=== PATIENT | male | born 1950 | race Caucasian/White ===

== ENCOUNTER 2017-04-24 14:22 | Emergency (ER) | payer MEDICARE, MEDICAID ==
--- NOTE | 2017-04-24 15:04 | ED Physician Chart ---
ED Chief Complaint/HPI - Patient Information Date Seen:: 04/24/17 Time Seen:: 15:03 Chief Complaint:: Cough History of Present Illness:: 67yo male had cough productive of clear sputum for a week, with SOB. He had chest pain due to severe cough. Allergies:: Allergies Allergy/AdvReac Type Severity Reaction Status Date / Time No Known Allergies Allergy Verified 04/24/17 14:34 Vitals:: Vital Signs - 8 hr 04/24/17 14:34 Temp 98.1 F HR 75 RR 16 BP 116/72 O2 Sat % 98 ED Review of Systems - Review of Systems General/Constitutional: No fever Skin: No rash Head: No headache Eyes: No pain ENT: No nasal drainage, Other (hearing, impaired) Neck: No neck pain Cardio Vascular: No chest pain Pulmonary: SOB, Cough, Sputum GI: No nausea, No vomiting Musculoskeletal: No bone or joint pain Psychiatric: No prior psych history Neurological: No focal symptoms ED Past Medical History - Past Medical History Past Medical History: HTN, CVA/TIA, Other (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, [place]) Social History: Non Smoker, Alcohol, No Drug Use Surgical History: Appendectomy, Cholecystectomy Family Medical History - Family Member Mother Hx Family Cancer: No Hx Family Hypertension: No Hx Family Stroke: No Hx Family Diabetes: No Hx Family Seizures: No Hx Family AIDS: No Hx Family HIV: No Hx Family Hepatitis: No Hx Family Tuberculosis: No ED Physical Exam - Physical Examination General/Constitutional: Awake Head: Atraumatic Eyes: PERRL Skin: No skin lesions ENMT: Nasal exam nl Neck: No nuchal rigidity Other Respiratory comments:: Port-A-Cath intact, cough, rhonchi Cardio Vascular: RRR, No murmur, gallop, rubs, NL S1 S2 GI: No tenderness/rebounding/guarding Extremities: normal strength in all extremities Neuro/Psych: Normal sensory exam ED Labs/Radiology/EKG Results - Radiology Results Results: CXR: increased lung markings, no focal consolidation, Port-A-cath presented ED Assessment - Assessment General Assessment: Bronchitis Hypoxemia Assessment/Comments:: CBC, CMP ABG Rocephin IV Azithromycin IV DuoNeb Robitussin D/c home Azithromycin 250mg PO x 5 days F/u PCP or return to ER if symptoms worsen ED Septic Shock - . Is Septic Shock (SBP<90, OR Lactate>4 mmol\L) present?: No - <6hrs of presentation: Vital Signs: Vital Signs - 8 hr 04/24/17 14:34 Temp 98.1 F HR 75 RR 16 BP 116/72 O2 Sat % 98 ED Reassessment (Disposition) - Reassessment Reassessment Condition:: Improved - Patient Disposition Discharge/Transfer:: Home ED Discharge Plan - Patient Disposition Admit/Discharge/Transfer: PT DISCHARGED HOME Condition at Disposition: Stable Instructions: Bronchitis, [id number] Additional Instructions: MAKE A FOLLOW UP WITH PRIMARY MEDICAL DOCTOR EMPERATRIZ, COMPLY WITH PRESCRIBED MEDICATION, DRINK PLENTY OF FLUIDS, GO BACK TO EMERGENCY ROOM IF SYMPTOMS WORSEN.
[2017-04-24] MEDS ORDERED: Albuterol/Ipratropium Neb 3 ML AERS HHN ONE ×4 (15:32→20:13)
[2017-04-24 15:44] LABS: pH 7.44 (7.35-7.45)
[2017-04-24 15:47] LABS: % EOSINOPHILS 1.6 % (0.0-5.0); % LYMPHOCYTES 23.8 % (20.0-50.0); % MONOCYTES 8.4 % (2.0-10.0); % NEUTROPHILS 65.2 % (40.0-80.0); EOSINOPHILE ABSOLUTE 0.1 Th/cmm (0.1-0.4); HEMATOCRIT 38.9 % (41.0-60); HEMOGLOBIN 13.1 gm/dL (12-16); LYMPHOCYTE ABSOLUTE 1.1 Th/cmm (1.5-3.0); MEAN CELL VOLUME 92.1 fl (80-99); MEAN CORPUSCULAR HEMOGLOBIN 31.1 pg (27.0-31.0); MEAN CORPUSCULAR HGB CONC 33.7 pg (28.0-36.0); MEAN PLATELET VOLUME 9.4 fl; MONOCYTE ABSOLUTE 0.4 Th/cmm (0.3-1.0); NEUTROPHILE ABSOLUTE 2.9 Th/cmm (1.8-8.0); PLATELET COUNT 75 Th/cmm (150-400); RED BLOOD COUNT 4.23 Mil/cmm (3.80-5.80); RED CELL DISTRIBUTION WIDTH 15.1 % (11.5-20.0); WHITE BLOOD COUNT 4.5 Th/cmm (4.8-10.8)
[2017-04-24] MEDS ORDERED: Guaifenesin DM 10 ML UDC PO ONE (16:52)
[2017-04-24] MEDS ORDERED: Azithromycin 500 MG in Sodium Chloride 0.9% 250 ML IV ONE (16:58)
[2017-04-24] MEDS ORDERED: Guaifenesin DM 10 ML UDC ONE (16:59)
[2017-04-24] MEDS ORDERED: cefTRIAXone 1 GM in Sodium Chloride 0.9% 50 ML IV ONE (16:59)
[2017-04-24 17:33] LABS: ALB/GLOB RATIO 2.2 (1.0-1.8); ALBUMIN 4.2 gm/dL (4.2-5.5); ALKALINE PHOSPHATASE 73 U/L (34-104); ANION GAP 15.4 (7.0-16.0); BILIRUBIN,TOTAL 0.5 mg/dL (0.3-1.0); BUN - UREA NITROGEN 14 mg/dL (7-25); CALCIUM SERUM 9.2 mg/dL (8.6-10.3); CARBON DIOXIDE 22.8 mEq/L (21.0-31.0); CHLORIDE 106 mEq/L (98-107); CHOLESTEROL 111 mg/dL (<200); CREATININE - SERUM 0.8 mg/dL (0.7-1.3); GFR AFRICAN-AMERICAN > 60.0 ml/min (>90); GFR NON AFRICAN-AMERICAN > 60.0 ml/min; GLUCOSE 125 mg/dL (70-105); HDL -HIGH DENSITY LIPOPROTEIN 28 mg/dL (23-92); POTASSIUM SERUM 4.2 mEq/L (3.5-5.1); SGOT 21 U/L (13-39); SGPT/ALT 23 U/L (7-52); SODIUM SERUM 140 mEq/L (136-145); TOTAL PROTEIN,SERUM 6.1 gm/dL (6.0-8.3); TRIGLYCERIDES 92 mg/dL (<150)
--- NOTE | 2017-04-25 08:55 | Diagnostic Imaging Report ---
CHEST X-RAY: AP view INDICATION: Cough COMPARISON: None FINDINGS: Right-sided Port-A-Cath is seen tip in the SVC. There is evidence of prior median sternotomy. Increased interstitial lung markings are noted with no focal consolidation or effusions. Heart size at the upper limits of normal. Tortuous aorta is noted with atherosclerosis. Degenerative changes of the spine are noted. IMPRESSION: Increased interstitial lung markings, nonspecific and may be chronic. No focal consolidation identified. Atherosclerosis with tortuous aorta Postsurgical changes.
== END 2017-04-24 20:30 | disposition home or self-care (01) ==
LOC: ER 14:22
DX: R05 Cough (principal); I10 Essential (primary) hypertension; Z86.73 Personal history of transient ischemic attack (TIA), and cerebral infarction without residual deficits
CPT/HCPCS: 99285; 96365; 96368; 82803; 36600; 94640 ×2; 93005; 71045; 84484; 83880; 36415; 85025; 80053; 80061; J0696; J0456

== ENCOUNTER 2017-04-27 11:31 | Inpatient (IN) | payer MEDICARE, MEDICAID ==
--- NOTE | 2017-04-27 11:41 | ED Physician Chart ---
ED Chief Complaint/HPI - Patient Information Date Seen:: 04/27/17 Time Seen:: 11:30 Chief Complaint:: Fever History of Present Illness:: onset x one week of fever, cough, congestion, and dyspnea; worse today; pt denies H/As, S/T, neck pain, C/P, Abd. Pain, A/N/V/D/C, chills, or urinary s/s Allergies:: Allergies Allergy/AdvReac Type Severity Reaction Status Date / Time No Known Allergies Allergy Verified 04/24/17 14:34 Historian:: Patient Review:: Nurse's Note Reviewed ED Review of Systems - Review of Systems General/Constitutional: Fever, No chills, No weight loss, No weakness, No diaphoresis, No edema, No loss of appetite Skin: No skin lesions, No rash, No bruising Head: No headache, No light-headedness Eyes: No loss of vision, No pain, No diplopia ENT: No earache, No nasal drainage, No sore throat, No tinnitus Neck: No neck pain, No swelling, No thyromegaly, No stiffness, No mass noted Cardio Vascular: No chest pain, No palpitations, No PND, No orthopnea, No edema Pulmonary: No SOB, Cough, No sputum, Wheezing GI: No nausea, No vomiting, No diarrhea, No pain, No melena, No hematochezia, No constipation, No hematemesis G/U: No dysuria, No frequency, No hematuria, No nacturia Musculoskeletal: No bone or joint pain, No back pain, No muscle pain Endocrine: No polyuria, No polydipsia Psychiatric: No prior psych history, No depression, No anxiety, No suicidal ideation, No homicidal ideation, No auditory hallucination, No visual hallucination Hematopoietic: No bruising, No lymphadenopathy Allergic/Immuno: No urticaria, No angioedema Neurological: No syncope, No focal symptoms, No weakness, No paresthesia, No headache, No seizure, No dizziness, No confusion, No vertigo ED Past Medical History - Past Medical History Obtainable: Yes Past Medical History: HTN, CAD, Asthma/COPD, Dyslipidemia, Other (Non-Hogkins Lymphoma) Family History: Diabetes Melitus, HTN Social History: Smoker, No Alcohol, No Drug Use, Single Surgical History: Appendectomy, CABG Psychiatricy History: None Medication: Reviewed Family Medical History - Family Member Mother Hx Family Cancer: No Hx Family Hypertension: No Hx Family Stroke: No Hx Family Diabetes: No Hx Family Seizures: No Hx Family AIDS: No Hx Family HIV: No Hx Family Hepatitis: No Hx Family Tuberculosis: No ED Physical Exam - Physical Examination General/Constitutional: Awake, Well-developed, well-nourished, Alert, No distress, GCS 15, Non-toxic appearing, Ambulatory Head: Atraumatic Eyes: Lids, conjuctiva normal, PERRL, EOMI Skin: Nl inspection, No rash, No skin lesions, No ecchymosis, Well hydrated, No lymphadenopathy ENMT: External ears, nose nl, TM canals nl, Nasal exam nl, Lips, teeth, gums nl , Oropharynx nl, Tonsils nl Neck: Nontender, Full ROM w/o pain, No JVD, No nuchal rigidity, No bruit, No mass, No stridor Respiratory: Nl effort/Exclusion Other Respiratory comments:: Lungs: + Rales, Rhonchi, and Wheezes Cardio Vascular: RRR, No murmur, gallop, rubs, NL S1 S2, Carotid/Femoral/Distal pulses equal bilaterally GI: No tenderness/rebounding/guarding, No organomegaly, No hernia, Normal BS's, Nondistended, No mass/bruits, No McBurney tenderness : No CVA tenderness Extremities: No tenderness or effusion, Full ROM, normal strength in all extremities, No edema, Normal digits & nails Neuro/Psych: Alert/oriented, DTR's symmetric, Normal sensory exam, Normal motor strength, Judgement/insight normal, Mood normal, Normal gait, No focal deficits Misc: Normal back, No paraspinal tenderness ED Labs/Radiology/EKG Results - Lab Results Comments:: unremarkable - Radiology Results Comments:: CXR: + LLL Infiltrate - EKG Interpretations EKG Time:: 12:07 Rate & Rhythm: 62; NSR Comments:: non-specific st-t changes ED Septic Shock - . Is Septic Shock (SBP<90, OR Lactate>4 mmol\L) present?: No ED Reassessment (Disposition) - Reassessment Reassessment Condition:: Improved - Diagnosis Diagnosis:: Dx: Pneumonia; Cough; Fever; Sepsis; Dyspnea; Bronchospasms;
[2017-04-27] MEDS ORDERED: Sodium Chloride 0.9% 1,000 ML IV ONE (11:42)
[2017-04-27] MEDS ORDERED: Albuterol/Ipratropium Neb 3 ML AERS HHN ONE ×2 (11:43→12:01)
[2017-04-27] MEDS ORDERED: Levofloxacin 500mg/100mL 500 MG/100 ML BAG IV ONE ×2 (11:44→12:08)
[2017-04-27 12:03] LABS: % BASOPHILS 0.4 % (0.0-2.0); % EOSINOPHILS 1.9 % (0.0-5.0); % LYMPHOCYTES 20.8 % (20.0-50.0); % MONOCYTES 6.1 % (2.0-10.0); % NEUTROPHILS 70.8 % (40.0-80.0); EOSINOPHILE ABSOLUTE 0.1 Th/cmm (0.1-0.4); HEMATOCRIT 39.2 % (41.0-60); LYMPHOCYTE ABSOLUTE 1.1 Th/cmm (1.5-3.0); MEAN CELL VOLUME 91.7 fl (80-99); MEAN CORPUSCULAR HEMOGLOBIN 30.5 pg (27.0-31.0); MEAN CORPUSCULAR HGB CONC 33.3 pg (28.0-36.0); MEAN PLATELET VOLUME 9.8 fl; MONOCYTE ABSOLUTE 0.3 Th/cmm (0.3-1.0); NEUTROPHILE ABSOLUTE 3.9 Th/cmm (1.8-8.0); PLATELET COUNT 88 Th/cmm (150-400); RED BLOOD COUNT 4.27 Mil/cmm (3.80-5.80); RED CELL DISTRIBUTION WIDTH 14.4 % (11.5-20.0); WHITE BLOOD COUNT 5.4 Th/cmm (4.8-10.8)
[2017-04-27 12:22] LABS: INR 1.06 (0.5-1.4)
[2017-04-27 12:28] LABS: TROP I 0.01 ng/mL (0.01-0.05)
[2017-04-27 12:30] LABS: ALB/GLOB RATIO 2.2 (1.0-1.8); ALBUMIN 4.2 gm/dL (4.2-5.5); ALKALINE PHOSPHATASE 69 U/L (34-104); ANION GAP 9.3 (7.0-16.0); BILIRUBIN,TOTAL 0.7 mg/dL (0.3-1.0); BUN - UREA NITROGEN 15 mg/dL (7-25); CALCIUM SERUM 9.1 mg/dL (8.6-10.3); CARBON DIOXIDE 27.8 mEq/L (21.0-31.0); CHLORIDE 106 mEq/L (98-107); CREATININE - SERUM 0.7 mg/dL (0.7-1.3); CREATININE KINASE 91 U/L (30-223); GFR AFRICAN-AMERICAN > 60.0 ml/min (>90); GFR NON AFRICAN-AMERICAN > 60.0 ml/min; GLUCOSE 144 mg/dL (70-105); POTASSIUM SERUM 4.1 mEq/L (3.5-5.1); SGOT 16 U/L (13-39); SGPT/ALT 20 U/L (7-52); SODIUM SERUM 139 mEq/L (136-145); TOTAL PROTEIN,SERUM 6.1 gm/dL (6.0-8.3)
[2017-04-27 12:44] LABS: AMYLASE SERUM 30 U/L (29-103); LIPASE 15 U/L (11-82)
--- NOTE | 2017-04-27 13:17 | Diagnostic Imaging Report ---
Portable chest x-ray HISTORY: Pain Exam is compared with prior study of April 242017. The heart appears generous in size. Atherosclerotic calcination seen in the tortuous thoracic aorta. There is a somewhat protuberant contour of the mid thoracic aorta. Aneurysm cannot be excluded. If needed, a CT scan would provide additional assessment. No acute focal pulmonary processes. Surgical changes noted. IMPRESSION: 1. No acute pulmonary processes 2. Generous heart size with suggestion of a protuberant contour of the thoracic aorta. This may be related to tortuosity. However, aneurysm formation cannot be excluded. If necessary, a CT scan would provide additional assessment. 3. Surgical changes The emergency department ([facility]) was notified of the abnormal findings April 27, 2017 (1:10 PM).
[2017-04-27 14:02] LABS: URINE MICROSCOPIC INDICATED? YES; URINE SOURCE MIDSTREAM
[2017-04-27 14:06] LABS: URINE BILIRUBIN NEGATIVE (NEGATIVE); URINE BLOOD NEGATIVE (NEGATIVE); URINE GLUCOSE (UA) NEGATIVE (NEGATIVE); URINE KETONE NEGATIVE (NEGATIVE); URINE LEUKOCYTE ESTERASE NEGATIVE (NEGATIVE); URINE NITRATE NEGATIVE (NEGATIVE); URINE PROTEIN NEGATIVE (NEGATIVE); URINE UROBILINOGEN 0.2 E.U./dL (0.2 - 1.0)
[2017-04-27 14:20] LABS: URINE CLARITY CLEAR (CLEAR); URINE COLOR YELLOW
[2017-04-27 14:21] LABS: URINE BACTERIA NONE SEEN /hpf (NONE SEEN); URINE EPITHELIAL CELLS RARE /lpf (FEW); URINE RBC 0-2 /hpf (0-5); URINE WBC NONE SEEN /hpf (0-5)
[2017-04-27] MEDS: Albuterol/Ipratropium Neb 3 ML AERS HHN PRN (23:12)
--- NOTE | 2017-04-28 00:16 | ER Physician Documentation ---
DATE OF SERVICE: A 67-year-old male patient. In ER, the patient is full code. ALLERGIES: No known allergies. "I got all the lab results, let me give it to you, so you can put it in the computer." LABORATORY DATA: WBC is 5.4, platelet count is 88,000. Protime is within normal limits. Electrolytes are within normal limits. Sodium 139, potassium 4.1, chloride 106, BUN 15, creatinine 0.7, glucose 144. Whole-blood lactic acid is 1.72, calcium is 9.1. Alkaline phosphatase is 69. Albumin globulin is within normal limits. Amylase is 30 and urine is essentially within normal limits. The patient's current medications that he is taking, include Plavix 75 mg 1 tablet a day, Coreg 12.5 mg twice a day, Lasix 40 mg once a day, Proscar 5 mg p.o. at bedtime, Isordil 60 mg p.o. once a day, lisinopril 40 mg p.o. twice a day, atorvastatin 40 mg once a day, Flomax 0.4 mg 1 at bedtime and the patient is getting one of the newer kind of beta blockers, I believe, which Carisoprodol 350 mg twice a day whether it is one of the cancer drugs or not, I do not know and the patient is getting a Soma compound, Soma as needed and oxycodone 15 mg 3 tablets or more as needed, vitamin D3 1000 units twice a day, multivitamin 1 a day, aspirin 81 mg a day, glucosamine hydrochloride 1500 mg once a day. List of all the conditions that the patient, this is for the benefit of Dr. Martinez. The patient has congestive heart failure. The patient has hypertension. The patient had a heart attack in the year 1999, stroke in the year 2000, coronary artery bypass graft surgery on 10/26/2001 by ____, must be the primary doctor. . The patient is going to [facility], telephone number [phone] and in emergency call Rafa Ayala, . The patient had acute appendicitis on 07/30/2014. The patient had rectal surgery on 12/11/2014, gallbladder surgery on 06/11/2015. The patient has a coronary artery stent put in on 02/22/2016. Vital signs are essentially, 98.1, 68 pulse, respirations 22, blood [id number], oxygen saturation 96%, height 5 feet 7 inches, weight [address] Martinez was called. He was having dinner. He is going to call me back for probably admission into the hospital with a diagnosis of acute tracheobronchitis. The chest x-ray does not show any definite evidence of pneumonitis. The EKG shows evidence of small inferior wall nondiagnostic Q-waves and poor R-wave progression across the precordium, but there is definitely no anteroseptal wall myocardial infarction seen. If there is one, one cannot be sure by looking at this EKG. A 2D echo would be helpful to define that, but considering his medical condition, it is possible that he may have had a previous old anteroseptal wall myocardial infarction. The platelet count is 98,000. Chest x-ray shows no acute pulmonary process. Generous heart size with suggestion of protuberant contour of the thoracic aorta. This may be related to tortuosity; however aneurysm formation cannot be excluded and if necessary a CT scan would provide additional assessment. Surgical changes of myocardial revascularization surgery are seen, reported by Dr. Brenden Chen. Thank you very much for this privilege and for your kindness in doing all these things. JOB# [id number]
[2017-04-28] MEDS: Azithromycin 500 MG in Sodium Chloride 0.9% 250 ML IV SCH ×2 (00:20→22:14)
[2017-04-28] MEDS: Guaifenesin DM 10 ML UDC PO PRN (01:30)
[2017-04-28] MEDS: Albuterol/Ipratropium Neb 3 ML AERS HHN PRN ×2 (01:34→05:13)
[2017-04-28 05:12] LABS: pH 7.44 (7.35-7.45)
[2017-04-28 05:13] LABS: ALLEN TEST Positive
[2017-04-28 05:26] VITALS: BP 155/60
[2017-04-28 06:02] LABS: % BASOPHILS 0.1 % (0.0-2.0); % EOSINOPHILS 0.1 % (0.0-5.0); MONOCYTE ABSOLUTE 0.2 Th/cmm (0.3-1.0)
[2017-04-28] MEDS: methylPREDNISolone SS 40 mg Vial IV SCH ×3 (06:03→22:12)
[2017-04-28 06:07] LABS: % LYMPHOCYTES 13.4 % (20.0-50.0); % MONOCYTES 3.8 % (2.0-10.0); % NEUTROPHILS 82.6 % (40.0-80.0); HEMATOCRIT 37.9 % (41.0-60); LYMPHOCYTE ABSOLUTE 0.8 Th/cmm (1.5-3.0); MEAN CORPUSCULAR HEMOGLOBIN 30.8 pg (27.0-31.0); MEAN CORPUSCULAR HGB CONC 34.2 pg (28.0-36.0); MEAN PLATELET VOLUME 9.4 fl; NEUTROPHILE ABSOLUTE 4.8 Th/cmm (1.8-8.0); PLATELET COUNT 63 Th/cmm (150-400); RED BLOOD COUNT 4.21 Mil/cmm (3.80-5.80); RED CELL DISTRIBUTION WIDTH 14.4 % (11.5-20.0); WHITE BLOOD COUNT 5.8 Th/cmm (4.8-10.8)
[2017-04-28 06:25] LABS: ALB/GLOB RATIO 2.4 (1.0-1.8); ALBUMIN 4.3 gm/dL (4.2-5.5); ALKALINE PHOSPHATASE 67 U/L (34-104); ANION GAP 11.3 (7.0-16.0); BILIRUBIN,TOTAL 0.5 mg/dL (0.3-1.0); BUN - UREA NITROGEN 13 mg/dL (7-25); CALCIUM SERUM 9.2 mg/dL (8.6-10.3); CARBON DIOXIDE 24.6 mEq/L (21.0-31.0); CHLORIDE 105 mEq/L (98-107); CREATININE - SERUM 0.7 mg/dL (0.7-1.3); GFR AFRICAN-AMERICAN > 60.0 ml/min (>90); GFR NON AFRICAN-AMERICAN > 60.0 ml/min; GLUCOSE 169 mg/dL (70-105); LDH = LACTIC DEHYDROGENASE 157 U/L (140-271); MAGNESIUM 2.6 mg/dL (1.9-2.7); POTASSIUM SERUM 3.9 mEq/L (3.5-5.1); SGOT 14 U/L (13-39); SGPT/ALT 19 U/L (7-52); SODIUM SERUM 137 mEq/L (136-145); TOTAL PROTEIN,SERUM 6.1 gm/dL (6.0-8.3)
[2017-04-28] MEDS ORDERED: Budesonide 0.5 Mg/2 mL Ud HHN SCH (07:00)
[2017-04-28] MEDS: Albuterol/Ipratropium Neb 3 ML AERS HHN SCH ×3 (07:34→18:57)
[2017-04-28] MEDS: Aspirin 81mg Chewable Tab PO SCH (08:30)
--- NOTE | 2017-04-28 09:48 | Diagnostic Imaging Report ---
Exam: CT examination of the chest HISTORY: Shortness of breath. Total DLP equals 371 CTDI equals 9.1 Findings: Multiple contiguous thin section of the chest were obtained from thoracic outlet to the upper abdomen without the administration of contrast material no prior studies available comparison. The study demonstrates normal appearance of great vessels of the neck. Adenopathy is difficult to exclude due to lack of the contrast material Multiple metallic sutures are noted status post transsternal thoracotomy. The aortic arch calcified. The heart is not enlarged. No acute pulmonic infiltrates or effusions are noted. Bony thorax remarkable for degenerative changes of the distal thoracic spine. There is no evidence for lytic or blastic lesions. The visualized the upper abdomen is intact. There is evidence for small lucency in the posterior aspect of right lobe of liver most likely represent small cysts. There is evidence of previous cholecystectomy. The visualized the adrenal glands intact. IMPRESSION: Essentially unremarkable examination of chest. Mild atelectatic change in the right base.
[2017-04-28] MEDS ORDERED: Pneumococcal Vaccine 0.5 mL Vial IM ONE (10:30)
[2017-04-28] MEDS ORDERED: Influenza Vaccine 0.5 mL Syr IM ONE (10:30)
--- NOTE | 2017-04-28 11:35 | History & Physical ---
ADMIT DATE: 04/28/2017 PATIENT'S IDENTIFICATION: A 67-year-old male. CHIEF COMPLAINT: Cough, congestion, and shortness of breath per 1 week, got worse on the day of presentation. HISTORY OF PRESENT ILLNESS: A 67-year-old male with history of coronary artery disease, hypertension, DJD, history of asthma, COPD, history of non-Hodgkin's lymphoma, presented to [facility] Emergency Room for evaluation of his above-mentioned symptoms. The patient was evaluated and subsequently advised to be admitted after the patient was continued to have congestion, shortness of breath associated with extensive wheezing and chest x-ray did reveal questionable infiltrate. PAST MEDICAL HISTORY: Remarkable for: 1. Hypertension. 2. Coronary artery disease. 3. Asthma, COPD. 4. Hyperlipidemia. 5. Non-Hodgkin's lymphoma. 6. DJD. 7. Chronic pain syndrome. 8. History of appendectomy and gallbladder surgery along with coronary artery bypass graft. MEDICATIONS: Medication list has been reviewed and reconciled appropriately. ALLERGIES: The patient is not allergic to medication. SOCIAL HISTORY: The patient lives by himself. The patient is an ex-smoker. No alcohol use or no drug use. The patient currently on prescription medication for his pain. FAMILY MEDICAL HISTORY: Remarkable for diabetes and hypertension. REVIEW OF SYSTEMS: The patient currently denies any fever, chills, abdominal pain, nausea, vomiting, headache, seizure, syncopal episode, no suicidal or homicidal ideation. PHYSICAL EXAMINATION: GENERAL: The patient is alert and awake, lying in the bed without any acute distress. VITAL SIGNS: Temperature 98.8, pulse is 100, respiratory rate is 18, blood pressure 131/51. HEENT: Normocephalic, atraumatic. Extraocular muscles are intact. Tongue more pink and coated. Oropharynx is congested. Nasal mucosa congested. NECK: Supple. No JVD. No hepatojugular reflux. No lymphadenopathy, thyromegaly or carotid bruit. HEART: Both heart sounds are regular. No pericardial bulge. Grade 2/6 systolic murmur noted. CHEST: Lung equal in expansion, expiratory wheezing. ABDOMEN: Soft. No guarding, no rigidity. Liver and spleen are not palpable. No palpable mass. EXTREMITIES: No edema, no cyanosis or clubbing. Peripheral pulses +2. No coughing noted. NEUROLOGIC: Alert, awake, oriented to time, place, and person. 2-12 cranial nerves are intact. Power in upper and lower extremities are 5+. Sensory to touch intact. [place] in both toes are going down. No cerebral sign. AVAILABLE DIAGNOSTIC DATA: White count of 5.4, hemoglobin 13, platelet count of 88. PT and PTTs are normal. Sodium 139, potassium 4.1, chloride 106, CO2 27.8, BUN and creatinine is 15 and 0.7, glucose of 144. Liver functions are normal. Albumin is 4.2. Urinalysis is unremarkable. The patient did have a chest x-ray, which read by radiologist, no acute cardiopulmonary ___, remarkable for cardiomegaly. EKG, no ST-T change representing acute ischemia. CLINICAL IMPRESSION: 1. Acute respiratory failure. 2. Tracheobronchitis with bronchospasm, cannot rule out pneumonitis in the presence of immunocompromised state. 3. Hypertension. 4. Coronary artery disease. 5. Asthma, chronic obstructive pulmonary disease. 6. Degenerative joint disease. 7. History of non-Hodgkin's lymphoma. 8. Chronic pain syndrome. 9. Benign prostatic hypertrophy. PLAN: 1. The patient will be admitted to telemetry unit. 2. Provide oxygen. 3. Nebulizer treatment. 4. IV steroid. 5. IV antibiotic. 6. Pulmonary consult. 7. Pulmonary toilet. 8. ABG. 9. CT chest. 10. Serum LDH for looking at activity of non-Hodgkin's lymphoma. 11. Appropriate home medicine reconciliation. 12. Pain management. 13. Symptoms controlled. 14. Medication management. 15. General nursing care. 16. Cardiac monitoring. 17. Await for further diagnostic studies. 18. Care plan reviewed and discussed with the patient as well as staff. JOB# [id number]
[2017-04-28] MEDS: Multivitamin Tab PO SCH (12:51)
[2017-04-28] MEDS ORDERED: VTE Chemical Prophylaxis Screen/Admission MC PRN (14:15)
[2017-04-28] MEDS: Budesonide 0.5 Mg/2 mL Ud HHN SCH ×2 (18:58→19:15)
--- NOTE | 2017-04-29 03:05 | Progress Notes ---
DATE: 04/28/2017 PULMONARY/CRITICAL CARE CONSULTATION NOTE REASON FOR CONSULTATION: Shortness of breath, suspect sleep apnea syndrome. CONSULT NOTE: This is a 67-year-old gentleman who is a nonsmoker, has recently finished lymphoma non-Hodgkin's type B chemotherapy in [place]. Apparently, the patient is going to and fro from [place] to [place], as he lived in [place] for a long time and now he lives with the family. While visiting, the patient did get the last 2 days, more coughing, more wheezing, questionable fever with generalized chest tightness with lot of runny stuffy nose. Subsequently, as the symptom persisted, the patient came to the hospital for further care and necessary treatment. The patient had a similar episode in the month of January. He took some Z-ROSALVA and was fairly better. The patient has significantly gained weight over the last 2-3 years per chronic edematous changes, cannot lie down flat, has some dyspeptic symptomatology. Currently has significant post sinus dribbling as well. Does not recall of any headache or denies of any other palpitation, any nausea or vomiting. PAST MEDICAL HISTORY: Previous bypass surgery, recent stent placement, history of CVA, history of "congestive heart failure", history of degenerative joint disease, history of hypertension, history of lymphoma type B non-Hodgkin's, finished treatment couple of months ago and history of suspect of severe obstructive sleep apnea syndrome. MEDICATIONS: Multiple, see reconciled list. SMOKING HISTORY: Nil. 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 ALLERGIC HISTORY: Not to any allergens etc. FAMILY HISTORY: Noncontributory. SURGICAL HISTORY: Multiple including history of heart surgery, some rectal surgery, cholecystectomy, appendectomy, etc. PHYSICAL EXAMINATION: GENERAL: This is an heavy set, middle-aged looking gentleman, awake, alert, and oriented. He has quite a bit of coughing at my exam. Not in acute distress. VITAL SIGNS: On exam, temperature is 98.6, heart rate is in 80s, BP is 136/51, respirations 20, saturation is on 90s on 2 liters of nasal cannula. HEENT: Examination of the head is essentially unremarkable. Pupils appear to be equal and reactive to light. Conjunctivae are pink. Oral cavity shows small oropharyngeal opening with slight inflammatory changes. NECK: Short. No palpable nodes in the neck could be palpated. CHEST: Shows scattered wheezing with marked diminished air entry. ABDOMEN: Quite protuberant with multiple surgical scars. EXTREMITIES: Shows a venous bypass surgery in the left side with chronic edematous changes and a chest x-ray is clear. CT of the chest shows some pleural base disorder with some lower lobe minor atelectasis. LABORATORY DATA: The patient's pertinent laboratory studies, platelet is 88,000, white count of 5.4, hemoglobin 13. The patient's ABG done this morning, pO2 is 74 on room air and the patient's sugar is 169 and urine shows 2+ RBC. IMPRESSION: 1. The patient has a severe acute tracheobronchitis, most likely vitals less with change in weather. 2. History very strongly suggestive of chronic bronchial asthma. 3. History also very strongly suggestive of sleep apnea syndrome with right-sided failure, which has been probably ended up having a stroke, CVA, cardiac bypass surgery, stent placement, diabetic and hypertension. PLANS AND SUGGESTIONS: 1. Discussed with the patient at length the pros and cons about using and not using CPAP. He was deferred at this time. 2. Acute asthmatic bronchitis. We will continue steroid, increase inhalation of steroid dose. We will get a proton pump inhibitor medication and also agree with empiric antibiotic and we will see how he does in the next 24-48 hours and go from there. JOB# [id number]
[2017-04-29] MEDS: Albuterol/Ipratropium Neb 3 ML AERS HHN PRN ×2 (04:57→23:31)
[2017-04-29] MEDS: methylPREDNISolone SS 40 mg Vial IV SCH ×3 (05:04→21:11)
[2017-04-29 05:15] LABS: HEMATOCRIT 40.3 % (41.0-60); HEMOGLOBIN 13.4 gm/dL (12-16); MANUAL DIFF REQUIRED? YES; MEAN CORPUSCULAR HEMOGLOBIN 30.9 pg (27.0-31.0); MEAN CORPUSCULAR HGB CONC 33.2 pg (28.0-36.0); MEAN PLATELET VOLUME 9.6 fl; PLATELET COUNT 71 Th/cmm (150-400); RED BLOOD COUNT 4.34 Mil/cmm (3.80-5.80); RED CELL DISTRIBUTION WIDTH 14.6 % (11.5-20.0); WHITE BLOOD COUNT 6.6 Th/cmm (4.8-10.8)
[2017-04-29 05:48] LABS: ALB/GLOB RATIO 2.1 (1.0-1.8); ALBUMIN 4.2 gm/dL (4.2-5.5); ALKALINE PHOSPHATASE 67 U/L (34-104); ANION GAP 12.2 (7.0-16.0); BILIRUBIN,TOTAL 0.5 mg/dL (0.3-1.0); BUN - UREA NITROGEN 16 mg/dL (7-25); CALCIUM SERUM 9.2 mg/dL (8.6-10.3); CARBON DIOXIDE 24.5 mEq/L (21.0-31.0); CHLORIDE 106 mEq/L (98-107); CREATININE - SERUM 0.7 mg/dL (0.7-1.3); GFR AFRICAN-AMERICAN > 60.0 ml/min (>90); GFR NON AFRICAN-AMERICAN > 60.0 ml/min; GLUCOSE 201 mg/dL (70-105); POTASSIUM SERUM 3.7 mEq/L (3.5-5.1); SGOT 13 U/L (13-39); SGPT/ALT 20 U/L (7-52); SODIUM SERUM 139 mEq/L (136-145); TOTAL PROTEIN,SERUM 6.2 gm/dL (6.0-8.3)
[2017-04-29 05:51] LABS: TOTAL CELLS COUNTED 100
[2017-04-29 05:52] LABS: BAND NEUTROPHILE 2 % (0-10); EOSINOPHIL 1 % (0-5); LYMPHOCYTE 12 % (20-50); MONOCYTE 2 % (2-10); NEUTROPHILS 83 % (40-80); PLATELET ESTIMATE SLIGHT DECREASED (NORMAL)
[2017-04-29] MEDS: Budesonide 0.5 Mg/2 mL Ud HHN SCH ×2 (07:26→19:28)
[2017-04-29] MEDS: Albuterol/Ipratropium Neb 3 ML AERS HHN SCH ×3 (07:26→19:03)
[2017-04-29] MEDS: Pantoprazole 40 mg/Packet PO SCH (08:15)
[2017-04-29] MEDS: Aspirin 81mg Chewable Tab PO SCH (08:51)
[2017-04-29] MEDS: Multivitamin Tab PO SCH (08:53)
[2017-04-29 16:37] LABS: A1C % 6.9 % (4.0-6.0)
[2017-04-29] MEDS: INSULIN ASPART SLIDING SCALE 100 UNITS/ML UNIT SUBQ SCH ×2 (17:21→23:26)
[2017-04-29 18:21] LABS: INF A SCREEN NEG FOR INF A; INF B SCREEN NEG FOR INF B
--- NOTE | 2017-04-29 20:54 | Progress Notes ---
DATE: PATIENT'S IDENTIFICATION: This 67-year-old female patient is seen and examined. The patient is lying in the bed. The patient stated that she is feeling better. The patient denies any abdominal pain. Denies any nausea, vomiting. Still has a cough. PHYSICAL EXAMINATION: VITAL SIGNS: Temperature 98, pulse 60, respiratory rate 18, and blood pressure 186/100. HEENT: Normocephalic and atraumatic. Extraocular muscles are intact. Tongue was pink and coated. NECK: Supple. No JVD. HEART: Regular. CHEST: Lungs ____ with mild expiratory wheezing. ABDOMEN: Soft. No guarding, rigidity. Bowel sounds are present. EXTREMITIES: No edema. CLINICAL IMPRESSION: 1. Asthma, chronic obstructive pulmonary disease exacerbation. 2. Acute respiratory failure. 3. Hypertension. 4. Coronary artery disease. 5. Degenerative joint disease. 6. History of known Hodgkin's lymphoma. 7. Chronic pain syndrome. 8. Elevated blood sugars. PLAN: 1. Oxygen. 2. Nebulizer treatment. 3. Decrease IV steroid. 4. Sliding scale insulin. 5. General nursing care. 6. Follow labs. 7. Follow consult recommendations. 8. Physical therapy and occupational therapy. 9. Care plan reviewed and discussed with staff. JOB# [id number]
[2017-04-29] MEDS: Azithromycin 500 MG in Sodium Chloride 0.9% 250 ML IV SCH (22:47)
[2017-04-30] MEDS: Guaifenesin DM 10 ML UDC PO PRN (00:52)
[2017-04-30] MEDS: Codeine /Guaifenesin 200mg-20mg/10 mL UDC PO PRN ×3 (05:04→14:11)
[2017-04-30] MEDS: methylPREDNISolone SS 40 mg Vial IV SCH ×3 (05:04→20:57)
[2017-04-30 05:30] LABS: PLATELET COUNT 73 Th/cmm (150-400); RED CELL DISTRIBUTION WIDTH 14.8 % (11.5-20.0)
[2017-04-30 05:33] LABS: HEMATOCRIT 39.2 % (41.0-60); HEMOGLOBIN 13.3 gm/dL (12-16); MEAN CELL VOLUME 92.1 fl (80-99); MEAN CORPUSCULAR HEMOGLOBIN 31.3 pg (27.0-31.0); MEAN PLATELET VOLUME 9.3 fl; RED BLOOD COUNT 4.26 Mil/cmm (3.80-5.80); WHITE BLOOD COUNT 6.7 Th/cmm (4.8-10.8)
[2017-04-30 05:41] LABS: MANUAL DIFF REQUIRED? YES
[2017-04-30 05:51] LABS: ALB/GLOB RATIO 2.5 (1.0-1.8); ALBUMIN 4.2 gm/dL (4.2-5.5); ALKALINE PHOSPHATASE 70 U/L (34-104); ANION GAP 10.8 (7.0-16.0); BILIRUBIN,TOTAL 0.5 mg/dL (0.3-1.0); BUN - UREA NITROGEN 18 mg/dL (7-25); CALCIUM SERUM 9.2 mg/dL (8.6-10.3); CARBON DIOXIDE 26.9 mEq/L (21.0-31.0); CHLORIDE 103 mEq/L (98-107); CREATININE - SERUM 0.7 mg/dL (0.7-1.3); GFR AFRICAN-AMERICAN > 60.0 ml/min (>90); GFR NON AFRICAN-AMERICAN > 60.0 ml/min; GLUCOSE 164 mg/dL (70-105); POTASSIUM SERUM 3.7 mEq/L (3.5-5.1); SGOT 15 U/L (13-39); SGPT/ALT 22 U/L (7-52); SODIUM SERUM 137 mEq/L (136-145); TOTAL PROTEIN,SERUM 5.9 gm/dL (6.0-8.3)
[2017-04-30 06:17] LABS: LYMPHOCYTE 3 % (20-50); MONOCYTE 6 % (2-10); NEUTROPHILS 91 % (40-80); TOTAL CELLS COUNTED 100
[2017-04-30 06:18] LABS: PLATELET ESTIMATE DECREASED PLATELETS (NORMAL)
[2017-04-30] MEDS: Albuterol/Ipratropium Neb 3 ML AERS HHN SCH ×3 (07:52→20:06)
[2017-04-30] MEDS: Budesonide 0.5 Mg/2 mL Ud HHN SCH ×2 (07:52→20:06)
--- NOTE | 2017-04-30 08:21 | Progress Notes ---
DATE: 04/28/2017 PROBLEM LIST: 1. Acute asthmatic bronchitis. 2. Severe obstructive sleep apnea syndrome. 3. B-cell lymphoma status post. 4. Morbid obesity. SYMPTOMS: Nil. Feeling a little better, still less congested, but still ____ of coughing. No respiratory distress, etc. PHYSICAL EXAMINATION: VITAL SIGNS: T-max 97.4, blood pressure 170/90, respirations 20, saturations is 19 on room air. NECK: Veins not visualized. CHEST: Shows diminished air entry with occasional rhonchi. HEART: Regular. ABDOMEN: Soft, nontender. EXTREMITIES: Shows no peripheral edema. LABORATORY DATA: White count is 6.3, hemoglobin 13.4 lymphocytes is 12. Electrolytes are okay. ASSESSMENT: 1. The patient has acute tracheobronchitis asthmatic. 2. Immunocompromised status. 3. Morbid obesity with obstructive sleep apnea syndrome with allergic rhinitis. PLANS AND SUGGESTIONS: We will continue current treatment and slowly taper steroid. We will go ahead and give symptomatic treatment with Robitussin-AC for a few days and continue rest of the treatment and see how he does and go from there. JOB# [id number]
[2017-04-30] MEDS: INSULIN ASPART SLIDING SCALE 100 UNITS/ML UNIT SUBQ SCH ×4 (08:25→21:08)
[2017-04-30] MEDS: Multivitamin Tab PO SCH (09:09)
[2017-04-30] MEDS: Aspirin 81mg Chewable Tab PO SCH (09:10)
[2017-04-30] MEDS: Pantoprazole 40 mg/Packet PO SCH (14:06)
[2017-04-30] MEDS ORDERED: Probiotic Screen MC PRN (14:15)
--- NOTE | 2017-04-30 17:26 | Cardiology ---
04/30/[address] Abbott. M-MODE ECHOCARDIOGRAM: Mitral valve, anterior leaflet of mitral valve shows normal excursion, EF velocity. Posterior leaflet of the mitral valve shows normal excursion. Left ventricle posterior shows increased thickness, normal excursion. Interventricular septum shows increased thickness, normal excursion, hypertrophy of the left ventricle, ejection fraction 73%. Left atrium enlarged 4.2 cm. Aortic root shows normal dimension, normal excursion of aortic leaflets. CONCLUSION: Hypertrophy of the left ventricle, left atrial enlargement, ejection fraction 73%. 2D ECHO: Long axis view showed normal sized left ventricle with hypertrophy of the left ventricle. Left atrium enlarged. Aortic root shows normal dimension, normal excursion of aortic leaflets. Short axis view of mitral valve normal. Short axis view of aortic valve normal. Apical four chamber view showed normal sized left ventricle with hypertrophy of the left ventricle. Left atrium enlarged. Right ventricular cavity, right atrium normal, no pericardial effusion. Ejection fraction 73%. CONCLUSION: Hypertrophy of the left ventricle. Left atrial enlargement, ejection fraction 73%. Doppler study shows trace mitral regurgitation, trace tricuspid regurgitation, right ventricular systolic pressure 31 mmHg. JOB# [id number]
[2017-04-30] MEDS: Azithromycin 500 MG in Sodium Chloride 0.9% 250 ML IV SCH (21:59)
[2017-05-01] MEDS: Albuterol/Ipratropium Neb 3 ML AERS HHN PRN (00:02)
[2017-05-01] MEDS: Guaifenesin DM 10 ML UDC PO PRN (00:52)
--- NOTE | 2017-05-01 01:36 | Progress Notes ---
DATE: 04/30/2017 SUBJECTIVE: The patient is seen and examined in room #9A. The patient is sitting in the chair. The patient stated that he cannot lie down because every time he lies down, he starts coughing and he felt like he is going to pass out. The patient denies any fever or chills. The patient denies any nausea, vomiting, diarrhea. The patient is status post radiation and chemotherapy for non-Hodgkin's lymphoma. PHYSICAL EXAMINATION: On today's exam, VITAL SIGNS: Temperature 98, pulse is 66, respiratory is 18, blood pressure 165/90. HEENT: Normocephalic, atraumatic. No facial asymmetry. Tongue was pink and coated. NECK: Supple. No JVD, no lymphadenopathy. HEART: Both heart sounds are regular. CHEST: Lung equal in expansion with decreased expiratory wheezing. ABDOMEN: Soft. No guarding, no rigidity. Bowel sounds are present. No palpable mass. EXTREMITIES: No edema. NEUROLOGIC: Nonfocal. AVAILABLE DIAGNOSTIC DATA: White count 6.7, hemoglobin 13.3, platelet count of 73,000, 91% neutrophils with 3% lymphocyte. Electrolytes are within normal limit. Glycohemoglobin A1c is 6.9, albumin globulin ratio is 2.5. CLINICAL IMPRESSION: 1. Persistent cough increases when he lies down. Chest x-ray does have cardiomegaly. The patient did received radiation and chemo in the past for Hodgkin's lymphoma. Needs to get the echocardiogram for further evaluation of his cough. 2. Thrombocytopenia. No baseline lab test, we will have hematology evaluation. 3. Coronary artery disease. 4. Hypertension. 5. Chronic pain syndrome. 6. Diabetes mellitus. PLAN: 1. Hematology/Oncology consultation. 2. 2D echocardiogram. 3. Oxygen. 4. Nebulizer treatment. 5. Sliding scale insulin. 6. General nursing care. 7. Follow lab. 8. Follow aerodynamic consultant recommendations. 9. Care plan reviewed and discussed with staff. JOB# [id number]
--- NOTE | 2017-05-01 04:56 | Progress Notes ---
DATE: 04/30/2017 PROBLEM LIST: 1. Acute asthmatic bronchitis. 2. Severe obstructive sleep apnea syndrome with morbid obesity with possibly gastroesophageal reflux disease. 3. Status post previous lymphoma. SYMPTOMS: The patient still complains of nocturnal coughing, but no specific new symptoms. PHYSICAL EXAMINATION: GENERAL: Not in acute distress, sitting down comfortably. VITAL SIGNS: Temperature is 97.4, blood pressure 140/99, respirations 20, saturations in the 90s on room air. NECK: Veins not visualized. CHEST: Shows occasional wheezing with diminished air entry. HEART: Regular. ABDOMEN: Soft, nontender. EXTREMITIES: Shows no peripheral edema. LABORATORY DATA: The patient's white count is 6.7, hemoglobin 7. ASSESSMENT: The patient is clinically much better, nocturnal orthopneic patient because of gastroesophageal reflux and/or possibly secondary to obstructive sleep apnea syndrome. PLANS AND SUGGESTIONS: We will add Pepcid at night besides Protonix. We will go ahead and add empirically BiPAP. Care and plan discussed with Dr. Abbott earlier. JOB# [id number]
[2017-05-01] MEDS: methylPREDNISolone SS 40 mg Vial IV SCH ×3 (05:28→20:24)
[2017-05-01] MEDS: Pantoprazole 40 mg/Packet PO SCH (06:52)
[2017-05-01] MEDS: Albuterol/Ipratropium Neb 3 ML AERS HHN SCH ×4 (07:21→19:18)
[2017-05-01] MEDS: Budesonide 0.5 Mg/2 mL Ud HHN SCH ×2 (07:41→19:17)
[2017-05-01] MEDS: Lactobacillus Rhamnosus GG 15 Billion CFU CAP.SPRINK PO SCH (09:18)
[2017-05-01] MEDS: Aspirin 81mg Chewable Tab PO SCH (09:18)
[2017-05-01] MEDS: Multivitamin Tab PO SCH (09:20)
[2017-05-01] MEDS: INSULIN ASPART SLIDING SCALE 100 UNITS/ML UNIT SUBQ SCH ×4 (09:23→21:31)
[2017-05-01] MEDS: oxyCODONE 5 mg IR Tab PO PRN (14:33)
--- NOTE | 2017-05-01 14:54 | Progress Notes ---
DATE: 05/01/2017 SUBJECTIVE: The patient seen and examined. The patient is sitting in the chair. The patient denies any chest pain or shortness of breath. Continues to cough when he lies down. Unable to sleep flat. The patient denies any abdominal pain. PHYSICAL EXAMINATION: VITAL SIGNS: Temperature 97, pulse is 66, respiratory 18, and blood pressure 153/90. HEENT: No facial asymmetry. NECK: Supple. No JVD. HEART: Regular. CHEST: Lung equal in expansion with mild expiratory wheezing. ABDOMEN: Soft. No guarding, no rigidity. Liver, spleen palpable. No palpable mass. EXTREMITIES: No edema, no cyanosis. CLINICAL IMPRESSION: 1. Chronic obstructive pulmonary disease exacerbation. 2. Obstructive sleep apnea. 3. Coronary artery disease. 4. Hypertension. 5. Thrombocytopenia. 6. History of non-Hodgkin's lymphoma. 7. Degenerative joint disease. 8. Diabetes mellitus. PLAN: 1. Await Hematology/Oncology followup. 2. 2D echocardiogram report pending. 3. Continue oxygen, nebulizer treatment, pulmonary toilet, IV steroids, IV antibiotic, general nursing care. 4. Chronic disease management system. Symptoms management. 5. Follow up on lab and risk and insurance consultant's recommendations. 6. Care plan reviewed and discussed. JOB# [id number]
--- NOTE | 2017-05-01 16:14 | Consultation ---
DATE OF CONSULTATION: HEMATOLOGY ONCOLOGY CONSULTATION REFERRING PHYSICIAN: Shaan Abbott M.D. REASON FOR CONSULTATION: Lymphoma and thrombocytopenia. 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 He is now getting Rituxan maintenance for a total of 2 years, every 2 months. The patient presented with shortness of breath and pneumonitis. His symptoms improved on antibiotics. He was found to have persistent thrombocytopenia; therefore, I was asked to evaluate. PAST MEDICAL HISTORY: Non-Hodgkin lymphoma April 2015; coronary artery disease, status post CABG; hypertension; COPD; dyslipidemia; obesity; chronic pain. PAST SURGICAL HISTORY: Appendectomy, gallbladder surgery, CABG surgery, and venous stripping from lower extremities. MEDICATIONS: Reviewed. FAMILY HISTORY: No malignancies. PHYSICAL EXAMINATION: GENERAL: The patient is awake, alert, oriented, not in distress. VITAL SIGNS: Afebrile. HEENT: Unremarkable. NECK: Supple. CHEST: Right-sided MediPort. Sternotomy scar well healed. ABDOMEN: Scars of previous surgery. Abdomen is obese. EXTREMITIES: Scars on both lower extremities of venous stripping and 2+ edema in both lower extremities. LABORATORY DATA: Platelets 73. The platelets since admission has been ranging between 70,000 and 80,000, white count and hemoglobin are normal. Coagulation panel normal. Chemistry unremarkable. Liver functions unremarkable. LDH is normal. ASSESSMENT: 1. Mild thrombocytopenia, most likely secondary to bone marrow suppression following the chemotherapy for the lymphoma treatment. There is no evidence of disseminated intravascular coagulation. There could be also an element of bone marrow suppression from the intercurrent pneumonitis and the use of antibiotics. This component showed recover in the next few weeks. 2. 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 Monitor the platelet count with no further intervention and start prophylactic dose of Lovenox. Thank you, Dr. Abbott for the opportunity to participate in the care of this interesting case. JOB# [id number]
[2017-05-01] MEDS: Azithromycin 500 MG in Sodium Chloride 0.9% 250 ML IV SCH (21:33)
[2017-05-02] MEDS: Albuterol/Ipratropium Neb 3 ML AERS HHN PRN ×3 (00:19→23:30)
[2017-05-02] MEDS: Codeine /Guaifenesin 200mg-20mg/10 mL UDC PO PRN ×2 (00:41→23:54)
--- NOTE | 2017-05-02 03:38 | Progress Notes ---
DATE: 05/01/2017 PULMONARY PROGRESS NOTE PROBLEM LIST: 1. Asthmatic bronchitis. 2. Persistent pertussis, coughing and also suspect obstructive sleep apnea syndrome. SYMPTOMS: Nil. Still coughing, feeling a little better. Did not use the BiPAP last night. Otherwise, okay, occasionally getting the sputum, etc. PHYSICAL EXAMINATION: VITAL SIGNS: The patient is afebrile, respirations 20s and also saturation is okay on room air. NECK: Veins not visualized. CHEST: Shows diminished air entry with occasional rhonchi. HEART: Regular. ABDOMEN: Soft, nontender. EXTREMITIES: Shows no peripheral edema. LABORATORY DATA: So far all the culture is nondiagnostic. ASSESSMENT: The patient has a severe obstructive sleep apnea syndrome, suspect gastroesophageal reflux associated with lymphocyte lymphoma type B non-Hodgkin's. PLANS AND SUGGESTIONS: We will continue current treatment. Encouraged to use BiPAP as much as we can and meantime continue rest of the treatment and go from there. JOB# [id number]
[2017-05-02] MEDS: methylPREDNISolone SS 40 mg Vial IV SCH ×3 (05:23→21:08)
[2017-05-02] MEDS: Guaifenesin DM 10 ML UDC PO PRN (05:24)
[2017-05-02] MEDS ORDERED: Pantoprazole 40 mg/Packet PO SCH (06:08)
[2017-05-02] MEDS: oxyCODONE 5 mg IR Tab PO PRN ×3 (06:28→23:53)
[2017-05-02 06:55] LABS: HEMATOCRIT 40.1 % (41.0-60); HEMOGLOBIN 13.5 gm/dL (12-16); MEAN CELL VOLUME 91.6 fl (80-99); MEAN CORPUSCULAR HGB CONC 33.8 pg (28.0-36.0); MEAN PLATELET VOLUME 9.2 fl; PLATELET COUNT 63 Th/cmm (150-400); RED BLOOD COUNT 4.37 Mil/cmm (3.80-5.80); RED CELL DISTRIBUTION WIDTH 14.3 % (11.5-20.0)
[2017-05-02] MEDS: Albuterol/Ipratropium Neb 3 ML AERS HHN SCH ×3 (07:05→19:17)
[2017-05-02] MEDS: Budesonide 0.5 Mg/2 mL Ud HHN SCH ×2 (07:05→19:16)
[2017-05-02 07:13] LABS: MANUAL DIFF REQUIRED? YES; WHITE BLOOD COUNT 4.6 Th/cmm (4.8-10.8)
[2017-05-02 07:36] LABS: ALBUMIN 3.9 gm/dL (4.2-5.5); ALKALINE PHOSPHATASE 60 U/L (34-104); ANION GAP 8.7 (7.0-16.0); BILIRUBIN,TOTAL 0.6 mg/dL (0.3-1.0); BUN - UREA NITROGEN 20 mg/dL (7-25); CALCIUM SERUM 8.8 mg/dL (8.6-10.3); CARBON DIOXIDE 27.7 mEq/L (21.0-31.0); CHLORIDE 103 mEq/L (98-107); CREATININE - SERUM 0.7 mg/dL (0.7-1.3); GFR AFRICAN-AMERICAN > 60.0 ml/min (>90); GFR NON AFRICAN-AMERICAN > 60.0 ml/min; GLUCOSE 173 mg/dL (70-105); MAGNESIUM 2.6 mg/dL (1.9-2.7); POTASSIUM SERUM 3.4 mEq/L (3.5-5.1); SGOT 19 U/L (13-39); SGPT/ALT 41 U/L (7-52); SODIUM SERUM 136 mEq/L (136-145); TOTAL PROTEIN,SERUM 5.9 gm/dL (6.0-8.3)
[2017-05-02] MEDS: INSULIN ASPART SLIDING SCALE 100 UNITS/ML UNIT SUBQ SCH ×4 (08:34→20:49)
[2017-05-02 09:21] LABS: BAND NEUTROPHILE 2 % (0-10); LYMPHOCYTE 12 % (20-50); MONOCYTE 3 % (2-10); NEUTROPHILS 83 % (40-80); PLATELET ESTIMATE DECREASED PLATELETS (NORMAL); TOTAL CELLS COUNTED 100
[2017-05-02] MEDS: Multivitamin Tab PO SCH (09:27)
[2017-05-02] MEDS: Aspirin 81mg Chewable Tab PO SCH (09:27)
[2017-05-02] MEDS: Enoxaparin 40 mg/0.4 mL 0.4mL Syr SUBQ SCH (09:28)
[2017-05-02] MEDS: Lactobacillus Rhamnosus GG 15 Billion CFU CAP.SPRINK PO SCH (09:28)
--- NOTE | 2017-05-02 11:52 | General Progress Note ---
Subjective - Review of Systems Service Date: 05/02/17 Objective - Results Result Diagrams: 05/02/17 05:30 05/02/17 05:30 Recent Labs: Laboratory Last Values WBC 4.6 Th/cmm (4.8-10.8) L D 05/02/17 05:30 RBC 4.37 Mil/cmm (3.80-5.80) 05/02/17 05:30 Hgb 13.5 gm/dL (12-16) 05/02/17 05:30 Hct 40.1 % (41.0-60) L 05/02/17 05:30 MCV 91.6 fl (80-99) 05/02/17 05:30 MCH 31.0 pg (27.0-31.0) 05/02/17 05:30 MCHC Differential 33.8 pg (28.0-36.0) 05/02/17 05:30 RDW 14.3 % (11.5-20.0) 05/02/17 05:30 Plt Count 63 Th/cmm (150-400) L 05/02/17 05:30 MPV 9.2 fl 05/02/17 05:30 Neutrophils % 82.6 % (40.0-80.0) H 04/28/17 05:33 Band Neutrophils % 2 % (0-10) 05/02/17 05:30 Lymphocytes % 13.4 % (20.0-50.0) L 04/28/17 05:33 Monocytes % 3.8 % (2.0-10.0) 04/28/17 05:33 Eosinophils % 0.1 % (0.0-5.0) 04/28/17 05:33 Basophils % 0.1 % (0.0-2.0) 04/28/17 05:33 Neutrophils (Manual) 83 % (40-80) H 05/02/17 05:30 Lymphocytes 12 % (20-50) L 05/02/17 05:30 Monocytes 3 % (2-10) 05/02/17 05:30 Eosinophils 1 % (0-5) 04/29/17 04:55 Platelet Estimate DECREASED PLATELETS (NORMAL) 05/02/17 05:30 PT 11.0 SECONDS (9.5-11.5) 04/27/17 11:40 INR 1.06 (0.5-1.4) 04/27/17 11:40 PTT (Actin FS) 26.3 SECONDS (26.0-38.0) 04/27/17 11:40 Specimen Source ARTERIAL 04/28/17 05:00 Sample Site Right Radial 04/28/17 05:00 pH 7.44 (7.35-7.45) 04/28/17 05:00 pCO2 35.0 mmHg (35.0-45.0) 04/28/17 05:00 pO2 74.0 mmHg (80.0-100.0) L 04/28/17 05:00 HCO3 24.9 mEq/L (20.0-26.0) 04/28/17 05:00 Base Excess 0.0 mEq/L (-3.0-3.0) 04/28/17 05:00 O2 Saturation 95.0 % (92.0-100.0) 04/28/17 05:00 Albin Test Positive 04/28/17 05:00 Vent Rate N/A 04/28/17 05:00 Inspired O2 21 04/28/17 05:00 Tidal Volume N/A 04/28/17 05:00 PEEP N/A 04/28/17 05:00 Pressure (ins/psv/peep) N/A 04/28/17 05:00 Critical Value LAYOUT FORMER 04/28/17 05:00 Sodium 136 mEq/L (136-145) 05/02/17 05:30 Potassium 3.4 mEq/L (3.5-5.1) L 05/02/17 05:30 Chloride 103 mEq/L (98-107) 05/02/17 05:30 Carbon Dioxide 27.7 mEq/L (21.0-31.0) 05/02/17 05:30 Anion Gap 8.7 (7.0-16.0) 05/02/17 05:30 BUN 20 mg/dL (7-25) 05/02/17 05:30 Creatinine 0.7 mg/dL (0.7-1.3) 05/02/17 05:30 Est GFR ( Amer) > 60.0 ml/min (>90) 05/02/17 05:30 Est GFR (Non-Af Amer) > 60.0 ml/min 05/02/17 05:30 BUN/Creatinine Ratio 28.6 05/02/17 05:30 Glucose 173 mg/dL (70-105) H 05/02/17 05:30 POC Glucose 180 MG/DL (70 - 105) H 05/02/17 06:18 Hemoglobin A1c % 6.9 % (4.0-6.0) H 04/29/17 04:55 Whole Bld Lactic Acid 1.72 mmol/L (0.60-1.99) 04/27/17 11:40 Calcium 8.8 mg/dL (8.6-10.3) 05/02/17 05:30 Magnesium 2.6 mg/dL (1.9-2.7) 05/02/17 05:30 Total Bilirubin 0.6 mg/dL (0.3-1.0) 05/02/17 05:30 AST 19 U/L (13-39) 05/02/17 05:30 ALT 41 U/L (7-52) 05/02/17 05:30 Alkaline Phosphatase 60 U/L (34-104) 05/02/17 05:30 Lactate Dehydrogenase 157 U/L (140-271) 04/28/17 05:33 Creatine Kinase 91 U/L (30-223) 04/27/17 11:40 Troponin I 0.01 ng/mL (0.01-0.05) 04/27/17 11:40 Total Protein 5.9 gm/dL (6.0-8.3) L 05/02/17 05:30 Albumin 3.9 gm/dL (4.2-5.5) L 05/02/17 05:30 Globulin 2.0 gm/dL 05/02/17 05:30 Albumin/Globulin Ratio 2.0 (1.0-1.8) H 05/02/17 05:30 Amylase 30 U/L (29-103) 04/27/17 11:40 Lipase 15 U/L (11-82) 04/27/17 11:40 Urine Source MIDSTREAM 04/27/17 13:50 Urine Color YELLOW 04/27/17 13:50 Urine Clarity CLEAR (CLEAR) 04/27/17 13:50 Urine pH 6.0 (4.6 - 8.0) 04/27/17 13:50 Ur Specific Gibson 1.010 (1.005-1.030) 04/27/17 13:50 Urine Protein NEGATIVE mg/dL (NEGATIVE) 04/27/17 13:50 Urine Glucose (UA) NEGATIVE mg/dL (NEGATIVE) 04/27/17 13:50 Urine Ketones NEGATIVE mg/dL (NEGATIVE) 04/27/17 13:50 Urine Blood NEGATIVE (NEGATIVE) 04/27/17 13:50 Urine Nitrate NEGATIVE (NEGATIVE) 04/27/17 13:50 Urine Bilirubin NEGATIVE (NEGATIVE) 04/27/17 13:50 Urine Urobilinogen 0.2 E.U./dL (0.2 - 1.0) 04/27/17 13:50 Ur Leukocyte Esterase NEGATIVE (NEGATIVE) 04/27/17 13:50 Urine RBC 0-2 /hpf (0-5) H 04/27/17 13:50 Urine WBC NONE SEEN /hpf (0-5) 04/27/17 13:50 Ur Epithelial Cells RARE /lpf (FEW) 04/27/17 13:50 Urine Bacteria NONE SEEN /hpf (NONE SEEN) 04/27/17 13:50 Influenza A (Rapid) NEG FOR INF A 04/29/17 06:15 Influenza B (Rapid) NEG FOR INF B 04/29/17 06:15 - Physical Exam Vitals and I&O: Vital Signs Temp 98.6 F 05/02/17 10:58 Pulse 63 05/02/17 10:58 Resp 18 05/02/17 10:58 BP 163/102 05/02/17 10:58 Pulse Ox 98 05/02/17 10:58 Intake & Output 05/01/17 05/02/17 05/02/17 18:59 06:59 18:59 Intake Total 1150 100 Balance 1150 100 Weight (lbs) 113.852 kg 113.852 kg Intake: Intake, IV Amount 250 Azithromycin 500 mg In 250 Sodium Chloride 0.9% 250 ml @ 250 mls/hr IV Q24HR [facility] Rx#:[id number] Oral 900 100 Other: # Voids 4 Active Medications: Current Medications Acetaminophen (Tylenol) 650 mg PO Q6H PRN PRN Reason: Mild Pain/Headache/T above 101 Stop: 06/26/17 21:24 Albuterol/Ipratropium (Duoneb Neb) 3 ml HHN [id number] [facility] Stop: 06/27/17 06:59 Last Admin: 05/02/17 07:05 Dose: 3 ml Albuterol/Ipratropium (Duoneb Neb) 3 ml HHN Q2H PRN PRN Reason: Wheezing Stop: 06/26/17 21:29 Last Admin: 05/02/17 05:36 Dose: 3 ml Albuterol/Ipratropium (Duoneb Neb) 3 ml HHN [id number] CHHAYA Stop: 06/27/17 18:59 Last Admin: 05/01/17 19:18 Dose: 3 ml Aspirin (Aspirin Chewable) 81 mg PO DAILY CHHAYA Stop: 06/27/17 08:59 Last Admin: 05/02/17 09:27 Dose: 81 mg Atorvastatin Calcium (Lipitor) 40 mg PO DAILY CHHAYA Stop: 06/27/17 08:59 Last Admin: 05/02/17 09:26 Dose: 40 mg Budesonide (Pulmicort) 1 mg HHN BIDRT CHHAYA Stop: 06/27/17 16:59 Last Admin: 05/02/17 07:05 Dose: 1 mg Carisoprodol (Soma) 350 mg PO BID PRN PRN Reason: MUSCLE PAIN Stop: 06/26/17 21:32 Carvedilol (Coreg) 12.5 mg PO BID CHHAYA Stop: 06/27/17 08:59 Last Admin: 05/02/17 09:27 Dose: 12.5 mg Cholecalciferol (Vitamin D3) 1,000 iu PO BID CHHAYA Stop: 06/27/17 08:59 Last Admin: 05/02/17 09:27 Dose: 1,000 iu Clopidogrel Bisulfate (Plavix) 75 mg PO DAILY CHHAYA Stop: 06/27/17 08:59 Last Admin: 05/02/17 09:27 Dose: 75 mg Enoxaparin Sodium (Lovenox) 40 mg SUBQ DAILY CHHAYA Stop: 07/01/17 08:59 Last Admin: 05/02/17 09:28 Dose: 40 mg Famotidine (Pepcid) 40 mg PO HS CHHAYA Stop: 06/30/17 20:59 Last Admin: 05/01/17 20:23 Dose: 40 mg Finasteride (Proscar) 5 mg PO HS CHHAYA PRN Reason: Protocol Stop: 06/27/17 01:14 Last Admin: 05/01/17 20:23 Dose: 5 mg Furosemide (Lasix) 40 mg PO DAILY CHHAYA Stop: 06/27/17 08:59 Last Admin: 05/02/17 09:27 Dose: 40 mg Guaifenesin/Codeine Phosphate (Robitussin Ac) 10 ml PO Q4HR PRN PRN Reason: Cough Stop: 05/07/17 22:51 Last Admin: 05/02/17 00:41 Dose: 10 ml Guaifenesin/Dextromethorphan (Robitussin Dm) 5 ml PO Q6HR PRN PRN Reason: Cough Stop: 06/27/17 01:21 Last Admin: 05/02/17 05:24 Dose: 5 ml Azithromycin 500 mg/ Sodium (Chloride) 250 mls @ 250 mls/hr IV Q24HR CHHAYA Stop: 06/26/17 21:59 Last Infusion: 05/01/17 22:35 Dose: Infused Insulin Aspart (Novolog Insulin Sliding Scale) 0 units SUBQ ACHS CHHAYA PRN Reason: Protocol Stop: 06/28/17 16:29 Last Admin: 05/02/17 08:34 Dose: 2 units Isosorbide Mononitrate (Imdur) 60 mg PO DAILY CHHAYA Stop: 06/27/17 08:59 Last Admin: 05/02/17 09:26 Dose: 60 mg Lactobacillus Rhamnosus (Culturelle 15b) 1 each PO DAILY CHHAYA Stop: 06/30/17 08:59 Last Admin: 05/02/17 09:28 Dose: 1 each Lisinopril (Zestril) 40 mg PO BID CHHAYA Stop: 06/27/17 08:59 Last Admin: 05/02/17 09:27 Dose: 40 mg Methylprednisolone Sodium Succinate (Solu-Medrol) 40 mg IV Q8HR CHHAYA Stop: 06/28/17 12:59 Last Admin: 05/02/17 05:23 Dose: 40 mg Miscellaneous (Vte Chemical Prophylaxis Screen/ Admission) 1 ea MC PRN PRN PRN Reason: PROTOCOL Stop: 06/27/17 14:14 Miscellaneous (Probiotic Screen) 1 ea MC PRN PRN PRN Reason: PROTOCOL Stop: 06/29/17 14:14 Montelukast Sodium (Singulair) 10 mg PO HS CHHAYA Stop: 06/27/17 20:59 Last Admin: 05/01/17 20:23 Dose: 10 mg Multivitamins/Vitamin C (Theragran) 1 tab PO DAILY CHHAYA Stop: 06/27/17 08:59 Last Admin: 05/02/17 09:27 Dose: 1 tab Nitroglycerin (Nitrostat) 0.4 mg SL Q5MIN PRN PRN Reason: Chest Pain Stop: 06/29/17 09:44 Last Admin: 04/30/17 10:01 Dose: 0.4 mg Ondansetron HCl (Zofran) 4 mg IVP Q6H PRN PRN Reason: Nausea / Vomiting Stop: 06/26/17 21:24 Oxycodone HCl (Oxycodone Ir) 15 mg PO TID PRN PRN Reason: PAIN Last Admin: 05/02/17 06:28 Dose: 15 mg Pantoprazole Sodium (Protonix) 40 mg PO DAILY CHHAYA Stop: 07/02/17 08:59 Sodium Chloride (Saline Flush) 10 ml IV QSHIFT CHHAYA Stop: 06/27/17 07:59 Last Admin: 05/02/17 09:36 Dose: 10 ml Tamsulosin HCl (Flomax) 0.4 mg PO HS CHHAYA Stop: 06/27/17 01:12 Last Admin: 05/01/17 20:23 Dose: 0.4 mg Zolpidem Tartrate (Ambien) 5 mg PO HS PRN PRN Reason: Insomnia Stop: 06/26/17 21:24 Last Admin: 05/02/17 00:41 Dose: 5 mg - Procedures Procedures: Procedures Procedure Code Date DOPPLER COLOR FLOW ADD-ON 80790 06/21/00 DOPPLER ECHO EXAM HEART 69133 06/21/00 DX ULTRASOUND-HEART 88.72 06/21/00 TTE W/O DOPPLER COMPLETE 90193 06/21/00 Assessment/Plan - Problem List Patient Problems: All Active Problems COUGH AND CONGESTION WITH DYSPNEA (Acute) - Assessment Assessment: * h/o follicular lymphoma * Pneumonitis * Thrombocytopenia most likely following chemotherapy bone marrow suppression follow b12, folate no need to change meds
--- NOTE | 2017-05-02 17:31 | General Progress Note ---
Subjective - Review of Systems Subjective: Patient is seen and examined. No new complaints. Objective - Results Result Diagrams: 05/02/17 05:30 05/02/17 05:30 Recent Labs: Laboratory Last Values WBC 4.6 Th/cmm (4.8-10.8) L D 05/02/17 05:30 RBC 4.37 Mil/cmm (3.80-5.80) 05/02/17 05:30 Hgb 13.5 gm/dL (12-16) 05/02/17 05:30 Hct 40.1 % (41.0-60) L 05/02/17 05:30 MCV 91.6 fl (80-99) 05/02/17 05:30 MCH 31.0 pg (27.0-31.0) 05/02/17 05:30 MCHC Differential 33.8 pg (28.0-36.0) 05/02/17 05:30 RDW 14.3 % (11.5-20.0) 05/02/17 05:30 Plt Count 63 Th/cmm (150-400) L 05/02/17 05:30 MPV 9.2 fl 05/02/17 05:30 Neutrophils % 82.6 % (40.0-80.0) H 04/28/17 05:33 Band Neutrophils % 2 % (0-10) 05/02/17 05:30 Lymphocytes % 13.4 % (20.0-50.0) L 04/28/17 05:33 Monocytes % 3.8 % (2.0-10.0) 04/28/17 05:33 Eosinophils % 0.1 % (0.0-5.0) 04/28/17 05:33 Basophils % 0.1 % (0.0-2.0) 04/28/17 05:33 Neutrophils (Manual) 83 % (40-80) H 05/02/17 05:30 Lymphocytes 12 % (20-50) L 05/02/17 05:30 Monocytes 3 % (2-10) 05/02/17 05:30 Eosinophils 1 % (0-5) 04/29/17 04:55 Platelet Estimate DECREASED PLATELETS (NORMAL) 05/02/17 05:30 PT 11.0 SECONDS (9.5-11.5) 04/27/17 11:40 INR 1.06 (0.5-1.4) 04/27/17 11:40 PTT (Actin FS) 26.3 SECONDS (26.0-38.0) 04/27/17 11:40 Specimen Source ARTERIAL 04/28/17 05:00 Sample Site Right Radial 04/28/17 05:00 pH 7.44 (7.35-7.45) 04/28/17 05:00 pCO2 35.0 mmHg (35.0-45.0) 04/28/17 05:00 pO2 74.0 mmHg (80.0-100.0) L 04/28/17 05:00 HCO3 24.9 mEq/L (20.0-26.0) 04/28/17 05:00 Base Excess 0.0 mEq/L (-3.0-3.0) 04/28/17 05:00 O2 Saturation 95.0 % (92.0-100.0) 04/28/17 05:00 Albin Test Positive 04/28/17 05:00 Vent Rate N/A 04/28/17 05:00 Inspired O2 21 04/28/17 05:00 Tidal Volume N/A 04/28/17 05:00 PEEP N/A 04/28/17 05:00 Pressure (ins/psv/peep) N/A 04/28/17 05:00 Critical Value [employer] MACHINE [employer]PERATOR 04/28/17 05:00 Sodium 136 mEq/L (136-145) 05/02/17 05:30 Potassium 3.4 mEq/L (3.5-5.1) L 05/02/17 05:30 Chloride 103 mEq/L (98-107) 05/02/17 05:30 Carbon Dioxide 27.7 mEq/L (21.0-31.0) 05/02/17 05:30 Anion Gap 8.7 (7.0-16.0) 05/02/17 05:30 BUN 20 mg/dL (7-25) 05/02/17 05:30 Creatinine 0.7 mg/dL (0.7-1.3) 05/02/17 05:30 Est GFR ( Amer) > 60.0 ml/min (>90) 05/02/17 05:30 Est GFR (Non-Af Amer) > 60.0 ml/min 05/02/17 05:30 BUN/Creatinine Ratio 28.6 05/02/17 05:30 Glucose 173 mg/dL (70-105) H 05/02/17 05:30 POC Glucose 225 MG/DL (70 - 105) H 05/02/17 16:29 Hemoglobin A1c % 6.9 % (4.0-6.0) H 04/29/17 04:55 Whole Bld Lactic Acid 1.72 mmol/L (0.60-1.99) 04/27/17 11:40 Calcium 8.8 mg/dL (8.6-10.3) 05/02/17 05:30 Magnesium 2.6 mg/dL (1.9-2.7) 05/02/17 05:30 Total Bilirubin 0.6 mg/dL (0.3-1.0) 05/02/17 05:30 AST 19 U/L (13-39) 05/02/17 05:30 ALT 41 U/L (7-52) 05/02/17 05:30 Alkaline Phosphatase 60 U/L (34-104) 05/02/17 05:30 Lactate Dehydrogenase 157 U/L (140-271) 04/28/17 05:33 Creatine Kinase 91 U/L (30-223) 04/27/17 11:40 Troponin I 0.01 ng/mL (0.01-0.05) 04/27/17 11:40 Total Protein 5.9 gm/dL (6.0-8.3) L 05/02/17 05:30 Albumin 3.9 gm/dL (4.2-5.5) L 05/02/17 05:30 Globulin 2.0 gm/dL 05/02/17 05:30 Albumin/Globulin Ratio 2.0 (1.0-1.8) H 05/02/17 05:30 Amylase 30 U/L (29-103) 04/27/17 11:40 Lipase 15 U/L (11-82) 04/27/17 11:40 Urine Source MIDSTREAM 04/27/17 13:50 Urine Color YELLOW 04/27/17 13:50 Urine Clarity CLEAR (CLEAR) 04/27/17 13:50 Urine pH 6.0 (4.6 - 8.0) 04/27/17 13:50 Ur Specific [place] 1.010 (1.005-1.030) 04/27/17 13:50 Urine Protein NEGATIVE mg/dL (NEGATIVE) 04/27/17 13:50 Urine Glucose (UA) NEGATIVE mg/dL (NEGATIVE) 04/27/17 13:50 Urine Ketones NEGATIVE mg/dL (NEGATIVE) 04/27/17 13:50 Urine Blood NEGATIVE (NEGATIVE) 04/27/17 13:50 Urine Nitrate NEGATIVE (NEGATIVE) 04/27/17 13:50 Urine Bilirubin NEGATIVE (NEGATIVE) 04/27/17 13:50 Urine Urobilinogen 0.2 E.U./dL (0.2 - 1.0) 04/27/17 13:50 Ur Leukocyte Esterase NEGATIVE (NEGATIVE) 04/27/17 13:50 Urine RBC 0-2 /hpf (0-5) H 04/27/17 13:50 Urine WBC NONE SEEN /hpf (0-5) 04/27/17 13:50 Ur Epithelial Cells RARE /lpf (FEW) 04/27/17 13:50 Urine Bacteria NONE SEEN /hpf (NONE SEEN) 04/27/17 13:50 Influenza A (Rapid) NEG FOR INF A 04/29/17 06:15 Influenza B (Rapid) NEG FOR INF B 04/29/17 06:15 - Physical Exam Vitals and I&O: Vital Signs Temp 98.3 F 05/02/17 16:00 Pulse 72 05/02/17 16:26 Resp 18 05/02/17 16:00 BP 151/96 05/02/17 16:26 Pulse Ox 98 05/02/17 16:00 Intake & Output 05/01/17 05/02/17 05/02/17 18:59 06:59 18:59 Intake Total 1150 100 Balance 1150 100 Weight (lbs) 113.852 kg 113.852 kg Intake: Intake, IV Amount 250 Azithromycin 500 mg In 250 Sodium Chloride 0.9% 250 ml @ 250 mls/hr IV Q24HR [facility] Rx#:[id number] Oral 900 100 Other: # Voids 4 Active Medications: Current Medications Acetaminophen (Tylenol) 650 mg PO Q6H PRN PRN Reason: Mild Pain/Headache/T above 101 Stop: 06/26/17 21:24 Albuterol/Ipratropium (Duoneb Neb) 3 ml HHN [id number] [facility] Stop: 06/27/17 06:59 Last Admin: 05/02/17 13:17 Dose: 3 ml Albuterol/Ipratropium (Duoneb Neb) 3 ml HHN Q2H PRN PRN Reason: Wheezing Stop: 06/26/17 21:29 Last Admin: 05/02/17 05:36 Dose: 3 ml Albuterol/Ipratropium (Duoneb Neb) 3 ml HHN [id number] [facility] Stop: 06/27/17 18:59 Last Admin: 05/01/17 19:18 Dose: 3 ml Aspirin (Aspirin Chewable) 81 mg PO DAILY [facility] Stop: 06/27/17 08:59 Last Admin: 05/02/17 09:27 Dose: 81 mg Atorvastatin Calcium (Lipitor) 40 mg PO DAILY [facility] Stop: 06/27/17 08:59 Last Admin: 05/02/17 09:26 Dose: 40 mg Budesonide (Pulmicort) 1 mg HHN BIDRT [facility] Stop: 06/27/17 16:59 Last Admin: 05/02/17 07:05 Dose: 1 mg Carisoprodol (Soma) 350 mg PO BID PRN PRN Reason: MUSCLE PAIN Stop: 06/26/17 21:32 Carvedilol (Coreg) 12.5 mg PO BID [facility] Stop: 06/27/17 08:59 Last Admin: 05/02/17 09:27 Dose: 12.5 mg Cholecalciferol (Vitamin D3) 1,000 iu PO BID [facility] Stop: 06/27/17 08:59 Last Admin: 05/02/17 09:27 Dose: 1,000 iu Clopidogrel Bisulfate (Plavix) 75 mg PO DAILY [facility] Stop: 06/27/17 08:59 Last Admin: 05/02/17 09:27 Dose: 75 mg Enoxaparin Sodium (Lovenox) 40 mg SUBQ DAILY [facility] Stop: 07/01/17 08:59 Last Admin: 05/02/17 09:28 Dose: 40 mg Famotidine (Pepcid) 40 mg PO HS [facility] Stop: 06/30/17 20:59 Last Admin: 05/01/17 20:23 Dose: 40 mg Finasteride (Proscar) 5 mg PO HS [facility] PRN Reason: Protocol Stop: 06/27/17 01:14 Last Admin: 05/01/17 20:23 Dose: 5 mg Furosemide (Lasix) 40 mg PO DAILY [facility] Stop: 06/27/17 08:59 Last Admin: 05/02/17 09:27 Dose: 40 mg Guaifenesin/Codeine Phosphate (Robitussin Ac) 10 ml PO Q4HR PRN PRN Reason: Cough Stop: 05/07/17 22:51 Last Admin: 05/02/17 00:41 Dose: 10 ml Guaifenesin/Dextromethorphan (Robitussin Dm) 5 ml PO Q6HR PRN PRN Reason: Cough Stop: 06/27/17 01:21 Last Admin: 05/02/17 05:24 Dose: 5 ml Azithromycin 500 mg/ Sodium (Chloride) 250 mls @ 250 mls/hr IV Q24HR [facility] Stop: 06/26/17 21:59 Last Infusion: 05/01/17 22:35 Dose: Infused Insulin Aspart (Novolog Insulin Sliding Scale) 0 units SUBQ ACHS [facility] PRN Reason: Protocol Stop: 06/28/17 16:29 Last Admin: 05/02/17 13:07 Dose: 2 units Isosorbide Mononitrate (Imdur) 60 mg PO DAILY [facility] Stop: 06/27/17 08:59 Last Admin: 05/02/17 09:26 Dose: 60 mg Lactobacillus Rhamnosus (Culturelle 15b) 1 each PO DAILY [facility] Stop: 06/30/17 08:59 Last Admin: 05/02/17 09:28 Dose: 1 each Lisinopril (Zestril) 40 mg PO BID [facility] Stop: 06/27/17 08:59 Last Admin: 05/02/17 16:26 Dose: 40 mg Methylprednisolone Sodium Succinate (Solu-Medrol) 40 mg IV Q8HR [facility] Stop: 06/28/17 12:59 Last Admin: 05/02/17 13:14 Dose: 40 mg Miscellaneous (Vte Chemical Prophylaxis Screen/ Admission) 1 ea MC PRN PRN PRN Reason: PROTOCOL Stop: 06/27/17 14:14 Miscellaneous (Probiotic Screen) 1 ea MC PRN PRN PRN Reason: PROTOCOL Stop: 06/29/17 14:14 Montelukast Sodium (Singulair) 10 mg PO HS [facility] Stop: 06/27/17 20:59 Last Admin: 05/01/17 20:23 Dose: 10 mg Multivitamins/Vitamin C (Theragran) 1 tab PO DAILY [facility] Stop: 06/27/17 08:59 Last Admin: 05/02/17 09:27 Dose: 1 tab Nitroglycerin (Nitrostat) 0.4 mg SL Q5MIN PRN PRN Reason: Chest Pain Stop: 06/29/17 09:44 Last Admin: 04/30/17 10:01 Dose: 0.4 mg Ondansetron HCl (Zofran) 4 mg IVP Q6H PRN PRN Reason: Nausea / Vomiting Stop: 06/26/17 21:24 Oxycodone HCl (Oxycodone Ir) 15 mg PO TID PRN PRN Reason: PAIN Last Admin: 05/02/17 14:37 Dose: 15 mg Pantoprazole Sodium (Protonix) 40 mg PO DAILY [facility] Stop: 07/02/17 08:59 Sodium Chloride (Saline Flush) 10 ml IV QSHIFT [facility] Stop: 06/27/17 07:59 Last Admin: 05/02/17 09:36 Dose: 10 ml Tamsulosin HCl (Flomax) 0.4 mg PO HS [facility] Stop: 06/27/17 01:12 Last Admin: 05/01/17 20:23 Dose: 0.4 mg Zolpidem Tartrate (Ambien) 5 mg PO HS PRN PRN Reason: Insomnia Stop: 06/26/17 21:24 Last Admin: 05/02/17 00:41 Dose: 5 mg General: Alert, Oriented x3, Cooperative HEENT: Atraumatic, PERRLA, EOMI Neck: Supple, JVD Cardiovascular: Regular rate, Normal S1, Normal S2 Lungs: Clear to auscultation Abdomen: Bowel sounds, Soft Extremities: Other (no edema.) Neurological: Normal gait, Normal speech, Strength at 5/5 X4 ext, Sensation intact, Cranial nerves 3-12 NL, Reflexes 2+ Psych/Mental Status: Mental status NL - Procedures Procedures: Procedures Procedure Code Date DOPPLER COLOR FLOW ADD-ON 94739 06/21/00 DOPPLER ECHO EXAM HEART 06357 06/21/00 DX ULTRASOUND-HEART 88.72 06/21/00 TTE W/O DOPPLER COMPLETE 44946 06/21/00 Assessment/Plan - Problem List Patient Problems: All Active Problems COUGH AND CONGESTION WITH DYSPNEA (Acute) - Assessment Assessment: COPD exacerbation improving. CAD HTN Chronic pain syndrome. Thrombocytopenia. DJD Hyperlipedemia. BPH. Hx of lymphoma. Debility - Plan Plan: Oxygen. HHN Pulmo toilet Iv antibiotics IV steroid Pain management General nursing care Follow lab Follow consultants recommendations. Continue current care. Discussed with staff. Nutritional Asmnt/Malnutr-PDOC - Dietary Evaluation Malnutrition Findings (Please click <Entered> for more info): Nutritional Asmnt/Malnutrition Start: 05/02/17 15: 16 Text: Status: Active Freq: Document 05/02/17 15:17 [email or web address] (Rec: 05/02/17 15:39 [email or web address] [id number]) Nutritional Asmnt/Malnutrition Patient General Information Nutritional Screening Moderate Risk Diagnosis Respiratory failure, broncospasm Pertinent Medical Hx/Surgical Hx Hypertension, CAD, asthma, COPD, hyperlipidemia, Non- hodgkin's lymphoma, DJD, chronic pain syndrome, hx of appendectomy and gallbladder surgery along with coronary artery bypass graft. Current Diet Order/ Nutrition Support Regular Patient / S.O Not Indicated Pertinent Medications lipitor, abx, vitamin D3, pepcid, lasix, novolog, solu- medrol, Theragran, zofran, protonix Pertinent Labs (05/02) K 3.4, Glucose 144-303, A1C 6.9, albumin 3.9 Nutritional Hx/Data Height 1.7 m Height (Calculated Centimeters) 170.2 Current Weight (lbs) 113.852 kg Weight (Calculated Kilograms) 113.9 Weight (Calculated Grams) 732687.7 [place] Body Weight 148 % [place] Body Weight 169 Body Mass Index (BMI) 39.3 Recent Weight Change No Weight Status Obese GI Symptoms GI Symptoms None Last BM 04/30 x 1 Difficult in: None Food Allergies No Cultural/Ethnic/[employer] Belief None indicated Usual diet at home unknown Skin Integrity/Comment: Eric 18, 1+ edema, skin tear /abrasion on right and left foot Current %PO Good (75-100%) Estimated Nutritional Goals BEE in Kcals: Adj wt of IBW Calories/Kcals/Kg 173lb/79kg Adj wt 25-30 kcal/ kg Kcals Calculated 7416-1885 kcal/day Protein: Adj wt of IBW Protein g/k-1.2 gm/kg Protein Calculated 80-95gm/day Fluid: ml 4148-8110 ml/day (1 ml/kcal) Nutritional Problem 1. Problem Problem Altered nutrition related lab values related to Etiology hyperglycemia, electrolyte imbalance aeb Signs/Symptoms: K 3.4, Glucose 144-303 Intervention/Recommendation Comments 1. Consider modifying diet to 75gm CCHO for better blood glucose control. 2. Liberalize potassium intake , supplementation per MD Expected Outcomes/Goals Expected Outcomes/Goals oral intake to meet >75% of nutrient needs, weight trends toard ideal body weight, nutrition related labs WNL F/U in 3-5 days MR 3/6-8
[2017-05-02] MEDS: Azithromycin 500 MG in Sodium Chloride 0.9% 250 ML IV SCH (21:13)
--- NOTE | 2017-05-03 03:39 | Progress Notes ---
DATE: 05/02/2017 PULMONARY PROGRESS NOTE PROBLEM LIST: 1. Acute exacerbation of chronic bronchial asthma. 2. Suspect obstructive sleep apnea syndrome. 3. Morbid obesity with obesity hypoventilation syndrome. SYMPTOMS: Nil. He is now complaining of pain in the right leg, a kind of "sprain" while he was getting off the bed, still has coughing when he lie down, but otherwise no specific new symptoms. PHYSICAL EXAMINATION: VITAL SIGNS: The patient's recorded vitals: Temperature is 97.5, blood pressure ____ at rest, pulse is 78, respirations 20, and saturation is 92. NECK: Veins not visualized. CHEST: Shows diminished air entry with occasional rhonchi. HEART: Regular. ABDOMEN: Soft, nontender. EXTREMITIES: Shows no peripheral edema. LABORATORY DATA: The patient's lab study, white count of 4.6, platelet is 63. Potassium is 3.4. ASSESSMENT: The patient clinically respiratory jules is stable. On optimal therapy, he has to wait for a couple of days or weeks as an outpatient and can be followed and go from there. JOB# [id number]
[2017-05-03] MEDS: methylPREDNISolone SS 40 mg Vial IV SCH ×3 (05:56→20:49)
[2017-05-03] MEDS: oxyCODONE 5 mg IR Tab PO PRN (06:14)
[2017-05-03 06:34] LABS: HEMOGLOBIN 12.2 gm/dL (12-16); LYMPHOCYTE ABSOLUTE 0.4 Th/cmm (1.5-3.0); MANUAL DIFF REQUIRED? YES; MEAN CELL VOLUME 92.2 fl (80-99); MEAN CORPUSCULAR HEMOGLOBIN 31.5 pg (27.0-31.0); MEAN CORPUSCULAR HGB CONC 34.1 pg (28.0-36.0); MEAN PLATELET VOLUME 10.2 fl; MONOCYTE ABSOLUTE 0.6 Th/cmm (0.3-1.0); NEUTROPHILE ABSOLUTE 9.5 Th/cmm (1.8-8.0); PLATELET COUNT 73 Th/cmm (150-400); RED BLOOD COUNT 3.88 Mil/cmm (3.80-5.80)
[2017-05-03] MEDS: Budesonide 0.5 Mg/2 mL Ud HHN SCH ×2 (06:51→19:11)
[2017-05-03] MEDS: Albuterol/Ipratropium Neb 3 ML AERS HHN SCH ×3 (06:54→19:10)
[2017-05-03 07:03] LABS: HEMATOCRIT 35.8 % (41.0-60); WHITE BLOOD COUNT 10.5 Th/cmm (4.8-10.8)
[2017-05-03] MEDS: INSULIN ASPART SLIDING SCALE 100 UNITS/ML UNIT SUBQ SCH ×4 (08:26→20:52)
[2017-05-03] MEDS: Aspirin 81mg Chewable Tab PO SCH (08:33)
[2017-05-03] MEDS: Multivitamin Tab PO SCH (08:36)
[2017-05-03] MEDS: Pantoprazole 40 mg EC Tab PO SCH (08:37)
[2017-05-03] MEDS: Enoxaparin 40 mg/0.4 mL 0.4mL Syr SUBQ SCH (08:39)
[2017-05-03] MEDS: Lactobacillus Rhamnosus GG 15 Billion CFU CAP.SPRINK PO SCH (08:40)
[2017-05-03 11:40] LABS: LYMPHOCYTE 4 % (20-50); MONOCYTE 5 % (2-10); NEUTROPHILS 91 % (40-80); PLATELET ESTIMATE DECREASED PLATELETS (NORMAL); TOTAL CELLS COUNTED 100
--- NOTE | 2017-05-03 13:58 | General Progress Note ---
Subjective - Review of Systems Subjective: Patient is seen and examined. I have Right hip pain and I can't walk. RN reports walking. pain sacle 10/09. Objective - Results Result Diagrams: 05/03/17 05:30 05/02/17 05:30 Recent Labs: Laboratory Last Values WBC 10.5 Th/cmm (4.8-10.8) D 05/03/17 05:30 RBC 3.88 Mil/cmm (3.80-5.80) 05/03/17 05:30 Hgb 12.2 gm/dL (12-16) 05/03/17 05:30 Hct 35.8 % (41.0-60) L D 05/03/17 05:30 MCV 92.2 fl (80-99) 05/03/17 05:30 MCH 31.5 pg (27.0-31.0) H 05/03/17 05:30 MCHC Differential 34.1 pg (28.0-36.0) 05/03/17 05:30 RDW 15.0 % (11.5-20.0) 05/03/17 05:30 Plt Count 73 Th/cmm (150-400) L 05/03/17 05:30 MPV 10.2 fl 05/03/17 05:30 Neutrophils % 82.6 % (40.0-80.0) H 04/28/17 05:33 Band Neutrophils % 2 % (0-10) 05/02/17 05:30 Lymphocytes % 13.4 % (20.0-50.0) L 04/28/17 05:33 Monocytes % 3.8 % (2.0-10.0) 04/28/17 05:33 Eosinophils % 0.1 % (0.0-5.0) 04/28/17 05:33 Basophils % 0.1 % (0.0-2.0) 04/28/17 05:33 Neutrophils (Manual) 91 % (40-80) H 05/03/17 05:30 Lymphocytes 4 % (20-50) L 05/03/17 05:30 Monocytes 5 % (2-10) 05/03/17 05:30 Eosinophils 1 % (0-5) 04/29/17 04:55 Platelet Estimate DECREASED PLATELETS (NORMAL) 05/03/17 05:30 PT 11.0 SECONDS (9.5-11.5) 04/27/17 11:40 INR 1.06 (0.5-1.4) 04/27/17 11:40 PTT (Actin FS) 26.3 SECONDS (26.0-38.0) 04/27/17 11:40 Specimen Source ARTERIAL 04/28/17 05:00 Sample Site Right Radial 04/28/17 05:00 pH 7.44 (7.35-7.45) 04/28/17 05:00 pCO2 35.0 mmHg (35.0-45.0) 04/28/17 05:00 pO2 74.0 mmHg (80.0-100.0) L 04/28/17 05:00 HCO3 24.9 mEq/L (20.0-26.0) 04/28/17 05:00 Base Excess 0.0 mEq/L (-3.0-3.0) 04/28/17 05:00 O2 Saturation 95.0 % (92.0-100.0) 04/28/17 05:00 Albin Test Positive 04/28/17 05:00 Vent Rate N/A 04/28/17 05:00 Inspired O2 21 04/28/17 05:00 Tidal Volume N/A 04/28/17 05:00 PEEP N/A 04/28/17 05:00 Pressure (ins/psv/peep) N/A 04/28/17 05:00 Critical Value [employer] 04/28/17 05:00 Sodium 136 mEq/L (136-145) 05/02/17 05:30 Potassium 3.4 mEq/L (3.5-5.1) L 05/02/17 05:30 Chloride 103 mEq/L (98-107) 05/02/17 05:30 Carbon Dioxide 27.7 mEq/L (21.0-31.0) 05/02/17 05:30 Anion Gap 8.7 (7.0-16.0) 05/02/17 05:30 BUN 20 mg/dL (7-25) 05/02/17 05:30 Creatinine 0.7 mg/dL (0.7-1.3) 05/02/17 05:30 Est GFR ( Amer) > 60.0 ml/min (>90) 05/02/17 05:30 Est GFR (Non-Af Amer) > 60.0 ml/min 05/02/17 05:30 BUN/Creatinine Ratio 28.6 05/02/17 05:30 Glucose 173 mg/dL (70-105) H 05/02/17 05:30 POC Glucose 268 MG/DL (70 - 105) H 05/03/17 11:35 Hemoglobin A1c % 6.9 % (4.0-6.0) H 04/29/17 04:55 Whole Bld Lactic Acid 1.72 mmol/L (0.60-1.99) 04/27/17 11:40 Calcium 8.8 mg/dL (8.6-10.3) 05/02/17 05:30 Magnesium 2.6 mg/dL (1.9-2.7) 05/02/17 05:30 Total Bilirubin 0.6 mg/dL (0.3-1.0) 05/02/17 05:30 AST 19 U/L (13-39) 05/02/17 05:30 ALT 41 U/L (7-52) 05/02/17 05:30 Alkaline Phosphatase 60 U/L (34-104) 05/02/17 05:30 Lactate Dehydrogenase 157 U/L (140-271) 04/28/17 05:33 Creatine Kinase 91 U/L (30-223) 04/27/17 11:40 Troponin I 0.01 ng/mL (0.01-0.05) 04/27/17 11:40 Total Protein 5.9 gm/dL (6.0-8.3) L 05/02/17 05:30 Albumin 3.9 gm/dL (4.2-5.5) L 05/02/17 05:30 Globulin 2.0 gm/dL 05/02/17 05:30 Albumin/Globulin Ratio 2.0 (1.0-1.8) H 05/02/17 05:30 Amylase 30 U/L (29-103) 04/27/17 11:40 Lipase 15 U/L (11-82) 04/27/17 11:40 Urine Source MIDSTREAM 04/27/17 13:50 Urine Color YELLOW 04/27/17 13:50 Urine Clarity CLEAR (CLEAR) 04/27/17 13:50 Urine pH 6.0 (4.6 - 8.0) 04/27/17 13:50 Ur Specific [place] 1.010 (1.005-1.030) 04/27/17 13:50 Urine Protein NEGATIVE mg/dL (NEGATIVE) 04/27/17 13:50 Urine Glucose (UA) NEGATIVE mg/dL (NEGATIVE) 04/27/17 13:50 Urine Ketones NEGATIVE mg/dL (NEGATIVE) 04/27/17 13:50 Urine Blood NEGATIVE (NEGATIVE) 04/27/17 13:50 Urine Nitrate NEGATIVE (NEGATIVE) 04/27/17 13:50 Urine Bilirubin NEGATIVE (NEGATIVE) 04/27/17 13:50 Urine Urobilinogen 0.2 E.U./dL (0.2 - 1.0) 04/27/17 13:50 Ur Leukocyte Esterase NEGATIVE (NEGATIVE) 04/27/17 13:50 Urine RBC 0-2 /hpf (0-5) H 04/27/17 13:50 Urine WBC NONE SEEN /hpf (0-5) 04/27/17 13:50 Ur Epithelial Cells RARE /lpf (FEW) 04/27/17 13:50 Urine Bacteria NONE SEEN /hpf (NONE SEEN) 04/27/17 13:50 Influenza A (Rapid) NEG FOR INF A 04/29/17 06:15 Influenza B (Rapid) NEG FOR INF B 04/29/17 06:15 - Physical Exam Vitals and I&O: Vital Signs Temp 96.5 F 05/03/17 08:00 Pulse 73 05/03/17 08:40 Resp 18 05/03/17 12:00 BP 113/75 05/03/17 08:40 Pulse Ox 96 05/03/17 08:00 Intake & Output 05/02/17 05/03/17 05/03/17 18:59 06:59 18:59 Intake Total 900 100 Output Total 5 Balance 895 100 Weight (lbs) 113.852 kg 113.852 kg Intake: Oral 900 100 Output: Urine 5 Other: # Voids 2 # Bowel Movements 1 1 Active Medications: Current Medications Acetaminophen (Tylenol) 650 mg PO Q6H PRN PRN Reason: Mild Pain/Headache/T above 101 Stop: 06/26/17 21:24 Last Admin: 05/02/17 19:30 Dose: 650 mg Albuterol/Ipratropium (Duoneb Neb) 3 ml HHN [id number] CHHAYA Stop: 06/27/17 06:59 Last Admin: 05/03/17 06:54 Dose: 3 ml Albuterol/Ipratropium (Duoneb Neb) 3 ml HHN Q2H PRN PRN Reason: Wheezing Stop: 06/26/17 21:29 Last Admin: 05/02/17 23:30 Dose: 3 ml Albuterol/Ipratropium (Duoneb Neb) 3 ml HHN [id number] CHHAYA Stop: 06/27/17 18:59 Last Admin: 05/01/17 19:18 Dose: 3 ml Aspirin (Aspirin Chewable) 81 mg PO DAILY CHHAYA Stop: 06/27/17 08:59 Last Admin: 05/03/17 08:33 Dose: 81 mg Atorvastatin Calcium (Lipitor) 40 mg PO DAILY CHHAYA Stop: 06/27/17 08:59 Last Admin: 05/03/17 08:45 Dose: 40 mg Budesonide (Pulmicort) 1 mg HHN BIDRT CHHAYA Stop: 06/27/17 16:59 Last Admin: 05/03/17 06:51 Dose: 1 mg Carisoprodol (Soma) 350 mg PO BID PRN PRN Reason: MUSCLE PAIN Stop: 06/26/17 21:32 Last Admin: 05/02/17 23:53 Dose: 350 mg Carvedilol (Coreg) 12.5 mg PO BID [facility] Stop: 06/27/17 08:59 Last Admin: 05/03/17 08:38 Dose: Not Given Cholecalciferol (Vitamin D3) 1,000 iu PO BID CHHAYA Stop: 06/27/17 08:59 Last Admin: 05/03/17 08:39 Dose: 1,000 iu Clopidogrel Bisulfate (Plavix) 75 mg PO DAILY [facility] Stop: 06/27/17 08:59 Last Admin: 05/03/17 08:39 Dose: 75 mg Enoxaparin Sodium (Lovenox) 40 mg SUBQ DAILY [facility] Stop: 07/01/17 08:59 Last Admin: 05/03/17 08:39 Dose: 40 mg Famotidine (Pepcid) 40 mg PO HS [facility] Stop: 06/30/17 20:59 Last Admin: 05/02/17 21:02 Dose: 40 mg Finasteride (Proscar) 5 mg PO HS [facility] PRN Reason: Protocol Stop: 06/27/17 01:14 Last Admin: 05/02/17 21:03 Dose: 5 mg Furosemide (Lasix) 40 mg PO DAILY CHHAYA Stop: 06/27/17 08:59 Last Admin: 05/03/17 08:36 Dose: Not Given Guaifenesin/Codeine Phosphate (Robitussin Ac) 10 ml PO Q4HR PRN PRN Reason: Cough Stop: 05/07/17 22:51 Last Admin: 05/02/17 23:54 Dose: 10 ml Guaifenesin/Dextromethorphan (Robitussin Dm) 5 ml PO Q6HR PRN PRN Reason: Cough Stop: 06/27/17 01:21 Last Admin: 05/02/17 05:24 Dose: 5 ml Insulin Aspart (Novolog Insulin Sliding Scale) 0 units SUBQ ACHS CHHAYA PRN Reason: Protocol Stop: 06/28/17 16:29 Last Admin: 05/03/17 12:21 Dose: 6 units Isosorbide Mononitrate (Imdur) 60 mg PO DAILY CHHAYA Stop: 06/27/17 08:59 Last Admin: 05/03/17 08:40 Dose: Not Given Lactobacillus Rhamnosus (Culturelle 15b) 1 each PO DAILY CHHAYA Stop: 06/30/17 08:59 Last Admin: 05/03/17 08:40 Dose: 1 each Lisinopril (Zestril) 40 mg PO BID CHHAYA Stop: 06/27/17 08:59 Last Admin: 05/03/17 08:40 Dose: Not Given Miscellaneous (Vte Chemical Prophylaxis Screen/ Admission) 1 ea MC PRN PRN PRN Reason: PROTOCOL Stop: 06/27/17 14:14 Miscellaneous (Probiotic Screen) 1 ea MC PRN PRN PRN Reason: PROTOCOL Stop: 06/29/17 14:14 Montelukast Sodium (Singulair) 10 mg PO HS CHHAYA Stop: 06/27/17 20:59 Last Admin: 05/02/17 21:03 Dose: 10 mg Multivitamins/Vitamin C (Theragran) 1 tab PO DAILY CHHAYA Stop: 06/27/17 08:59 Last Admin: 05/03/17 08:36 Dose: 1 tab Nitroglycerin (Nitrostat) 0.4 mg SL Q5MIN PRN PRN Reason: Chest Pain Stop: 06/29/17 09:44 Last Admin: 04/30/17 10:01 Dose: 0.4 mg Ondansetron HCl (Zofran) 4 mg IVP Q6H PRN PRN Reason: Nausea / Vomiting Stop: 06/26/17 21:24 Last Admin: 05/03/17 00:32 Dose: 4 mg Pantoprazole Sodium (Protonix) 40 mg PO DAILY [facility] Stop: 07/02/17 08:59 Last Admin: 05/03/17 08:37 Dose: 40 mg Sodium Chloride (Saline Flush) 10 ml IV QSHIFT CHHAYA Stop: 06/27/17 07:59 Last Admin: 05/03/17 08:32 Dose: 10 ml Tamsulosin HCl (Flomax) 0.4 mg PO HS CHHAYA Stop: 06/27/17 01:12 Last Admin: 05/02/17 21:03 Dose: 0.4 mg Zolpidem Tartrate (Ambien) 5 mg PO HS PRN PRN Reason: Insomnia Stop: 06/26/17 21:24 Last Admin: 05/02/17 00:41 Dose: 5 mg General: Alert, Oriented x3, Cooperative HEENT: Atraumatic, PERRLA, EOMI Neck: Supple, JVD Cardiovascular: Regular rate, Normal S1, Normal S2 Lungs: Clear to auscultation Abdomen: Bowel sounds, Soft Extremities: Other (no edema. R hip ROM painful.) Neurological: Normal gait, Normal speech, Strength at 5/5 X4 ext, Sensation intact, Cranial nerves 3-12 NL, Reflexes 2+ Psych/Mental Status: Mental status NL - Procedures Procedures: Procedures Procedure Code Date DOPPLER COLOR FLOW ADD-ON 38996 06/21/00 DOPPLER ECHO EXAM HEART 92308 06/21/00 DX ULTRASOUND-HEART 88.72 06/21/00 TTE W/O DOPPLER COMPLETE 66384 06/21/00 Assessment/Plan - Problem List Patient Problems: All Active Problems COUGH AND CONGESTION WITH DYSPNEA (Acute) - Assessment Assessment: COPD exacerbation improving. CAD HTN Chronic pain syndrome. Thrombocytopenia. DJD R hip pain etio?? Hyperlipedemia. BPH. Hx of lymphoma. Debility - Plan Plan: Oxygen. HHN. Med surg status. Pulmo toilet Iv antibiotics Decrease IV steroid Pain management with morphine. CT hip for pain evaluation. General nursing care Follow lab Follow consultants recommendations. Continue current care. Discussed with staff. Nutritional Asmnt/Malnutr-PDOC - Dietary Evaluation Malnutrition Findings (Please click <Entered> for more info): Nutritional Asmnt/Malnutrition Start: 05/02/17 15: 16 Text: Status: Complete Freq: Document 05/02/17 15:17 [email or web address] (Rec: 05/02/17 15:39 [email or web address] ANGELO- [id number]) Nutritional Asmnt/Malnutrition Patient General Information Nutritional Screening Moderate Risk Diagnosis Respiratory failure, broncospasm Pertinent Medical Hx/Surgical Hx Hypertension, CAD, asthma, COPD, hyperlipidemia, Non- hodgkin's lymphoma, DJD, chronic pain syndrome, hx of appendectomy and gallbladder surgery along with coronary artery bypass graft. Subjective Information Patient tolerating current diet order. Current Diet Order/ Nutrition Support Regular Patient / S.O Not Indicated Pertinent Medications lipitor, abx, vitamin D3, pepcid, lasix, novolog, solu- medrol, Theragran, zofran, protonix Pertinent Labs (05/02) K 3.4, Glucose 144-303, A1C 6.9, albumin 3.9 Nutritional Hx/Data Height 1.7 m Height (Calculated Centimeters) 170.2 Current Weight (lbs) 113.852 kg Weight (Calculated Kilograms) 113.9 Weight (Calculated Grams) 638229.7 [place] Body Weight 148 % [place] Body Weight 169 Body Mass Index (BMI) 39.3 Recent Weight Change No Weight Status Obese GI Symptoms GI Symptoms None Last BM 3 x 1 Difficult in: None Food Allergies No Cultural/Ethnic/Buddhist Belief None indicated Usual diet at home unknown Skin Integrity/Comment: Eric 18, 1+ edema, skin tear /abrasion on right and left foot Current %PO Good (75-100%) Estimated Nutritional Goals BEE in Kcals: Adj wt of IBW Calories/Kcals/Kg 173lb/79kg Adj wt 25-30 kcal/ kg Kcals Calculated 7437-8781 kcal/day Protein: Adj wt of IBW Protein g/k-1.2 gm/kg Protein Calculated 80-95gm/day Fluid: ml 3336-4312 ml/day (1 ml/kcal) Nutritional Problem 1. Problem Problem Altered nutrition related lab values related to Etiology hyperglycemia, electrolyte imbalance aeb Signs/Symptoms: K 3.4, Glucose 144-303 Intervention/Recommendation Comments 1. Consider modifying diet to 75gm CCHO for better blood glucose control. 2. Liberalize potassium intake , supplementation per MD Expected Outcomes/Goals Expected Outcomes/Goals oral intake to meet >75% of nutrient needs, weight trends toard ideal body weight, nutrition related labs WNL F/U in 3-5 days MR 3-8
[2017-05-03] MEDS: Codeine /Guaifenesin 200mg-20mg/10 mL UDC PO PRN (23:47)
--- NOTE | 2017-05-04 00:11 | Progress Notes ---
DATE: 05/03/2017 PROBLEM LIST: 1. Acute asthmatic bronchitis, improved. 2. Complaint of pain in right leg, exact etiology not clear. SYMPTOMS: Nil, feeling okay, offers no specific symptoms respiratory jules except for pain in the right leg. PHYSICAL EXAMINATION: VITAL SIGNS: Temperature is 96.8, blood pressure 127/78, respirations 18, saturation 98% on room air. NECK: Veins not visualized. CHEST: Shows occasional wheezing with diminished air entry. HEART: Regular. ABDOMEN: Soft, nontender. LABORATORY STUDIES: White count is 10.5, hemoglobin 12.8, platelet is low. ASSESSMENT: The patient is clinically stable, improving. PLANS AND SUGGESTIONS: We will discuss with Dr. Abbott. Pulmonary jules okay with tapering dose of steroid with bronchodilator including inhaled steroid and will go from there. JOB# [id number]
[2017-05-04] MEDS: Albuterol/Ipratropium Neb 3 ML AERS HHN SCH ×3 (07:19→19:14)
[2017-05-04] MEDS: Budesonide 0.5 Mg/2 mL Ud HHN SCH ×2 (07:20→19:13)
[2017-05-04] MEDS: INSULIN ASPART SLIDING SCALE 100 UNITS/ML UNIT SUBQ SCH ×3 (08:00→18:13)
[2017-05-04] MEDS: Aspirin 81mg Chewable Tab PO SCH (08:36)
[2017-05-04] MEDS: Multivitamin Tab PO SCH (08:37)
[2017-05-04] MEDS: Pantoprazole 40 mg EC Tab PO SCH (08:37)
[2017-05-04] MEDS: Lactobacillus Rhamnosus GG 15 Billion CFU CAP.SPRINK PO SCH (08:37)
[2017-05-04] MEDS: methylPREDNISolone SS 40 mg Vial IV SCH ×4 (08:41→22:02)
[2017-05-04] MEDS: Enoxaparin 40 mg/0.4 mL 0.4mL Syr SUBQ SCH (08:46)
--- NOTE | 2017-05-04 09:48 | General Progress Note ---
Subjective - Review of Systems Service Date: 05/04/17 Objective - Results Result Diagrams: 05/03/17 05:30 05/02/17 05:30 Recent Labs: Laboratory Last Values WBC 10.5 Th/cmm (4.8-10.8) D 05/03/17 05:30 RBC 3.88 Mil/cmm (3.80-5.80) 05/03/17 05:30 Hgb 12.2 gm/dL (12-16) 05/03/17 05:30 Hct 35.8 % (41.0-60) L D 05/03/17 05:30 MCV 92.2 fl (80-99) 05/03/17 05:30 MCH 31.5 pg (27.0-31.0) H 05/03/17 05:30 MCHC Differential 34.1 pg (28.0-36.0) 05/03/17 05:30 RDW 15.0 % (11.5-20.0) 05/03/17 05:30 Plt Count 73 Th/cmm (150-400) L 05/03/17 05:30 MPV 10.2 fl 05/03/17 05:30 Neutrophils % 82.6 % (40.0-80.0) H 04/28/17 05:33 Band Neutrophils % 2 % (0-10) 05/02/17 05:30 Lymphocytes % 13.4 % (20.0-50.0) L 04/28/17 05:33 Monocytes % 3.8 % (2.0-10.0) 04/28/17 05:33 Eosinophils % 0.1 % (0.0-5.0) 04/28/17 05:33 Basophils % 0.1 % (0.0-2.0) 04/28/17 05:33 Neutrophils (Manual) 91 % (40-80) H 05/03/17 05:30 Lymphocytes 4 % (20-50) L 05/03/17 05:30 Monocytes 5 % (2-10) 05/03/17 05:30 Eosinophils 1 % (0-5) 04/29/17 04:55 Platelet Estimate DECREASED PLATELETS (NORMAL) 05/03/17 05:30 PT 11.0 SECONDS (9.5-11.5) 04/27/17 11:40 INR 1.06 (0.5-1.4) 04/27/17 11:40 PTT (Actin FS) 26.3 SECONDS (26.0-38.0) 04/27/17 11:40 Specimen Source ARTERIAL 04/28/17 05:00 Sample Site Right Radial 04/28/17 05:00 pH 7.44 (7.35-7.45) 04/28/17 05:00 pCO2 35.0 mmHg (35.0-45.0) 04/28/17 05:00 pO2 74.0 mmHg (80.0-100.0) L 04/28/17 05:00 HCO3 24.9 mEq/L (20.0-26.0) 04/28/17 05:00 Base Excess 0.0 mEq/L (-3.0-3.0) 04/28/17 05:00 O2 Saturation 95.0 % (92.0-100.0) 04/28/17 05:00 Albin Test Positive 04/28/17 05:00 Vent Rate N/A 04/28/17 05:00 Inspired O2 21 04/28/17 05:00 Tidal Volume N/A 04/28/17 05:00 PEEP N/A 04/28/17 05:00 Pressure (ins/psv/peep) N/A 04/28/17 05:00 Critical Value [employer] 04/28/17 05:00 Sodium 136 mEq/L (136-145) 05/02/17 05:30 Potassium 3.4 mEq/L (3.5-5.1) L 05/02/17 05:30 Chloride 103 mEq/L (98-107) 05/02/17 05:30 Carbon Dioxide 27.7 mEq/L (21.0-31.0) 05/02/17 05:30 Anion Gap 8.7 (7.0-16.0) 05/02/17 05:30 BUN 20 mg/dL (7-25) 05/02/17 05:30 Creatinine 0.7 mg/dL (0.7-1.3) 05/02/17 05:30 Est GFR ( Amer) > 60.0 ml/min (>90) 05/02/17 05:30 Est GFR (Non-Af Amer) > 60.0 ml/min 05/02/17 05:30 BUN/Creatinine Ratio 28.6 05/02/17 05:30 Glucose 173 mg/dL (70-105) H 05/02/17 05:30 POC Glucose 146 MG/DL (70 - 105) H 05/04/17 06:41 Hemoglobin A1c % 6.9 % (4.0-6.0) H 04/29/17 04:55 Whole Bld Lactic Acid 1.72 mmol/L (0.60-1.99) 04/27/17 11:40 Calcium 8.8 mg/dL (8.6-10.3) 05/02/17 05:30 Magnesium 2.6 mg/dL (1.9-2.7) 05/02/17 05:30 Total Bilirubin 0.6 mg/dL (0.3-1.0) 05/02/17 05:30 AST 19 U/L (13-39) 05/02/17 05:30 ALT 41 U/L (7-52) 05/02/17 05:30 Alkaline Phosphatase 60 U/L (34-104) 05/02/17 05:30 Lactate Dehydrogenase 157 U/L (140-271) 04/28/17 05:33 Creatine Kinase 91 U/L (30-223) 04/27/17 11:40 Troponin I 0.01 ng/mL (0.01-0.05) 04/27/17 11:40 Total Protein 5.9 gm/dL (6.0-8.3) L 05/02/17 05:30 Albumin 3.9 gm/dL (4.2-5.5) L 05/02/17 05:30 Globulin 2.0 gm/dL 05/02/17 05:30 Albumin/Globulin Ratio 2.0 (1.0-1.8) H 05/02/17 05:30 Amylase 30 U/L (29-103) 04/27/17 11:40 Lipase 15 U/L (11-82) 04/27/17 11:40 Urine Source MIDSTREAM 04/27/17 13:50 Urine Color YELLOW 04/27/17 13:50 Urine Clarity CLEAR (CLEAR) 04/27/17 13:50 Urine pH 6.0 (4.6 - 8.0) 04/27/17 13:50 Ur Specific [place] 1.010 (1.005-1.030) 04/27/17 13:50 Urine Protein NEGATIVE mg/dL (NEGATIVE) 04/27/17 13:50 Urine Glucose (UA) NEGATIVE mg/dL (NEGATIVE) 04/27/17 13:50 Urine Ketones NEGATIVE mg/dL (NEGATIVE) 04/27/17 13:50 Urine Blood NEGATIVE (NEGATIVE) 04/27/17 13:50 Urine Nitrate NEGATIVE (NEGATIVE) 04/27/17 13:50 Urine Bilirubin NEGATIVE (NEGATIVE) 04/27/17 13:50 Urine Urobilinogen 0.2 E.U./dL (0.2 - 1.0) 04/27/17 13:50 Ur Leukocyte Esterase NEGATIVE (NEGATIVE) 04/27/17 13:50 Urine RBC 0-2 /hpf (0-5) H 04/27/17 13:50 Urine WBC NONE SEEN /hpf (0-5) 04/27/17 13:50 Ur Epithelial Cells RARE /lpf (FEW) 04/27/17 13:50 Urine Bacteria NONE SEEN /hpf (NONE SEEN) 04/27/17 13:50 Influenza A (Rapid) NEG FOR INF A 04/29/17 06:15 Influenza B (Rapid) NEG FOR INF B 04/29/17 06:15 - Physical Exam Vitals and I&O: Vital Signs Temp 97.2 F 05/04/17 07:40 Pulse 75 05/04/17 08:47 Resp 17 05/04/17 08:00 BP 112/87 05/04/17 08:47 Pulse Ox 96 05/04/17 07:40 Intake & Output 05/03/17 05/04/17 05/04/17 18:59 06:59 18:59 Intake Total 1000 100 Balance 1000 100 Weight (lbs) 113.852 kg 113.852 kg 113.852 kg Intake: Oral 1000 100 Other: # Voids 3 2 Active Medications: Current Medications Acetaminophen (Tylenol) 650 mg PO Q6H PRN PRN Reason: Mild Pain/Headache/T above 101 Stop: 06/26/17 21:24 Last Admin: 05/04/17 06:44 Dose: 650 mg Albuterol/Ipratropium (Duoneb Neb) 3 ml HHN [id number] [facility] Stop: 06/27/17 06:59 Last Admin: 05/04/17 07:19 Dose: 3 ml Albuterol/Ipratropium (Duoneb Neb) 3 ml HHN Q2H PRN PRN Reason: Wheezing Stop: 06/26/17 21:29 Last Admin: 05/02/17 23:30 Dose: 3 ml Albuterol/Ipratropium (Duoneb Neb) 3 ml HHN [id number] [facility] Stop: 06/27/17 18:59 Last Admin: 05/01/17 19:18 Dose: 3 ml Aspirin (Aspirin Chewable) 81 mg PO DAILY [facility]A Stop: 06/27/17 08:59 Last Admin: 05/04/17 08:36 Dose: 81 mg Atorvastatin Calcium (Lipitor) 40 mg PO DAILY [facility] Stop: 06/27/17 08:59 Last Admin: 05/04/17 08:34 Dose: 40 mg Budesonide (Pulmicort) 1 mg HHN BIDRT [facility] Stop: 06/27/17 16:59 Last Admin: 05/04/17 07:20 Dose: 0.5 mg Carisoprodol (Soma) 350 mg PO BID PRN PRN Reason: MUSCLE PAIN Stop: 06/26/17 21:32 Last Admin: 05/04/17 09:03 Dose: 350 mg Carvedilol (Coreg) 12.5 mg PO BID [facility]A Stop: 06/27/17 08:59 Last Admin: 05/03/17 16:47 Dose: 12.5 mg Cholecalciferol (Vitamin D3) 1,000 iu PO BID [facility] Stop: 06/27/17 08:59 Last Admin: 05/04/17 08:35 Dose: 1,000 iu Clopidogrel Bisulfate (Plavix) 75 mg PO DAILY [facility]AYA Stop: 06/27/17 08:59 Last Admin: 05/04/17 08:35 Dose: 75 mg Enoxaparin Sodium (Lovenox) 40 mg SUBQ DAILY [facility] Stop: 07/01/17 08:59 Last Admin: 05/04/17 08:46 Dose: 40 mg Famotidine (Pepcid) 40 mg PO HS [facility] Stop: 06/30/17 20:59 Last Admin: 05/03/17 20:45 Dose: 40 mg Finasteride (Proscar) 5 mg PO HS [facility] PRN Reason: Protocol Stop: 06/27/17 01:14 Last Admin: 05/03/17 20:48 Dose: 5 mg Furosemide (Lasix) 40 mg PO DAILY [facility] Stop: 06/27/17 08:59 Last Admin: 05/04/17 08:38 Dose: 40 mg Guaifenesin/Codeine Phosphate (Robitussin Ac) 10 ml PO Q4HR PRN PRN Reason: Cough Stop: 05/07/17 22:51 Last Admin: 05/03/17 23:47 Dose: 10 ml Guaifenesin/Dextromethorphan (Robitussin Dm) 5 ml PO Q6HR PRN PRN Reason: Cough Stop: 06/27/17 01:21 Last Admin: 05/02/17 05:24 Dose: 5 ml Insulin Aspart (Novolog Insulin Sliding Scale) 0 units SUBQ ACHS [facility]AYA PRN Reason: Protocol Stop: 06/28/17 16:29 Last Admin: 05/04/17 08:00 Dose: Not Given Isosorbide Mononitrate (Imdur) 60 mg PO DAILY [facility] Stop: 06/27/17 08:59 Last Admin: 05/03/17 08:40 Dose: Not Given Lactobacillus Rhamnosus (Culturelle 15b) 1 each PO DAILY [facility] Stop: 06/30/17 08:59 Last Admin: 05/04/17 08:37 Dose: 1 each Lisinopril (Zestril) 40 mg PO BID [facility] Stop: 06/27/17 08:59 Last Admin: 05/04/17 08:47 Dose: 40 mg Methylprednisolone Sodium Succinate (Solu-Medrol) 40 mg IV Q12HR [facility] Stop: 07/02/17 20:59 Last Admin: 05/04/17 09:06 Dose: Not Given Miscellaneous (Vte Chemical Prophylaxis Screen/ Admission) 1 ea [facility] PRN PRN PRN Reason: PROTOCOL Stop: 06/27/17 14:14 Miscellaneous (Probiotic Screen) 1 ea [facility] PRN PRN PRN Reason: PROTOCOL Stop: 06/29/17 14:14 Montelukast Sodium (Singulair) 10 mg PO HS [facility]A Stop: 06/27/17 20:59 Last Admin: 05/03/17 20:48 Dose: 10 mg Morphine Sulfate (Morphine) 2 mg IVP Q4HR PRN PRN Reason: right hip pain Stop: 07/02/17 13:52 Multivitamins/Vitamin C (Theragran) 1 tab PO DAILY [facility]AYA Stop: 06/27/17 08:59 Last Admin: 05/04/17 08:37 Dose: 1 tab Nitroglycerin (Nitrostat) 0.4 mg SL Q5MIN PRN PRN Reason: Chest Pain Stop: 06/29/17 09:44 Last Admin: 04/30/17 10:01 Dose: 0.4 mg Ondansetron HCl (Zofran) 4 mg IVP Q6H PRN PRN Reason: Nausea / Vomiting Stop: 06/26/17 21:24 Last Admin: 05/03/17 00:32 Dose: 4 mg Pantoprazole Sodium (Protonix) 40 mg PO DAILY [facility]A Stop: 07/02/17 08:59 Last Admin: 05/04/17 08:37 Dose: 40 mg Sodium Chloride (Saline Flush) 10 ml IV QSHIFT [facility]A Stop: 06/27/17 07:59 Last Admin: 05/04/17 09:05 Dose: Not Given Tamsulosin HCl (Flomax) 0.4 mg PO HS [facility]A Stop: 06/27/17 01:12 Last Admin: 05/03/17 20:46 Dose: 0.4 mg Zolpidem Tartrate (Ambien) 5 mg PO HS PRN PRN Reason: Insomnia Stop: 06/26/17 21:24 Last Admin: 05/03/17 23:47 Dose: 5 mg General: Alert, Oriented x3, Cooperative HEENT: Atraumatic, PERRLA, EOMI Neck: Supple, JVD Cardiovascular: Regular rate, Normal S1, Normal S2 Lungs: Clear to auscultation Abdomen: Bowel sounds, Soft Extremities: Other (no edema. R hip ROM painful.) Neurological: Normal gait, Normal speech, Strength at 5/5 X4 ext, Sensation intact, Cranial nerves 3-12 NL, Reflexes 2+ Psych/Mental Status: Mental status NL - Procedures Procedures: Procedures Procedure Code Date DOPPLER COLOR FLOW ADD-ON 22166 06/21/00 DOPPLER ECHO EXAM HEART 56075 06/21/00 DX ULTRASOUND-HEART 88.72 06/21/00 TTE W/O DOPPLER COMPLETE 60838 06/21/00 Assessment/Plan - Problem List Patient Problems: All Active Problems COUGH AND CONGESTION WITH DYSPNEA (Acute) - Assessment Assessment: * h/o follicular lymphoma * Pneumonitis * Thrombocytopenia most likely following chemotherapy bone marrow suppression follow b12, folate levels Monitor plt for now Nutritional Asmnt/Malnutr-PDOC - Dietary Evaluation Malnutrition Findings (Please click <Entered> for more info): Nutritional Asmnt/Malnutrition Start: 05/02/17 15: 16 Text: Status: Complete Freq: Document 05/02/17 15:17 MMULCORA (Rec: 05/02/17 15:39 MMULCORA ANGELO- [email or web address]) Nutritional Asmnt/Malnutrition Patient General Information Nutritional Screening Moderate Risk Diagnosis Respiratory failure, broncospasm Pertinent Medical Hx/Surgical Hx Hypertension, CAD, asthma, COPD, hyperlipidemia, Non- hodgkin's lymphoma, DJD, chronic pain syndrome, hx of appendectomy and gallbladder surgery along with coronary artery bypass graft. Subjective Information Patient tolerating current diet order. Current Diet Order/ Nutrition Support Regular Patient / S.O Not Indicated Pertinent Medications lipitor, abx, vitamin D3, pepcid, lasix, novolog, solu- medrol, Theragran, zofran, protonix Pertinent Labs (05/02) K 3.4, Glucose 144-303, A1C 6.9, albumin 3.9 Nutritional Hx/Data Height 1.7 m Height (Calculated Centimeters) 170.2 Current Weight (lbs) 113.852 kg Weight (Calculated Kilograms) 113.9 Weight (Calculated Grams) 928250.7 [place] Body Weight 148 % [place] Body Weight 169 Body Mass Index (BMI) 39.3 Recent Weight Change No Weight Status Obese GI Symptoms GI Symptoms None Last BM 04/30 x 1 Difficult in: None Food Allergies No Cultural/Ethnic/Christian Belief None indicated Usual diet at home unknown Skin Integrity/Comment: Eric 18, 1+ edema, skin tear /abrasion on right and left foot Current %PO Good (75-100%) Estimated Nutritional Goals BEE in Kcals: Adj wt of IBW Calories/Kcals/Kg 173lb/79kg Adj wt 25-30 kcal/ kg Kcals Calculated 1923-8472 kcal/day Protein: Adj wt of IBW Protein g/k-1.2 gm/kg Protein Calculated 80-95gm/day Fluid: ml 0134-1444 ml/day (1 ml/kcal) Nutritional Problem 1. Problem Problem Altered nutrition related lab values related to Etiology hyperglycemia, electrolyte imbalance aeb Signs/Symptoms: K 3.4, Glucose 144-303 Intervention/Recommendation Comments 1. Consider modifying diet to 75gm CCHO for better blood glucose control. 2. Liberalize potassium intake , supplementation per MD Expected Outcomes/Goals Expected Outcomes/Goals oral intake to meet >75% of nutrient needs, weight trends toard ideal body weight, nutrition related labs WNL F/U in 3-5 days MR 05/05-8
[2017-05-04] MEDS: Morphine Sulfate 2 mg/mL 1mL Syr IVP PRN ×2 (10:26→15:22)
--- NOTE | 2017-05-04 12:10 | General Progress Note ---
Subjective - Review of Systems Subjective: Patient is seen and examined. I have Right hip pain and I can't walk. CT is not done yet. pain sacle 10/09. Objective - Results Result Diagrams: 05/03/17 05:30 05/02/17 05:30 Recent Labs: Laboratory Last Values WBC 10.5 Th/cmm (4.8-10.8) D 05/03/17 05:30 RBC 3.88 Mil/cmm (3.80-5.80) 05/03/17 05:30 Hgb 12.2 gm/dL (12-16) 05/03/17 05:30 Hct 35.8 % (41.0-60) L D 05/03/17 05:30 MCV 92.2 fl (80-99) 05/03/17 05:30 MCH 31.5 pg (27.0-31.0) H 05/03/17 05:30 MCHC Differential 34.1 pg (28.0-36.0) 05/03/17 05:30 RDW 15.0 % (11.5-20.0) 05/03/17 05:30 Plt Count 73 Th/cmm (150-400) L 05/03/17 05:30 MPV 10.2 fl 05/03/17 05:30 Neutrophils % 82.6 % (40.0-80.0) H 04/28/17 05:33 Band Neutrophils % 2 % (0-10) 05/02/17 05:30 Lymphocytes % 13.4 % (20.0-50.0) L 04/28/17 05:33 Monocytes % 3.8 % (2.0-10.0) 04/28/17 05:33 Eosinophils % 0.1 % (0.0-5.0) 04/28/17 05:33 Basophils % 0.1 % (0.0-2.0) 04/28/17 05:33 Neutrophils (Manual) 91 % (40-80) H 05/03/17 05:30 Lymphocytes 4 % (20-50) L 05/03/17 05:30 Monocytes 5 % (2-10) 05/03/17 05:30 Eosinophils 1 % (0-5) 04/29/17 04:55 Platelet Estimate DECREASED PLATELETS (NORMAL) 05/03/17 05:30 PT 11.0 SECONDS (9.5-11.5) 04/27/17 11:40 INR 1.06 (0.5-1.4) 04/27/17 11:40 PTT (Actin FS) 26.3 SECONDS (26.0-38.0) 04/27/17 11:40 Specimen Source ARTERIAL 04/28/17 05:00 Sample Site Right Radial 04/28/17 05:00 pH 7.44 (7.35-7.45) 04/28/17 05:00 pCO2 35.0 mmHg (35.0-45.0) 04/28/17 05:00 pO2 74.0 mmHg (80.0-100.0) L 04/28/17 05:00 HCO3 24.9 mEq/L (20.0-26.0) 04/28/17 05:00 Base Excess 0.0 mEq/L (-3.0-3.0) 04/28/17 05:00 O2 Saturation 95.0 % (92.0-100.0) 04/28/17 05:00 Albin Test Positive 04/28/17 05:00 Vent Rate N/A 04/28/17 05:00 Inspired O2 21 04/28/17 05:00 Tidal Volume N/A 04/28/17 05:00 PEEP N/A 04/28/17 05:00 Pressure (ins/psv/peep) N/A 04/28/17 05:00 Critical Value [employer]OP[employer] 04/28/17 05:00 Sodium 136 mEq/L (136-145) 05/02/17 05:30 Potassium 3.4 mEq/L (3.5-5.1) L 05/02/17 05:30 Chloride 103 mEq/L (98-107) 05/02/17 05:30 Carbon Dioxide 27.7 mEq/L (21.0-31.0) 05/02/17 05:30 Anion Gap 8.7 (7.0-16.0) 05/02/17 05:30 BUN 20 mg/dL (7-25) 05/02/17 05:30 Creatinine 0.7 mg/dL (0.7-1.3) 05/02/17 05:30 Est GFR ( Amer) > 60.0 ml/min (>90) 05/02/17 05:30 Est GFR (Non-Af Amer) > 60.0 ml/min 05/02/17 05:30 BUN/Creatinine Ratio 28.6 05/02/17 05:30 Glucose 173 mg/dL (70-105) H 05/02/17 05:30 POC Glucose 146 MG/DL (70 - 105) H 05/04/17 06:41 Hemoglobin A1c % 6.9 % (4.0-6.0) H 04/29/17 04:55 Whole Bld Lactic Acid 1.72 mmol/L (0.60-1.99) 04/27/17 11:40 Calcium 8.8 mg/dL (8.6-10.3) 05/02/17 05:30 Magnesium 2.6 mg/dL (1.9-2.7) 05/02/17 05:30 Total Bilirubin 0.6 mg/dL (0.3-1.0) 05/02/17 05:30 AST 19 U/L (13-39) 05/02/17 05:30 ALT 41 U/L (7-52) 05/02/17 05:30 Alkaline Phosphatase 60 U/L (34-104) 05/02/17 05:30 Ammonia 30 umol/L (16-53) 05/04/17 11:40 Lactate Dehydrogenase 157 U/L (140-271) 04/28/17 05:33 Creatine Kinase 91 U/L (30-223) 04/27/17 11:40 Troponin I 0.01 ng/mL (0.01-0.05) 04/27/17 11:40 Total Protein 5.9 gm/dL (6.0-8.3) L 05/02/17 05:30 Albumin 3.9 gm/dL (4.2-5.5) L 05/02/17 05:30 Globulin 2.0 gm/dL 05/02/17 05:30 Albumin/Globulin Ratio 2.0 (1.0-1.8) H 05/02/17 05:30 Amylase 30 U/L (29-103) 04/27/17 11:40 Lipase 15 U/L (11-82) 04/27/17 11:40 Urine Source MIDSTREAM 04/27/17 13:50 Urine Color YELLOW 04/27/17 13:50 Urine Clarity CLEAR (CLEAR) 04/27/17 13:50 Urine pH 6.0 (4.6 - 8.0) 04/27/17 13:50 Ur Specific [place] 1.010 (1.005-1.030) 04/27/17 13:50 Urine Protein NEGATIVE mg/dL (NEGATIVE) 04/27/17 13:50 Urine Glucose (UA) NEGATIVE mg/dL (NEGATIVE) 04/27/17 13:50 Urine Ketones NEGATIVE mg/dL (NEGATIVE) 04/27/17 13:50 Urine Blood NEGATIVE (NEGATIVE) 04/27/17 13:50 Urine Nitrate NEGATIVE (NEGATIVE) 04/27/17 13:50 Urine Bilirubin NEGATIVE (NEGATIVE) 04/27/17 13:50 Urine Urobilinogen 0.2 E.U./dL (0.2 - 1.0) 04/27/17 13:50 Ur Leukocyte Esterase NEGATIVE (NEGATIVE) 04/27/17 13:50 Urine RBC 0-2 /hpf (0-5) H 04/27/17 13:50 Urine WBC NONE SEEN /hpf (0-5) 04/27/17 13:50 Ur Epithelial Cells RARE /lpf (FEW) 04/27/17 13:50 Urine Bacteria NONE SEEN /hpf (NONE SEEN) 04/27/17 13:50 Influenza A (Rapid) NEG FOR INF A 04/29/17 06:15 Influenza B (Rapid) NEG FOR INF B 04/29/17 06:15 - Physical Exam Vitals and I&O: Vital Signs Temp 97.2 F 05/04/17 11:53 Pulse 75 05/04/17 11:53 Resp 18 05/04/17 11:53 BP 112/87 05/04/17 08:47 Pulse Ox 96 05/04/17 11:53 Intake & Output 05/03/17 05/04/17 05/04/17 18:59 06:59 18:59 Intake Total 1000 100 Balance 1000 100 Weight (lbs) 113.852 kg 113.852 kg 113.852 kg Intake: Oral 1000 100 Other: # Voids 3 2 Active Medications: Current Medications Acetaminophen (Tylenol) 650 mg PO Q6H PRN PRN Reason: Mild Pain/Headache/T above 101 Stop: 06/26/17 21:24 Last Admin: 05/04/17 06:44 Dose: 650 mg Albuterol/Ipratropium (Duoneb Neb) 3 ml HHN [id number] [facility] Stop: 06/27/17 06:59 Last Admin: 05/04/17 07:19 Dose: 3 ml Albuterol/Ipratropium (Duoneb Neb) 3 ml HHN Q2H PRN PRN Reason: Wheezing Stop: 06/26/17 21:29 Last Admin: 05/02/17 23:30 Dose: 3 ml Albuterol/Ipratropium (Duoneb Neb) 3 ml HHN [id number] [facility] Stop: 06/27/17 18:59 Last Admin: 05/01/17 19:18 Dose: 3 ml Aspirin (Aspirin Chewable) 81 mg PO DAILY [facility]AYA Stop: 06/27/17 08:59 Last Admin: 05/04/17 08:36 Dose: 81 mg Atorvastatin Calcium (Lipitor) 40 mg PO DAILY [facility]A Stop: 06/27/17 08:59 Last Admin: 05/04/17 08:34 Dose: 40 mg Budesonide (Pulmicort) 1 mg HHN BIDRT [facility] Stop: 06/27/17 16:59 Last Admin: 05/04/17 07:20 Dose: 0.5 mg Carisoprodol (Soma) 350 mg PO BID PRN PRN Reason: MUSCLE PAIN Stop: 06/26/17 21:32 Last Admin: 05/04/17 09:03 Dose: 350 mg Carvedilol (Coreg) 12.5 mg PO BID [facility] Stop: 06/27/17 08:59 Last Admin: 05/03/17 16:47 Dose: 12.5 mg Cholecalciferol (Vitamin D3) 1,000 iu PO BID [facility] Stop: 06/27/17 08:59 Last Admin: 05/04/17 08:35 Dose: 1,000 iu Clopidogrel Bisulfate (Plavix) 75 mg PO DAILY [facility] Stop: 06/27/17 08:59 Last Admin: 05/04/17 08:35 Dose: 75 mg Enoxaparin Sodium (Lovenox) 40 mg SUBQ DAILY [facility] Stop: 07/01/17 08:59 Last Admin: 05/04/17 08:46 Dose: 40 mg Famotidine (Pepcid) 40 mg PO HS [facility] Stop: 06/30/17 20:59 Last Admin: 05/03/17 20:45 Dose: 40 mg Finasteride (Proscar) 5 mg PO HS [facility]A PRN Reason: Protocol Stop: 06/27/17 01:14 Last Admin: 05/03/17 20:48 Dose: 5 mg Furosemide (Lasix) 40 mg PO DAILY [facility] Stop: 06/27/17 08:59 Last Admin: 05/04/17 08:38 Dose: 40 mg Guaifenesin/Codeine Phosphate (Robitussin Ac) 10 ml PO Q4HR PRN PRN Reason: Cough Stop: 05/07/17 22:51 Last Admin: 05/03/17 23:47 Dose: 10 ml Guaifenesin/Dextromethorphan (Robitussin Dm) 5 ml PO Q6HR PRN PRN Reason: Cough Stop: 06/27/17 01:21 Last Admin: 05/02/17 05:24 Dose: 5 ml Insulin Aspart (Novolog Insulin Sliding Scale) 0 units SUBQ ACHS CHHAYA PRN Reason: Protocol Stop: 06/28/17 16:29 Last Admin: 05/04/17 08:00 Dose: Not Given Isosorbide Mononitrate (Imdur) 60 mg PO DAILY [facility] Stop: 06/27/17 08:59 Last Admin: 05/03/17 08:40 Dose: Not Given Lactobacillus Rhamnosus (Culturelle 15b) 1 each PO DAILY [facility]AYA Stop: 06/30/17 08:59 Last Admin: 05/04/17 08:37 Dose: 1 each Lisinopril (Zestril) 40 mg PO BID [facility]HYAA Stop: 06/27/17 08:59 Last Admin: 05/04/17 08:47 Dose: 40 mg Methylprednisolone Sodium Succinate (Solu-Medrol) 40 mg IV Q12HR [facility]AYA Stop: 07/02/17 20:59 Last Admin: 05/04/17 10:21 Dose: 40 mg Miscellaneous (Vte Chemical Prophylaxis Screen/ Admission) 1 ea MC PRN PRN PRN Reason: PROTOCOL Stop: 06/27/17 14:14 Miscellaneous (Probiotic Screen) 1 ea MC PRN PRN PRN Reason: PROTOCOL Stop: 06/29/17 14:14 Montelukast Sodium (Singulair) 10 mg PO HS CHHAYA Stop: 06/27/17 20:59 Last Admin: 05/03/17 20:48 Dose: 10 mg Morphine Sulfate (Morphine) 2 mg IVP Q4HR PRN PRN Reason: right hip pain Stop: 07/02/17 13:52 Last Admin: 05/04/17 10:26 Dose: 2 mg Multivitamins/Vitamin C (Theragran) 1 tab PO DAILY CHHAYA Stop: 06/27/17 08:59 Last Admin: 05/04/17 08:37 Dose: 1 tab Nitroglycerin (Nitrostat) 0.4 mg SL Q5MIN PRN PRN Reason: Chest Pain Stop: 06/29/17 09:44 Last Admin: 04/30/17 10:01 Dose: 0.4 mg Ondansetron HCl (Zofran) 4 mg IVP Q6H PRN PRN Reason: Nausea / Vomiting Stop: 06/26/17 21:24 Last Admin: 05/03/17 00:32 Dose: 4 mg Pantoprazole Sodium (Protonix) 40 mg PO DAILY CHHAYA Stop: 07/02/17 08:59 Last Admin: 05/04/17 08:37 Dose: 40 mg Sodium Chloride (Saline Flush) 10 ml IV QSHIFT CHHAYA Stop: 06/27/17 07:59 Last Admin: 05/04/17 09:05 Dose: Not Given Tamsulosin HCl (Flomax) 0.4 mg PO HS CHHAYA Stop: 06/27/17 01:12 Last Admin: 05/03/17 20:46 Dose: 0.4 mg Zolpidem Tartrate (Ambien) 5 mg PO HS PRN PRN Reason: Insomnia Stop: 06/26/17 21:24 Last Admin: 05/03/17 23:47 Dose: 5 mg General: Alert, Oriented x3, Cooperative HEENT: Atraumatic, PERRLA, EOMI Neck: Supple, JVD Cardiovascular: Regular rate, Normal S1, Normal S2 Lungs: Clear to auscultation Abdomen: Bowel sounds, Soft Extremities: Other (hip pain limits evaluation.) Neurological: Normal gait, Normal speech, Strength at 5/5 X4 ext, Sensation intact, Cranial nerves 3-12 NL, Reflexes 2+ Psych/Mental Status: Mental status NL - Procedures Procedures: Procedures Procedure Code Date DOPPLER COLOR FLOW ADD-ON 68525 06/21/00 DOPPLER ECHO EXAM HEART 81413 06/21/00 DX ULTRASOUND-HEART 88.72 06/21/00 TTE W/O DOPPLER COMPLETE 35748 06/21/00 Assessment/Plan - Problem List Patient Problems: All Active Problems COUGH AND CONGESTION WITH DYSPNEA (Acute) - Assessment Assessment: COPD exacerbation improving. CAD HTN Chronic pain syndrome. Thrombocytopenia. DJD R hip pain etio?? Hyperlipedemia. BPH. Hx of lymphoma. Debility - Plan Plan: Oxygen. HHN. Med surg status. Pulmo toilet Iv antibiotics Decrease IV steroid Pain management with morphine. CT hip for pain evaluation pending. General nursing care Follow lab Follow consultants recommendations. Continue current care. Discussed with staff. Nutritional Asmnt/Malnutr-PDOC - Dietary Evaluation Malnutrition Findings (Please click <Entered> for more info): Nutritional Asmnt/Malnutrition Start: 05/02/17 15: 16 Text: Status: Complete Freq: Document 05/02/17 15:17 MMULHERN (Rec: 05/02/17 15:39 [email or web address] [id number]) Nutritional Asmnt/Malnutrition Patient General Information Nutritional Screening Moderate Risk Diagnosis Respiratory failure, broncospasm Pertinent Medical Hx/Surgical Hx Hypertension, CAD, asthma, COPD, hyperlipidemia, Non- hodgkin's lymphoma, DJD, chronic pain syndrome, hx of appendectomy and gallbladder surgery along with coronary artery bypass graft. Subjective Information Patient tolerating current diet order. Current Diet Order/ Nutrition Support Regular Patient / S.O Not Indicated Pertinent Medications lipitor, abx, vitamin D3, pepcid, lasix, novolog, solu- medrol, Theragran, zofran, protonix Pertinent Labs (05/02) K 3.4, Glucose 144-303, A1C 6.9, albumin 3.9 Nutritional Hx/Data Height 1.7 m Height (Calculated Centimeters) 170.2 Current Weight (lbs) 113.852 kg Weight (Calculated Kilograms) 113.9 Weight (Calculated Grams) 758061.7 Connelly Body Weight 148 % Connelly Body Weight 169 Body Mass Index (BMI) 39.3 Recent Weight Change No Weight Status Obese GI Symptoms GI Symptoms None Last BM 3 x 1 Difficult in: None Food Allergies No Cultural/Ethnic/Advent Belief None indicated Usual diet at home unknown Skin Integrity/Comment: Eric 18, 1+ edema, skin tear /abrasion on right and left foot Current %PO Good (75-100%) Estimated Nutritional Goals BEE in Kcals: Adj wt of IBW Calories/Kcals/Kg 173lb/79kg Adj wt 25-30 kcal/ kg Kcals Calculated 4612-4295 kcal/day Protein: Adj wt of IBW Protein g/k-1.2 gm/kg Protein Calculated 80-95gm/day Fluid: ml 9076-6646 ml/day (1 ml/kcal) Nutritional Problem 1. Problem Problem Altered nutrition related lab values related to Etiology hyperglycemia, electrolyte imbalance aeb Signs/Symptoms: K 3.4, Glucose 144-303 Intervention/Recommendation Comments 1. Consider modifying diet to 75gm CCHO for better blood glucose control. 2. Liberalize potassium intake , supplementation per MD Expected Outcomes/Goals Expected Outcomes/Goals oral intake to meet >75% of nutrient needs, weight trends toard ideal body weight, nutrition related labs WNL F/U in 3-5 days MR 3-8
--- NOTE | 2017-05-04 13:08 | Diagnostic Imaging Report ---
CT pelvis without IV contrast HISTORY: Right hip pain COMPARISON: None. Technique: Axial images were obtained from the iliac crest to the bilateral proximal femurs without IV contrast. Reconstructions were made. Total DLP 640, CTD I 18 Findings: There is enlargement of the right psoas muscle with increased density likely the source of hemorrhage. Free fluid and inflammatory change are seen along the abdomen and pelvis tracking inferiorly. The right psoas muscle measures up to 6.8 cm AP x 7 cm transverse. Diverticulosis is noted. The urinary bladder is underdistended, limiting its evaluation. Atherosclerosis is noted. Inflammatory changes extend to the right lower extremity along the right thigh including surrounding the right common femoral and superficial femoral vein regions. Small fat-containing ventral hernia to the right of the umbilicus are noted is noted. Small pockets of gas are also seen along the subcutaneous tissues of the right lower abdominal wall which may be due to recent medication injection. Degenerative changes of lower lumbar spine are noted. Mild degenerative changes of the bilateral hip joints are noted. No evidence of acute fracture or dislocation. IMPRESSION: No evidence of acute fracture. Enlarged right psoas muscle with inflammatory changes and high density and fluid extending from this region inferiorly most consistent with a psoas muscle hemorrhage. (IS the patient on anticoagulants?) Inflammatory changes and free fluid appearing hemorrhagic component are seen tracking down of the pelvis and along the right thigh including along the right common femoral vein and superficial femoral vein regions. Follow-up DVT study may also be of value if indicated for further assessment for the less likely right lower extremity DVT. Diverticulosis. Atherosclerosis. Small fat-containing ventral hernia to the right of the umbilicus.
[2017-05-04] MEDS: Lactulose 10 Gm/15 mL 30mL UDC PO SCH (15:18)
--- NOTE | 2017-05-04 18:11 | General Progress Note ---
Subjective - Review of Systems Service Date: 05/04/17 Events since last encounter: consult dictated plavix discontinued ultrasound of abdomen and pelvis to rule out aortic aneursym might need CTA Objective - Results Result Diagrams: 05/03/17 05:30 05/02/17 05:30 Recent Labs: Laboratory Last Values WBC 10.5 Th/cmm (4.8-10.8) D 05/03/17 05:30 RBC 3.88 Mil/cmm (3.80-5.80) 05/03/17 05:30 Hgb 12.2 gm/dL (12-16) 05/03/17 05:30 Hct 35.8 % (41.0-60) L D 05/03/17 05:30 MCV 92.2 fl (80-99) 05/03/17 05:30 MCH 31.5 pg (27.0-31.0) H 05/03/17 05:30 MCHC Differential 34.1 pg (28.0-36.0) 05/03/17 05:30 RDW 15.0 % (11.5-20.0) 05/03/17 05:30 Plt Count 73 Th/cmm (150-400) L 05/03/17 05:30 MPV 10.2 fl 05/03/17 05:30 Neutrophils % 82.6 % (40.0-80.0) H 04/28/17 05:33 Band Neutrophils % 2 % (0-10) 05/02/17 05:30 Lymphocytes % 13.4 % (20.0-50.0) L 04/28/17 05:33 Monocytes % 3.8 % (2.0-10.0) 04/28/17 05:33 Eosinophils % 0.1 % (0.0-5.0) 04/28/17 05:33 Basophils % 0.1 % (0.0-2.0) 04/28/17 05:33 Neutrophils (Manual) 91 % (40-80) H 05/03/17 05:30 Lymphocytes 4 % (20-50) L 05/03/17 05:30 Monocytes 5 % (2-10) 05/03/17 05:30 Eosinophils 1 % (0-5) 04/29/17 04:55 Platelet Estimate DECREASED PLATELETS (NORMAL) 05/03/17 05:30 PT 11.0 SECONDS (9.5-11.5) 04/27/17 11:40 INR 1.06 (0.5-1.4) 04/27/17 11:40 PTT (Actin FS) 26.3 SECONDS (26.0-38.0) 04/27/17 11:40 Specimen Source ARTERIAL 04/28/17 05:00 Sample Site Right Radial 04/28/17 05:00 pH 7.44 (7.35-7.45) 04/28/17 05:00 pCO2 35.0 mmHg (35.0-45.0) 04/28/17 05:00 pO2 74.0 mmHg (80.0-100.0) L 04/28/17 05:00 HCO3 24.9 mEq/L (20.0-26.0) 04/28/17 05:00 Base Excess 0.0 mEq/L (-3.0-3.0) 04/28/17 05:00 O2 Saturation 95.0 % (92.0-100.0) 04/28/17 05:00 Albin Test Positive 04/28/17 05:00 Vent Rate N/A 04/28/17 05:00 Inspired O2 21 04/28/17 05:00 Tidal Volume N/A 04/28/17 05:00 PEEP N/A 04/28/17 05:00 Pressure (ins/psv/peep) N/A 04/28/17 05:00 Critical Value CREDIT SUPPORT SPECIALIST 04/28/17 05:00 Sodium 136 mEq/L (136-145) 05/02/17 05:30 Potassium 3.4 mEq/L (3.5-5.1) L 05/02/17 05:30 Chloride 103 mEq/L (98-107) 05/02/17 05:30 Carbon Dioxide 27.7 mEq/L (21.0-31.0) 05/02/17 05:30 Anion Gap 8.7 (7.0-16.0) 05/02/17 05:30 BUN 20 mg/dL (7-25) 05/02/17 05:30 Creatinine 0.7 mg/dL (0.7-1.3) 05/02/17 05:30 Est GFR ( Amer) > 60.0 ml/min (>90) 05/02/17 05:30 Est GFR (Non-Af Amer) > 60.0 ml/min 05/02/17 05:30 BUN/Creatinine Ratio 28.6 05/02/17 05:30 Glucose 173 mg/dL (70-105) H 05/02/17 05:30 POC Glucose 145 MG/DL (70 - 105) H 05/04/17 12:29 Hemoglobin A1c % 6.9 % (4.0-6.0) H 04/29/17 04:55 Whole Bld Lactic Acid 1.72 mmol/L (0.60-1.99) 04/27/17 11:40 Calcium 8.8 mg/dL (8.6-10.3) 05/02/17 05:30 Magnesium 2.6 mg/dL (1.9-2.7) 05/02/17 05:30 Total Bilirubin 0.6 mg/dL (0.3-1.0) 05/02/17 05:30 AST 19 U/L (13-39) 05/02/17 05:30 ALT 41 U/L (7-52) 05/02/17 05:30 Alkaline Phosphatase 60 U/L (34-104) 05/02/17 05:30 Ammonia 30 umol/L (16-53) 05/04/17 11:40 Lactate Dehydrogenase 157 U/L (140-271) 04/28/17 05:33 Creatine Kinase 91 U/L (30-223) 04/27/17 11:40 Troponin I 0.01 ng/mL (0.01-0.05) 04/27/17 11:40 Total Protein 5.9 gm/dL (6.0-8.3) L 05/02/17 05:30 Albumin 3.9 gm/dL (4.2-5.5) L 05/02/17 05:30 Globulin 2.0 gm/dL 05/02/17 05:30 Albumin/Globulin Ratio 2.0 (1.0-1.8) H 05/02/17 05:30 Amylase 30 U/L (29-103) 04/27/17 11:40 Lipase 15 U/L (11-82) 04/27/17 11:40 Urine Source MIDSTREAM 04/27/17 13:50 Urine Color YELLOW 04/27/17 13:50 Urine Clarity CLEAR (CLEAR) 04/27/17 13:50 Urine pH 6.0 (4.6 - 8.0) 04/27/17 13:50 Ur Specific [place] 1.010 (1.005-1.030) 04/27/17 13:50 Urine Protein NEGATIVE mg/dL (NEGATIVE) 04/27/17 13:50 Urine Glucose (UA) NEGATIVE mg/dL (NEGATIVE) 04/27/17 13:50 Urine Ketones NEGATIVE mg/dL (NEGATIVE) 04/27/17 13:50 Urine Blood NEGATIVE (NEGATIVE) 04/27/17 13:50 Urine Nitrate NEGATIVE (NEGATIVE) 04/27/17 13:50 Urine Bilirubin NEGATIVE (NEGATIVE) 04/27/17 13:50 Urine Urobilinogen 0.2 E.U./dL (0.2 - 1.0) 04/27/17 13:50 Ur Leukocyte Esterase NEGATIVE (NEGATIVE) 04/27/17 13:50 Urine RBC 0-2 /hpf (0-5) H 04/27/17 13:50 Urine WBC NONE SEEN /hpf (0-5) 04/27/17 13:50 Ur Epithelial Cells RARE /lpf (FEW) 04/27/17 13:50 Urine Bacteria NONE SEEN /hpf (NONE SEEN) 04/27/17 13:50 Influenza A (Rapid) NEG FOR INF A 04/29/17 06:15 Influenza B (Rapid) NEG FOR INF B 04/29/17 06:15 - Physical Exam Vitals and I&O: Vital Signs Temp 97.2 F 05/04/17 11:53 Pulse 69 05/04/17 17:50 Resp 14 05/04/17 13:33 BP 111/76 05/04/17 17:50 Pulse Ox 96 05/04/17 13:33 Intake & Output 05/03/17 05/04/17 05/04/17 18:59 06:59 18:59 Intake Total 1000 100 Balance 1000 100 Weight (lbs) 113.852 kg 113.852 kg 113.852 kg Intake: Oral 1000 100 Other: # Voids 3 2 Active Medications: Current Medications Acetaminophen (Tylenol) 650 mg PO Q6H PRN PRN Reason: Mild Pain/Headache/T above 101 Stop: 06/26/17 21:24 Last Admin: 05/04/17 06:44 Dose: 650 mg Albuterol/Ipratropium (Duoneb Neb) 3 ml HHN Q2H PRN PRN Reason: Wheezing Stop: 06/26/17 21:29 Last Admin: 05/02/17 23:30 Dose: 3 ml Albuterol/Ipratropium (Duoneb Neb) 3 ml HHN [id number] [facility] Stop: 06/27/17 18:59 Last Admin: 05/01/17 19:18 Dose: 3 ml Atorvastatin Calcium (Lipitor) 40 mg PO DAILY [facility] Stop: 06/27/17 08:59 Last Admin: 05/04/17 08:34 Dose: 40 mg Budesonide (Pulmicort) 1 mg HHN BIDRT [facility] Stop: 06/27/17 16:59 Last Admin: 05/04/17 07:20 Dose: 0.5 mg Carisoprodol (Soma) 350 mg PO BID PRN PRN Reason: MUSCLE PAIN Stop: 06/26/17 21:32 Last Admin: 05/04/17 09:03 Dose: 350 mg Carvedilol (Coreg) 12.5 mg PO BID [facility] Stop: 06/27/17 08:59 Last Admin: 05/04/17 17:50 Dose: 12.5 mg Cholecalciferol (Vitamin D3) 1,000 iu PO BID [facility] Stop: 06/27/17 08:59 Last Admin: 05/04/17 17:50 Dose: 1,000 iu Famotidine (Pepcid) 40 mg PO HS [facility] Stop: 06/30/17 20:59 Last Admin: 05/03/17 20:45 Dose: 40 mg Finasteride (Proscar) 5 mg PO HS [facility] PRN Reason: Protocol Stop: 06/27/17 01:14 Last Admin: 05/03/17 20:48 Dose: 5 mg Furosemide (Lasix) 40 mg PO DAILY [facility] Stop: 06/27/17 08:59 Last Admin: 05/04/17 08:38 Dose: 40 mg Guaifenesin/Codeine Phosphate (Robitussin Ac) 10 ml PO Q4HR PRN PRN Reason: Cough Stop: 05/07/17 22:51 Last Admin: 05/03/17 23:47 Dose: 10 ml Guaifenesin/Dextromethorphan (Robitussin Dm) 5 ml PO Q6HR PRN PRN Reason: Cough Stop: 06/27/17 01:21 Last Admin: 05/02/17 05:24 Dose: 5 ml Insulin Aspart (Novolog Insulin Sliding Scale) 0 units SUBQ ACHS [facility] PRN Reason: Protocol Stop: 06/28/17 16:29 Last Admin: 05/04/17 12:30 Dose: Not Given Isosorbide Mononitrate (Imdur) 60 mg PO DAILY [facility] Stop: 06/27/17 08:59 Last Admin: 05/04/17 12:34 Dose: 60 mg Lactobacillus Rhamnosus (Culturelle 15b) 1 each PO DAILY [facility] Stop: 06/30/17 08:59 Last Admin: 05/04/17 08:37 Dose: 1 each Lactulose (Cephulac) 30 gm PO DAILY [facility] Stop: 07/03/17 14:44 Last Admin: 05/04/17 15:18 Dose: 30 gm Lisinopril (Zestril) 40 mg PO BID [facility] Stop: 06/27/17 08:59 Last Admin: 05/04/17 17:50 Dose: 40 mg Methylprednisolone Sodium Succinate (Solu-Medrol) 40 mg IV Q12HR [facility] Stop: 07/02/17 20:59 Last Admin: 05/04/17 10:21 Dose: 40 mg Miscellaneous (Vte Chemical Prophylaxis Screen/ Admission) 1 ea PRN PRN PRN Reason: PROTOCOL Stop: 06/27/17 14:14 Miscellaneous (Probiotic Screen) 1 ea PRN PRN PRN Reason: PROTOCOL Stop: 06/29/17 14:14 Montelukast Sodium (Singulair) 10 mg PO HS [facility] Stop: 06/27/17 20:59 Last Admin: 05/03/17 20:48 Dose: 10 mg Morphine Sulfate (Morphine) 2 mg IVP Q4H PRN PRN Reason: RIGHT HIP PAIN Stop: 07/03/17 16:37 Multivitamins/Vitamin C (Theragran) 1 tab PO DAILY [facility] Stop: 06/27/17 08:59 Last Admin: 05/04/17 08:37 Dose: 1 tab Nitroglycerin (Nitrostat) 0.4 mg SL Q5MIN PRN PRN Reason: Chest Pain Stop: 06/29/17 09:44 Last Admin: 04/30/17 10:01 Dose: 0.4 mg Ondansetron HCl (Zofran) 4 mg IVP Q6H PRN PRN Reason: Nausea / Vomiting Stop: 06/26/17 21:24 Last Admin: 05/03/17 00:32 Dose: 4 mg Pantoprazole Sodium (Protonix) 40 mg PO DAILY [facility] Stop: 07/02/17 08:59 Last Admin: 05/04/17 08:37 Dose: 40 mg Sodium Chloride (Saline Flush) 10 ml IV QSHIFT [facility] Stop: 06/27/17 07:59 Last Admin: 05/04/17 09:05 Dose: Not Given Tamsulosin HCl (Flomax) 0.4 mg PO HS [facility] Stop: 06/27/17 01:12 Last Admin: 05/03/17 20:46 Dose: 0.4 mg Zolpidem Tartrate (Ambien) 5 mg PO HS PRN PRN Reason: Insomnia Stop: 06/26/17 21:24 Last Admin: 05/03/17 23:47 Dose: 5 mg General: Alert, Oriented x3, Cooperative HEENT: Atraumatic, PERRLA, EOMI Neck: Supple, JVD Cardiovascular: Regular rate, Normal S1, Normal S2 Lungs: Clear to auscultation Abdomen: Bowel sounds, Soft Extremities: Other (hip pain limits evaluation.) Neurological: Normal gait, Normal speech, Strength at 5/5 X4 ext, Sensation intact, Cranial nerves 3-12 NL, Reflexes 2+ Psych/Mental Status: Mental status NL - Procedures Procedures: Procedures Procedure Code Date DOPPLER COLOR FLOW ADD-ON 18146 06/21/00 DOPPLER ECHO EXAM HEART 01434 06/21/00 DX ULTRASOUND-HEART 88.72 06/21/00 TTE W/O DOPPLER COMPLETE 54365 06/21/00 Assessment/Plan - Problem List Patient Problems: All Active Problems COUGH AND CONGESTION WITH DYSPNEA (Acute) Nutritional Asmnt/Malnutr-PDOC - Dietary Evaluation Malnutrition Findings (Please click <Entered> for more info): Nutritional Asmnt/Malnutrition Start: 05/02/17 15: 16 Text: Status: Complete Freq: Document 05/02/17 15:17 MMULHERN (Rec: 05/02/17 15:39 [email or web address] [id number]) Nutritional Asmnt/Malnutrition Patient General Information Nutritional Screening Moderate Risk Diagnosis Respiratory failure, broncospasm Pertinent Medical Hx/Surgical Hx Hypertension, CAD, asthma, COPD, hyperlipidemia, Non- hodgkin's lymphoma, DJD, chronic pain syndrome, hx of appendectomy and gallbladder surgery along with coronary artery bypass graft. Subjective Information Patient tolerating current diet order. Current Diet Order/ Nutrition Support Regular Patient / S.O Not Indicated Pertinent Medications lipitor, abx, vitamin D3, pepcid, lasix, novolog, solu- medrol, Theragran, zofran, protonix Pertinent Labs (05/02) K 3.4, Glucose 144-303, A1C 6.9, albumin 3.9 Nutritional Hx/Data Height 1.7 m Height (Calculated Centimeters) 170.2 Current Weight (lbs) 113.852 kg Weight (Calculated Kilograms) 113.9 Weight (Calculated Grams) 379851.7 Sadler Body Weight 148 % Sadler Body Weight 169 Body Mass Index (BMI) 39.3 Recent Weight Change No Weight Status Obese GI Symptoms GI Symptoms None Last BM 04/30 x 1 Difficult in: None Food Allergies No Cultural/Ethnic/Sikh Belief None indicated Usual diet at home unknown Skin Integrity/Comment: Eric 18, 1+ edema, skin tear /abrasion on right and left foot Current %PO Good (75-100%) Estimated Nutritional Goals BEE in Kcals: Adj wt of IBW Calories/Kcals/Kg 173lb/79kg Adj wt 25-30 kcal/ kg Kcals Calculated 4963-2438 kcal/day Protein: Adj wt of IBW Protein g/k-1.2 gm/kg Protein Calculated 80-95gm/day Fluid: ml 5023-1831 ml/day (1 ml/kcal) Nutritional Problem 1. Problem Problem Altered nutrition related lab values related to Etiology hyperglycemia, electrolyte imbalance aeb Signs/Symptoms: K 3.4, Glucose 144-303 Intervention/Recommendation Comments 1. Consider modifying diet to 75gm CCHO for better blood glucose control. 2. Liberalize potassium intake , supplementation per MD Expected Outcomes/Goals Expected Outcomes/Goals oral intake to meet >75% of nutrient needs, weight trends toard ideal body weight, nutrition related labs WNL F/U in 3-5 days MR 05/05-8
--- NOTE | 2017-05-04 20:56 | Consultation ---
DATE OF CONSULTATION: 05/04/2017 VASCULAR CONSULT REFERRING PHYSICIAN: Dr. Abbott. REASON FOR CONSULTATION: Back pain. Thank you for referring this patient to me. HISTORY OF PRESENT ILLNESS: This is a 67-year-old male, obese, who started complaining of back pain on the right side, aggravated by motion of the right lower extremity for the last 3 days. He has history of bypass in 2000 with 3 vessels and last January stent placement. Consequently, he is on Plavix. Other comorbidities include hypertension, COPD, hyperlipidemia, non-Hodgkin lymphoma, degenerative joint disease. Surgery in the past in addition to the bypass graft includes gallbladder surgery and appendectomy. LABORATORY STUDIES: CBC yesterday, WBC is normal, the platelet count is 73,000. At one time, this was 63,000. The patient underwent CT scan of the chest which was unremarkable. The CT scan of the abdomen today shows findings consistent with possible hemorrhage along the right psoas. There is also a small fat containing hernia, right side of the umbilicus. There is no mention on the CT scan of any calcification that may involve the aorta, might result in a ruptured aneurysm. This may be a spontaneous bleed secondary to the anticoagulation. PHYSICAL EXAMINATION: Now, the patient is morbidly obese. He is tender in the back and unable to move the right leg as it exacerbates his pain. ASSESSMENT AND PLAN: The patient has been seen by a painter railroad car and blood thinners had been stopped. At this time, we will observe the patient and recheck labs and might repeat a CT scan with IV contrast to further delineate any pathology that might involve the aorta and unlikely the inferior vena cava. JOB# [id number]
--- NOTE | 2017-05-04 23:27 | Progress Notes ---
DATE: 05/04/2017 PULMONARY PROGRESS NOTE PROBLEM LIST: 1. Acute on chronic bronchial asthma, improving. 2. Suspect obstructive sleep apnea syndrome. SYMPTOMS: The patient still complains of pain on the right leg, but otherwise unremarkable. PHYSICAL EXAMINATION: VITAL SIGNS: T-max 97.2, blood pressure 111/72, saturation 96. NECK: Veins not visualized. CHEST: Shows occasional rhonchi with diminished air entry. HEART: Regular. ABDOMEN: Soft, nontender. ASSESSMENT: The patient is clinically stable respiratory jules. PLANS AND SUGGESTIONS: Okay pulmonary jules to discharge and tapering dose of steroid including Symbicort or Breo, etc. and go from there. JOB# [id number]
[2017-05-04] MEDS: Morphine Sulfate 4 mg/mL 1mL Syr IVP PRN (23:52)
[2017-05-05] MEDS: INSULIN ASPART SLIDING SCALE 100 UNITS/ML UNIT SUBQ SCH ×5 (00:12→21:57)
[2017-05-05] MEDS: Morphine Sulfate 4 mg/mL 1mL Syr IVP PRN ×3 (04:49→15:03)
[2017-05-05 05:12] LABS: FOLIC ACID >20.0 ng/mL (>3.0)
[2017-05-05 06:22] LABS: HEMATOCRIT 27.4 % (41.0-60); HEMOGLOBIN 9.4 gm/dL (12-16); LYMPHOCYTE ABSOLUTE 0.5 Th/cmm (1.5-3.0); MANUAL DIFF REQUIRED? YES; MEAN CORPUSCULAR HEMOGLOBIN 31.4 pg (27.0-31.0); MEAN CORPUSCULAR HGB CONC 34.1 pg (28.0-36.0); MEAN PLATELET VOLUME 9.6 fl; MONOCYTE ABSOLUTE 0.7 Th/cmm (0.3-1.0); NEUTROPHILE ABSOLUTE 12.1 Th/cmm (1.8-8.0); PLATELET COUNT 76 Th/cmm (150-400); RED BLOOD COUNT 2.98 Mil/cmm (3.80-5.80); RED CELL DISTRIBUTION WIDTH 15.6 % (11.5-20.0)
[2017-05-05 06:32] LABS: ALB/GLOB RATIO 1.9 (1.0-1.8); ALBUMIN 3.3 gm/dL (4.2-5.5); ALKALINE PHOSPHATASE 50 U/L (34-104); BILIRUBIN,TOTAL 0.5 mg/dL (0.3-1.0); BUN - UREA NITROGEN 26 mg/dL (7-25); CALCIUM SERUM 8.2 mg/dL (8.6-10.3); CARBON DIOXIDE 27.8 mEq/L (21.0-31.0); CHLORIDE 98 mEq/L (98-107); CREATININE - SERUM 0.7 mg/dL (0.7-1.3); GFR AFRICAN-AMERICAN > 60.0 ml/min (>90); GFR NON AFRICAN-AMERICAN > 60.0 ml/min; GLUCOSE 182 mg/dL (70-105); POTASSIUM SERUM 3.8 mEq/L (3.5-5.1); SGOT 16 U/L (13-39); SGPT/ALT 44 U/L (7-52); SODIUM SERUM 131 mEq/L (136-145)
[2017-05-05 06:46] LABS: WHITE BLOOD COUNT 13.3 Th/cmm (4.8-10.8)
[2017-05-05 07:13] LABS: BAND NEUTROPHILE 3 % (0-10); LYMPHOCYTE 7 % (20-50); MONOCYTE 2 % (2-10); NEUTROPHILS 88 % (40-80); TOTAL CELLS COUNTED 100
[2017-05-05 07:14] LABS: PLATELET ESTIMATE DECREASED PLATELETS (NORMAL)
[2017-05-05] MEDS: Albuterol/Ipratropium Neb 3 ML AERS HHN SCH ×4 (07:30→20:40)
[2017-05-05] MEDS: Budesonide 0.5 Mg/2 mL Ud HHN SCH ×2 (07:50→20:39)
[2017-05-05] MEDS: Lactulose 10 Gm/15 mL 30mL UDC PO SCH (08:24)
[2017-05-05] MEDS: Multivitamin Tab PO SCH (09:51)
[2017-05-05] MEDS: Lactobacillus Rhamnosus GG 15 Billion CFU CAP.SPRINK PO SCH (09:51)
[2017-05-05] MEDS: Pantoprazole 40 mg EC Tab PO SCH (09:51)
[2017-05-05] MEDS: methylPREDNISolone SS 40 mg Vial IV SCH ×2 (09:52→21:43)
--- NOTE | 2017-05-05 12:49 | Progress Notes ---
DATE: 05/05/2017 SUBJECTIVE: Patient seen and examined. The patient continues to complain about the pain on his right lower extremity. CT scan of the head, which did reveal the patient had significant amount of psoas muscle hemorrhage. The patient was advised to be seen by neurosurgeon as well as Hematology/Oncology. Antiplatelet therapy has been discontinued at this time. The patient currently has difficulty in walking. The patient's pulmonary status is significantly better. The patient currently denies any chest pain, increasing shortness of breath, palpitation or dizziness. OBJECTIVE: VITAL SIGNS: Temperature 98, pulse is 74, respiratory is 18, blood pressure 110/70. HEENT: Normocephalic, atraumatic. Extraocular muscles are intact. Tongue was pink and coated. NECK: Supple, no JVD, no hepatojugular reflex. No lymphadenopathy, thyromegaly, or carotid bruit. HEART: Both heart sounds are regular. No S3, no S4. CHEST: Lung equal in expansion with no expiratory wheezing. ABDOMEN: Soft. No guarding or rigidity. EXTREMITIES: No edema. Significant amount of pain elicited with movement of his right lower extremity. Hemoglobin 9.4, platelet count of 76, white count 13.3. BUN and creatinine is 26 and 0.7. Glucoscan is reviewed. CLINICAL IMPRESSION: 1. Psoas muscle hemorrhage secondary to patient being on anticoagulant and thrombocytopenia. 2. Diabetes mellitus. 3. Chronic obstructive pulmonary disease exacerbation, resolving. 4. Hypertension. 5. Coronary artery disease. 6. Significant pain at the right hip. 7. Degenerative joint disease. 8. History of lymphoma. 9. Chronic pain syndrome. PLAN: 1. Pain management. 2. Surgery and Hematology/Oncology followup. 3. Continue to provide oxygen. 4. Steroids. 5. Pain management. 6. General nursing care. 7. PT/OT. 8. Follow lab. 9. Follow consult recommendation. 10. Care plan reviewed and discussed with staff. JOB# [id number]
[2017-05-05] MEDS: Codeine /Guaifenesin 200mg-20mg/10 mL UDC PO PRN (15:03)
--- NOTE | 2017-05-05 16:47 | General Progress Note ---
Subjective - Review of Systems Service Date: 05/05/17 Objective - Results Result Diagrams: 05/05/17 05:45 05/05/17 05:45 Recent Labs: Laboratory Last Values WBC 13.3 Th/cmm (4.8-10.8) H 05/05/17 05:45 RBC 2.98 Mil/cmm (3.80-5.80) L 05/05/17 05:45 Hgb 9.4 gm/dL (12-16) L 05/05/17 05:45 Hct 27.4 % (41.0-60) L 05/05/17 05:45 MCV 92.0 fl (80-99) 05/05/17 05:45 MCH 31.4 pg (27.0-31.0) H 05/05/17 05:45 MCHC Differential 34.1 pg (28.0-36.0) 05/05/17 05:45 RDW 15.6 % (11.5-20.0) 05/05/17 05:45 Plt Count 76 Th/cmm (150-400) L 05/05/17 05:45 MPV 9.6 fl 05/05/17 05:45 Neutrophils % [employer] 05/05/17 05:45 Band Neutrophils % 3 % (0-10) 05/05/17 05:45 Lymphocytes % [employer] 05/05/17 05:45 Monocytes % [employer] IN[employer] 05/05/17 05:45 Eosinophils % [employer]IV[employer] IN[employer] 05/05/17 05:45 Basophils % [employer] IN[employer] 05/05/17 05:45 Neutrophils (Manual) 88 % (40-80) H 05/05/17 05:45 Lymphocytes 7 % (20-50) L 05/05/17 05:45 Monocytes 2 % (2-10) 05/05/17 05:45 Eosinophils 1 % (0-5) 04/29/17 04:55 Platelet Estimate DECREASED PLATELETS (NORMAL) 05/05/17 05:45 PT 11.0 SECONDS (9.5-11.5) 04/27/17 11:40 INR 1.06 (0.5-1.4) 04/27/17 11:40 PTT (Actin FS) 26.3 SECONDS (26.0-38.0) 04/27/17 11:40 Specimen Source ARTERIAL 04/28/17 05:00 Sample Site Right Radial 04/28/17 05:00 pH 7.44 (7.35-7.45) 04/28/17 05:00 pCO2 35.0 mmHg (35.0-45.0) 04/28/17 05:00 pO2 74.0 mmHg (80.0-100.0) L 04/28/17 05:00 HCO3 24.9 mEq/L (20.0-26.0) 04/28/17 05:00 Base Excess 0.0 mEq/L (-3.0-3.0) 04/28/17 05:00 O2 Saturation 95.0 % (92.0-100.0) 04/28/17 05:00 Albin Test Positive 04/28/17 05:00 Vent Rate N/A 04/28/17 05:00 Inspired O2 21 04/28/17 05:00 Tidal Volume N/A 04/28/17 05:00 PEEP N/A 04/28/17 05:00 Pressure (ins/psv/peep) N/A 04/28/17 05:00 Critical Value [employer]ER 04/28/17 05:00 Sodium 131 mEq/L (136-145) L 05/05/17 05:45 Potassium 3.8 mEq/L (3.5-5.1) 05/05/17 05:45 Chloride 98 mEq/L (98-107) 05/05/17 05:45 Carbon Dioxide 27.8 mEq/L (21.0-31.0) 05/05/17 05:45 Anion Gap 9.0 (7.0-16.0) 05/05/17 05:45 BUN 26 mg/dL (7-25) H 05/05/17 05:45 Creatinine 0.7 mg/dL (0.7-1.3) 05/05/17 05:45 Est GFR ( Amer) > 60.0 ml/min (>90) 05/05/17 05:45 Est GFR (Non-Af Amer) > 60.0 ml/min 05/05/17 05:45 BUN/Creatinine Ratio 37.1 05/05/17 05:45 Glucose 182 mg/dL (70-105) H 05/05/17 05:45 POC Glucose 225 MG/DL (70 - 105) H 05/05/17 12:36 Hemoglobin A1c % 6.9 % (4.0-6.0) H 04/29/17 04:55 Whole Bld Lactic Acid 1.72 mmol/L (0.60-1.99) 04/27/17 11:40 Calcium 8.2 mg/dL (8.6-10.3) L 05/05/17 05:45 Magnesium 2.6 mg/dL (1.9-2.7) 05/02/17 05:30 Total Bilirubin 0.5 mg/dL (0.3-1.0) 05/05/17 05:45 AST 16 U/L (13-39) 05/05/17 05:45 ALT 44 U/L (7-52) 05/05/17 05:45 Alkaline Phosphatase 50 U/L (34-104) 05/05/17 05:45 Ammonia 30 umol/L (16-53) 05/04/17 11:40 Lactate Dehydrogenase 157 U/L (140-271) 04/28/17 05:33 Creatine Kinase 91 U/L (30-223) 04/27/17 11:40 Troponin I 0.01 ng/mL (0.01-0.05) 04/27/17 11:40 Total Protein 5.0 gm/dL (6.0-8.3) L 05/05/17 05:45 Albumin 3.3 gm/dL (4.2-5.5) L 05/05/17 05:45 Globulin 1.7 gm/dL 05/05/17 05:45 Albumin/Globulin Ratio 1.9 (1.0-1.8) H 05/05/17 05:45 Amylase 30 U/L (29-103) 04/27/17 11:40 Lipase 15 U/L (11-82) 04/27/17 11:40 Vitamin B12 876 pg/mL (232-1245) 05/03/17 05:30 Folic Acid >20.0 ng/mL (>3.0) 05/03/17 05:30 Urine Source MIDSTREAM 04/27/17 13:50 Urine Color YELLOW 04/27/17 13:50 Urine Clarity CLEAR (CLEAR) 04/27/17 13:50 Urine pH 6.0 (4.6 - 8.0) 04/27/17 13:50 Ur Specific [place] 1.010 (1.005-1.030) 04/27/17 13:50 Urine Protein NEGATIVE mg/dL (NEGATIVE) 04/27/17 13:50 Urine Glucose (UA) NEGATIVE mg/dL (NEGATIVE) 04/27/17 13:50 Urine Ketones NEGATIVE mg/dL (NEGATIVE) 04/27/17 13:50 Urine Blood NEGATIVE (NEGATIVE) 04/27/17 13:50 Urine Nitrate NEGATIVE (NEGATIVE) 04/27/17 13:50 Urine Bilirubin NEGATIVE (NEGATIVE) 04/27/17 13:50 Urine Urobilinogen 0.2 E.U./dL (0.2 - 1.0) 04/27/17 13:50 Ur Leukocyte Esterase NEGATIVE (NEGATIVE) 04/27/17 13:50 Urine RBC 0-2 /hpf (0-5) H 04/27/17 13:50 Urine WBC NONE SEEN /hpf (0-5) 04/27/17 13:50 Ur Epithelial Cells RARE /lpf (FEW) 04/27/17 13:50 Urine Bacteria NONE SEEN /hpf (NONE SEEN) 04/27/17 13:50 Influenza A (Rapid) NEG FOR INF A 04/29/17 06:15 Influenza B (Rapid) NEG FOR INF B 04/29/17 06:15 - Physical Exam Vitals and I&O: Vital Signs Temp 97.2 F 05/05/17 12:20 Pulse 84 05/05/17 15:27 Resp 20 05/05/17 15:27 BP 126/71 05/05/17 12:38 Pulse Ox 94 05/05/17 15:27 Intake & Output 05/04/17 05/05/17 05/05/17 18:59 06:59 18:59 Intake Total 700 800 Balance 700 800 Weight (lbs) 113.852 kg 113.852 kg 113.852 kg Intake: Oral 700 800 Other: # Voids 3 2 # Bowel Movements 2 0 Active Medications: Current Medications Acetaminophen (Tylenol) 650 mg PO Q6H PRN PRN Reason: Mild Pain/Headache/T above 101 Stop: 06/26/17 21:24 Last Admin: 05/04/17 06:44 Dose: 650 mg Albuterol/Ipratropium (Duoneb Neb) 3 ml HHN Q2H PRN PRN Reason: Wheezing Stop: 06/26/17 21:29 Last Admin: 05/02/17 23:30 Dose: 3 ml Albuterol/Ipratropium (Duoneb Neb) 3 ml HHN [id number] [facility] Stop: 06/27/17 18:59 Last Admin: 05/05/17 15:27 Dose: 3 ml Atorvastatin Calcium (Lipitor) 40 mg PO DAILY [facility] Stop: 06/27/17 08:59 Last Admin: 05/05/17 09:51 Dose: 40 mg Budesonide (Pulmicort) 1 mg HHN BIDRT [facility] Stop: 06/27/17 16:59 Last Admin: 05/05/17 07:50 Dose: 1 mg Carvedilol (Coreg) 12.5 mg PO BID [facility] Stop: 06/27/17 08:59 Last Admin: 05/05/17 12:37 Dose: 12.5 mg Cholecalciferol (Vitamin D3) 1,000 iu PO BID [facility] Stop: 06/27/17 08:59 Last Admin: 05/05/17 09:50 Dose: 1,000 iu Famotidine (Pepcid) 40 mg PO HS [facility] Stop: 06/30/17 20:59 Last Admin: 05/04/17 22:01 Dose: 40 mg Finasteride (Proscar) 5 mg PO HS [facility] PRN Reason: Protocol Stop: 06/27/17 01:14 Last Admin: 05/04/17 22:02 Dose: 5 mg Furosemide (Lasix) 40 mg PO DAILY [facility] Stop: 06/27/17 08:59 Last Admin: 05/05/17 09:50 Dose: 40 mg Guaifenesin/Codeine Phosphate (Robitussin Ac) 10 ml PO Q4HR PRN PRN Reason: Cough Stop: 05/07/17 22:51 Last Admin: 05/05/17 15:03 Dose: 10 ml Guaifenesin/Dextromethorphan (Robitussin Dm) 5 ml PO Q6HR PRN PRN Reason: Cough Stop: 06/27/17 01:21 Last Admin: 05/02/17 05:24 Dose: 5 ml Insulin Aspart (Novolog Insulin Sliding Scale) 0 units SUBQ ACHS [facility] PRN Reason: Protocol Stop: 06/28/17 16:29 Last Admin: 05/05/17 12:43 Dose: 4 units Isosorbide Mononitrate (Imdur) 60 mg PO DAILY [facility] Stop: 06/27/17 08:59 Last Admin: 05/05/17 09:51 Dose: 60 mg Lactobacillus Rhamnosus (Culturelle 15b) 1 each PO DAILY [facility] Stop: 06/30/17 08:59 Last Admin: 05/05/17 09:51 Dose: 1 each Lactulose (Cephulac) 30 gm PO DAILY [facility] Stop: 07/03/17 14:44 Last Admin: 05/05/17 08:24 Dose: Not Given Lisinopril (Zestril) 40 mg PO BID [facility] Stop: 06/27/17 08:59 Last Admin: 05/05/17 12:38 Dose: Not Given Methylprednisolone Sodium Succinate (Solu-Medrol) 40 mg IV Q12HR [facility] Stop: 07/02/17 20:59 Last Admin: 05/05/17 09:52 Dose: 40 mg Miscellaneous (Vte Chemical Prophylaxis Screen/ Admission) 1 [facility] PRN PRN PRN Reason: PROTOCOL Stop: 06/27/17 14:14 Miscellaneous (Probiotic Screen) 1 [facility] PRN PRN PRN Reason: PROTOCOL Stop: 06/29/17 14:14 Montelukast Sodium (Singulair) 10 mg PO HS [facility] Stop: 06/27/17 20:59 Last Admin: 05/04/17 22:01 Dose: 10 mg Morphine Sulfate (Morphine) 2 mg IVP Q4H PRN PRN Reason: RIGHT HIP PAIN Stop: 07/03/17 16:37 Last Admin: 05/05/17 15:03 Dose: 2 mg Multivitamins/Vitamin C (Theragran) 1 tab PO DAILY [facility] Stop: 06/27/17 08:59 Last Admin: 05/05/17 09:51 Dose: 1 tab Nitroglycerin (Nitrostat) 0.4 mg SL Q5MIN PRN PRN Reason: Chest Pain Stop: 06/29/17 09:44 Last Admin: 04/30/17 10:01 Dose: 0.4 mg Ondansetron HCl (Zofran) 4 mg IVP Q6H PRN PRN Reason: Nausea / Vomiting Stop: 06/26/17 21:24 Last Admin: 05/03/17 00:32 Dose: 4 mg Pantoprazole Sodium (Protonix) 40 mg PO DAILY [facility] Stop: 07/02/17 08:59 Last Admin: 05/05/17 09:51 Dose: 40 mg Sodium Chloride (Saline Flush) 10 ml IV QSHIFT [facility] Stop: 06/27/17 07:59 Last Admin: 05/05/17 09:51 Dose: 10 ml Tamsulosin HCl (Flomax) 0.4 mg PO HS [facility] Stop: 06/27/17 01:12 Last Admin: 05/04/17 22:01 Dose: 0.4 mg General: Alert, Oriented x3, Cooperative HEENT: Atraumatic, PERRLA, EOMI Neck: Supple, JVD Cardiovascular: Regular rate, Normal S1, Normal S2 Lungs: Clear to auscultation Abdomen: Bowel sounds, Soft Extremities: Other (hip pain limits evaluation.) Neurological: Normal gait, Normal speech, Strength at 5/5 X4 ext, Sensation intact, Cranial nerves 3-12 NL, Reflexes 2+ Psych/Mental Status: Mental status NL - Procedures Procedures: Procedures Procedure Code Date DOPPLER COLOR FLOW ADD-ON 82318 06/21/00 DOPPLER ECHO EXAM HEART 07659 06/21/00 DX ULTRASOUND-HEART 88.72 06/21/00 TTE W/O DOPPLER COMPLETE 20854 06/21/00 Assessment/Plan - Problem List Patient Problems: All Active Problems COUGH AND CONGESTION WITH DYSPNEA (Acute) - Assessment Assessment: * h/o follicular lymphoma * Pneumonitis * Thrombocytopenia most likely following chemotherapy bone marrow suppression * psoas muscle bleeding * Likely platelet dysfunction sec to asa and plavix; now off asa and plavix Transfuse platelets for platelet dysfunction and bleeding Monitor plt for now Nutritional Asmnt/Malnutr-PDOC - Dietary Evaluation Malnutrition Findings (Please click <Entered> for more info): Nutritional Asmnt/Malnutrition Start: 05/02/17 15: 16 Text: Status: Complete Freq: Document 05/02/17 15:17 [facility] (Rec: 05/02/17 15:39 [facility]) Nutritional Asmnt/Malnutrition Patient General Information Nutritional Screening Moderate Risk Diagnosis Respiratory failure, broncospasm Pertinent Medical Hx/Surgical Hx Hypertension, CAD, asthma, COPD, hyperlipidemia, Non- hodgkin's lymphoma, DJD, chronic pain syndrome, hx of appendectomy and gallbladder surgery along with coronary artery bypass graft. Subjective Information Patient tolerating current diet order. Current Diet Order/ Nutrition Support Regular Patient / S.O Not Indicated Pertinent Medications lipitor, abx, vitamin D3, pepcid, lasix, novolog, solu- medrol, Theragran, zofran, protonix Pertinent Labs (05/02) K 3.4, Glucose 144-303, A1C 6.9, albumin 3.9 Nutritional Hx/Data Height 1.7 m Height (Calculated Centimeters) 170.2 Current Weight (lbs) 113.852 kg Weight (Calculated Kilograms) 113.9 Weight (Calculated Grams) 539859.7 [place] Body Weight 148 % [place] Body Weight 169 Body Mass Index (BMI) 39.3 Recent Weight Change No Weight Status Obese GI Symptoms GI Symptoms None Last BM 04/30 x 1 Difficult in: None Food Allergies No Cultural/Ethnic/Evangelical Belief None indicated Usual diet at home unknown Skin Integrity/Comment: Eric 18, 1+ edema, skin tear /abrasion on right and left foot Current %PO Good (75-100%) Estimated Nutritional Goals BEE in Kcals: Adj wt of IBW Calories/Kcals/Kg 173lb/79kg Adj wt 25-30 kcal/ kg Kcals Calculated 6659-2984 kcal/day Protein: Adj wt of IBW Protein g/k-1.2 gm/kg Protein Calculated 80-95gm/day Fluid: ml 4619-2401 ml/day (1 ml/kcal) Nutritional Problem 1. Problem Problem Altered nutrition related lab values related to Etiology hyperglycemia, electrolyte imbalance aeb Signs/Symptoms: K 3.4, Glucose 144-303 Intervention/Recommendation Comments 1. Consider modifying diet to 75gm CCHO for better blood glucose control. 2. Liberalize potassium intake , supplementation per MD Expected Outcomes/Goals Expected Outcomes/Goals oral intake to meet >75% of nutrient needs, weight trends toard ideal body weight, nutrition related labs WNL F/U in 3-5 days MR 05/05-8
[2017-05-06] MEDS: Codeine /Guaifenesin 200mg-20mg/10 mL UDC PO PRN ×4 (00:08→22:04)
--- NOTE | 2017-05-06 00:08 | Progress Notes ---
DATE: 05/05/2017 PROBLEM LIST: 1. Recurrent asthmatic bronchitis. 2. GE reflux. 3. Obstructive sleep apnea syndrome. SYMPTOMS: Nil. SUBJECTIVE: The patient claims that his pneumonia has come back. No specific new other symptoms of diffuse chest tightness, etc. No fever, no chest pain. Still complains of pain in the right leg. PHYSICAL EXAMINATION: VITAL SIGNS: The patient's recorded vitals: Temperature is 97.2, pulse in the 60s, blood pressure is normal, saturation is in 90s mostly without oxygen and blood pressure is in normotensive range. NECK: Veins not visualized. CHEST: Shows diminished air entry. No other adventitious breath sounds. HEART: Regular. ABDOMEN: Soft, nontender. LABORATORY DATA: The patient's white count is 13.3, hemoglobin 9.4. IMAGING STUDIES: The patient's CT with possibly some bleeding around psoas muscles, but otherwise no other acute conditions could be found. ASSESSMENT: The patient with recurrent respiratory symptoms, exact etiology and reason is not clearcut, possibly psychological issue is a consideration as well. PLANS AND SUGGESTIONS: We will go ahead and continue breathing treatment with ipratropium and albuterol. We will go ahead and continue budesonide treatment as well and also we will go ahead and give some higher dose of steroid and see how he does and go from there. JOB# [id number]
[2017-05-06] MEDS: Morphine Sulfate 4 mg/mL 1mL Syr IVP PRN ×5 (01:55→21:54)
[2017-05-06] MEDS: Budesonide 0.5 Mg/2 mL Ud HHN SCH ×2 (06:00→18:42)
[2017-05-06] MEDS: Albuterol/Ipratropium Neb 3 ML AERS HHN SCH ×4 (06:00→18:35)
[2017-05-06 07:32] LABS: % BASOPHILS 0.1 % (0.0-2.0); % EOSINOPHILS 0.2 % (0.0-5.0); HEMATOCRIT 24.7 % (41.0-60)
[2017-05-06 07:38] LABS: % LYMPHOCYTES 5.6 % (20.0-50.0); % NEUTROPHILS 88.1 % (40.0-80.0); HEMOGLOBIN 8.5 gm/dL (12-16); LYMPHOCYTE ABSOLUTE 0.9 Th/cmm (1.5-3.0); MEAN CELL VOLUME 93.2 fl (80-99); MEAN CORPUSCULAR HEMOGLOBIN 32.1 pg (27.0-31.0); MEAN CORPUSCULAR HGB CONC 34.4 pg (28.0-36.0); MEAN PLATELET VOLUME 9.2 fl; MONOCYTE ABSOLUTE 0.9 Th/cmm (0.3-1.0); NEUTROPHILE ABSOLUTE 13.6 Th/cmm (1.8-8.0); PLATELET COUNT 114 Th/cmm (150-400); RED BLOOD COUNT 2.65 Mil/cmm (3.80-5.80); RED CELL DISTRIBUTION WIDTH 15.5 % (11.5-20.0)
[2017-05-06 07:48] LABS: WHITE BLOOD COUNT 15.4 Th/cmm (4.8-10.8)
[2017-05-06] MEDS: methylPREDNISolone SS 40 mg Vial IV SCH ×2 (08:11→21:53)
[2017-05-06] MEDS: Lactobacillus Rhamnosus GG 15 Billion CFU CAP.SPRINK PO SCH (08:12)
[2017-05-06] MEDS: Pantoprazole 40 mg EC Tab PO SCH (08:15)
[2017-05-06] MEDS: Multivitamin Tab PO SCH (08:15)
[2017-05-06] MEDS: Lactulose 10 Gm/15 mL 30mL UDC PO SCH (08:17)
[2017-05-06] MEDS: INSULIN ASPART SLIDING SCALE 100 UNITS/ML UNIT SUBQ SCH ×4 (09:29→21:55)
--- NOTE | 2017-05-06 12:36 | General Progress Note ---
Subjective - Review of Systems Service Date: 05/06/17 Objective - Results Result Diagrams: 05/06/17 06:15 05/05/17 05:45 Recent Labs: Laboratory Last Values WBC 15.4 Th/cmm (4.8-10.8) H 05/06/17 06:15 RBC 2.65 Mil/cmm (3.80-5.80) L 05/06/17 06:15 Hgb 8.5 gm/dL (12-16) L 05/06/17 06:15 Hct 24.7 % (41.0-60) L 05/06/17 06:15 MCV 93.2 fl (80-99) 05/06/17 06:15 MCH 32.1 pg (27.0-31.0) H 05/06/17 06:15 MCHC Differential 34.4 pg (28.0-36.0) 05/06/17 06:15 RDW 15.5 % (11.5-20.0) 05/06/17 06:15 Plt Count 114 Th/cmm (150-400) L 05/06/17 06:15 MPV 9.2 fl 05/06/17 06:15 Neutrophils % 88.1 % (40.0-80.0) H 05/06/17 06:15 Band Neutrophils % 3 % (0-10) 05/05/17 05:45 Lymphocytes % 5.6 % (20.0-50.0) L 05/06/17 06:15 Monocytes % 6.0 % (2.0-10.0) 05/06/17 06:15 Eosinophils % 0.2 % (0.0-5.0) 05/06/17 06:15 Basophils % 0.1 % (0.0-2.0) 05/06/17 06:15 Neutrophils (Manual) 88 % (40-80) H 05/05/17 05:45 Lymphocytes 7 % (20-50) L 05/05/17 05:45 Monocytes 2 % (2-10) 05/05/17 05:45 Eosinophils 1 % (0-5) 04/29/17 04:55 Platelet Estimate DECREASED PLATELETS (NORMAL) 05/05/17 05:45 PT 11.0 SECONDS (9.5-11.5) 04/27/17 11:40 INR 1.06 (0.5-1.4) 04/27/17 11:40 PTT (Actin FS) 26.3 SECONDS (26.0-38.0) 04/27/17 11:40 Specimen Source ARTERIAL 04/28/17 05:00 Sample Site Right Radial 04/28/17 05:00 pH 7.44 (7.35-7.45) 04/28/17 05:00 pCO2 35.0 mmHg (35.0-45.0) 04/28/17 05:00 pO2 74.0 mmHg (80.0-100.0) L 04/28/17 05:00 HCO3 24.9 mEq/L (20.0-26.0) 04/28/17 05:00 Base Excess 0.0 mEq/L (-3.0-3.0) 04/28/17 05:00 O2 Saturation 95.0 % (92.0-100.0) 04/28/17 05:00 Albin Test Positive 04/28/17 05:00 Vent Rate N/A 04/28/17 05:00 Inspired O2 21 04/28/17 05:00 Tidal Volume N/A 04/28/17 05:00 PEEP N/A 04/28/17 05:00 Pressure (ins/psv/peep) N/A 04/28/17 05:00 Critical Value [employer] 04/28/17 05:00 Sodium 131 mEq/L (136-145) L 05/05/17 05:45 Potassium 3.8 mEq/L (3.5-5.1) 05/05/17 05:45 Chloride 98 mEq/L (98-107) 05/05/17 05:45 Carbon Dioxide 27.8 mEq/L (21.0-31.0) 05/05/17 05:45 Anion Gap 9.0 (7.0-16.0) 05/05/17 05:45 BUN 26 mg/dL (7-25) H 05/05/17 05:45 Creatinine 0.7 mg/dL (0.7-1.3) 05/05/17 05:45 Est GFR ( Amer) > 60.0 ml/min (>90) 05/05/17 05:45 Est GFR (Non-Af Amer) > 60.0 ml/min 05/05/17 05:45 BUN/Creatinine Ratio 37.1 05/05/17 05:45 Glucose 182 mg/dL (70-105) H 05/05/17 05:45 POC Glucose 262 MG/DL (70 - 105) H 05/06/17 11:57 Hemoglobin A1c % 6.9 % (4.0-6.0) H 04/29/17 04:55 Whole Bld Lactic Acid 1.72 mmol/L (0.60-1.99) 04/27/17 11:40 Calcium 8.2 mg/dL (8.6-10.3) L 05/05/17 05:45 Magnesium 2.6 mg/dL (1.9-2.7) 05/02/17 05:30 Total Bilirubin 0.5 mg/dL (0.3-1.0) 05/05/17 05:45 AST 16 U/L (13-39) 05/05/17 05:45 ALT 44 U/L (7-52) 05/05/17 05:45 Alkaline Phosphatase 50 U/L (34-104) 05/05/17 05:45 Ammonia 30 umol/L (16-53) 05/04/17 11:40 Lactate Dehydrogenase 157 U/L (140-271) 04/28/17 05:33 Creatine Kinase 91 U/L (30-223) 04/27/17 11:40 Troponin I 0.01 ng/mL (0.01-0.05) 04/27/17 11:40 Total Protein 5.0 gm/dL (6.0-8.3) L 05/05/17 05:45 Albumin 3.3 gm/dL (4.2-5.5) L 05/05/17 05:45 Globulin 1.7 gm/dL 05/05/17 05:45 Albumin/Globulin Ratio 1.9 (1.0-1.8) H 05/05/17 05:45 Amylase 30 U/L (29-103) 04/27/17 11:40 Lipase 15 U/L (11-82) 04/27/17 11:40 Vitamin B12 876 pg/mL (232-1245) 05/03/17 05:30 Folic Acid >20.0 ng/mL (>3.0) 05/03/17 05:30 Urine Source MIDSTREAM 04/27/17 13:50 Urine Color YELLOW 04/27/17 13:50 Urine Clarity CLEAR (CLEAR) 04/27/17 13:50 Urine pH 6.0 (4.6 - 8.0) 04/27/17 13:50 Ur Specific [place] 1.010 (1.005-1.030) 04/27/17 13:50 Urine Protein NEGATIVE mg/dL (NEGATIVE) 04/27/17 13:50 Urine Glucose (UA) NEGATIVE mg/dL (NEGATIVE) 04/27/17 13:50 Urine Ketones NEGATIVE mg/dL (NEGATIVE) 04/27/17 13:50 Urine Blood NEGATIVE (NEGATIVE) 04/27/17 13:50 Urine Nitrate NEGATIVE (NEGATIVE) 04/27/17 13:50 Urine Bilirubin NEGATIVE (NEGATIVE) 04/27/17 13:50 Urine Urobilinogen 0.2 E.U./dL (0.2 - 1.0) 04/27/17 13:50 Ur Leukocyte Esterase NEGATIVE (NEGATIVE) 04/27/17 13:50 Urine RBC 0-2 /hpf (0-5) H 04/27/17 13:50 Urine WBC NONE SEEN /hpf (0-5) 04/27/17 13:50 Ur Epithelial Cells RARE /lpf (FEW) 04/27/17 13:50 Urine Bacteria NONE SEEN /hpf (NONE SEEN) 04/27/17 13:50 Influenza A (Rapid) NEG FOR INF A 04/29/17 06:15 Influenza B (Rapid) NEG FOR INF B 04/29/17 06:15 Blood Type O POSITIVE 05/05/17 16:55 Antibody Screen NEGATIVE 05/05/17 16:55 - Physical Exam Vitals and I&O: Vital Signs Temp 97.5 F 05/06/17 11:50 Pulse 80 05/06/17 12:10 Resp 18 05/06/17 12:10 BP 102/61 05/06/17 11:50 Pulse Ox 99 05/06/17 12:10 Intake & Output 05/05/17 05/06/17 05/06/17 18:59 06:59 18:59 Intake Total 800 550 Balance 800 550 Weight (lbs) 113.852 kg 113.852 kg Intake: Oral 800 250 Blood Product 300 Other: # Voids 4 1 # Bowel Movements 1 0 Active Medications: Current Medications Acetaminophen (Tylenol) 650 mg PO Q6H PRN PRN Reason: Mild Pain/Headache/T above 101 Stop: 06/26/17 21:24 Last Admin: 05/04/17 06:44 Dose: 650 mg Albuterol/Ipratropium (Duoneb Neb) 3 ml HHN Q2H PRN PRN Reason: Wheezing Stop: 06/26/17 21:29 Last Admin: 05/02/17 23:30 Dose: 3 ml Albuterol/Ipratropium (Duoneb Neb) 3 ml HHN [id number] [facility] Stop: 06/27/17 18:59 Last Admin: 05/06/17 12:10 Dose: 3 ml Atorvastatin Calcium (Lipitor) 40 mg PO DAILY [facility] Stop: 06/27/17 08:59 Last Admin: 05/06/17 08:15 Dose: 40 mg Budesonide (Pulmicort) 1 mg HHN BIDRT [facility] Stop: 06/27/17 16:59 Last Admin: 05/06/17 06:00 Dose: 1 mg Carvedilol (Coreg) 12.5 mg PO BID [facility] Stop: 06/27/17 08:59 Last Admin: 05/06/17 08:13 Dose: 12.5 mg Cholecalciferol (Vitamin D3) 1,000 iu PO BID [facility] Stop: 06/27/17 08:59 Last Admin: 05/06/17 08:14 Dose: 1,000 iu Famotidine (Pepcid) 40 mg PO HS [facility] Stop: 06/30/17 20:59 Last Admin: 05/05/17 21:42 Dose: 40 mg Finasteride (Proscar) 5 mg PO HS [facility] PRN Reason: Protocol Stop: 06/27/17 01:14 Last Admin: 05/05/17 21:43 Dose: 5 mg Furosemide (Lasix) 40 mg PO DAILY [facility] Stop: 06/27/17 08:59 Last Admin: 05/06/17 08:15 Dose: 40 mg Guaifenesin/Codeine Phosphate (Robitussin Ac) 10 ml PO Q4HR PRN PRN Reason: Cough Stop: 05/07/17 22:51 Last Admin: 05/06/17 00:08 Dose: 10 ml Guaifenesin/Dextromethorphan (Robitussin Dm) 5 ml PO Q6HR PRN PRN Reason: Cough Stop: 06/27/17 01:21 Last Admin: 05/02/17 05:24 Dose: 5 ml Insulin Aspart (Novolog Insulin Sliding Scale) 0 units SUBQ ACHS [facility] PRN Reason: Protocol Stop: 06/28/17 16:29 Last Admin: 05/06/17 09:29 Dose: 180 units Isosorbide Mononitrate (Imdur) 60 mg PO DAILY [facility] Stop: 06/27/17 08:59 Last Admin: 05/06/17 08:12 Dose: 60 mg Lactobacillus Rhamnosus (Culturelle 15b) 1 each PO DAILY [facility] Stop: 06/30/17 08:59 Last Admin: 05/06/17 08:12 Dose: 1 each Lactulose (Cephulac) 30 gm PO DAILY [facility] Stop: 07/03/17 14:44 Last Admin: 05/06/17 08:17 Dose: Not Given Lisinopril (Zestril) 40 mg PO BID [facility] Stop: 06/27/17 08:59 Last Admin: 05/06/17 08:13 Dose: 40 mg Methylprednisolone Sodium Succinate (Solu-Medrol) 40 mg IV Q12HR [facility] Stop: 07/02/17 20:59 Last Admin: 05/06/17 08:11 Dose: 40 mg Miscellaneous (Vte Chemical Prophylaxis Screen/ Admission) 1 ea [facility] PRN PRN PRN Reason: PROTOCOL Stop: 06/27/17 14:14 Miscellaneous (Probiotic Screen) 1 ea [facility] PRN PRN PRN Reason: PROTOCOL Stop: 06/29/17 14:14 Montelukast Sodium (Singulair) 10 mg PO HS [facility] Stop: 06/27/17 20:59 Last Admin: 05/05/17 21:57 Dose: 10 mg Morphine Sulfate (Morphine) 2 mg IVP Q4H PRN PRN Reason: RIGHT HIP PAIN Stop: 07/03/17 16:37 Last Admin: 05/06/17 11:52 Dose: 2 mg Multivitamins/Vitamin C (Theragran) 1 tab PO DAILY [facility] Stop: 06/27/17 08:59 Last Admin: 05/06/17 08:15 Dose: 1 tab Nitroglycerin (Nitrostat) 0.4 mg SL Q5MIN PRN PRN Reason: Chest Pain Stop: 06/29/17 09:44 Last Admin: 05/06/17 07:46 Dose: 0.4 mg Ondansetron HCl (Zofran) 4 mg IVP Q6H PRN PRN Reason: Nausea / Vomiting Stop: 06/26/17 21:24 Last Admin: 05/03/17 00:32 Dose: 4 mg Pantoprazole Sodium (Protonix) 40 mg PO DAILY [facility] Stop: 07/02/17 08:59 Last Admin: 05/06/17 08:15 Dose: 40 mg Sodium Chloride (Saline Flush) 10 ml IV QSHIFT [facility] Stop: 06/27/17 07:59 Last Admin: 05/06/17 08:16 Dose: 10 ml Tamsulosin HCl (Flomax) 0.4 mg PO HS [facility] Stop: 06/27/17 01:12 Last Admin: 05/05/17 21:57 Dose: 0.4 mg General: Alert, Oriented x3, Cooperative HEENT: Atraumatic, PERRLA, EOMI Neck: Supple, JVD Cardiovascular: Regular rate, Normal S1, Normal S2 Lungs: Clear to auscultation Abdomen: Bowel sounds, Soft Extremities: Other (hip pain limits evaluation.) Neurological: Normal gait, Normal speech, Strength at 5/5 X4 ext, Sensation intact, Cranial nerves 3-12 NL, Reflexes 2+ Psych/Mental Status: Mental status NL - Procedures Procedures: Procedures Procedure Code Date DOPPLER COLOR FLOW ADD-ON 85192 06/21/00 DOPPLER ECHO EXAM HEART 02078 06/21/00 DX ULTRASOUND-HEART 88.72 06/21/00 TTE W/O DOPPLER COMPLETE 86994 06/21/00 Assessment/Plan - Problem List Patient Problems: All Active Problems COUGH AND CONGESTION WITH DYSPNEA (Acute) - Assessment Assessment: * h/o follicular lymphoma * Pneumonitis * Thrombocytopenia most likely following chemotherapy bone marrow suppression * psoas muscle bleeding * Likely platelet dysfunction sec to asa and plavix; now off asa and plavix Transfuse platelets for platelet dysfunction and bleeding 05/06: S/P plt transfusion for plt dysfunction; hgb continues to fall; Monitor plt for now Nutritional Asmnt/Malnutr-PDOC - Dietary Evaluation Malnutrition Findings (Please click <Entered> for more info): Nutritional Asmnt/Malnutrition Start: 05/02/17 15: 16 Text: Status: Complete Freq: Document 05/02/17 15:17 MMULHERN (Rec: 05/02/17 15:39 MMRIMMA ANGELO- [email or web address]) Nutritional Asmnt/Malnutrition Patient General Information Nutritional Screening Moderate Risk Diagnosis Respiratory failure, broncospasm Pertinent Medical Hx/Surgical Hx Hypertension, CAD, asthma, COPD, hyperlipidemia, Non- hodgkin's lymphoma, DJD, chronic pain syndrome, hx of appendectomy and gallbladder surgery along with coronary artery bypass graft. Subjective Information Patient tolerating current diet order. Current Diet Order/ Nutrition Support Regular Patient / S.O Not Indicated Pertinent Medications lipitor, abx, vitamin D3, pepcid, lasix, novolog, solu- medrol, Theragran, zofran, protonix Pertinent Labs (05/02) K 3.4, Glucose 144-303, A1C 6.9, albumin 3.9 Nutritional Hx/Data Height 1.7 m Height (Calculated Centimeters) 170.2 Current Weight (lbs) 113.852 kg Weight (Calculated Kilograms) 113.9 Weight (Calculated Grams) 589012.7 Amelia Body Weight 148 % Amelia Body Weight 169 Body Mass Index (BMI) 39.3 Recent Weight Change No Weight Status Obese GI Symptoms GI Symptoms None Last BM 04/30 x 1 Difficult in: None Food Allergies No Cultural/Ethnic/Quaker Belief None indicated Usual diet at home unknown Skin Integrity/Comment: Eric 18, 1+ edema, skin tear /abrasion on right and left foot Current %PO Good (75-100%) Estimated Nutritional Goals BEE in Kcals: Adj wt of IBW Calories/Kcals/Kg 173lb/79kg Adj wt 25-30 kcal/ kg Kcals Calculated 7850-0860 kcal/day Protein: Adj wt of IBW Protein g/k-1.2 gm/kg Protein Calculated 80-95gm/day Fluid: ml 0252-1266 ml/day (1 ml/kcal) Nutritional Problem 1. Problem Problem Altered nutrition related lab values related to Etiology hyperglycemia, electrolyte imbalance aeb Signs/Symptoms: K 3.4, Glucose 144-303 Intervention/Recommendation Comments 1. Consider modifying diet to 75gm CCHO for better blood glucose control. 2. Liberalize potassium intake , supplementation per MD Expected Outcomes/Goals Expected Outcomes/Goals oral intake to meet >75% of nutrient needs, weight trends toard ideal body weight, nutrition related labs WNL F/U in 3-5 days MR 05/05-8
--- NOTE | 2017-05-06 18:17 | General Progress Note ---
Subjective - Review of Systems Service Date: 05/06/17 Events since last encounter: Hb dropping peristent right flank pain raising the possible of bleeding Plan: CTA aortofemoral tomorrow Objective - Results Result Diagrams: 05/06/17 06:15 05/05/17 05:45 Recent Labs: Laboratory Last Values WBC 15.4 Th/cmm (4.8-10.8) H 05/06/17 06:15 RBC 2.65 Mil/cmm (3.80-5.80) L 05/06/17 06:15 Hgb 8.5 gm/dL (12-16) L 05/06/17 06:15 Hct 24.7 % (41.0-60) L 05/06/17 06:15 MCV 93.2 fl (80-99) 05/06/17 06:15 MCH 32.1 pg (27.0-31.0) H 05/06/17 06:15 MCHC Differential 34.4 pg (28.0-36.0) 05/06/17 06:15 RDW 15.5 % (11.5-20.0) 05/06/17 06:15 Plt Count 114 Th/cmm (150-400) L 05/06/17 06:15 MPV 9.2 fl 05/06/17 06:15 Neutrophils % 88.1 % (40.0-80.0) H 05/06/17 06:15 Band Neutrophils % 3 % (0-10) 05/05/17 05:45 Lymphocytes % 5.6 % (20.0-50.0) L 05/06/17 06:15 Monocytes % 6.0 % (2.0-10.0) 05/06/17 06:15 Eosinophils % 0.2 % (0.0-5.0) 05/06/17 06:15 Basophils % 0.1 % (0.0-2.0) 05/06/17 06:15 Neutrophils (Manual) 88 % (40-80) H 05/05/17 05:45 Lymphocytes 7 % (20-50) L 05/05/17 05:45 Monocytes 2 % (2-10) 05/05/17 05:45 Eosinophils 1 % (0-5) 04/29/17 04:55 Platelet Estimate DECREASED PLATELETS (NORMAL) 05/05/17 05:45 PT 11.0 SECONDS (9.5-11.5) 04/27/17 11:40 INR 1.06 (0.5-1.4) 04/27/17 11:40 PTT (Actin FS) 26.3 SECONDS (26.0-38.0) 04/27/17 11:40 Specimen Source ARTERIAL 04/28/17 05:00 Sample Site Right Radial 04/28/17 05:00 pH 7.44 (7.35-7.45) 04/28/17 05:00 pCO2 35.0 mmHg (35.0-45.0) 04/28/17 05:00 pO2 74.0 mmHg (80.0-100.0) L 04/28/17 05:00 HCO3 24.9 mEq/L (20.0-26.0) 04/28/17 05:00 Base Excess 0.0 mEq/L (-3.0-3.0) 04/28/17 05:00 O2 Saturation 95.0 % (92.0-100.0) 04/28/17 05:00 Albin Test Positive 04/28/17 05:00 Vent Rate N/A 04/28/17 05:00 Inspired O2 21 04/28/17 05:00 Tidal Volume N/A 04/28/17 05:00 PEEP N/A 04/28/17 05:00 Pressure (ins/psv/peep) N/A 04/28/17 05:00 Critical Value [employer] 04/28/17 05:00 Sodium 131 mEq/L (136-145) L 05/05/17 05:45 Potassium 3.8 mEq/L (3.5-5.1) 05/05/17 05:45 Chloride 98 mEq/L (98-107) 05/05/17 05:45 Carbon Dioxide 27.8 mEq/L (21.0-31.0) 05/05/17 05:45 Anion Gap 9.0 (7.0-16.0) 05/05/17 05:45 BUN 26 mg/dL (7-25) H 05/05/17 05:45 Creatinine 0.7 mg/dL (0.7-1.3) 05/05/17 05:45 Est GFR ( Amer) > 60.0 ml/min (>90) 05/05/17 05:45 Est GFR (Non-Af Amer) > 60.0 ml/min 05/05/17 05:45 BUN/Creatinine Ratio 37.1 05/05/17 05:45 Glucose 182 mg/dL (70-105) H 05/05/17 05:45 POC Glucose 154 MG/DL (70 - 105) H 05/06/17 17:26 Hemoglobin A1c % 6.9 % (4.0-6.0) H 04/29/17 04:55 Whole Bld Lactic Acid 1.72 mmol/L (0.60-1.99) 04/27/17 11:40 Calcium 8.2 mg/dL (8.6-10.3) L 05/05/17 05:45 Magnesium 2.6 mg/dL (1.9-2.7) 05/02/17 05:30 Total Bilirubin 0.5 mg/dL (0.3-1.0) 05/05/17 05:45 AST 16 U/L (13-39) 05/05/17 05:45 ALT 44 U/L (7-52) 05/05/17 05:45 Alkaline Phosphatase 50 U/L (34-104) 05/05/17 05:45 Ammonia 30 umol/L (16-53) 05/04/17 11:40 Lactate Dehydrogenase 157 U/L (140-271) 04/28/17 05:33 Creatine Kinase 91 U/L (30-223) 04/27/17 11:40 Troponin I 0.01 ng/mL (0.01-0.05) 04/27/17 11:40 Total Protein 5.0 gm/dL (6.0-8.3) L 05/05/17 05:45 Albumin 3.3 gm/dL (4.2-5.5) L 05/05/17 05:45 Globulin 1.7 gm/dL 05/05/17 05:45 Albumin/Globulin Ratio 1.9 (1.0-1.8) H 05/05/17 05:45 Amylase 30 U/L (29-103) 04/27/17 11:40 Lipase 15 U/L (11-82) 04/27/17 11:40 Vitamin B12 876 pg/mL (232-1245) 05/03/17 05:30 Folic Acid >20.0 ng/mL (>3.0) 05/03/17 05:30 Urine Source MIDSTREAM 04/27/17 13:50 Urine Color YELLOW 04/27/17 13:50 Urine Clarity CLEAR (CLEAR) 04/27/17 13:50 Urine pH 6.0 (4.6 - 8.0) 04/27/17 13:50 Ur Specific [place] 1.010 (1.005-1.030) 04/27/17 13:50 Urine Protein NEGATIVE mg/dL (NEGATIVE) 04/27/17 13:50 Urine Glucose (UA) NEGATIVE mg/dL (NEGATIVE) 04/27/17 13:50 Urine Ketones NEGATIVE mg/dL (NEGATIVE) 04/27/17 13:50 Urine Blood NEGATIVE (NEGATIVE) 04/27/17 13:50 Urine Nitrate NEGATIVE (NEGATIVE) 04/27/17 13:50 Urine Bilirubin NEGATIVE (NEGATIVE) 04/27/17 13:50 Urine Urobilinogen 0.2 E.U./dL (0.2 - 1.0) 04/27/17 13:50 Ur Leukocyte Esterase NEGATIVE (NEGATIVE) 04/27/17 13:50 Urine RBC 0-2 /hpf (0-5) H 04/27/17 13:50 Urine WBC NONE SEEN /hpf (0-5) 04/27/17 13:50 Ur Epithelial Cells RARE /lpf (FEW) 04/27/17 13:50 Urine Bacteria NONE SEEN /hpf (NONE SEEN) 04/27/17 13:50 Influenza A (Rapid) NEG FOR INF A 04/29/17 06:15 Influenza B (Rapid) NEG FOR INF B 04/29/17 06:15 Blood Type O POSITIVE 05/05/17 16:55 Antibody Screen NEGATIVE 05/05/17 16:55 - Physical Exam Vitals and I&O: Vital Signs Temp 97.9 F 05/06/17 16:00 Pulse 61 05/06/17 16:18 Resp 18 05/06/17 16:00 BP 106/61 05/06/17 16:18 Pulse Ox 100 05/06/17 16:00 Intake & Output 05/05/17 05/06/17 05/06/17 18:59 06:59 18:59 Intake Total 800 550 Balance 800 550 Weight (lbs) 113.852 kg 113.852 kg Intake: Oral 800 250 Blood Product 300 Other: # Voids 4 1 # Bowel Movements 1 0 Stool Characteristics Formed Active Medications: Current Medications Acetaminophen (Tylenol) 650 mg PO Q6H PRN PRN Reason: Mild Pain/Headache/T above 101 Stop: 06/26/17 21:24 Last Admin: 05/04/17 06:44 Dose: 650 mg Albuterol/Ipratropium (Duoneb Neb) 3 ml HHN Q2H PRN PRN Reason: Wheezing Stop: 06/26/17 21:29 Last Admin: 05/02/17 23:30 Dose: 3 ml Albuterol/Ipratropium (Duoneb Neb) 3 ml HHN [id number] [facility] Stop: 06/27/17 18:59 Last Admin: 05/06/17 15:00 Dose: 3 ml Atorvastatin Calcium (Lipitor) 40 mg PO DAILY [facility] Stop: 06/27/17 08:59 Last Admin: 05/06/17 08:15 Dose: 40 mg Budesonide (Pulmicort) 1 mg HHN BIDRT [facility] Stop: 06/27/17 16:59 Last Admin: 05/06/17 06:00 Dose: 1 mg Carvedilol (Coreg) 12.5 mg PO BID [facility] Stop: 06/27/17 08:59 Last Admin: 05/06/17 16:18 Dose: 12.5 mg Cholecalciferol (Vitamin D3) 1,000 iu PO BID [facility] Stop: 06/27/17 08:59 Last Admin: 05/06/17 16:14 Dose: 1,000 iu Famotidine (Pepcid) 40 mg PO HS [facility] Stop: 06/30/17 20:59 Last Admin: 05/05/17 21:42 Dose: 40 mg Finasteride (Proscar) 5 mg PO HS [facility] PRN Reason: Protocol Stop: 06/27/17 01:14 Last Admin: 05/05/17 21:43 Dose: 5 mg Furosemide (Lasix) 40 mg PO DAILY [facility] Stop: 06/27/17 08:59 Last Admin: 05/06/17 08:15 Dose: 40 mg Guaifenesin/Codeine Phosphate (Robitussin Ac) 10 ml PO Q4HR PRN PRN Reason: Cough Stop: 05/07/17 22:51 Last Admin: 05/06/17 16:15 Dose: 10 ml Guaifenesin/Dextromethorphan (Robitussin Dm) 5 ml PO Q6HR PRN PRN Reason: Cough Stop: 06/27/17 01:21 Last Admin: 05/02/17 05:24 Dose: 5 ml Insulin Aspart (Novolog Insulin Sliding Scale) 0 units SUBQ ACHS [facility] PRN Reason: Protocol Stop: 06/28/17 16:29 Last Admin: 05/06/17 12:51 Dose: 6 units Isosorbide Mononitrate (Imdur) 60 mg PO DAILY [facility] Stop: 06/27/17 08:59 Last Admin: 05/06/17 08:12 Dose: 60 mg Lactobacillus Rhamnosus (Culturelle 15b) 1 each PO DAILY [facility] Stop: 06/30/17 08:59 Last Admin: 05/06/17 08:12 Dose: 1 each Lactulose (Cephulac) 30 gm PO DAILY [facility] Stop: 07/03/17 14:44 Last Admin: 05/06/17 08:17 Dose: Not Given Lisinopril (Zestril) 40 mg PO BID [facility] Stop: 06/27/17 08:59 Last Admin: 05/06/17 16:14 Dose: 40 mg Methylprednisolone Sodium Succinate (Solu-Medrol) 40 mg IV Q12HR [facility] Stop: 07/02/17 20:59 Last Admin: 05/06/17 08:11 Dose: 40 mg Miscellaneous (Vte Chemical Prophylaxis Screen/ Admission) 1 ea [facility] PRN PRN PRN Reason: PROTOCOL Stop: 06/27/17 14:14 Miscellaneous (Probiotic Screen) 1 ea PRN PRN PRN Reason: PROTOCOL Stop: 06/29/17 14:14 Montelukast Sodium (Singulair) 10 mg PO HS [facility] Stop: 06/27/17 20:59 Last Admin: 05/05/17 21:57 Dose: 10 mg Morphine Sulfate (Morphine) 2 mg IVP Q4H PRN PRN Reason: RIGHT HIP PAIN Stop: 07/03/17 16:37 Last Admin: 05/06/17 16:15 Dose: 2 mg Multivitamins/Vitamin C (Theragran) 1 tab PO DAILY [facility] Stop: 06/27/17 08:59 Last Admin: 05/06/17 08:15 Dose: 1 tab Nitroglycerin (Nitrostat) 0.4 mg SL Q5MIN PRN PRN Reason: Chest Pain Stop: 06/29/17 09:44 Last Admin: 05/06/17 07:46 Dose: 0.4 mg Ondansetron HCl (Zofran) 4 mg IVP Q6H PRN PRN Reason: Nausea / Vomiting Stop: 06/26/17 21:24 Last Admin: 05/03/17 00:32 Dose: 4 mg Pantoprazole Sodium (Protonix) 40 mg PO DAILY CHHAYA Stop: 07/02/17 08:59 Last Admin: 05/06/17 08:15 Dose: 40 mg Sodium Chloride (Saline Flush) 10 ml IV QSHIFT CHHAYA Stop: 06/27/17 07:59 Last Admin: 05/06/17 08:16 Dose: 10 ml Tamsulosin HCl (Flomax) 0.4 mg PO HS [facility] Stop: 06/27/17 01:12 Last Admin: 05/05/17 21:57 Dose: 0.4 mg General: Alert, Oriented x3, Cooperative HEENT: Atraumatic, PERRLA, EOMI Neck: Supple, JVD Cardiovascular: Regular rate, Normal S1, Normal S2 Lungs: Clear to auscultation Abdomen: Bowel sounds, Soft Extremities: Other (hip pain limits evaluation.) Neurological: Normal gait, Normal speech, Strength at 5/5 X4 ext, Sensation intact, Cranial nerves 3-12 NL, Reflexes 2+ Psych/Mental Status: Mental status NL - Procedures Procedures: Procedures Procedure Code Date DOPPLER COLOR FLOW ADD-ON 06245 06/21/00 DOPPLER ECHO EXAM HEART 10801 06/21/00 DX ULTRASOUND-HEART 88.72 06/21/00 TTE W/O DOPPLER COMPLETE 18763 06/21/00 Assessment/Plan - Problem List Patient Problems: All Active Problems COUGH AND CONGESTION WITH DYSPNEA (Acute) Nutritional Asmnt/Malnutr-PDOC - Dietary Evaluation Malnutrition Findings (Please click <Entered> for more info): Nutritional Asmnt/Malnutrition Start: 05/02/17 15: 16 Text: Status: Complete Freq: Document 05/02/17 15:17 MMULHERN (Rec: 05/02/17 15:39 [email or web address] [id number]) Nutritional Asmnt/Malnutrition Patient General Information Nutritional Screening Moderate Risk Diagnosis Respiratory failure, broncospasm Pertinent Medical Hx/Surgical Hx Hypertension, CAD, asthma, COPD, hyperlipidemia, Non- hodgkin's lymphoma, DJD, chronic pain syndrome, hx of appendectomy and gallbladder surgery along with coronary artery bypass graft. Subjective Information Patient tolerating current diet order. Current Diet Order/ Nutrition Support Regular Patient / S.O Not Indicated Pertinent Medications lipitor, abx, vitamin D3, pepcid, lasix, novolog, solu- medrol, Theragran, zofran, protonix Pertinent Labs (05/02) K 3.4, Glucose 144-303, A1C 6.9, albumin 3.9 Nutritional Hx/Data Height 1.7 m Height (Calculated Centimeters) 170.2 Current Weight (lbs) 113.852 kg Weight (Calculated Kilograms) 113.9 Weight (Calculated Grams) 363421.7 [place] Body Weight 148 % [place] Body Weight 169 Body Mass Index (BMI) 39.3 Recent Weight Change No Weight Status Obese GI Symptoms GI Symptoms None Last BM 04/30 x 1 Difficult in: None Food Allergies No Cultural/Ethnic/Judaism Belief None indicated Usual diet at home unknown Skin Integrity/Comment: Eric 18, 1+ edema, skin tear /abrasion on right and left foot Current %PO Good (75-100%) Estimated Nutritional Goals BEE in Kcals: Adj wt of IBW Calories/Kcals/Kg 173lb/79kg Adj wt 25-30 kcal/ kg Kcals Calculated 5755-5232 kcal/day Protein: Adj wt of IBW Protein g/k-1.2 gm/kg Protein Calculated 80-95gm/day Fluid: ml 3069-8692 ml/day (1 ml/kcal) Nutritional Problem 1. Problem Problem Altered nutrition related lab values related to Etiology hyperglycemia, electrolyte imbalance aeb Signs/Symptoms: K 3.4, Glucose 144-303 Intervention/Recommendation Comments 1. Consider modifying diet to 75gm CCHO for better blood glucose control. 2. Liberalize potassium intake , supplementation per MD Expected Outcomes/Goals Expected Outcomes/Goals oral intake to meet >75% of nutrient needs, weight trends toard ideal body weight, nutrition related labs WNL F/U in 3-5 days MR 05/05-8
[2017-05-06] MEDS: Albuterol/Ipratropium Neb 3 ML AERS HHN PRN (22:13)
--- NOTE | 2017-05-07 00:05 | Progress Notes ---
DATE: 05/06/2017 PROBLEM LIST: 1. Recurrent exacerbation of bronchial asthma. 2. Sleep apnea syndrome. 3. Right hip pain. SYMPTOMS: Nil. SUBJECTIVE: The patient is still complaining of shortness of breath, etc. OBJECTIVE: GENERAL: Not in acute distress. VITAL SIGNS: Respiration rate is about 18, saturation 96%, heart rate is in 60s. NECK: Veins not visualized. CHEST: Shows occasional rhonchi with diminished air entry. HEART: Regular. ABDOMEN: Soft, nontender. EXTREMITIES: Shows no peripheral edema. ASSESSMENT: The patient clinically appears to be stable, not much changed. PLAN: We will continue current treatment. We will follow through other studies, etc. and go from there. JOB# [id number]
--- NOTE | 2017-05-07 00:41 | History & Physical ---
ADMIT DATE: 05/06/2017 PATIENT'S ID: A 67-year-old male. SUBJECTIVE: The patient is seen and examined. The patient stated that he cannot lie down on his bed because of pain on his right leg as well the patient is diagnosed to have psoas muscle hemorrhage. The patient is under care of Hematology oncologist as well. According to Hematology Oncology's notes, thrombocytopenia secondary to chemotherapy and bone marrow suppression and psoas muscle bleeding is likely secondary to platelet dysfunction secondary to aspirin and Plavix. Now, the patient is off his aspirin and Plavix for now. Recommended that the patient should transfuse the platelets at this time. The patient currently denies any chest pain or increasing short of breath or palpitation. PHYSICAL EXAMINATION: On today's exam, VITAL SIGNS: Temperature 98, pulse 84, respiratory 18, blood pressure 139/79. HEENT: No facial asymmetry. NECK: Supple, no JVD. HEART: Regular. CHEST: Lung equal in expansion, mild expiratory wheezing. ABDOMEN: Soft, no guarding, no rigidity. Bowel sounds are present. EXTREMITIES: No edema. AVAILABLE DIAGNOSTIC DATA: White count of 15.4, hemoglobin of 8.5, platelet count of 114, blood sugar is 180. CLINICAL IMPRESSION: 1. Thrombocytopenia, status post platelet transfusion. Current platelet count is 114. The patient is off aspirin and Plavix. 2. Psoas muscle bleeding secondary to platelet dysfunction. 3. Diabetes mellitus. 4. Obstructive sleep apnea. 5. Coronary artery disease. 6. Chronic pain syndrome. 7. Degenerative joint disease. 8. History of follicular lymphoma. 9. Chronic obstructive pulmonary disease exacerbation. PLAN: Since platelet count has significantly improved and new platelet has been infused. Hopefully, the patient should improve. At this time, we will continue the pain management along with the oxygen, nebulizer treatment, steroid, along with PT, OT, general nursing care, following up on lab and aws consultant recommendation. I do believe the patient may get benefit with short-term rehab, which has been requested by case finishing machine adjuster to his insurance company. JOB# [id number]
[2017-05-07] MEDS: Morphine Sulfate 4 mg/mL 1mL Syr IVP PRN (05:16)
[2017-05-07] MEDS: Albuterol/Ipratropium Neb 3 ML AERS HHN PRN (05:25)
[2017-05-07 05:45] LABS: HEMATOCRIT 24.6 % (41.0-60); HEMOGLOBIN 8.7 gm/dL (12-16); MANUAL DIFF REQUIRED? YES; MEAN CELL VOLUME 92.4 fl (80-99); MEAN CORPUSCULAR HEMOGLOBIN 32.5 pg (27.0-31.0); MEAN CORPUSCULAR HGB CONC 35.2 pg (28.0-36.0); PLATELET COUNT 127 Th/cmm (150-400); RED BLOOD COUNT 2.66 Mil/cmm (3.80-5.80); RED CELL DISTRIBUTION WIDTH 16.1 % (11.5-20.0)
[2017-05-07] MEDS: Albuterol/Ipratropium Neb 3 ML AERS HHN SCH ×4 (06:35→18:39)
[2017-05-07] MEDS: Budesonide 0.5 Mg/2 mL Ud HHN SCH ×2 (06:44→18:49)
[2017-05-07 06:53] LABS: BAND NEUTROPHILE 4 % (0-10); NEUTROPHILS 89 % (40-80); TOTAL CELLS COUNTED 100
[2017-05-07 06:54] LABS: HYPOCHROMIA 1+; LYMPHOCYTE 4 % (20-50); MONOCYTE 3 % (2-10); PLATELET ESTIMATE SLIGHT DECREASED (NORMAL)
[2017-05-07] MEDS: INSULIN ASPART SLIDING SCALE 100 UNITS/ML UNIT SUBQ SCH ×4 (08:06→20:53)
[2017-05-07] MEDS ORDERED: methylPREDNISolone SS 40 mg Vial IV SCH (10:15)
[2017-05-07] MEDS: Lactobacillus Rhamnosus GG 15 Billion CFU CAP.SPRINK PO SCH (10:17)
[2017-05-07] MEDS: Multivitamin Tab PO SCH (10:18)
[2017-05-07] MEDS: methylPREDNISolone SS 40 mg Vial IV SCH (10:20)
[2017-05-07] MEDS: Pantoprazole 40 mg EC Tab PO SCH (10:20)
[2017-05-07] MEDS: Lactulose 10 Gm/15 mL 30mL UDC PO SCH (10:27)
--- NOTE | 2017-05-07 12:51 | General Progress Note ---
Subjective - Review of Systems Service Date: 05/07/17 Objective - Results Result Diagrams: 05/07/17 05:10 05/05/17 05:45 Recent Labs: Laboratory Last Values WBC 22.0 Th/cmm (4.8-10.8) H* 05/07/17 05:10 RBC 2.66 Mil/cmm (3.80-5.80) L 05/07/17 05:10 Hgb 8.7 gm/dL (12-16) L 05/07/17 05:10 Hct 24.6 % (41.0-60) L 05/07/17 05:10 MCV 92.4 fl (80-99) 05/07/17 05:10 MCH 32.5 pg (27.0-31.0) H 05/07/17 05:10 MCHC Differential 35.2 pg (28.0-36.0) 05/07/17 05:10 RDW 16.1 % (11.5-20.0) 05/07/17 05:10 Plt Count 127 Th/cmm (150-400) L 05/07/17 05:10 MPV 9.0 fl 05/07/17 05:10 Neutrophils % 88.1 % (40.0-80.0) H 05/06/17 06:15 Band Neutrophils % 4 % (0-10) 05/07/17 05:10 Lymphocytes % 5.6 % (20.0-50.0) L 05/06/17 06:15 Monocytes % 6.0 % (2.0-10.0) 05/06/17 06:15 Eosinophils % 0.2 % (0.0-5.0) 05/06/17 06:15 Basophils % 0.1 % (0.0-2.0) 05/06/17 06:15 Neutrophils (Manual) 89 % (40-80) H 05/07/17 05:10 Lymphocytes 4 % (20-50) L 05/07/17 05:10 Monocytes 3 % (2-10) 05/07/17 05:10 Eosinophils 1 % (0-5) 04/29/17 04:55 Hypochromia 1+ 05/07/17 05:10 Platelet Estimate SLIGHT DECREASED (NORMAL) 05/07/17 05:10 PT 11.0 SECONDS (9.5-11.5) 04/27/17 11:40 INR 1.06 (0.5-1.4) 04/27/17 11:40 PTT (Actin FS) 26.3 SECONDS (26.0-38.0) 04/27/17 11:40 Specimen Source ARTERIAL 04/28/17 05:00 Sample Site Right Radial 04/28/17 05:00 pH 7.44 (7.35-7.45) 04/28/17 05:00 pCO2 35.0 mmHg (35.0-45.0) 04/28/17 05:00 pO2 74.0 mmHg (80.0-100.0) L 04/28/17 05:00 HCO3 24.9 mEq/L (20.0-26.0) 04/28/17 05:00 Base Excess 0.0 mEq/L (-3.0-3.0) 04/28/17 05:00 O2 Saturation 95.0 % (92.0-100.0) 04/28/17 05:00 Albin Test Positive 04/28/17 05:00 Vent Rate N/A 04/28/17 05:00 Inspired O2 21 04/28/17 05:00 Tidal Volume N/A 04/28/17 05:00 PEEP N/A 04/28/17 05:00 Pressure (ins/psv/peep) N/A 04/28/17 05:00 Critical Value [employer] 04/28/17 05:00 Sodium 131 mEq/L (136-145) L 05/05/17 05:45 Potassium 3.8 mEq/L (3.5-5.1) 05/05/17 05:45 Chloride 98 mEq/L (98-107) 05/05/17 05:45 Carbon Dioxide 27.8 mEq/L (21.0-31.0) 05/05/17 05:45 Anion Gap 9.0 (7.0-16.0) 05/05/17 05:45 BUN 26 mg/dL (7-25) H 05/05/17 05:45 Creatinine 0.7 mg/dL (0.7-1.3) 05/05/17 05:45 Est GFR ( Amer) > 60.0 ml/min (>90) 05/05/17 05:45 Est GFR (Non-Af Amer) > 60.0 ml/min 05/05/17 05:45 BUN/Creatinine Ratio 37.1 05/05/17 05:45 Glucose 182 mg/dL (70-105) H 05/05/17 05:45 POC Glucose 153 MG/DL (70 - 105) H 05/07/17 12:36 Hemoglobin A1c % 6.9 % (4.0-6.0) H 04/29/17 04:55 Whole Bld Lactic Acid 1.72 mmol/L (0.60-1.99) 04/27/17 11:40 Calcium 8.2 mg/dL (8.6-10.3) L 05/05/17 05:45 Magnesium 2.6 mg/dL (1.9-2.7) 05/02/17 05:30 Total Bilirubin 0.5 mg/dL (0.3-1.0) 05/05/17 05:45 AST 16 U/L (13-39) 05/05/17 05:45 ALT 44 U/L (7-52) 05/05/17 05:45 Alkaline Phosphatase 50 U/L (34-104) 05/05/17 05:45 Ammonia 30 umol/L (16-53) 05/04/17 11:40 Lactate Dehydrogenase 157 U/L (140-271) 04/28/17 05:33 Creatine Kinase 91 U/L (30-223) 04/27/17 11:40 Troponin I 0.01 ng/mL (0.01-0.05) 04/27/17 11:40 Total Protein 5.0 gm/dL (6.0-8.3) L 05/05/17 05:45 Albumin 3.3 gm/dL (4.2-5.5) L 05/05/17 05:45 Globulin 1.7 gm/dL 05/05/17 05:45 Albumin/Globulin Ratio 1.9 (1.0-1.8) H 05/05/17 05:45 Amylase 30 U/L (29-103) 04/27/17 11:40 Lipase 15 U/L (11-82) 04/27/17 11:40 Vitamin B12 876 pg/mL (232-1245) 05/03/17 05:30 Folic Acid >20.0 ng/mL (>3.0) 05/03/17 05:30 Urine Source MIDSTREAM 04/27/17 13:50 Urine Color YELLOW 04/27/17 13:50 Urine Clarity CLEAR (CLEAR) 04/27/17 13:50 Urine pH 6.0 (4.6 - 8.0) 04/27/17 13:50 Ur Specific [place] 1.010 (1.005-1.030) 04/27/17 13:50 Urine Protein NEGATIVE mg/dL (NEGATIVE) 04/27/17 13:50 Urine Glucose (UA) NEGATIVE mg/dL (NEGATIVE) 04/27/17 13:50 Urine Ketones NEGATIVE mg/dL (NEGATIVE) 04/27/17 13:50 Urine Blood NEGATIVE (NEGATIVE) 04/27/17 13:50 Urine Nitrate NEGATIVE (NEGATIVE) 04/27/17 13:50 Urine Bilirubin NEGATIVE (NEGATIVE) 04/27/17 13:50 Urine Urobilinogen 0.2 E.U./dL (0.2 - 1.0) 04/27/17 13:50 Ur Leukocyte Esterase NEGATIVE (NEGATIVE) 04/27/17 13:50 Urine RBC 0-2 /hpf (0-5) H 04/27/17 13:50 Urine WBC NONE SEEN /hpf (0-5) 04/27/17 13:50 Ur Epithelial Cells RARE /lpf (FEW) 04/27/17 13:50 Urine Bacteria NONE SEEN /hpf (NONE SEEN) 04/27/17 13:50 Influenza A (Rapid) NEG FOR INF A 04/29/17 06:15 Influenza B (Rapid) NEG FOR INF B 04/29/17 06:15 Blood Type O POSITIVE 05/05/17 16:55 Antibody Screen NEGATIVE 05/05/17 16:55 - Physical Exam Vitals and I&O: Vital Signs Temp 96.7 F 05/07/17 08:00 Pulse 80 05/07/17 12:06 Resp 20 05/07/17 10:37 BP 157/85 05/07/17 12:06 Pulse Ox 96 05/07/17 10:37 Intake & Output 05/06/17 05/07/17 05/07/17 18:59 06:59 18:59 Intake Total 1600 100 Balance 1600 100 Weight (lbs) 113.852 kg 119.295 kg Intake: Oral 1600 100 Other: # Voids 4 2 # Bowel Movements 1 0 Stool Characteristics Formed Formed Active Medications: Current Medications Acetaminophen (Tylenol) 650 mg PO Q6H PRN PRN Reason: Mild Pain/Headache/T above 101 Stop: 06/26/17 21:24 Last Admin: 05/04/17 06:44 Dose: 650 mg Albuterol/Ipratropium (Duoneb Neb) 3 ml HHN Q2H PRN PRN Reason: Wheezing Stop: 06/26/17 21:29 Last Admin: 05/07/17 05:25 Dose: 3 ml Albuterol/Ipratropium (Duoneb Neb) 3 ml HHN [id number] [facility] Stop: 06/27/17 18:59 Last Admin: 05/07/17 10:37 Dose: 3 ml Atorvastatin Calcium (Lipitor) 40 mg PO DAILY [facility] Stop: 06/27/17 08:59 Last Admin: 05/07/17 10:17 Dose: 40 mg Budesonide (Pulmicort) 1 mg HHN BIDRT [facility] Stop: 06/27/17 16:59 Last Admin: 05/07/17 06:44 Dose: 1 mg Carvedilol (Coreg) 12.5 mg PO BID [facility] Stop: 06/27/17 08:59 Last Admin: 05/07/17 10:18 Dose: 12.5 mg Cholecalciferol (Vitamin D3) 1,000 iu PO BID [facility] Stop: 06/27/17 08:59 Last Admin: 05/07/17 10:17 Dose: 1,000 iu Famotidine (Pepcid) 40 mg PO HS [facility] Stop: 06/30/17 20:59 Last Admin: 05/06/17 21:53 Dose: 40 mg Finasteride (Proscar) 5 mg PO HS [facility] PRN Reason: Protocol Stop: 06/27/17 01:14 Last Admin: 05/06/17 21:54 Dose: 5 mg Furosemide (Lasix) 40 mg PO DAILY [facility] Stop: 06/27/17 08:59 Last Admin: 05/07/17 10:19 Dose: 40 mg Guaifenesin/Codeine Phosphate (Robitussin Ac) 10 ml PO Q4HR PRN PRN Reason: Cough Stop: 05/07/17 22:51 Last Admin: 05/06/17 22:04 Dose: 10 ml Guaifenesin/Dextromethorphan (Robitussin Dm) 5 ml PO Q6HR PRN PRN Reason: Cough Stop: 06/27/17 01:21 Last Admin: 05/02/17 05:24 Dose: 5 ml Insulin Aspart (Novolog Insulin Sliding Scale) 0 units SUBQ ACHS [facility]HAYA PRN Reason: Protocol Stop: 06/28/17 16:29 Last Admin: 05/07/17 12:44 Dose: 2 units Isosorbide Mononitrate (Imdur) 60 mg PO DAILY [facility] Stop: 06/27/17 08:59 Last Admin: 05/07/17 10:18 Dose: 60 mg Lactobacillus Rhamnosus (Culturelle 15b) 1 each PO DAILY [facility]AYA Stop: 06/30/17 08:59 Last Admin: 05/07/17 10:17 Dose: 1 each Lactulose (Cephulac) 30 gm PO DAILY [facility]AYA Stop: 07/03/17 14:44 Last Admin: 05/07/17 10:27 Dose: Not Given Lisinopril (Zestril) 40 mg PO BID [facility]AYA Stop: 06/27/17 08:59 Last Admin: 05/07/17 10:17 Dose: 40 mg Miscellaneous (Vte Chemical Prophylaxis Screen/ Admission) 1 ea PRN PRN PRN Reason: PROTOCOL Stop: 06/27/17 14:14 Miscellaneous (Probiotic Screen) 1 ea PRN PRN PRN Reason: PROTOCOL Stop: 06/29/17 14:14 Montelukast Sodium (Singulair) 10 mg PO HS CHHAYA Stop: 06/27/17 20:59 Last Admin: 05/06/17 21:53 Dose: 10 mg Morphine Sulfate (Morphine) 2 mg IVP Q4H PRN PRN Reason: RIGHT HIP PAIN Stop: 07/03/17 16:37 Last Admin: 05/07/17 05:16 Dose: 2 mg Multivitamins/Vitamin C (Theragran) 1 tab PO DAILY CH[facility]AYA Stop: 06/27/17 08:59 Last Admin: 05/07/17 10:18 Dose: 1 tab Nitroglycerin (Nitrostat) 0.4 mg SL Q5MIN PRN PRN Reason: Chest Pain Stop: 06/29/17 09:44 Last Admin: 05/07/17 12:06 Dose: 0.4 mg Ondansetron HCl (Zofran) 4 mg IVP Q6H PRN PRN Reason: Nausea / Vomiting Stop: 06/26/17 21:24 Last Admin: 05/03/17 00:32 Dose: 4 mg Pantoprazole Sodium (Protonix) 40 mg PO DAILY [facility] Stop: 07/02/17 08:59 Last Admin: 05/07/17 10:20 Dose: 40 mg Prednisone (Deltasone) 20 mg PO BID [facility] Stop: 07/06/17 16:59 Sodium Chloride (Saline Flush) 10 ml IV QSHIFT [facility] Stop: 06/27/17 07:59 Last Admin: 05/07/17 10:28 Dose: 10 ml Tamsulosin HCl (Flomax) 0.4 mg PO HS [facility] Stop: 06/27/17 01:12 Last Admin: 05/06/17 21:53 Dose: 0.4 mg General: Alert, Oriented x3, Cooperative HEENT: Atraumatic, PERRLA, EOMI Neck: Supple, JVD Cardiovascular: Regular rate, Normal S1, Normal S2 Lungs: Clear to auscultation Abdomen: Bowel sounds, Soft Extremities: Other (hip pain limits evaluation.) Neurological: Normal gait, Normal speech, Strength at 5/5 X4 ext, Sensation intact, Cranial nerves 3-12 NL, Reflexes 2+ Psych/Mental Status: Mental status NL - Procedures Procedures: Procedures Procedure Code Date DOPPLER COLOR FLOW ADD-ON 82180 06/21/00 DOPPLER ECHO EXAM HEART 44582 06/21/00 DX ULTRASOUND-HEART 88.72 06/21/00 TTE W/O DOPPLER COMPLETE 00480 06/21/00 Assessment/Plan - Problem List Patient Problems: All Active Problems COUGH AND CONGESTION WITH DYSPNEA (Acute) - Assessment Assessment: * h/o follicular lymphoma * Pneumonitis * Thrombocytopenia most likely following chemotherapy bone marrow suppression * psoas muscle bleeding * Likely platelet dysfunction sec to asa and plavix; now off asa and plavix Transfuse platelets for platelet dysfunction and bleeding 05/06: S/P plt transfusion for plt dysfunction; hgb continues to fall; Monitor plt for now 05/07: hgb stable today. plt are stable. No clinical bleeding; monitor cbc Nutritional Asmnt/Malnutr-PDOC - Dietary Evaluation Malnutrition Findings (Please click <Entered> for more info): Nutritional Asmnt/Malnutrition Start: 05/02/17 15: 16 Text: Status: Complete Freq: Document 05/02/17 15:17 MMULHERN (Rec: 05/02/17 15:39 [email or web address] [id number]) Nutritional Asmnt/Malnutrition Patient General Information Nutritional Screening Moderate Risk Diagnosis Respiratory failure, broncospasm Pertinent Medical Hx/Surgical Hx Hypertension, CAD, asthma, COPD, hyperlipidemia, Non- hodgkin's lymphoma, DJD, chronic pain syndrome, hx of appendectomy and gallbladder surgery along with coronary artery bypass graft. Subjective Information Patient tolerating current diet order. Current Diet Order/ Nutrition Support Regular Patient / S.O Not Indicated Pertinent Medications lipitor, abx, vitamin D3, pepcid, lasix, novolog, solu- medrol, Theragran, zofran, protonix Pertinent Labs (05/02) K 3.4, Glucose 144-303, A1C 6.9, albumin 3.9 Nutritional Hx/Data Height 1.7 m Height (Calculated Centimeters) 170.2 Current Weight (lbs) 113.852 kg Weight (Calculated Kilograms) 113.9 Weight (Calculated Grams) 953163.7 [place] Body Weight 148 % [place] Body Weight 169 Body Mass Index (BMI) 39.3 Recent Weight Change No Weight Status Obese GI Symptoms GI Symptoms None Last BM 04/30 x 1 Difficult in: None Food Allergies No Cultural/Ethnic/Sabianism Belief None indicated Usual diet at home unknown Skin Integrity/Comment: Eric 18, 1+ edema, skin tear /abrasion on right and left foot Current %PO Good (75-100%) Estimated Nutritional Goals BEE in Kcals: Adj wt of IBW Calories/Kcals/Kg 173lb/79kg Adj wt 25-30 kcal/ kg Kcals Calculated 9268-4844 kcal/day Protein: Adj wt of IBW Protein g/k-1.2 gm/kg Protein Calculated 80-95gm/day Fluid: ml 0176-0672 ml/day (1 ml/kcal) Nutritional Problem 1. Problem Problem Altered nutrition related lab values related to Etiology hyperglycemia, electrolyte imbalance aeb Signs/Symptoms: K 3.4, Glucose 144-303 Intervention/Recommendation Comments 1. Consider modifying diet to 75gm CCHO for better blood glucose control. 2. Liberalize potassium intake , supplementation per MD Expected Outcomes/Goals Expected Outcomes/Goals oral intake to meet >75% of nutrient needs, weight trends toard ideal body weight, nutrition related labs WNL F/U in 3-5 days 3-8
--- NOTE | 2017-05-07 13:55 | Diagnostic Imaging Report ---
CT angiogram of the abdomen, pelvis and bilateral lower extremities History: Bypass procedure, right psoas enlargement, pain Comparison: CT pelvis on 05/04/2017 Technique/procedure: Axial images were obtained from the lung bases to the bilateral distal lower extremities with IV contrast, angiogram protocol, multiplanar reconstructions were made. Total DLP 1304, CTD I 38 Findings: Atelectatic changes of the lung bases are seen with multifocal left basal infiltrates. There is a small hiatal hernia. There is a 1.2 cm low-density hepatic lesions most suggestive of a cyst. Mildly prominent spleen is noted. Small amount of fluid in trace inflammatory changes are seen surrounding the spleen. Limited assessment of pancreas demonstrates no focal lesions. No focal adrenal lesions. Patient is status post cholecystectomy. No evidence of hydronephrosis. Bilateral nonspecific perinephric inflammatory changes are noted. A small amount of free fluid is noted within the abdomen and pelvis. Diverticulosis is noted. There is a small narrow based ventral hernia just located to the right and above the umbilicus.There may also be an additional small bowel containing hernia within the umbilicus. There is enlargement of right/psoas with increased density and mild inflammatory changes seen in this region throughout the abdomen and pelvis tracking inferiorly. Small fat-containing left inguinal hernia is noted. Diffuse anasarca is noted. There is diffuse subcutaneous edema throughout the bilateral lower extremities. Vasculature: Moderate atherosclerotic vascular disease is noted. The origin of the celiac is patent artery is patent. There is minimal atherosclerosis of the origin of the superior mesenteric artery. There is mild to moderate atherosclerosis of the origin of the right renal artery and moderate atherosclerosis of the origin left renal artery. The origin of the inferior mesenteric artery is patent. There is moderate atherosclerotic vascular disease of the bilateral common femoral, and internal and external iliac arterial vasculature. Minimal atherosclerosis of bilateral femoral arteries is noted. Mild atherosclerosis of bilateral popliteal arteries are noted. Three-vessel runoff is seen bilaterally to the lower extremities with dominant left-sided peroneal artery and decreased size of the left anterior tibial artery. IMPRESSION: Moderate generalized atherosclerotic vascular disease. There appears to be a diminutive left anterior tibial artery with dominant left peroneal artery terminating into the the left dorsalis pedis artery. Enlarged right psoas muscle with increased density probably related to psoas hemorrhage. Additional mild free fluid and inflammatory changes are seen in the abdomen and pelvis. Small narrow based ventral hernia located above and to the right of the umbilicus containing a bowel loop. There may be an additional small bowel containing umbilical hernia. No evidence of bowel obstruction this time, however, follow-up is recommended for further assessment. Surgical consultation may be obtained. Diffuse bilateral lower extremity edema probably due to cellulitis. Evidence of prior cholecystectomy. Mild splenomegaly. Small hiatal hernia Left basal infiltrate/pneumonia.
--- NOTE | 2017-05-07 18:10 | Progress Notes ---
DATE: PATIENT'S IDENTIFICATION: A 67-year-old male. SUBJECTIVE: The patient seen and examined. The patient is sitting in the chair. According to the patient, he feels better. He does not want to go anywhere. He wants to go home. The patient currently denies any chest pain, shortness of breath, palpitation, or dizziness. PHYSICAL EXAMINATION: VITAL SIGNS: Temperature 98, pulse is 84, respiratory rate is 18, and blood pressure 126/71. HEENT: No facial asymmetry. NECK: Supple. No JVD. HEART: Regular. CHEST: Lungs equal in expansion. No wheezing, no crackles. ABDOMEN: Soft. No guarding, no rigidity. Bowel sounds are present. No palpable mass. EXTREMITIES: No edema. Right lower extremity has a range of motion, has significantly improved. AVAILABLE DIAGNOSTIC DATA: White count of 22,000, hemoglobin 8.7, platelet count of 127, 89% lymphocytes noted. Glucoscan is reviewed. CLINICAL IMPRESSION: 1. Normocytic normochromic anemia. Comparing hemoglobin of 05/06/2017 and 05/07/2017, there is no difference. Platelet count has improved from 114 to 127. 2. Psoas hemorrhage. Clinically, does not seem the patient is bleeding considering hemoglobin remained stable. 3. Thrombocytopenia, status post transfusion. 4. Diabetes. 5. Chronic obstructive pulmonary disease exacerbation. 6. Degenerative joint disease. 7. History of follicular lymphoma. 8. Obstructive sleep apnea. PLAN: Leukocytosis, seems reactive. Switch Solu-Medrol to p.o. prednisone. Monitor the lab for now. Symptoms management along with general nursing care. Continue to follow this patient as well. If the patient remained hemodynamically stable with stable hemoglobin, the patient will be discharged home. JOB# [id number]
[2017-05-08] MEDS: Guaifenesin DM 10 ML UDC PO PRN (00:13)
[2017-05-08] MEDS: Morphine Sulfate 4 mg/mL 1mL Syr IVP PRN (02:07)
--- NOTE | 2017-05-08 04:19 | Progress Notes ---
DATE: 05/07/2017 PULMONARY PROGRESS NOTE PROBLEM LIST: 1. Chronic recurrent bronchial asthma. 2. Gastroesophageal reflux. 3. Persistent pain of lower extremity. SYMPTOMS: New. When asked, he makes coughing noise etc. Denies of any other related symptomatology. PHYSICAL EXAMINATION: VITAL SIGNS: Temperature 96.7, blood pressure 157/85, saturation is 96. NECK: Neck veins not visualized. CHEST: Shows clear with diminished air entry. HEART: Regular. ABDOMEN: Soft. Nontender. LABORATORY DATA: White count is 32,000 and decreased platelet count. His CT angiogram of the lower extremity has moderate atherosclerotic vascular disease and diminutive left anterior tibial artery with dominant left peroneal artery, a small diffuse bilateral lower extremity edema, but otherwise unremarkable, and left basal possible infiltrate, based on some of the cuts down. ASSESSMENT: The patient clinically is stable, not much change. PLAN AND SUGGESTIONS: Continue current treatment, we will follow through other studies as needed. I do not think anything different could be or should be done at this time for his respiratory complaints etc. JOB# [id number]
[2017-05-08 06:01] LABS: % BASOPHILS 0.1 % (0.0-2.0); LYMPHOCYTE ABSOLUTE 0.7 Th/cmm (1.5-3.0)
[2017-05-08 06:06] LABS: % EOSINOPHILS 0.2 % (0.0-5.0); % MONOCYTES 5.9 % (2.0-10.0); % NEUTROPHILS 87.8 % (40.0-80.0); MEAN CELL VOLUME 92.8 fl (80-99); MEAN CORPUSCULAR HEMOGLOBIN 32.1 pg (27.0-31.0); MEAN CORPUSCULAR HGB CONC 34.6 pg (28.0-36.0); MONOCYTE ABSOLUTE 0.6 Th/cmm (0.3-1.0); NEUTROPHILE ABSOLUTE 9.7 Th/cmm (1.8-8.0); PLATELET COUNT 95 Th/cmm (150-400); RED BLOOD COUNT 2.33 Mil/cmm (3.80-5.80); RED CELL DISTRIBUTION WIDTH 16.7 % (11.5-20.0)
[2017-05-08 06:14] LABS: HEMATOCRIT 21.6 % (41.0-60); HEMOGLOBIN 7.5 gm/dL (12-16)
[2017-05-08] MEDS: Budesonide 0.5 Mg/2 mL Ud HHN SCH ×2 (06:56→19:20)
[2017-05-08] MEDS: Albuterol/Ipratropium Neb 3 ML AERS HHN SCH ×4 (06:56→19:07)
[2017-05-08] MEDS: Multivitamin Tab PO SCH (08:19)
[2017-05-08] MEDS: Lactulose 10 Gm/15 mL 30mL UDC PO SCH ×2 (08:20→08:39)
[2017-05-08] MEDS: Lactobacillus Rhamnosus GG 15 Billion CFU CAP.SPRINK PO SCH (08:20)
[2017-05-08] MEDS: INSULIN ASPART SLIDING SCALE 100 UNITS/ML UNIT SUBQ SCH ×4 (08:21→21:48)
[2017-05-08] MEDS: Pantoprazole 40 mg EC Tab PO SCH (08:38)
--- NOTE | 2017-05-08 09:28 | General Progress Note ---
Subjective - Review of Systems Service Date: 05/08/17 Events since last encounter: CTA discussed with Drs. Carrero and Scar, no active bleed, psoas same Plavix has been stopped, platelets low Hb 7.5, to have PRBC recommend ASA only Objective - Results Result Diagrams: 05/08/17 05:30 05/05/17 05:45 Recent Labs: Laboratory Last Values WBC 11.0 Th/cmm (4.8-10.8) H 05/08/17 05:30 RBC 2.33 Mil/cmm (3.80-5.80) L 05/08/17 05:30 Hgb 7.5 gm/dL (12-16) L* 05/08/17 05:30 Hct 21.6 % (41.0-60) L 05/08/17 05:30 MCV 92.8 fl (80-99) 05/08/17 05:30 MCH 32.1 pg (27.0-31.0) H 05/08/17 05:30 MCHC Differential 34.6 pg (28.0-36.0) 05/08/17 05:30 RDW 16.7 % (11.5-20.0) 05/08/17 05:30 Plt Count 95 Th/cmm (150-400) L 05/08/17 05:30 MPV 9.0 fl 05/08/17 05:30 Neutrophils % 87.8 % (40.0-80.0) H 05/08/17 05:30 Band Neutrophils % 4 % (0-10) 05/07/17 05:10 Lymphocytes % 6.0 % (20.0-50.0) L 05/08/17 05:30 Monocytes % 5.9 % (2.0-10.0) 05/08/17 05:30 Eosinophils % 0.2 % (0.0-5.0) 05/08/17 05:30 Basophils % 0.1 % (0.0-2.0) 05/08/17 05:30 Neutrophils (Manual) 89 % (40-80) H 05/07/17 05:10 Lymphocytes 4 % (20-50) L 05/07/17 05:10 Monocytes 3 % (2-10) 05/07/17 05:10 Eosinophils 1 % (0-5) 04/29/17 04:55 Hypochromia 1+ 05/07/17 05:10 Platelet Estimate SLIGHT DECREASED (NORMAL) 05/07/17 05:10 PT 11.0 SECONDS (9.5-11.5) 04/27/17 11:40 INR 1.06 (0.5-1.4) 04/27/17 11:40 PTT (Actin FS) 26.3 SECONDS (26.0-38.0) 04/27/17 11:40 Specimen Source ARTERIAL 04/28/17 05:00 Sample Site Right Radial 04/28/17 05:00 pH 7.44 (7.35-7.45) 04/28/17 05:00 pCO2 35.0 mmHg (35.0-45.0) 04/28/17 05:00 pO2 74.0 mmHg (80.0-100.0) L 04/28/17 05:00 HCO3 24.9 mEq/L (20.0-26.0) 04/28/17 05:00 Base Excess 0.0 mEq/L (-3.0-3.0) 04/28/17 05:00 O2 Saturation 95.0 % (92.0-100.0) 04/28/17 05:00 Albin Test Positive 04/28/17 05:00 Vent Rate N/A 04/28/17 05:00 Inspired O2 21 04/28/17 05:00 Tidal Volume N/A 04/28/17 05:00 PEEP N/A 04/28/17 05:00 Pressure (ins/psv/peep) N/A 04/28/17 05:00 Critical Value [employer] INSPECTOR 04/28/17 05:00 Sodium 131 mEq/L (136-145) L 05/05/17 05:45 Potassium 3.8 mEq/L (3.5-5.1) 05/05/17 05:45 Chloride 98 mEq/L (98-107) 05/05/17 05:45 Carbon Dioxide 27.8 mEq/L (21.0-31.0) 05/05/17 05:45 Anion Gap 9.0 (7.0-16.0) 05/05/17 05:45 BUN 26 mg/dL (7-25) H 05/05/17 05:45 Creatinine 0.7 mg/dL (0.7-1.3) 05/05/17 05:45 Est GFR ( Amer) > 60.0 ml/min (>90) 05/05/17 05:45 Est GFR (Non-Af Amer) > 60.0 ml/min 05/05/17 05:45 BUN/Creatinine Ratio 37.1 05/05/17 05:45 Glucose 182 mg/dL (70-105) H 05/05/17 05:45 POC Glucose 184 MG/DL (70 - 105) H 05/08/17 06:27 Hemoglobin A1c % 6.9 % (4.0-6.0) H 04/29/17 04:55 Whole Bld Lactic Acid 1.72 mmol/L (0.60-1.99) 04/27/17 11:40 Calcium 8.2 mg/dL (8.6-10.3) L 05/05/17 05:45 Magnesium 2.6 mg/dL (1.9-2.7) 05/02/17 05:30 Total Bilirubin 0.5 mg/dL (0.3-1.0) 05/05/17 05:45 AST 16 U/L (13-39) 05/05/17 05:45 ALT 44 U/L (7-52) 05/05/17 05:45 Alkaline Phosphatase 50 U/L (34-104) 05/05/17 05:45 Ammonia 30 umol/L (16-53) 05/04/17 11:40 Lactate Dehydrogenase 157 U/L (140-271) 04/28/17 05:33 Creatine Kinase 91 U/L (30-223) 04/27/17 11:40 Troponin I 0.01 ng/mL (0.01-0.05) 04/27/17 11:40 Total Protein 5.0 gm/dL (6.0-8.3) L 05/05/17 05:45 Albumin 3.3 gm/dL (4.2-5.5) L 05/05/17 05:45 Globulin 1.7 gm/dL 05/05/17 05:45 Albumin/Globulin Ratio 1.9 (1.0-1.8) H 05/05/17 05:45 Amylase 30 U/L (29-103) 04/27/17 11:40 Lipase 15 U/L (11-82) 04/27/17 11:40 Vitamin B12 876 pg/mL (232-1245) 05/03/17 05:30 Folic Acid >20.0 ng/mL (>3.0) 05/03/17 05:30 Urine Source MIDSTREAM 04/27/17 13:50 Urine Color YELLOW 04/27/17 13:50 Urine Clarity CLEAR (CLEAR) 04/27/17 13:50 Urine pH 6.0 (4.6 - 8.0) 04/27/17 13:50 Ur Specific [place] 1.010 (1.005-1.030) 04/27/17 13:50 Urine Protein NEGATIVE mg/dL (NEGATIVE) 04/27/17 13:50 Urine Glucose (UA) NEGATIVE mg/dL (NEGATIVE) 04/27/17 13:50 Urine Ketones NEGATIVE mg/dL (NEGATIVE) 04/27/17 13:50 Urine Blood NEGATIVE (NEGATIVE) 04/27/17 13:50 Urine Nitrate NEGATIVE (NEGATIVE) 04/27/17 13:50 Urine Bilirubin NEGATIVE (NEGATIVE) 04/27/17 13:50 Urine Urobilinogen 0.2 E.U./dL (0.2 - 1.0) 04/27/17 13:50 Ur Leukocyte Esterase NEGATIVE (NEGATIVE) 04/27/17 13:50 Urine RBC 0-2 /hpf (0-5) H 04/27/17 13:50 Urine WBC NONE SEEN /hpf (0-5) 04/27/17 13:50 Ur Epithelial Cells RARE /lpf (FEW) 04/27/17 13:50 Urine Bacteria NONE SEEN /hpf (NONE SEEN) 04/27/17 13:50 Influenza A (Rapid) NEG FOR INF A 04/29/17 06:15 Influenza B (Rapid) NEG FOR INF B 04/29/17 06:15 Blood Type O POSITIVE 05/05/17 16:55 Antibody Screen NEGATIVE 05/05/17 16:55 - Physical Exam Vitals and I&O: Vital Signs Temp 97.3 F 05/08/17 05:00 Pulse 70 05/08/17 08:20 Resp 18 05/08/17 07:08 BP 137/80 05/08/17 08:20 Pulse Ox 97 05/08/17 07:08 Intake & Output 05/07/17 05/08/17 05/08/17 18:59 06:59 18:59 Intake Total 1200 100 Balance 1200 100 Weight (lbs) 119.295 kg 119.295 kg Intake: Oral 1200 100 Other: # Voids 3 2 Stool Characteristics Formed Formed Active Medications: Current Medications Acetaminophen (Tylenol) 650 mg PO Q6H PRN PRN Reason: Mild Pain/Headache/T above 101 Stop: 06/26/17 21:24 Last Admin: 05/04/17 06:44 Dose: 650 mg Albuterol/Ipratropium (Duoneb Neb) 3 ml HHN Q2H PRN PRN Reason: Wheezing Stop: 06/26/17 21:29 Last Admin: 05/07/17 05:25 Dose: 3 ml Albuterol/Ipratropium (Duoneb Neb) 3 ml HHN [id number] [facility] Stop: 06/27/17 18:59 Last Admin: 05/08/17 06:56 Dose: 3 ml Atorvastatin Calcium (Lipitor) 40 mg PO DAILY [facility] Stop: 06/27/17 08:59 Last Admin: 05/08/17 08:19 Dose: 40 mg Budesonide (Pulmicort) 1 mg HHN BIDRT [facility] Stop: 06/27/17 16:59 Last Admin: 05/08/17 06:56 Dose: 1 mg Carvedilol (Coreg) 12.5 mg PO BID [facility] Stop: 06/27/17 08:59 Last Admin: 05/08/17 08:19 Dose: 12.5 mg Cholecalciferol (Vitamin D3) 1,000 iu PO BID [facility] Stop: 06/27/17 08:59 Last Admin: 05/08/17 08:20 Dose: 1,000 iu Famotidine (Pepcid) 40 mg PO HS [facility] Stop: 06/30/17 20:59 Last Admin: 05/07/17 20:52 Dose: 40 mg Finasteride (Proscar) 5 mg PO HS [facility] PRN Reason: Protocol Stop: 06/27/17 01:14 Last Admin: 05/07/17 20:51 Dose: 5 mg Furosemide (Lasix) 40 mg PO DAILY [facility] Stop: 06/27/17 08:59 Last Admin: 05/08/17 08:19 Dose: 40 mg Guaifenesin/Dextromethorphan (Robitussin Dm) 5 ml PO Q6HR PRN PRN Reason: Cough Stop: 06/27/17 01:21 Last Admin: 05/08/17 00:13 Dose: 5 ml Insulin Aspart (Novolog Insulin Sliding Scale) 0 units SUBQ ACHS [facility] PRN Reason: Protocol Stop: 06/28/17 16:29 Last Admin: 05/08/17 08:21 Dose: 2 units Isosorbide Mononitrate (Imdur) 60 mg PO DAILY [facility] Stop: 06/27/17 08:59 Last Admin: 05/08/17 08:18 Dose: 60 mg Lactobacillus Rhamnosus (Culturelle 15b) 1 each PO DAILY [facility] Stop: 06/30/17 08:59 Last Admin: 05/08/17 08:20 Dose: 1 each Lactulose (Cephulac) 30 gm PO DAILY [facility] Stop: 07/03/17 14:44 Last Admin: 05/08/17 08:39 Dose: Not Given Lisinopril (Zestril) 40 mg PO BID [facility] Stop: 06/27/17 08:59 Last Admin: 05/08/17 08:20 Dose: 40 mg Miscellaneous (Vte Chemical Prophylaxis Screen/ Admission) 1 ea PRN PRN PRN Reason: PROTOCOL Stop: 06/27/17 14:14 Miscellaneous (Probiotic Screen) 1 ea PRN PRN PRN Reason: PROTOCOL Stop: 06/29/17 14:14 Montelukast Sodium (Singulair) 10 mg PO HS [facility] Stop: 06/27/17 20:59 Last Admin: 05/07/17 20:51 Dose: 10 mg Morphine Sulfate (Morphine) 2 mg IVP Q4H PRN PRN Reason: RIGHT HIP PAIN Stop: 07/03/17 16:37 Last Admin: 05/08/17 02:07 Dose: 2 mg Multivitamins/Vitamin C (Theragran) 1 tab PO DAILY [facility] Stop: 06/27/17 08:59 Last Admin: 05/08/17 08:19 Dose: 1 tab Nitroglycerin (Nitrostat) 0.4 mg SL Q5MIN PRN PRN Reason: Chest Pain Stop: 06/29/17 09:44 Last Admin: 05/07/17 12:06 Dose: 0.4 mg Ondansetron HCl (Zofran) 4 mg IVP Q6H PRN PRN Reason: Nausea / Vomiting Stop: 06/26/17 21:24 Last Admin: 05/03/17 00:32 Dose: 4 mg Pantoprazole Sodium (Protonix) 40 mg PO DAILY [facility] Stop: 07/02/17 08:59 Last Admin: 05/08/17 08:38 Dose: 40 mg Prednisone (Deltasone) 20 mg PO BID [facility] Stop: 07/06/17 16:59 Last Admin: 05/08/17 08:20 Dose: 20 mg Sodium Chloride (Saline Flush) 10 ml IV QSHIFT [facility] Stop: 06/27/17 07:59 Last Admin: 05/08/17 08:39 Dose: Not Given Tamsulosin HCl (Flomax) 0.4 mg PO HS [facility] Stop: 06/27/17 01:12 Last Admin: 05/07/17 20:52 Dose: 0.4 mg Zolpidem Tartrate (Ambien) 5 mg PO HS PRN PRN Reason: Insomnia Stop: 07/07/17 09:06 General: Alert, Oriented x3, Cooperative HEENT: Atraumatic, PERRLA, EOMI Neck: Supple, JVD Cardiovascular: Regular rate, Normal S1, Normal S2 Lungs: Clear to auscultation Abdomen: Bowel sounds, Soft Extremities: Other (hip pain limits evaluation.) Neurological: Normal gait, Normal speech, Strength at 5/5 X4 ext, Sensation intact, Cranial nerves 3-12 NL, Reflexes 2+ Psych/Mental Status: Mental status NL - Procedures Procedures: Procedures Procedure Code Date DOPPLER COLOR FLOW ADD-ON 26082 06/21/00 DOPPLER ECHO EXAM HEART 71765 06/21/00 DX ULTRASOUND-HEART 88.72 06/21/00 TTE W/O DOPPLER COMPLETE 97211 06/21/00 Assessment/Plan - Problem List Patient Problems: All Active Problems COUGH AND CONGESTION WITH DYSPNEA (Acute) Nutritional Asmnt/Malnutr-PDOC - Dietary Evaluation Malnutrition Findings (Please click <Entered> for more info): Nutritional Asmnt/Malnutrition Start: 05/02/17 15: 16 Text: Status: Complete Freq: Document 05/02/17 15:17 MMULHERN (Rec: 05/02/17 15:39 [email or web address] GI- FN) Nutritional Asmnt/Malnutrition Patient General Information Nutritional Screening Moderate Risk Diagnosis Respiratory failure, broncospasm Pertinent Medical Hx/Surgical Hx Hypertension, CAD, asthma, COPD, hyperlipidemia, Non- hodgkin's lymphoma, DJD, chronic pain syndrome, hx of appendectomy and gallbladder surgery along with coronary artery bypass graft. Subjective Information Patient tolerating current diet order. Current Diet Order/ Nutrition Support Regular Patient / S.O Not Indicated Pertinent Medications lipitor, abx, vitamin D3, pepcid, lasix, novolog, solu- medrol, Theragran, zofran, protonix Pertinent Labs (05/02) K 3.4, Glucose 144-303, A1C 6.9, albumin 3.9 Nutritional Hx/Data Height 1.7 m Height (Calculated Centimeters) 170.2 Current Weight (lbs) 113.852 kg Weight (Calculated Kilograms) 113.9 Weight (Calculated Grams) 820235.7 [place] Body Weight 148 % [place] Body Weight 169 Body Mass Index (BMI) 39.3 Recent Weight Change No Weight Status Obese GI Symptoms GI Symptoms None Last BM 04/30 x 1 Difficult in: None Food Allergies No Cultural/Ethnic/Jewish Belief None indicated Usual diet at home unknown Skin Integrity/Comment: Eric 18, 1+ edema, skin tear /abrasion on right and left foot Current %PO Good (75-100%) Estimated Nutritional Goals BEE in Kcals: Adj wt of IBW Calories/Kcals/Kg 173lb/79kg Adj wt 25-30 kcal/ kg Kcals Calculated 9448-3535 kcal/day Protein: Adj wt of IBW Protein g/k-1.2 gm/kg Protein Calculated 80-95gm/day Fluid: ml 0903-2499 ml/day (1 ml/kcal) Nutritional Problem 1. Problem Problem Altered nutrition related lab values related to Etiology hyperglycemia, electrolyte imbalance aeb Signs/Symptoms: K 3.4, Glucose 144-303 Intervention/Recommendation Comments 1. Consider modifying diet to 75gm CCHO for better blood glucose control. 2. Liberalize potassium intake , supplementation per MD Expected Outcomes/Goals Expected Outcomes/Goals oral intake to meet >75% of nutrient needs, weight trends toard ideal body weight, nutrition related labs WNL F/U in 3-5 days MR 05/05-
--- NOTE | 2017-05-08 15:56 | General Progress Note ---
Subjective - Review of Systems Service Date: 05/08/17 Objective - Results Result Diagrams: 05/08/17 05:30 05/05/17 05:45 Recent Labs: Laboratory Last Values WBC 11.0 Th/cmm (4.8-10.8) H 05/08/17 05:30 RBC 2.33 Mil/cmm (3.80-5.80) L 05/08/17 05:30 Hgb 7.5 gm/dL (12-16) L* 05/08/17 05:30 Hct 21.6 % (41.0-60) L 05/08/17 05:30 MCV 92.8 fl (80-99) 05/08/17 05:30 MCH 32.1 pg (27.0-31.0) H 05/08/17 05:30 MCHC Differential 34.6 pg (28.0-36.0) 05/08/17 05:30 RDW 16.7 % (11.5-20.0) 05/08/17 05:30 Plt Count 95 Th/cmm (150-400) L 05/08/17 05:30 MPV 9.0 fl 05/08/17 05:30 Neutrophils % 87.8 % (40.0-80.0) H 05/08/17 05:30 Band Neutrophils % 4 % (0-10) 05/07/17 05:10 Lymphocytes % 6.0 % (20.0-50.0) L 05/08/17 05:30 Monocytes % 5.9 % (2.0-10.0) 05/08/17 05:30 Eosinophils % 0.2 % (0.0-5.0) 05/08/17 05:30 Basophils % 0.1 % (0.0-2.0) 05/08/17 05:30 Neutrophils (Manual) 89 % (40-80) H 05/07/17 05:10 Lymphocytes 4 % (20-50) L 05/07/17 05:10 Monocytes 3 % (2-10) 05/07/17 05:10 Eosinophils 1 % (0-5) 04/29/17 04:55 Hypochromia 1+ 05/07/17 05:10 Platelet Estimate SLIGHT DECREASED (NORMAL) 05/07/17 05:10 PT 11.0 SECONDS (9.5-11.5) 04/27/17 11:40 INR 1.06 (0.5-1.4) 04/27/17 11:40 PTT (Actin FS) 26.3 SECONDS (26.0-38.0) 04/27/17 11:40 Specimen Source ARTERIAL 04/28/17 05:00 Sample Site Right Radial 04/28/17 05:00 pH 7.44 (7.35-7.45) 04/28/17 05:00 pCO2 35.0 mmHg (35.0-45.0) 04/28/17 05:00 pO2 74.0 mmHg (80.0-100.0) L 04/28/17 05:00 HCO3 24.9 mEq/L (20.0-26.0) 04/28/17 05:00 Base Excess 0.0 mEq/L (-3.0-3.0) 04/28/17 05:00 O2 Saturation 95.0 % (92.0-100.0) 04/28/17 05:00 Albin Test Positive 04/28/17 05:00 Vent Rate N/A 04/28/17 05:00 Inspired O2 21 04/28/17 05:00 Tidal Volume N/A 04/28/17 05:00 PEEP N/A 04/28/17 05:00 Pressure (ins/psv/peep) N/A 04/28/17 05:00 Critical Value [employer] 04/28/17 05:00 Sodium 131 mEq/L (136-145) L 05/05/17 05:45 Potassium 3.8 mEq/L (3.5-5.1) 05/05/17 05:45 Chloride 98 mEq/L (98-107) 05/05/17 05:45 Carbon Dioxide 27.8 mEq/L (21.0-31.0) 05/05/17 05:45 Anion Gap 9.0 (7.0-16.0) 05/05/17 05:45 BUN 26 mg/dL (7-25) H 05/05/17 05:45 Creatinine 0.7 mg/dL (0.7-1.3) 05/05/17 05:45 Est GFR ( Amer) > 60.0 ml/min (>90) 05/05/17 05:45 Est GFR (Non-Af Amer) > 60.0 ml/min 05/05/17 05:45 BUN/Creatinine Ratio 37.1 05/05/17 05:45 Glucose 182 mg/dL (70-105) H 05/05/17 05:45 POC Glucose 240 MG/DL (70 - 105) H 05/08/17 11:58 Hemoglobin A1c % 6.9 % (4.0-6.0) H 04/29/17 04:55 Whole Bld Lactic Acid 1.72 mmol/L (0.60-1.99) 04/27/17 11:40 Calcium 8.2 mg/dL (8.6-10.3) L 05/05/17 05:45 Magnesium 2.6 mg/dL (1.9-2.7) 05/02/17 05:30 Total Bilirubin 0.5 mg/dL (0.3-1.0) 05/05/17 05:45 AST 16 U/L (13-39) 05/05/17 05:45 ALT 44 U/L (7-52) 05/05/17 05:45 Alkaline Phosphatase 50 U/L (34-104) 05/05/17 05:45 Ammonia 30 umol/L (16-53) 05/04/17 11:40 Lactate Dehydrogenase 157 U/L (140-271) 04/28/17 05:33 Creatine Kinase 91 U/L (30-223) 04/27/17 11:40 Troponin I 0.01 ng/mL (0.01-0.05) 04/27/17 11:40 Total Protein 5.0 gm/dL (6.0-8.3) L 05/05/17 05:45 Albumin 3.3 gm/dL (4.2-5.5) L 05/05/17 05:45 Globulin 1.7 gm/dL 05/05/17 05:45 Albumin/Globulin Ratio 1.9 (1.0-1.8) H 05/05/17 05:45 Amylase 30 U/L (29-103) 04/27/17 11:40 Lipase 15 U/L (11-82) 04/27/17 11:40 Vitamin B12 876 pg/mL (232-1245) 05/03/17 05:30 Folic Acid >20.0 ng/mL (>3.0) 05/03/17 05:30 Urine Source MIDSTREAM 04/27/17 13:50 Urine Color YELLOW 04/27/17 13:50 Urine Clarity CLEAR (CLEAR) 04/27/17 13:50 Urine pH 6.0 (4.6 - 8.0) 04/27/17 13:50 Ur Specific [place] 1.010 (1.005-1.030) 04/27/17 13:50 Urine Protein NEGATIVE mg/dL (NEGATIVE) 04/27/17 13:50 Urine Glucose (UA) NEGATIVE mg/dL (NEGATIVE) 04/27/17 13:50 Urine Ketones NEGATIVE mg/dL (NEGATIVE) 04/27/17 13:50 Urine Blood NEGATIVE (NEGATIVE) 04/27/17 13:50 Urine Nitrate NEGATIVE (NEGATIVE) 04/27/17 13:50 Urine Bilirubin NEGATIVE (NEGATIVE) 04/27/17 13:50 Urine Urobilinogen 0.2 E.U./dL (0.2 - 1.0) 04/27/17 13:50 Ur Leukocyte Esterase NEGATIVE (NEGATIVE) 04/27/17 13:50 Urine RBC 0-2 /hpf (0-5) H 04/27/17 13:50 Urine WBC NONE SEEN /hpf (0-5) 04/27/17 13:50 Ur Epithelial Cells RARE /lpf (FEW) 04/27/17 13:50 Urine Bacteria NONE SEEN /hpf (NONE SEEN) 04/27/17 13:50 Influenza A (Rapid) NEG FOR INF A 04/29/17 06:15 Influenza B (Rapid) NEG FOR INF B 04/29/17 06:15 Blood Type O POSITIVE 05/08/17 05:50 Antibody Screen NEGATIVE 05/08/17 05:50 Crossmatch See Detail 05/08/17 05:50 - Physical Exam Vitals and I&O: Vital Signs Temp 97.8 F 05/08/17 12:31 Pulse 87 05/08/17 12:31 Resp 19 05/08/17 12:31 BP 120/87 05/08/17 12:31 Pulse Ox 98 05/08/17 12:31 Intake & Output 05/07/17 05/08/17 05/08/17 18:59 06:59 18:59 Intake Total 1200 100 Balance 1200 100 Weight (lbs) 119.295 kg 119.295 kg Intake: Oral 1200 100 Other: # Voids 3 2 Stool Characteristics Formed Formed Formed Active Medications: Current Medications Acetaminophen (Tylenol) 650 mg PO Q6H PRN PRN Reason: Mild Pain/Headache/T above 101 Stop: 06/26/17 21:24 Last Admin: 05/04/17 06:44 Dose: 650 mg Albuterol/Ipratropium (Duoneb Neb) 3 ml HHN Q2H PRN PRN Reason: Wheezing Stop: 06/26/17 21:29 Last Admin: 05/07/17 05:25 Dose: 3 ml Albuterol/Ipratropium (Duoneb Neb) 3 ml HHN [id number] [facility] Stop: 06/27/17 18:59 Last Admin: 05/08/17 14:55 Dose: Not Given Atorvastatin Calcium (Lipitor) 40 mg PO DAILY [facility] Stop: 06/27/17 08:59 Last Admin: 05/08/17 08:19 Dose: 40 mg Budesonide (Pulmicort) 1 mg HHN BIDRT [facility] Stop: 06/27/17 16:59 Last Admin: 05/08/17 06:56 Dose: 1 mg Carvedilol (Coreg) 12.5 mg PO BID [facility] Stop: 06/27/17 08:59 Last Admin: 05/08/17 08:19 Dose: 12.5 mg Cholecalciferol (Vitamin D3) 1,000 iu PO BID [facility] Stop: 06/27/17 08:59 Last Admin: 05/08/17 08:20 Dose: 1,000 iu Famotidine (Pepcid) 40 mg PO HS [facility] Stop: 06/30/17 20:59 Last Admin: 05/07/17 20:52 Dose: 40 mg Finasteride (Proscar) 5 mg PO HS [facility] PRN Reason: Protocol Stop: 06/27/17 01:14 Last Admin: 05/07/17 20:51 Dose: 5 mg Furosemide (Lasix) 40 mg PO DAILY [facility] Stop: 06/27/17 08:59 Last Admin: 05/08/17 08:19 Dose: 40 mg Guaifenesin/Dextromethorphan (Robitussin Dm) 5 ml PO Q6HR PRN PRN Reason: Cough Stop: 06/27/17 01:21 Last Admin: 05/08/17 00:13 Dose: 5 ml Insulin Aspart (Novolog Insulin Sliding Scale) 0 units SUBQ ACHS [facility] PRN Reason: Protocol Stop: 06/28/17 16:29 Last Admin: 05/08/17 12:59 Dose: 4 units Isosorbide Mononitrate (Imdur) 60 mg PO DAILY [facility] Stop: 06/27/17 08:59 Last Admin: 05/08/17 08:18 Dose: 60 mg Lactobacillus Rhamnosus (Culturelle 15b) 1 each PO DAILY [facility] Stop: 06/30/17 08:59 Last Admin: 05/08/17 08:20 Dose: 1 each Lactulose (Cephulac) 30 gm PO DAILY [facility] Stop: 07/03/17 14:44 Last Admin: 05/08/17 08:39 Dose: Not Given Lisinopril (Zestril) 40 mg PO BID [facility] Stop: 06/27/17 08:59 Last Admin: 05/08/17 08:20 Dose: 40 mg Miscellaneous (Vte Chemical Prophylaxis Screen/ Admission) 1 ea PRN PRN PRN Reason: PROTOCOL Stop: 06/27/17 14:14 Miscellaneous (Probiotic Screen) 1 ea PRN PRN PRN Reason: PROTOCOL Stop: 06/29/17 14:14 Montelukast Sodium (Singulair) 10 mg PO HS [facility] Stop: 06/27/17 20:59 Last Admin: 05/07/17 20:51 Dose: 10 mg Morphine Sulfate (Morphine) 2 mg IVP Q4H PRN PRN Reason: RIGHT HIP PAIN Stop: 07/03/17 16:37 Last Admin: 05/08/17 02:07 Dose: 2 mg Multivitamins/Vitamin C (Theragran) 1 tab PO DAILY [facility] Stop: 06/27/17 08:59 Last Admin: 05/08/17 08:19 Dose: 1 tab Nitroglycerin (Nitrostat) 0.4 mg SL Q5MIN PRN PRN Reason: Chest Pain Stop: 06/29/17 09:44 Last Admin: 05/07/17 12:06 Dose: 0.4 mg Ondansetron HCl (Zofran) 4 mg IVP Q6H PRN PRN Reason: Nausea / Vomiting Stop: 06/26/17 21:24 Last Admin: 05/03/17 00:32 Dose: 4 mg Pantoprazole Sodium (Protonix) 40 mg PO DAILY [facility] Stop: 07/02/17 08:59 Last Admin: 05/08/17 08:38 Dose: 40 mg Prednisone (Deltasone) 20 mg PO BID [facility] Stop: 07/06/17 16:59 Last Admin: 05/08/17 08:20 Dose: 20 mg Sodium Chloride (Saline Flush) 10 ml IV QSHIFT CHHAYA Stop: 06/27/17 07:59 Last Admin: 05/08/17 08:39 Dose: Not Given Tamsulosin HCl (Flomax) 0.4 mg PO HS CHHAYA Stop: 06/27/17 01:12 Last Admin: 05/07/17 20:52 Dose: 0.4 mg Zolpidem Tartrate (Ambien) 5 mg PO HS PRN PRN Reason: Insomnia Stop: 07/07/17 09:06 General: Alert, Oriented x3, Cooperative HEENT: Atraumatic, PERRLA, EOMI Neck: Supple, JVD Cardiovascular: Regular rate, Normal S1, Normal S2 Lungs: Clear to auscultation Abdomen: Bowel sounds, Soft Extremities: Other (hip pain limits evaluation.) Neurological: Normal gait, Normal speech, Strength at 5/5 X4 ext, Sensation intact, Cranial nerves 3-12 NL, Reflexes 2+ Psych/Mental Status: Mental status NL - Procedures Procedures: Procedures Procedure Code Date BLOOD TRANSFUSION SERVICE 66443 04/27/17 DOPPLER COLOR FLOW ADD-ON 49752 06/21/00 DOPPLER ECHO EXAM HEART 98507 06/21/00 DX ULTRASOUND-HEART 88.72 06/21/00 TRANSFUSE NONAUT PLATELETS IN PERIPH VEIN, PERC 32204B4 04/27/17 TTE W/O DOPPLER COMPLETE 00577 06/21/00 Assessment/Plan - Problem List Patient Problems: All Active Problems COUGH AND CONGESTION WITH DYSPNEA (Acute) - Assessment Assessment: * h/o follicular lymphoma * Pneumonitis * Thrombocytopenia most likely following chemotherapy bone marrow suppression * psoas muscle bleeding * Likely platelet dysfunction sec to asa and plavix; now off asa and plavix Transfuse platelets for platelet dysfunction and bleeding 05/06: S/P plt transfusion for plt dysfunction; hgb continues to fall; Monitor plt for now 05/07: hgb stable today. plt are stable. No clinical bleeding; monitor cbc 05/08: hgb lower; transfuse; plt falling , transfuse for platelet dysfunction and continued bleeding based on CT 05/07 Nutritional Asmnt/Malnutr-PDOC - Dietary Evaluation Malnutrition Findings (Please click <Entered> for more info): Nutritional Asmnt/Malnutrition Start: 05/02/17 15: 16 Text: Status: Complete Freq: Document 05/02/17 15:17 [email or web address] (Rec: 05/02/17 15:39 [email or web address] ANGELO- [email or web address]) Nutritional Asmnt/Malnutrition Patient General Information Nutritional Screening Moderate Risk Diagnosis Respiratory failure, broncospasm Pertinent Medical Hx/Surgical Hx Hypertension, CAD, asthma, COPD, hyperlipidemia, Non- hodgkin's lymphoma, DJD, chronic pain syndrome, hx of appendectomy and gallbladder surgery along with coronary artery bypass graft. Subjective Information Patient tolerating current diet order. Current Diet Order/ Nutrition Support Regular Patient / S.O Not Indicated Pertinent Medications lipitor, abx, vitamin D3, pepcid, lasix, novolog, solu- medrol, Theragran, zofran, protonix Pertinent Labs (05/02) K 3.4, Glucose 144-303, A1C 6.9, albumin 3.9 Nutritional Hx/Data Height 1.7 m Height (Calculated Centimeters) 170.2 Current Weight (lbs) 113.852 kg Weight (Calculated Kilograms) 113.9 Weight (Calculated Grams) 057849.7 [place] Body Weight 148 % [place] Body Weight 169 Body Mass Index (BMI) 39.3 Recent Weight Change No Weight Status Obese GI Symptoms GI Symptoms None Last BM 04/30 x 1 Difficult in: None Food Allergies No Cultural/Ethnic/Restorationist Belief None indicated Usual diet at home unknown Skin Integrity/Comment: Eric 18, 1+ edema, skin tear /abrasion on right and left foot Current %PO Good (75-100%) Estimated Nutritional Goals BEE in Kcals: Adj wt of IBW Calories/Kcals/Kg 173lb/79kg Adj wt 25-30 kcal/ kg Kcals Calculated 3644-1163 kcal/day Protein: Adj wt of IBW Protein g/k-1.2 gm/kg Protein Calculated 80-95gm/day Fluid: ml 5521-1388 ml/day (1 ml/kcal) Nutritional Problem 1. Problem Problem Altered nutrition related lab values related to Etiology hyperglycemia, electrolyte imbalance aeb Signs/Symptoms: K 3.4, Glucose 144-303 Intervention/Recommendation Comments 1. Consider modifying diet to 75gm CCHO for better blood glucose control. 2. Liberalize potassium intake , supplementation per MD Expected Outcomes/Goals Expected Outcomes/Goals oral intake to meet >75% of nutrient needs, weight trends toard ideal body weight, nutrition related labs WNL F/U in 3-5 days MR 3-8
--- NOTE | 2017-05-09 00:21 | Progress Notes ---
DATE: 05/08/2017 PATIENT'S IDENTIFICATION: A 67-year-old male. SUBJECTIVE: The patient seen and examined. The patient is extremely upset because room is cold and he cannot sleep. The patient remained hemodynamically stable. The patient to remain Afebrile. OBJECTIVE: VITAL SIGNS: Temperature 98, pulse is 70, respiratory rate 18, blood pressure 137/80. HEENT: No facial asymmetry. NECK: Supple, no JVD. HEART: Regular. CHEST: Lung equal in expansion, no expiratory wheezing. ABDOMEN: Soft. No guarding, rigidity. Bowel sounds are present. EXTREMITIES: No edema. There is a hematoma involving the medial aspect of the right thigh noted. AVAILABLE LABORATORY DATA: Hemoglobin of 7.5, platelet count of 95,000. Wwhite count of 11, glucose 184. CLINICAL IMPRESSION: Psoas hemorrhage. PLAN: 1. Blood transfusion. 2. Symptoms management. 3. Medication management. 4. Diabetes management. 5. General nursing care. 6. Follow lab. 7. Follow consult recommendation. 8. Care plan reviewed and discussed with the patient in extreme length. The patient is fully aware about his underlying diagnosis and treatment plan including the risk and benefit as well. The patient is able to make his own decision. He is agreeable with the currently prescribed treatment. JOB# [id number]
[2017-05-09] MEDS: Guaifenesin DM 10 ML UDC PO PRN (00:22)
--- NOTE | 2017-05-09 01:55 | Progress Notes ---
DATE: 05/08/2017 PROBLEM LIST: 1. Persistent recurrent coughing. 2. Obstructive sleep apnea syndrome. 3. GE reflux. SYMPTOMS: Nil. SUBJECTIVE: The patient has still periodic coughing. No respiratory distress, etc. PHYSICAL EXAMINATION: VITAL SIGNS: T-max 97.8, blood pressure 120/87, saturation 90. NECK: Veins not visualized. CHEST: Shows diminished air entry, otherwise unremarkable. HEART: Regular, no gallop or murmur. ASSESSMENT: The patient clinically appears to be stable. PLANS AND SUGGESTIONS: Continue current respiratory care, etc. Continue current treatment, etc. and go from there. JOB# [id number]
[2017-05-09 06:35] LABS: % BASOPHILS 0.3 % (0.0-2.0); % EOSINOPHILS 0.2 % (0.0-5.0); % LYMPHOCYTES 7.6 % (20.0-50.0); % NEUTROPHILS 84.9 % (40.0-80.0); LYMPHOCYTE ABSOLUTE 0.7 Th/cmm (1.5-3.0); MEAN CELL VOLUME 93.1 fl (80-99); MEAN CORPUSCULAR HEMOGLOBIN 31.7 pg (27.0-31.0); MEAN PLATELET VOLUME 8.6 fl; MONOCYTE ABSOLUTE 0.6 Th/cmm (0.3-1.0); NEUTROPHILE ABSOLUTE 7.3 Th/cmm (1.8-8.0); PLATELET COUNT 74 Th/cmm (150-400); RED CELL DISTRIBUTION WIDTH 17.4 % (11.5-20.0); WHITE BLOOD COUNT 8.6 Th/cmm (4.8-10.8)
[2017-05-09 06:39] LABS: HEMATOCRIT 23.2 % (41.0-60); HEMOGLOBIN 7.9 gm/dL (12-16)
[2017-05-09 06:51] LABS: ALB/GLOB RATIO 1.8 (1.0-1.8); ALBUMIN 3.3 gm/dL (4.2-5.5); ALKALINE PHOSPHATASE 48 U/L (34-104); ANION GAP 6.8 (7.0-16.0); BILIRUBIN,TOTAL 1.2 mg/dL (0.3-1.0); BUN - UREA NITROGEN 17 mg/dL (7-25); CALCIUM SERUM 8.4 mg/dL (8.6-10.3); CARBON DIOXIDE 29.6 mEq/L (21.0-31.0); CHLORIDE 99 mEq/L (98-107); CREATININE - SERUM 0.6 mg/dL (0.7-1.3); GFR AFRICAN-AMERICAN > 60.0 ml/min (>90); GFR NON AFRICAN-AMERICAN > 60.0 ml/min; GLUCOSE 163 mg/dL (70-105); POTASSIUM SERUM 3.4 mEq/L (3.5-5.1); SGOT 14 U/L (13-39); SGPT/ALT 33 U/L (7-52); SODIUM SERUM 132 mEq/L (136-145); TOTAL PROTEIN,SERUM 5.1 gm/dL (6.0-8.3)
[2017-05-09] MEDS: INSULIN ASPART SLIDING SCALE 100 UNITS/ML UNIT SUBQ SCH ×4 (08:02→22:31)
[2017-05-09] MEDS: Budesonide 0.5 Mg/2 mL Ud HHN SCH ×2 (08:07→19:09)
[2017-05-09] MEDS: Albuterol/Ipratropium Neb 3 ML AERS HHN SCH ×4 (08:08→19:10)
[2017-05-09] MEDS: Multivitamin Tab PO SCH (08:47)
[2017-05-09] MEDS: Pantoprazole 40 mg EC Tab PO SCH (08:47)
[2017-05-09] MEDS: Lactobacillus Rhamnosus GG 15 Billion CFU CAP.SPRINK PO SCH (08:48)
[2017-05-09] MEDS: Lactulose 10 Gm/15 mL 30mL UDC PO SCH (08:48)
--- NOTE | 2017-05-09 10:39 | General Progress Note ---
Subjective - Review of Systems Service Date: 05/09/17 Objective - Results Result Diagrams: 05/09/17 05:00 05/09/17 05:00 Recent Labs: Laboratory Last Values WBC 8.6 Th/cmm (4.8-10.8) 05/09/17 05:00 RBC 2.50 Mil/cmm (3.80-5.80) L 05/09/17 05:00 Hgb 7.9 gm/dL (12-16) L* 05/09/17 05:00 Hct 23.2 % (41.0-60) L 05/09/17 05:00 MCV 93.1 fl (80-99) 05/09/17 05:00 MCH 31.7 pg (27.0-31.0) H 05/09/17 05:00 MCHC Differential 34.0 pg (28.0-36.0) 05/09/17 05:00 RDW 17.4 % (11.5-20.0) 05/09/17 05:00 Plt Count 74 Th/cmm (150-400) L 05/09/17 05:00 MPV 8.6 fl 05/09/17 05:00 Neutrophils % 84.9 % (40.0-80.0) H 05/09/17 05:00 Band Neutrophils % 4 % (0-10) 05/07/17 05:10 Lymphocytes % 7.6 % (20.0-50.0) L 05/09/17 05:00 Monocytes % 7.0 % (2.0-10.0) 05/09/17 05:00 Eosinophils % 0.2 % (0.0-5.0) 05/09/17 05:00 Basophils % 0.3 % (0.0-2.0) 05/09/17 05:00 Neutrophils (Manual) 89 % (40-80) H 05/07/17 05:10 Lymphocytes 4 % (20-50) L 05/07/17 05:10 Monocytes 3 % (2-10) 05/07/17 05:10 Eosinophils 1 % (0-5) 04/29/17 04:55 Hypochromia 1+ 05/07/17 05:10 Platelet Estimate SLIGHT DECREASED (NORMAL) 05/07/17 05:10 PT 11.0 SECONDS (9.5-11.5) 04/27/17 11:40 INR 1.06 (0.5-1.4) 04/27/17 11:40 PTT (Actin FS) 26.3 SECONDS (26.0-38.0) 04/27/17 11:40 Specimen Source ARTERIAL 04/28/17 05:00 Sample Site Right Radial 04/28/17 05:00 pH 7.44 (7.35-7.45) 04/28/17 05:00 pCO2 35.0 mmHg (35.0-45.0) 04/28/17 05:00 pO2 74.0 mmHg (80.0-100.0) L 04/28/17 05:00 HCO3 24.9 mEq/L (20.0-26.0) 04/28/17 05:00 Base Excess 0.0 mEq/L (-3.0-3.0) 04/28/17 05:00 O2 Saturation 95.0 % (92.0-100.0) 04/28/17 05:00 Albin Test Positive 04/28/17 05:00 Vent Rate N/A 04/28/17 05:00 Inspired O2 21 04/28/17 05:00 Tidal Volume N/A 04/28/17 05:00 PEEP N/A 04/28/17 05:00 Pressure (ins/psv/peep) N/A 04/28/17 05:00 Critical Value [employer] 04/28/17 05:00 Sodium 132 mEq/L (136-145) L 05/09/17 05:00 Potassium 3.4 mEq/L (3.5-5.1) L 05/09/17 05:00 Chloride 99 mEq/L (98-107) 05/09/17 05:00 Carbon Dioxide 29.6 mEq/L (21.0-31.0) 05/09/17 05:00 Anion Gap 6.8 (7.0-16.0) L 05/09/17 05:00 BUN 17 mg/dL (7-25) 05/09/17 05:00 Creatinine 0.6 mg/dL (0.7-1.3) L 05/09/17 05:00 Est GFR ( Amer) > 60.0 ml/min (>90) 05/09/17 05:00 Est GFR (Non-Af Amer) > 60.0 ml/min 05/09/17 05:00 BUN/Creatinine Ratio 28.3 05/09/17 05:00 Glucose 163 mg/dL (70-105) H 05/09/17 05:00 POC Glucose 151 MG/DL (70 - 105) H 05/09/17 06:13 Hemoglobin A1c % 6.9 % (4.0-6.0) H 04/29/17 04:55 Whole Bld Lactic Acid 1.72 mmol/L (0.60-1.99) 04/27/17 11:40 Calcium 8.4 mg/dL (8.6-10.3) L 05/09/17 05:00 Magnesium 2.6 mg/dL (1.9-2.7) 05/02/17 05:30 Total Bilirubin 1.2 mg/dL (0.3-1.0) H 05/09/17 05:00 AST 14 U/L (13-39) 05/09/17 05:00 ALT 33 U/L (7-52) 05/09/17 05:00 Alkaline Phosphatase 48 U/L (34-104) 05/09/17 05:00 Ammonia 30 umol/L (16-53) 05/04/17 11:40 Lactate Dehydrogenase 157 U/L (140-271) 04/28/17 05:33 Creatine Kinase 91 U/L (30-223) 04/27/17 11:40 Troponin I 0.01 ng/mL (0.01-0.05) 04/27/17 11:40 Total Protein 5.1 gm/dL (6.0-8.3) L 05/09/17 05:00 Albumin 3.3 gm/dL (4.2-5.5) L 05/09/17 05:00 Globulin 1.8 gm/dL 05/09/17 05:00 Albumin/Globulin Ratio 1.8 (1.0-1.8) 05/09/17 05:00 Amylase 30 U/L (29-103) 04/27/17 11:40 Lipase 15 U/L (11-82) 04/27/17 11:40 Vitamin B12 876 pg/mL (232-1245) 05/03/17 05:30 Folic Acid >20.0 ng/mL (>3.0) 05/03/17 05:30 Urine Source MIDSTREAM 04/27/17 13:50 Urine Color YELLOW 04/27/17 13:50 Urine Clarity CLEAR (CLEAR) 04/27/17 13:50 Urine pH 6.0 (4.6 - 8.0) 04/27/17 13:50 Ur Specific [place] 1.010 (1.005-1.030) 04/27/17 13:50 Urine Protein NEGATIVE mg/dL (NEGATIVE) 04/27/17 13:50 Urine Glucose (UA) NEGATIVE mg/dL (NEGATIVE) 04/27/17 13:50 Urine Ketones NEGATIVE mg/dL (NEGATIVE) 04/27/17 13:50 Urine Blood NEGATIVE (NEGATIVE) 04/27/17 13:50 Urine Nitrate NEGATIVE (NEGATIVE) 04/27/17 13:50 Urine Bilirubin NEGATIVE (NEGATIVE) 04/27/17 13:50 Urine Urobilinogen 0.2 E.U./dL (0.2 - 1.0) 04/27/17 13:50 Ur Leukocyte Esterase NEGATIVE (NEGATIVE) 04/27/17 13:50 Urine RBC 0-2 /hpf (0-5) H 04/27/17 13:50 Urine WBC NONE SEEN /hpf (0-5) 04/27/17 13:50 Ur Epithelial Cells RARE /lpf (FEW) 04/27/17 13:50 Urine Bacteria NONE SEEN /hpf (NONE SEEN) 04/27/17 13:50 Influenza A (Rapid) NEG FOR INF A 04/29/17 06:15 Influenza B (Rapid) NEG FOR INF B 04/29/17 06:15 Blood Type O POSITIVE 05/08/17 05:50 Antibody Screen NEGATIVE 05/08/17 05:50 Crossmatch See Detail 05/08/17 05:50 - Physical Exam Vitals and I&O: Vital Signs Temp 97.6 F 05/09/17 04:00 Pulse 78 05/09/17 08:48 Resp 20 05/09/17 05:39 BP 145/69 05/09/17 08:48 Pulse Ox 96 05/09/17 04:00 Intake & Output 05/08/17 05/09/17 05/09/17 18:59 06:59 18:59 Intake Total 650 Balance 650 Weight (lbs) 119.295 kg 119.295 kg Intake: Oral 650 Other: # Voids 4 5 # Bowel Movements 1 0 Stool Characteristics Formed Formed Active Medications: Current Medications Acetaminophen (Tylenol) 650 mg PO Q6H PRN PRN Reason: Mild Pain/Headache/T above 101 Stop: 06/26/17 21:24 Last Admin: 05/04/17 06:44 Dose: 650 mg Albuterol/Ipratropium (Duoneb Neb) 3 ml HHN Q2H PRN PRN Reason: Wheezing Stop: 06/26/17 21:29 Last Admin: 05/07/17 05:25 Dose: 3 ml Albuterol/Ipratropium (Duoneb Neb) 3 ml HHN [id number] CHHAYA Stop: 06/27/17 18:59 Last Admin: 05/09/17 08:08 Dose: 3 ml Atorvastatin Calcium (Lipitor) 40 mg PO DAILY CHHAYA Stop: 06/27/17 08:59 Last Admin: 05/09/17 08:47 Dose: 40 mg Budesonide (Pulmicort) 1 mg HHN BIDRT CHHAYA Stop: 06/27/17 16:59 Last Admin: 05/09/17 08:07 Dose: 1 mg Carvedilol (Coreg) 12.5 mg PO BID CHHAYA Stop: 06/27/17 08:59 Last Admin: 05/09/17 08:47 Dose: 12.5 mg Cholecalciferol (Vitamin D3) 1,000 iu PO BID CHHAYA Stop: 06/27/17 08:59 Last Admin: 05/09/17 08:47 Dose: 1,000 iu Famotidine (Pepcid) 40 mg PO HS [facility] Stop: 06/30/17 20:59 Last Admin: 05/08/17 21:36 Dose: 40 mg Finasteride (Proscar) 5 mg PO HS [facility] PRN Reason: Protocol Stop: 06/27/17 01:14 Last Admin: 05/08/17 21:40 Dose: 5 mg Furosemide (Lasix) 40 mg PO DAILY CHHAYA Stop: 06/27/17 08:59 Last Admin: 05/09/17 08:46 Dose: 40 mg Guaifenesin/Dextromethorphan (Robitussin Dm) 5 ml PO Q6HR PRN PRN Reason: Cough Stop: 06/27/17 01:21 Last Admin: 05/09/17 00:22 Dose: 5 ml Insulin Aspart (Novolog Insulin Sliding Scale) 0 units SUBQ ACHS CHHAYA PRN Reason: Protocol Stop: 06/28/17 16:29 Last Admin: 05/09/17 08:02 Dose: 2 units Isosorbide Mononitrate (Imdur) 60 mg PO DAILY CHHAYA Stop: 06/27/17 08:59 Last Admin: 05/09/17 08:48 Dose: 60 mg Lactobacillus Rhamnosus (Culturelle 15b) 1 each PO DAILY CHHAYA Stop: 06/30/17 08:59 Last Admin: 05/09/17 08:48 Dose: 1 each Lactulose (Cephulac) 30 gm PO DAILY CHHAYA Stop: 07/03/17 14:44 Last Admin: 05/09/17 08:48 Dose: Not Given Lisinopril (Zestril) 40 mg PO BID [facility] Stop: 06/27/17 08:59 Last Admin: 05/09/17 08:45 Dose: 40 mg Miscellaneous (Vte Chemical Prophylaxis Screen/ Admission) 1 ea PRN PRN PRN Reason: PROTOCOL Stop: 06/27/17 14:14 Miscellaneous (Probiotic Screen) 1 ea PRN PRN PRN Reason: PROTOCOL Stop: 06/29/17 14:14 Montelukast Sodium (Singulair) 10 mg PO HS [facility] Stop: 06/27/17 20:59 Last Admin: 05/08/17 21:36 Dose: 10 mg Morphine Sulfate (Morphine) 2 mg IVP Q4H PRN PRN Reason: RIGHT HIP PAIN Stop: 07/03/17 16:37 Last Admin: 05/08/17 02:07 Dose: 2 mg Multivitamins/Vitamin C (Theragran) 1 tab PO DAILY CHHAYA Stop: 06/27/17 08:59 Last Admin: 05/09/17 08:47 Dose: 1 tab Nitroglycerin (Nitrostat) 0.4 mg SL Q5MIN PRN PRN Reason: Chest Pain Stop: 06/29/17 09:44 Last Admin: 05/07/17 12:06 Dose: 0.4 mg Ondansetron HCl (Zofran) 4 mg IVP Q6H PRN PRN Reason: Nausea / Vomiting Stop: 06/26/17 21:24 Last Admin: 05/03/17 00:32 Dose: 4 mg Pantoprazole Sodium (Protonix) 40 mg PO DAILY CHHAYA Stop: 07/02/17 08:59 Last Admin: 05/09/17 08:47 Dose: 40 mg Prednisone (Deltasone) 20 mg PO BID [facility] Stop: 07/06/17 16:59 Last Admin: 05/09/17 08:46 Dose: 20 mg Sodium Chloride (Saline Flush) 10 ml IV QSHIFT CHHAYA Stop: 06/27/17 07:59 Last Admin: 05/08/17 21:35 Dose: 10 ml Tamsulosin HCl (Flomax) 0.4 mg PO HS CHHAYA Stop: 06/27/17 01:12 Last Admin: 05/08/17 21:35 Dose: 0.4 mg Zolpidem Tartrate (Ambien) 5 mg PO HS PRN PRN Reason: Insomnia Stop: 07/07/17 09:06 Last Admin: 05/09/17 00:22 Dose: 5 mg General: Alert, Oriented x3, Cooperative HEENT: Atraumatic, PERRLA, EOMI Neck: Supple, JVD Cardiovascular: Regular rate, Normal S1, Normal S2 Lungs: Clear to auscultation Abdomen: Bowel sounds, Soft, Other (hematoma in left lower quad) Extremities: Other (hip pain limits evaluation.) Neurological: Normal gait, Normal speech, Strength at 5/5 X4 ext, Sensation intact, Cranial nerves 3-12 NL, Reflexes 2+ Psych/Mental Status: Mental status NL - Procedures Procedures: Procedures Procedure Code Date BLOOD TRANSFUSION SERVICE 46601 04/27/17 DOPPLER COLOR FLOW ADD-ON 85432 06/21/00 DOPPLER ECHO EXAM HEART 15134 06/21/00 DX ULTRASOUND-HEART 88.72 06/21/00 TRANSFUSE NONAUT PLATELETS IN PERIPH VEIN, PERC 65401K6 04/27/17 TTE W/O DOPPLER COMPLETE 13689 06/21/00 Assessment/Plan - Problem List Patient Problems: All Active Problems COUGH AND CONGESTION WITH DYSPNEA (Acute) - Assessment Assessment: * h/o follicular lymphoma * Pneumonitis * Thrombocytopenia most likely following chemotherapy bone marrow suppression * psoas muscle bleeding * Likely platelet dysfunction sec to asa and plavix; now off asa and plavix Transfuse platelets for platelet dysfunction and bleeding 05/06: S/P plt transfusion for plt dysfunction; hgb continues to fall; Monitor plt for now 05/07: hgb stable today. plt are stable. No clinical bleeding; monitor cbc 05/08: hgb lower; transfuse; plt falling , transfuse for platelet dysfunction and continued bleeding based on CT 05/07 05/09: hgb stable; awaiting platelet transfusion today for plt dysfunction. Monitor cbc. Overall feels better Nutritional Asmnt/Malnutr-PDOC - Dietary Evaluation Malnutrition Findings (Please click <Entered> for more info): Nutritional Asmnt/Malnutrition Start: 05/02/17 15: 16 Text: Status: Complete Freq: Document 05/02/17 15:17 MMULHERN (Rec: 05/02/17 15:39 [email or web address] GI- FN) Nutritional Asmnt/Malnutrition Patient General Information Nutritional Screening Moderate Risk Diagnosis Respiratory failure, broncospasm Pertinent Medical Hx/Surgical Hx Hypertension, CAD, asthma, COPD, hyperlipidemia, Non- hodgkin's lymphoma, DJD, chronic pain syndrome, hx of appendectomy and gallbladder surgery along with coronary artery bypass graft. Subjective Information Patient tolerating current diet order. Current Diet Order/ Nutrition Support Regular Patient / S.O Not Indicated Pertinent Medications lipitor, abx, vitamin D3, pepcid, lasix, novolog, solu- medrol, Theragran, zofran, protonix Pertinent Labs (05/02) K 3.4, Glucose 144-303, A1C 6.9, albumin 3.9 Nutritional Hx/Data Height 1.7 m Height (Calculated Centimeters) 170.2 Current Weight (lbs) 113.852 kg Weight (Calculated Kilograms) 113.9 Weight (Calculated Grams) 281724.7 Maria Stein Body Weight 148 % Maria Stein Body Weight 169 Body Mass Index (BMI) 39.3 Recent Weight Change No Weight Status Obese GI Symptoms GI Symptoms None Last BM 04/30 x 1 Difficult in: None Food Allergies No Cultural/Ethnic/Mandaeism Belief None indicated Usual diet at home unknown Skin Integrity/Comment: Eric 18, 1+ edema, skin tear /abrasion on right and left foot Current %PO Good (75-100%) Estimated Nutritional Goals BEE in Kcals: Adj wt of IBW Calories/Kcals/Kg 173lb/79kg Adj wt 25-30 kcal/ kg Kcals Calculated 6446-0262 kcal/day Protein: Adj wt of IBW Protein g/k-1.2 gm/kg Protein Calculated 80-95gm/day Fluid: ml 2109-3066 ml/day (1 ml/kcal) Nutritional Problem 1. Problem Problem Altered nutrition related lab values related to Etiology hyperglycemia, electrolyte imbalance aeb Signs/Symptoms: K 3.4, Glucose 144-303 Intervention/Recommendation Comments 1. Consider modifying diet to 75gm CCHO for better blood glucose control. 2. Liberalize potassium intake , supplementation per MD Expected Outcomes/Goals Expected Outcomes/Goals oral intake to meet >75% of nutrient needs, weight trends toard ideal body weight, nutrition related labs WNL F/U in 3-5 days MR 3/-8
[2017-05-09] MEDS: Morphine Sulfate 4 mg/mL 1mL Syr IVP PRN ×2 (15:16→22:45)
[2017-05-09] MEDS: Codeine/Promethazine Susp 5 mL UDC PO PRN (22:44)
[2017-05-09] MEDS: Albuterol/Ipratropium Neb 3 ML AERS HHN PRN (23:03)
--- NOTE | 2017-05-10 00:13 | Progress Notes ---
DATE: 05/09/2017 SUBJECTIVE: The patient seen and examined. The patient is alert, awake, very cooperative today. The patient has minimal pain. The patient's hemoglobin dropped to 7.9 and platelets 274,000. The patient still has a cough. According to the haematologist, the patient needs a fresh platelet in order to stop bleeding as well considering patient did receive blood transfusion. Hemoglobin is still low. The patient currently denies any chest pain or abdominal pain. PHYSICAL EXAMINATION: VITAL SIGNS: See nurse's note. HEENT: Poor dentition. NECK: Supple, no JVD. HEART: Irregular. CHEST: Lung equal in expansion. Mild expiratory wheezing. ABDOMEN: Soft. EXTREMITIES: No edema. Resolving hematoma in the right thigh noted. CLINICAL AVAILABLE DIAGNOSTIC DATA: Has been reviewed. CLINICAL IMPRESSION: 1. Normocytic normochromic anemia secondary to acute hemorrhagic anemia. 2. Psoas bleeding. 3. Dysfunctional platelet 4. Chronic pain syndrome. 5. Asthma, chronic obstructive pulmonary disease exacerbation. 6. Obstructive sleep apnea. 7. Hypertension. 8. Coronary artery disease. 9. History of follicular lymphoma. PLAN: 1. The patient is to have symptom therapy for his symptoms. 2. Platelet transfusion. 3. We will follow up lab. 4. Continue other medicine as prescribed. 5. Follow consult and recommendation. 6. General nursing care. 7. Care plan reviewed and discussed. JOB# [id number]
[2017-05-10 06:14] LABS: LYMPHOCYTE ABSOLUTE 0.5 Th/cmm (1.5-3.0); MEAN CELL VOLUME 93.9 fl (80-99); MEAN CORPUSCULAR HGB CONC 34.1 pg (28.0-36.0); MEAN PLATELET VOLUME 7.9 fl; MONOCYTE ABSOLUTE 0.6 Th/cmm (0.3-1.0); NEUTROPHILE ABSOLUTE 6.3 Th/cmm (1.8-8.0); PLATELET COUNT 88 Th/cmm (150-400); RED BLOOD COUNT 2.38 Mil/cmm (3.80-5.80); RED CELL DISTRIBUTION WIDTH 17.3 % (11.5-20.0); WHITE BLOOD COUNT 7.4 Th/cmm (4.8-10.8)
[2017-05-10 06:29] LABS: ALB/GLOB RATIO 1.7 (1.0-1.8); ALBUMIN 3.2 gm/dL (4.2-5.5); ALKALINE PHOSPHATASE 51 U/L (34-104); ANION GAP 8.8 (7.0-16.0); BILIRUBIN,TOTAL 1.2 mg/dL (0.3-1.0); BUN - UREA NITROGEN 16 mg/dL (7-25); CALCIUM SERUM 8.5 mg/dL (8.6-10.3); CARBON DIOXIDE 27.8 mEq/L (21.0-31.0); CHLORIDE 102 mEq/L (98-107); CREATININE - SERUM 0.7 mg/dL (0.7-1.3); GFR AFRICAN-AMERICAN > 60.0 ml/min (>90); GFR NON AFRICAN-AMERICAN > 60.0 ml/min; GLUCOSE 165 mg/dL (70-105); HEMATOCRIT 22.4 % (41.0-60); HEMOGLOBIN 7.6 gm/dL (12-16); POTASSIUM SERUM 3.6 mEq/L (3.5-5.1); SGOT 12 U/L (13-39); SGPT/ALT 29 U/L (7-52); SODIUM SERUM 135 mEq/L (136-145); TOTAL PROTEIN,SERUM 5.1 gm/dL (6.0-8.3)
[2017-05-10] MEDS: Albuterol/Ipratropium Neb 3 ML AERS HHN SCH ×4 (07:43→19:34)
[2017-05-10] MEDS: Budesonide 0.5 Mg/2 mL Ud HHN SCH ×2 (07:43→19:34)
[2017-05-10 07:59] LABS: TOTAL CELLS COUNTED 100
[2017-05-10 08:00] LABS: LYMPHOCYTE 7 % (20-50); MONOCYTE 6 % (2-10); NEUTROPHILS 87 % (40-80); PLATELET ESTIMATE SLIGHT DECREASED (NORMAL)
[2017-05-10] MEDS: Morphine Sulfate 4 mg/mL 1mL Syr IVP PRN ×3 (08:59→22:54)
[2017-05-10] MEDS: Lactulose 10 Gm/15 mL 30mL UDC PO SCH (08:59)
[2017-05-10] MEDS: Multivitamin Tab PO SCH (09:01)
[2017-05-10] MEDS: Lactobacillus Rhamnosus GG 15 Billion CFU CAP.SPRINK PO SCH (09:01)
[2017-05-10] MEDS: Pantoprazole 40 mg EC Tab PO SCH (09:02)
[2017-05-10] MEDS: INSULIN ASPART SLIDING SCALE 100 UNITS/ML UNIT SUBQ SCH ×4 (09:17→22:44)
--- NOTE | 2017-05-10 14:42 | General Progress Note ---
Subjective - Review of Systems Service Date: 05/10/17 Subjective: No abd pain Objective - Results Result Diagrams: 05/10/17 06:00 05/10/17 06:00 Recent Labs: Laboratory Last Values WBC 7.4 Th/cmm (4.8-10.8) 05/10/17 06:00 RBC 2.38 Mil/cmm (3.80-5.80) L 05/10/17 06:00 Hgb 7.6 gm/dL (12-16) L* 05/10/17 06:00 Hct 22.4 % (41.0-60) L 05/10/17 06:00 MCV 93.9 fl (80-99) 05/10/17 06:00 MCH 32.0 pg (27.0-31.0) H 05/10/17 06:00 MCHC Differential 34.1 pg (28.0-36.0) 05/10/17 06:00 RDW 17.3 % (11.5-20.0) 05/10/17 06:00 Plt Count 88 Th/cmm (150-400) L 05/10/17 06:00 MPV 7.9 fl 05/10/17 06:00 Neutrophils % SLAG WORKER 05/10/17 06:00 Band Neutrophils % 4 % (0-10) 05/07/17 05:10 Lymphocytes % [employer] WORKER 05/10/17 06:00 Monocytes % [employer] WORKER 05/10/17 06:00 Eosinophils % [employer] WORKER 05/10/17 06:00 Basophils % [employer] WORKER 05/10/17 06:00 Neutrophils (Manual) 87 % (40-80) H 05/10/17 06:00 Lymphocytes 7 % (20-50) L 05/10/17 06:00 Monocytes 6 % (2-10) 05/10/17 06:00 Eosinophils 1 % (0-5) 04/29/17 04:55 Hypochromia 1+ 05/07/17 05:10 Platelet Estimate SLIGHT DECREASED (NORMAL) 05/10/17 06:00 PT 11.0 SECONDS (9.5-11.5) 04/27/17 11:40 INR 1.06 (0.5-1.4) 04/27/17 11:40 PTT (Actin FS) 26.3 SECONDS (26.0-38.0) 04/27/17 11:40 Specimen Source ARTERIAL 04/28/17 05:00 Sample Site Right Radial 04/28/17 05:00 pH 7.44 (7.35-7.45) 04/28/17 05:00 pCO2 35.0 mmHg (35.0-45.0) 04/28/17 05:00 pO2 74.0 mmHg (80.0-100.0) L 04/28/17 05:00 HCO3 24.9 mEq/L (20.0-26.0) 04/28/17 05:00 Base Excess 0.0 mEq/L (-3.0-3.0) 04/28/17 05:00 O2 Saturation 95.0 % (92.0-100.0) 04/28/17 05:00 Albin Test Positive 04/28/17 05:00 Vent Rate N/A 04/28/17 05:00 Inspired O2 21 04/28/17 05:00 Tidal Volume N/A 04/28/17 05:00 PEEP N/A 04/28/17 05:00 Pressure (ins/psv/peep) N/A 04/28/17 05:00 Critical Value FINISHED CIGAR MAKER 04/28/17 05:00 Sodium 135 mEq/L (136-145) L 05/10/17 06:00 Potassium 3.6 mEq/L (3.5-5.1) 05/10/17 06:00 Chloride 102 mEq/L (98-107) 05/10/17 06:00 Carbon Dioxide 27.8 mEq/L (21.0-31.0) 05/10/17 06:00 Anion Gap 8.8 (7.0-16.0) 05/10/17 06:00 BUN 16 mg/dL (7-25) 05/10/17 06:00 Creatinine 0.7 mg/dL (0.7-1.3) 05/10/17 06:00 Est GFR ( Amer) > 60.0 ml/min (>90) 05/10/17 06:00 Est GFR (Non-Af Amer) > 60.0 ml/min 05/10/17 06:00 BUN/Creatinine Ratio 22.9 05/10/17 06:00 Glucose 165 mg/dL (70-105) H 05/10/17 06:00 POC Glucose 184 MG/DL (70 - 105) H 05/10/17 11:47 Hemoglobin A1c % 6.9 % (4.0-6.0) H 04/29/17 04:55 Whole Bld Lactic Acid 1.72 mmol/L (0.60-1.99) 04/27/17 11:40 Calcium 8.5 mg/dL (8.6-10.3) L 05/10/17 06:00 Magnesium 2.6 mg/dL (1.9-2.7) 05/02/17 05:30 Total Bilirubin 1.2 mg/dL (0.3-1.0) H 05/10/17 06:00 AST 12 U/L (13-39) L 05/10/17 06:00 ALT 29 U/L (7-52) 05/10/17 06:00 Alkaline Phosphatase 51 U/L (34-104) 05/10/17 06:00 Ammonia 30 umol/L (16-53) 05/04/17 11:40 Lactate Dehydrogenase 157 U/L (140-271) 04/28/17 05:33 Creatine Kinase 91 U/L (30-223) 04/27/17 11:40 Troponin I 0.01 ng/mL (0.01-0.05) 04/27/17 11:40 Total Protein 5.1 gm/dL (6.0-8.3) L 05/10/17 06:00 Albumin 3.2 gm/dL (4.2-5.5) L 05/10/17 06:00 Globulin 1.9 gm/dL 05/10/17 06:00 Albumin/Globulin Ratio 1.7 (1.0-1.8) 05/10/17 06:00 Amylase 30 U/L (29-103) 04/27/17 11:40 Lipase 15 U/L (11-82) 04/27/17 11:40 Vitamin B12 876 pg/mL (232-1245) 05/03/17 05:30 Folic Acid >20.0 ng/mL (>3.0) 05/03/17 05:30 Urine Source MIDSTREAM 04/27/17 13:50 Urine Color YELLOW 04/27/17 13:50 Urine Clarity CLEAR (CLEAR) 04/27/17 13:50 Urine pH 6.0 (4.6 - 8.0) 04/27/17 13:50 Ur Specific [place] 1.010 (1.005-1.030) 04/27/17 13:50 Urine Protein NEGATIVE mg/dL (NEGATIVE) 04/27/17 13:50 Urine Glucose (UA) NEGATIVE mg/dL (NEGATIVE) 04/27/17 13:50 Urine Ketones NEGATIVE mg/dL (NEGATIVE) 04/27/17 13:50 Urine Blood NEGATIVE (NEGATIVE) 04/27/17 13:50 Urine Nitrate NEGATIVE (NEGATIVE) 04/27/17 13:50 Urine Bilirubin NEGATIVE (NEGATIVE) 04/27/17 13:50 Urine Urobilinogen 0.2 E.U./dL (0.2 - 1.0) 04/27/17 13:50 Ur Leukocyte Esterase NEGATIVE (NEGATIVE) 04/27/17 13:50 Urine RBC 0-2 /hpf (0-5) H 04/27/17 13:50 Urine WBC NONE SEEN /hpf (0-5) 04/27/17 13:50 Ur Epithelial Cells RARE /lpf (FEW) 04/27/17 13:50 Urine Bacteria NONE SEEN /hpf (NONE SEEN) 04/27/17 13:50 Influenza A (Rapid) NEG FOR INF A 04/29/17 06:15 Influenza B (Rapid) NEG FOR INF B 04/29/17 06:15 Blood Type O POSITIVE 05/08/17 05:50 Antibody Screen NEGATIVE 05/08/17 05:50 Crossmatch See Detail 05/08/17 05:50 - Physical Exam Vitals and I&O: Vital Signs Temp 97.6 F 05/10/17 05:00 Pulse 77 05/10/17 11:58 Resp 20 05/10/17 11:58 BP 134/68 05/10/17 09:03 Pulse Ox 97 05/10/17 11:58 Intake & Output 05/09/17 05/10/17 05/10/17 17:59 06:59 18:59 Intake Total Balance Weight (lbs) Intake: Oral Blood Product Other: # Voids # Bowel Movements Active Medications: Current Medications Acetaminophen (Tylenol) 650 mg PO Q6H PRN PRN Reason: Mild Pain/Headache/T above 101 Stop: 06/26/17 21:24 Last Admin: 05/10/17 08:58 Dose: 650 mg Albuterol/Ipratropium (Duoneb Neb) 3 ml HHN Q2H PRN PRN Reason: Wheezing Stop: 06/26/17 21:29 Last Admin: 05/09/17 23:03 Dose: 3 ml Albuterol/Ipratropium (Duoneb Neb) 3 ml HHN [id number] CHHAYA Stop: 06/27/17 18:59 Last Admin: 05/10/17 11:56 Dose: 3 ml Atorvastatin Calcium (Lipitor) 40 mg PO DAILY CHHAYA Stop: 06/27/17 08:59 Last Admin: 05/10/17 09:04 Dose: 40 mg Budesonide (Pulmicort) 1 mg HHN BIDRT CHHAYA Stop: 06/27/17 16:59 Last Admin: 05/10/17 07:43 Dose: 1 mg Carvedilol (Coreg) 12.5 mg PO BID CHHAYA Stop: 06/27/17 08:59 Last Admin: 05/10/17 09:02 Dose: 12.5 mg Cholecalciferol (Vitamin D3) 1,000 iu PO BID CHHAYA Stop: 06/27/17 08:59 Last Admin: 05/10/17 09:03 Dose: 1,000 iu Famotidine (Pepcid) 40 mg PO HS CHHAYA Stop: 06/30/17 20:59 Last Admin: 05/09/17 22:44 Dose: 40 mg Finasteride (Proscar) 5 mg PO HS CHHAYA PRN Reason: Protocol Stop: 06/27/17 01:14 Last Admin: 05/09/17 22:45 Dose: 5 mg Furosemide (Lasix) 40 mg PO DAILY CHHAYA Stop: 06/27/17 08:59 Last Admin: 05/10/17 09:00 Dose: 40 mg Guaifenesin/Dextromethorphan (Robitussin Dm) 5 ml PO Q6HR PRN PRN Reason: Cough Stop: 06/27/17 01:21 Last Admin: 05/09/17 00:22 Dose: 5 ml Insulin Aspart (Novolog Insulin Sliding Scale) 0 units SUBQ ACHS CHHAYA PRN Reason: Protocol Stop: 06/28/17 16:29 Last Admin: 05/10/17 11:54 Dose: 2 units Isosorbide Mononitrate (Imdur) 60 mg PO DAILY CHHAYA Stop: 06/27/17 08:59 Last Admin: 05/10/17 09:01 Dose: 60 mg Lactobacillus Rhamnosus (Culturelle 15b) 1 each PO DAILY CHHAYA Stop: 06/30/17 08:59 Last Admin: 05/10/17 09:01 Dose: 1 each Lactulose (Cephulac) 30 gm PO DAILY CHHAYA Stop: 07/03/17 14:44 Last Admin: 05/10/17 08:59 Dose: 30 gm Lisinopril (Zestril) 40 mg PO BID CHHAYA Stop: 06/27/17 08:59 Last Admin: 05/10/17 09:03 Dose: 40 mg Miscellaneous (Vte Chemical Prophylaxis Screen/ Admission) 1 ea PRN PRN PRN Reason: PROTOCOL Stop: 06/27/17 14:14 Miscellaneous (Probiotic Screen) 1 ea PRN PRN PRN Reason: PROTOCOL Stop: 06/29/17 14:14 Montelukast Sodium (Singulair) 10 mg PO HS CHHAYA Stop: 06/27/17 20:59 Last Admin: 05/09/17 22:45 Dose: 10 mg Morphine Sulfate (Morphine) 2 mg IVP Q4H PRN PRN Reason: RIGHT HIP PAIN Stop: 07/03/17 16:37 Last Admin: 05/10/17 08:59 Dose: 2 mg Multivitamins/Vitamin C (Theragran) 1 tab PO DAILY CHHAYA Stop: 06/27/17 08:59 Last Admin: 05/10/17 09:01 Dose: 1 tab Nitroglycerin (Nitrostat) 0.4 mg SL Q5MIN PRN PRN Reason: Chest Pain Stop: 06/29/17 09:44 Last Admin: 05/07/17 12:06 Dose: 0.4 mg Ondansetron HCl (Zofran) 4 mg IVP Q6H PRN PRN Reason: Nausea / Vomiting Stop: 06/26/17 21:24 Last Admin: 05/03/17 00:32 Dose: 4 mg Pantoprazole Sodium (Protonix) 40 mg PO DAILY CHHAYA Stop: 07/02/17 08:59 Last Admin: 05/10/17 09:02 Dose: 40 mg Prednisone (Deltasone) 20 mg PO BID CHHAYA Stop: 07/06/17 16:59 Last Admin: 05/10/17 09:04 Dose: 20 mg Promethazine HCl/Codeine (Phenergan W/Cod Susp) 5 ml PO Q6H PRN PRN Reason: cough Stop: 07/08/17 14:16 Last Admin: 05/09/17 22:44 Dose: 5 ml Sodium Chloride (Saline Flush) 10 ml IV QSHIFT CHHAYA Stop: 06/27/17 07:59 Last Admin: 05/09/17 22:46 Dose: 10 ml Tamsulosin HCl (Flomax) 0.4 mg PO HS CHHAYA Stop: 06/27/17 01:12 Last Admin: 05/09/17 22:46 Dose: 0.4 mg Zolpidem Tartrate (Ambien) 5 mg PO HS PRN PRN Reason: Insomnia Stop: 07/07/17 09:06 Last Admin: 05/09/17 22:46 Dose: 5 mg General: Alert, Oriented x3, Cooperative HEENT: Atraumatic, PERRLA, EOMI Neck: Supple, JVD Cardiovascular: Regular rate, Normal S1, Normal S2 Lungs: Clear to auscultation Abdomen: Bowel sounds, Soft, Other (hematoma in right lower quad) Extremities: Other (hip pain limits evaluation.) Neurological: Normal gait, Normal speech, Strength at 5/5 X4 ext, Sensation intact, Cranial nerves 3-12 NL, Reflexes 2+ Psych/Mental Status: Mental status NL - Procedures Procedures: Procedures Procedure Code Date BLOOD TRANSFUSION SERVICE 34029 04/27/17 DOPPLER COLOR FLOW ADD-ON 42781 06/21/00 DOPPLER ECHO EXAM HEART 57308 06/21/00 DX ULTRASOUND-HEART 88.72 06/21/00 TRANSFUSE NONAUT PLATELETS IN PERIPH VEIN, PERC 53424H5 04/27/17 TTE W/O DOPPLER COMPLETE 86788 06/21/00 Assessment/Plan - Problem List Patient Problems: All Active Problems COUGH AND CONGESTION WITH DYSPNEA (Acute) - Assessment Assessment: * h/o follicular lymphoma * Pneumonitis * Thrombocytopenia most likely following chemotherapy bone marrow suppression * psoas muscle bleeding * Likely platelet dysfunction sec to asa and plavix; now off asa and plavix Transfuse platelets for platelet dysfunction and bleeding 05/06: S/P plt transfusion for plt dysfunction; hgb continues to fall; Monitor plt for now 05/07: hgb stable today. plt are stable. No clinical bleeding; monitor cbc 05/08: hgb lower; transfuse; plt falling , transfuse for platelet dysfunction and continued bleeding based on CT 3/8 3/10: hgb stable; awaiting platelet transfusion today for plt dysfunction. Monitor cbc. Overall feels better 05/10: hgb is slightly lower. transfuse one unit. s./p plt tx for plt dysfunction. Monitor cbc Nutritional Asmnt/Malnutr-PDOC - Dietary Evaluation Malnutrition Findings (Please click <Entered> for more info): Nutritional Asmnt/Malnutrition Start: 05/02/17 15: 16 Text: Status: Complete Freq: Document 05/02/17 15:17 MMULHERN (Rec: 05/02/17 15:39 [email or web address] [id number]) Nutritional Asmnt/Malnutrition Patient General Information Nutritional Screening Moderate Risk Diagnosis Respiratory failure, broncospasm Pertinent Medical Hx/Surgical Hx Hypertension, CAD, asthma, COPD, hyperlipidemia, Non- hodgkin's lymphoma, DJD, chronic pain syndrome, hx of appendectomy and gallbladder surgery along with coronary artery bypass graft. Subjective Information Patient tolerating current diet order. Current Diet Order/ Nutrition Support Regular Patient / S.O Not Indicated Pertinent Medications lipitor, abx, vitamin D3, pepcid, lasix, novolog, solu- medrol, Theragran, zofran, protonix Pertinent Labs (05/02) K 3.4, Glucose 144-303, A1C 6.9, albumin 3.9 Nutritional Hx/Data Height 1.7 m Height (Calculated Centimeters) 170.2 Current Weight (lbs) 113.852 kg Weight (Calculated Kilograms) 113.9 Weight (Calculated Grams) 877479.7 [place] Body Weight 148 % [place] Body Weight 169 Body Mass Index (BMI) 39.3 Recent Weight Change No Weight Status Obese GI Symptoms GI Symptoms None Last BM 04/30 x 1 Difficult in: None Food Allergies No Cultural/Ethnic/Moravian Belief None indicated Usual diet at home unknown Skin Integrity/Comment: Eric 18, 1+ edema, skin tear /abrasion on right and left foot Current %PO Good (75-100%) Estimated Nutritional Goals BEE in Kcals: Adj wt of IBW Calories/Kcals/Kg 173lb/79kg Adj wt 25-30 kcal/ kg Kcals Calculated kcal/day Protein: Adj wt of IBW Protein g/k-1.2 gm/kg Protein Calculated 80-95gm/day Fluid: ml 3917-9774 ml/day (1 ml/kcal) Nutritional Problem 1. Problem Problem Altered nutrition related lab values related to Etiology hyperglycemia, electrolyte imbalance aeb Signs/Symptoms: K 3.4, Glucose 144-303 Intervention/Recommendation Comments 1. Consider modifying diet to 75gm CCHO for better blood glucose control. 2. Liberalize potassium intake , supplementation per MD Expected Outcomes/Goals Expected Outcomes/Goals oral intake to meet >75% of nutrient needs, weight trends toard ideal body weight, nutrition related labs WNL F/U in 3-5 days MR 3/-8
--- NOTE | 2017-05-10 18:25 | Progress Notes ---
DATE: SUBJECTIVE: The patient seen and examined. The patient stated he does not feel good. The patient has multiple complaints including leg pain, cough, cannot sleep, and still having difficulty in breathing. The patient looks very comfortable at this time and talking to the patient's family. PHYSICAL EXAMINATION: VITAL SIGNS: Temperature 97.5, pulse is 82, respiratory rate 18, and blood pressure 111/____. HEENT: No facial asymmetry. NECK: Supple, no JVD. HEART: Regular. CHEST: Lung equal in expansion with no expiratory wheezing. ABDOMEN: Soft. No guarding, rigidity. Bowel sounds are present. No palpable mass. EXTREMITIES: Remarkable for hematoma involving the right thigh. AVAILABLE LABORATORY DATA AND DIAGNOSTIC DATA: White count of 7.4, hemoglobin 7.6, and platelet count of 88,000. BUN and creatinine 16 and 0.7. Electrolytes are within normal limit. Blood sugar chart has been reviewed. CLINICAL IMPRESSION: 1. Persistent anemia. 2. Thrombocytopenia with platelet dysfunction. 3. Psoas hemorrhage. 4. Degenerative joint disease. 5. Hypertension. 6. Coronary artery disease. 7. History of follicular lymphoma. PLAN: 1. Blood transfusion and platelet transfusion as per Hematology/Oncology. 2. General nursing care. 3. Symptoms management. 4. Medication management. 5. Follow lab. 6. Follow wellness consultant recommendation. 7. Care plan reviewed and discussed with staff. JOB# [id number]
[2017-05-10] MEDS: Guaifenesin DM 10 ML UDC PO PRN (22:55)
[2017-05-10] MEDS: Albuterol/Ipratropium Neb 3 ML AERS HHN PRN (23:55)
--- NOTE | 2017-05-11 00:32 | Progress Notes ---
DATE: 05/10/2017 PROBLEM LIST: 1. Acute asthmatic bronchitis, improving. 2. Hematochezia, being worked up. 3. GE reflux. 4. Severe obstructive sleep apnea syndrome, does not want to use the BiPAP. SYMPTOMS: Nil. SUBJECTIVE: Coughing is very minimal, normal shortness of breath or wheezing, etc. Periodically coughing when he takes deep breath. Otherwise, unremarkable. PHYSICAL EXAMINATION: VITAL SIGNS: T-max 97.5, blood pressure 111/77, saturation 97-99 on room air. ENT: Shows no new changes. CHEST: Shows diminished air entry. No too much wheezing. HEART: Regular. ABDOMEN: Soft, nontender. LABORATORY DATA: The patient's white count is 7.4, hemoglobin 7.6, platelet is 88,000. Electrolytes are okay. ASSESSMENT: The patient clinically respiratory jules fairly stable. PLANS AND SUGGESTIONS: We will go ahead and continue respiratory care, inhalation treatment, etc. Hematological issues handled by Dr. Abbott and Dr. Samuels. JOB# [id number]
[2017-05-11 00:37] LABS: % BASOPHILS 1.2 % (0.0-2.0); % EOSINOPHILS 0.5 % (0.0-5.0); % LYMPHOCYTES 8.9 % (20.0-50.0); % MONOCYTES 7.8 % (2.0-10.0); % NEUTROPHILS 81.6 % (40.0-80.0); BASOPHILE ABSOLUTE 0.1 Th/cumm (0-0.2); EOSINOPHILE ABSOLUTE 0.1 Th/cmm (0.1-0.4); HEMATOCRIT 28.6 % (41.0-60); HEMOGLOBIN 9.6 gm/dL (12-16); MEAN CELL VOLUME 92.7 fl (80-99); MEAN CORPUSCULAR HEMOGLOBIN 31.2 pg (27.0-31.0); MEAN CORPUSCULAR HGB CONC 33.6 pg (28.0-36.0); MEAN PLATELET VOLUME 8.1 fl; MONOCYTE ABSOLUTE 0.9 Th/cmm (0.3-1.0); NEUTROPHILE ABSOLUTE 9.2 Th/cmm (1.8-8.0); PLATELET COUNT 113 Th/cmm (150-400); RED BLOOD COUNT 3.08 Mil/cmm (3.80-5.80); RED CELL DISTRIBUTION WIDTH 17.7 % (11.5-20.0); WHITE BLOOD COUNT 11.3 Th/cmm (4.8-10.8)
[2017-05-11 01:10] LABS: INR 0.95 (0.5-1.4); PROTHROMBIN TIME (TEST) 9.9 SECONDS (9.5-11.5)
[2017-05-11] MEDS: Codeine/Promethazine Susp 5 mL UDC PO PRN (05:02)
[2017-05-11] MEDS: Albuterol/Ipratropium Neb 3 ML AERS HHN SCH ×4 (06:59→19:01)
[2017-05-11] MEDS: Budesonide 0.5 Mg/2 mL Ud HHN SCH ×2 (06:59→19:01)
[2017-05-11] MEDS: INSULIN ASPART SLIDING SCALE 100 UNITS/ML UNIT SUBQ SCH ×4 (08:14→20:59)
[2017-05-11 09:38] LABS: % BASOPHILS 0.1 % (0.0-2.0); % EOSINOPHILS 0.8 % (0.0-5.0); % LYMPHOCYTES 9.5 % (20.0-50.0); % MONOCYTES 8.7 % (2.0-10.0); % NEUTROPHILS 80.9 % (40.0-80.0); EOSINOPHILE ABSOLUTE 0.1 Th/cmm (0.1-0.4); HEMATOCRIT 28.8 % (41.0-60); HEMOGLOBIN 9.7 gm/dL (12-16); LYMPHOCYTE ABSOLUTE 0.8 Th/cmm (1.5-3.0); MEAN CELL VOLUME 93.8 fl (80-99); MEAN CORPUSCULAR HEMOGLOBIN 31.7 pg (27.0-31.0); MEAN CORPUSCULAR HGB CONC 33.7 pg (28.0-36.0); MONOCYTE ABSOLUTE 0.8 Th/cmm (0.3-1.0); NEUTROPHILE ABSOLUTE 7.1 Th/cmm (1.8-8.0); PLATELET COUNT 102 Th/cmm (150-400); RED BLOOD COUNT 3.07 Mil/cmm (3.80-5.80); RED CELL DISTRIBUTION WIDTH 17.5 % (11.5-20.0); WHITE BLOOD COUNT 8.8 Th/cmm (4.8-10.8)
[2017-05-11 09:48] LABS: ALB/GLOB RATIO 1.6 (1.0-1.8); ALBUMIN 3.5 gm/dL (4.2-5.5); BILIRUBIN,DIRECT 0.3 mg/dL (0.0-0.2); BILIRUBIN,TOTAL 1.5 mg/dL (0.3-1.0); TOTAL PROTEIN,SERUM 5.7 gm/dL (6.0-8.3)
--- NOTE | 2017-05-11 10:04 | General Progress Note ---
Subjective - Review of Systems Service Date: 05/11/17 Subjective: intermittent abd pain less cough more sleepy Objective - Results Result Diagrams: 05/11/17 09:15 05/10/17 06:00 Recent Labs: Laboratory Last Values WBC 8.8 Th/cmm (4.8-10.8) 05/11/17 09:15 RBC 3.07 Mil/cmm (3.80-5.80) L 05/11/17 09:15 Hgb 9.7 gm/dL (12-16) L 05/11/17 09:15 Hct 28.8 % (41.0-60) L 05/11/17 09:15 MCV 93.8 fl (80-99) 05/11/17 09:15 MCH 31.7 pg (27.0-31.0) H 05/11/17 09:15 MCHC Differential 33.7 pg (28.0-36.0) 05/11/17 09:15 RDW 17.5 % (11.5-20.0) 05/11/17 09:15 Plt Count 102 Th/cmm (150-400) L 05/11/17 09:15 MPV 8.0 fl 05/11/17 09:15 Neutrophils % 80.9 % (40.0-80.0) H 05/11/17 09:15 Band Neutrophils % 4 % (0-10) 05/07/17 05:10 Lymphocytes % 9.5 % (20.0-50.0) L 05/11/17 09:15 Monocytes % 8.7 % (2.0-10.0) 05/11/17 09:15 Eosinophils % 0.8 % (0.0-5.0) 05/11/17 09:15 Basophils % 0.1 % (0.0-2.0) 05/11/17 09:15 Neutrophils (Manual) 87 % (40-80) H 05/10/17 06:00 Lymphocytes 7 % (20-50) L 05/10/17 06:00 Monocytes 6 % (2-10) 05/10/17 06:00 Eosinophils 1 % (0-5) 04/29/17 04:55 Hypochromia 1+ 05/07/17 05:10 Platelet Estimate SLIGHT DECREASED (NORMAL) 05/10/17 06:00 PT 9.9 SECONDS (9.5-11.5) 05/11/17 00:20 INR 0.95 (0.5-1.4) 05/11/17 00:20 PTT (Actin FS) 22.5 SECONDS (26.0-38.0) L 05/11/17 00:20 Specimen Source ARTERIAL 04/28/17 05:00 Sample Site Right Radial 04/28/17 05:00 pH 7.44 (7.35-7.45) 04/28/17 05:00 pCO2 35.0 mmHg (35.0-45.0) 04/28/17 05:00 pO2 74.0 mmHg (80.0-100.0) L 04/28/17 05:00 HCO3 24.9 mEq/L (20.0-26.0) 04/28/17 05:00 Base Excess 0.0 mEq/L (-3.0-3.0) 04/28/17 05:00 O2 Saturation 95.0 % (92.0-100.0) 04/28/17 05:00 Albin Test Positive 04/28/17 05:00 Vent Rate N/A 04/28/17 05:00 Inspired O2 21 04/28/17 05:00 Tidal Volume N/A 04/28/17 05:00 PEEP N/A 04/28/17 05:00 Pressure (ins/psv/peep) N/A 04/28/17 05:00 Critical Value QUILLER OPERATOR 04/28/17 05:00 Sodium 135 mEq/L (136-145) L 05/10/17 06:00 Potassium 3.6 mEq/L (3.5-5.1) 05/10/17 06:00 Chloride 102 mEq/L (98-107) 05/10/17 06:00 Carbon Dioxide 27.8 mEq/L (21.0-31.0) 05/10/17 06:00 Anion Gap 8.8 (7.0-16.0) 05/10/17 06:00 BUN 16 mg/dL (7-25) 05/10/17 06:00 Creatinine 0.7 mg/dL (0.7-1.3) 05/10/17 06:00 Est GFR ( Amer) > 60.0 ml/min (>90) 05/10/17 06:00 Est GFR (Non-Af Amer) > 60.0 ml/min 05/10/17 06:00 BUN/Creatinine Ratio 22.9 05/10/17 06:00 Glucose 165 mg/dL (70-105) H 05/10/17 06:00 POC Glucose 125 MG/DL (70 - 105) H 05/11/17 07:15 Hemoglobin A1c % 6.9 % (4.0-6.0) H 04/29/17 04:55 Whole Bld Lactic Acid 1.72 mmol/L (0.60-1.99) 04/27/17 11:40 Calcium 8.5 mg/dL (8.6-10.3) L 05/10/17 06:00 Magnesium 2.6 mg/dL (1.9-2.7) 05/02/17 05:30 Total Bilirubin 1.5 mg/dL (0.3-1.0) H 05/11/17 09:15 Direct Bilirubin 0.30 mg/dL (0.0-0.2) H 05/11/17 09:15 AST 15 U/L (13-39) 05/11/17 09:15 ALT 35 U/L (7-52) 05/11/17 09:15 Alkaline Phosphatase 50 U/L (34-104) 05/11/17 09:15 Ammonia 30 umol/L (16-53) 05/04/17 11:40 Lactate Dehydrogenase 157 U/L (140-271) 04/28/17 05:33 Creatine Kinase 91 U/L (30-223) 04/27/17 11:40 Troponin I 0.01 ng/mL (0.01-0.05) 04/27/17 11:40 Total Protein 5.7 gm/dL (6.0-8.3) L 05/11/17 09:15 Albumin 3.5 gm/dL (4.2-5.5) L 05/11/17 09:15 Globulin 2.2 gm/dL 05/11/17 09:15 Albumin/Globulin Ratio 1.6 (1.0-1.8) 05/11/17 09:15 Amylase 30 U/L (29-103) 04/27/17 11:40 Lipase 15 U/L (11-82) 04/27/17 11:40 Vitamin B12 876 pg/mL (232-1245) 05/03/17 05:30 Folic Acid >20.0 ng/mL (>3.0) 05/03/17 05:30 Urine Source MIDSTREAM 04/27/17 13:50 Urine Color YELLOW 04/27/17 13:50 Urine Clarity CLEAR (CLEAR) 04/27/17 13:50 Urine pH 6.0 (4.6 - 8.0) 04/27/17 13:50 Ur Specific [place] 1.010 (1.005-1.030) 04/27/17 13:50 Urine Protein NEGATIVE mg/dL (NEGATIVE) 04/27/17 13:50 Urine Glucose (UA) NEGATIVE mg/dL (NEGATIVE) 04/27/17 13:50 Urine Ketones NEGATIVE mg/dL (NEGATIVE) 04/27/17 13:50 Urine Blood NEGATIVE (NEGATIVE) 04/27/17 13:50 Urine Nitrate NEGATIVE (NEGATIVE) 04/27/17 13:50 Urine Bilirubin NEGATIVE (NEGATIVE) 04/27/17 13:50 Urine Urobilinogen 0.2 E.U./dL (0.2 - 1.0) 04/27/17 13:50 Ur Leukocyte Esterase NEGATIVE (NEGATIVE) 04/27/17 13:50 Urine RBC 0-2 /hpf (0-5) H 04/27/17 13:50 Urine WBC NONE SEEN /hpf (0-5) 04/27/17 13:50 Ur Epithelial Cells RARE /lpf (FEW) 04/27/17 13:50 Urine Bacteria NONE SEEN /hpf (NONE SEEN) 04/27/17 13:50 Stool Occult Blood NEGATIVE (NEGATIVE) 05/11/17 08:40 Influenza A (Rapid) NEG FOR INF A 04/29/17 06:15 Influenza B (Rapid) NEG FOR INF B 04/29/17 06:15 Blood Type O POSITIVE 05/10/17 15:06 Antibody Screen NEGATIVE 05/10/17 15:06 Crossmatch See Detail 05/10/17 15:06 - Physical Exam Vitals and I&O: Vital Signs Temp 98.8 F 05/11/17 04:00 Pulse 84 05/11/17 07:02 Resp 18 05/11/17 07:02 BP 102/56 05/11/17 04:00 Pulse Ox 99 05/11/17 07:02 Intake & Output 03/01/1705/11/17 05/11/17 18:59 06:59 18:59 Intake Total 700 Balance 700 Weight (lbs) 120.202 kg 120.202 kg Intake: Oral 350 Blood Product 350 Other: Stool Characteristics Soft Brown Active Medications: Current Medications Acetaminophen (Tylenol) 650 mg PO Q6H PRN PRN Reason: Mild Pain/Headache/T above 101 Stop: 06/26/17 21:24 Last Admin: 05/11/17 00:00 Dose: 650 mg Albuterol/Ipratropium (Duoneb Neb) 3 ml HHN Q2H PRN PRN Reason: Wheezing Stop: 06/26/17 21:29 Last Admin: 05/10/17 23:55 Dose: 3 ml Albuterol/Ipratropium (Duoneb Neb) 3 ml HHN [id number] CHHAYA Stop: 06/27/17 18:59 Last Admin: 05/11/17 06:59 Dose: 3 ml Atorvastatin Calcium (Lipitor) 40 mg PO DAILY CHHAYA Stop: 06/27/17 08:59 Last Admin: 05/10/17 09:04 Dose: 40 mg Budesonide (Pulmicort) 1 mg HHN BIDRT CHHAYA Stop: 06/27/17 16:59 Last Admin: 05/11/17 06:59 Dose: 1 mg Carvedilol (Coreg) 12.5 mg PO BID CHHAYA Stop: 06/27/17 08:59 Last Admin: 05/10/17 17:38 Dose: 12.5 mg Cholecalciferol (Vitamin D3) 1,000 iu PO BID CHHAYA Stop: 06/27/17 08:59 Last Admin: 05/10/17 17:37 Dose: 1,000 iu Famotidine (Pepcid) 40 mg PO HS CHHAYA Stop: 06/30/17 20:59 Last Admin: 05/10/17 20:59 Dose: 40 mg Finasteride (Proscar) 5 mg PO HS CHHAYA PRN Reason: Protocol Stop: 06/27/17 01:14 Last Admin: 05/10/17 21:14 Dose: 5 mg Furosemide (Lasix) 40 mg PO DAILY CHHAYA Stop: 06/27/17 08:59 Last Admin: 05/10/17 09:00 Dose: 40 mg Guaifenesin/Dextromethorphan (Robitussin Dm) 5 ml PO Q6HR PRN PRN Reason: Cough Stop: 06/27/17 01:21 Last Admin: 05/10/17 22:55 Dose: 5 ml Insulin Aspart (Novolog Insulin Sliding Scale) 0 units SUBQ ACHS CHHAYA PRN Reason: Protocol Stop: 06/28/17 16:29 Last Admin: 05/11/17 08:14 Dose: Not Given Isosorbide Mononitrate (Imdur) 60 mg PO DAILY CHHYAA Stop: 06/27/17 08:59 Last Admin: 05/10/17 09:01 Dose: 60 mg Lactobacillus Rhamnosus (Culturelle 15b) 1 each PO DAILY CHHAYA Stop: 06/30/17 08:59 Last Admin: 05/10/17 09:01 Dose: 1 each Lactulose (Cephulac) 30 gm PO DAILY CHHAYA Stop: 07/03/17 14:44 Last Admin: 05/10/17 08:59 Dose: 30 gm Lisinopril (Zestril) 40 mg PO BID CHHAYA Stop: 06/27/17 08:59 Last Admin: 05/10/17 17:37 Dose: 40 mg Miscellaneous (Vte Chemical Prophylaxis Screen/ Admission) 1 ea MC PRN PRN PRN Reason: PROTOCOL Stop: 06/27/17 14:14 Miscellaneous (Probiotic Screen) 1 ea MC PRN PRN PRN Reason: PROTOCOL Stop: 06/29/17 14:14 Montelukast Sodium (Singulair) 10 mg PO HS [facility] Stop: 06/27/17 20:59 Last Admin: 05/10/17 20:59 Dose: 10 mg Morphine Sulfate (Morphine) 2 mg IVP Q4H PRN PRN Reason: RIGHT HIP PAIN Stop: 07/03/17 16:37 Last Admin: 05/10/17 22:54 Dose: 2 mg Multivitamins/Vitamin C (Theragran) 1 tab PO DAILY CHHAYA Stop: 06/27/17 08:59 Last Admin: 05/10/17 09:01 Dose: 1 tab Nitroglycerin (Nitrostat) 0.4 mg SL Q5MIN PRN PRN Reason: Chest Pain Stop: 06/29/17 09:44 Last Admin: 05/07/17 12:06 Dose: 0.4 mg Ondansetron HCl (Zofran) 4 mg IVP Q6H PRN PRN Reason: Nausea / Vomiting Stop: 06/26/17 21:24 Last Admin: 05/03/17 00:32 Dose: 4 mg Pantoprazole Sodium (Protonix) 40 mg PO DAILY CHHAYA Stop: 07/02/17 08:59 Last Admin: 05/10/17 09:02 Dose: 40 mg Prednisone (Deltasone) 10 mg PO BID CHHAYA Stop: 07/10/17 09:16 Promethazine HCl/Codeine (Phenergan W/Cod Susp) 5 ml PO Q6H PRN PRN Reason: cough Stop: 07/08/17 14:16 Last Admin: 05/11/17 05:02 Dose: 5 ml Sodium Chloride (Saline Flush) 10 ml IV QSHIFT CHHAYA Stop: 06/27/17 07:59 Last Admin: 05/10/17 21:07 Dose: Not Given Tamsulosin HCl (Flomax) 0.4 mg PO HS CHHAYA Stop: 06/27/17 01:12 Last Admin: 05/10/17 20:59 Dose: 0.4 mg Zolpidem Tartrate (Ambien) 5 mg PO HS PRN PRN Reason: Insomnia Stop: 07/07/17 09:06 Last Admin: 05/10/17 22:55 Dose: 5 mg General: Alert, Oriented x3, Cooperative HEENT: Atraumatic, PERRLA, EOMI Neck: Supple, JVD Cardiovascular: Regular rate, Normal S1, Normal S2 Lungs: Clear to auscultation Abdomen: Bowel sounds, Soft, Other (hematoma in right lower quad) Extremities: Other (hip pain limits evaluation.) Neurological: Normal gait, Normal speech, Strength at 5/5 X4 ext, Sensation intact, Cranial nerves 3-12 NL, Reflexes 2+ Psych/Mental Status: Mental status NL - Procedures Procedures: Procedures Procedure Code Date BLOOD TRANSFUSION SERVICE 26170 04/27/17 DOPPLER COLOR FLOW ADD-ON 28893 06/21/00 DOPPLER ECHO EXAM HEART 96706 06/21/00 DX ULTRASOUND-HEART 88.72 06/21/00 TRANSFUSE NONAUT PLATELETS IN PERIPH VEIN, PERC 12233O7 04/27/17 TTE W/O DOPPLER COMPLETE 00173 06/21/00 Assessment/Plan - Problem List Patient Problems: All Active Problems COUGH AND CONGESTION WITH DYSPNEA (Acute) - Assessment Assessment: * h/o follicular lymphoma * Pneumonitis * Thrombocytopenia most likely following chemotherapy bone marrow suppression * psoas muscle bleeding * Likely platelet dysfunction sec to asa and plavix; now off asa and plavix Transfuse platelets for platelet dysfunction and bleeding 05/06: S/P plt transfusion for plt dysfunction; hgb continues to fall; Monitor plt for now 05/07: hgb stable today. plt are stable. No clinical bleeding; monitor cbc 05/08: hgb lower; transfuse; plt falling , transfuse for platelet dysfunction and continued bleeding based on CT 05/07 05/09: hgb stable; awaiting platelet transfusion today for plt dysfunction. Monitor cbc. Overall feels better 05/10: hgb is slightly lower. transfuse one unit. s./p plt tx for plt dysfunction. Monitor cbc 05/11: s/p transfusion; hgb and plt ok. monitor for now Nutritional Asmnt/Malnutr-PDOC - Dietary Evaluation Malnutrition Findings (Please click <Entered> for more info): Nutritional Asmnt/Malnutrition Start: 05/02/17 15: 16 Text: Status: Complete Freq: Document 05/02/17 15:17 MMULHERN (Rec: 05/02/17 15:39 [email or web address] [id number]) Nutritional Asmnt/Malnutrition Patient General Information Nutritional Screening Moderate Risk Diagnosis Respiratory failure, broncospasm Pertinent Medical Hx/Surgical Hx Hypertension, CAD, asthma, COPD, hyperlipidemia, Non- hodgkin's lymphoma, DJD, chronic pain syndrome, hx of appendectomy and gallbladder surgery along with coronary artery bypass graft. Subjective Information Patient tolerating current diet order. Current Diet Order/ Nutrition Support Regular Patient / S.O Not Indicated Pertinent Medications lipitor, abx, vitamin D3, pepcid, lasix, novolog, solu- medrol, Theragran, zofran, protonix Pertinent Labs (05/02) K 3.4, Glucose 144-303, A1C 6.9, albumin 3.9 Nutritional Hx/Data Height 1.7 m Height (Calculated Centimeters) 170.2 Current Weight (lbs) 113.852 kg Weight (Calculated Kilograms) 113.9 Weight (Calculated Grams) 230689.7 [place] Body Weight 148 % [place] Body Weight 169 Body Mass Index (BMI) 39.3 Recent Weight Change No Weight Status Obese GI Symptoms GI Symptoms None Last BM 04/30 x 1 Difficult in: None Food Allergies No Cultural/Ethnic/Holiness Belief None indicated Usual diet at home unknown Skin Integrity/Comment: Eric 18, 1+ edema, skin tear /abrasion on right and left foot Current %PO Good (75-100%) Estimated Nutritional Goals BEE in Kcals: Adj wt of IBW Calories/Kcals/Kg 173lb/79kg Adj wt 25-30 kcal/ kg Kcals Calculated 9570-1349 kcal/day Protein: Adj wt of IBW Protein g/k-1.2 gm/kg Protein Calculated 80-95gm/day Fluid: ml 0484-7897 ml/day (1 ml/kcal) Nutritional Problem 1. Problem Problem Altered nutrition related lab values related to Etiology hyperglycemia, electrolyte imbalance aeb Signs/Symptoms: K 3.4, Glucose 144-303 Intervention/Recommendation Comments 1. Consider modifying diet to 75gm CCHO for better blood glucose control. 2. Liberalize potassium intake , supplementation per MD Expected Outcomes/Goals Expected Outcomes/Goals oral intake to meet >75% of nutrient needs, weight trends toard ideal body weight, nutrition related labs WNL F/U in 3-5 days MR 3/-8
[2017-05-11] MEDS: Pantoprazole 40 mg EC Tab PO SCH (10:21)
[2017-05-11] MEDS: Lactobacillus Rhamnosus GG 15 Billion CFU CAP.SPRINK PO SCH (10:21)
[2017-05-11] MEDS: Multivitamin Tab PO SCH (10:21)
[2017-05-11] MEDS: Lactulose 10 Gm/15 mL 30mL UDC PO SCH (10:21)
--- NOTE | 2017-05-11 10:41 | Consultation ---
DATE OF CONSULTATION: 05/11/2017 INPATIENT GASTROINTESTINAL CONSULTATION REFERRING PHYSICIAN: Dr. Abbott. REASON FOR CONSULTATION: Anemia. HISTORY OF PRESENT ILLNESS: This is a 67-year-old male who was admitted to the hospital with thrombocytopenia, psoas hemorrhage due to the platelet dysfunction, the patient has anemia. We are asked to see the patient for any possible GI bleeding. According to the patient, he denies having any melena or hematochezia. He denies nausea, vomiting. He denies having any significant abdominal pain. The staff thought that there may have been some blood on his underwear, but nobody has witnessed any rectal bleeding or seen blood in his stool. PAST MEDICAL HISTORY: Diabetes, obstructive sleep apnea, coronary artery disease, chronic pain syndrome, degenerative joint disease, COPD, and follicular lymphoma. PAST SURGICAL HISTORY: Rectal surgery for a nonmalignant mass. FAMILY HISTORY: Noncontributory. SOCIAL HISTORY: He denies tobacco, alcohol, or IV drug usage. ALLERGIES: None. CURRENT MEDICATIONS: Tylenol, Lipitor, Pulmicort, Coreg, vitamin D3, Pepcid, Proscar, Lasix, Robitussin, Imdur, insulin, lactulose, Zestril, Singulair, morphine, Nitrostat, Zofran, Protonix, Deltasone, Phenergan, Flomax, and Ambien. REVIEW OF SYSTEMS: Ten-point review of system was performed and the pertinent positive was the psoas hemorrhage. All other systems were otherwise negative. PHYSICAL EXAMINATION: VITAL SIGNS: Temperature 98.8, breathing 18, pulse 84, blood pressure 102/56, and satting 99%. GENERAL: In no apparent distress. EYES: Anicteric. Normal conjunctivae. HEENT: Normocephalic and atraumatic. Moist mucous membranes. NECK: Soft and supple. CHEST: Clear. No effort. CARDIOVASCULAR: Regular rate and rhythm. ABDOMEN: Soft, nontender, and nondistended. SKIN: Warm, dry. EXTREMITIES: Revealed no cyanosis. PSYCHOLOGIC: Alert and oriented x 3. LABORATORY DATA: Show white count 11.3, hemoglobin 9.6, and platelets of 113. INR 0.95, BUN 16, creatinine 0.7. Total bilirubin 1.2, AST 12, ALT 29, and alk phos 51. IMPRESSION: This is a 67-year-old male with anemia, cause could be due to the psoas hemorrhage. There is no overt GI bleeding at this time. Stool OB can be checked. If it is positive, additional workup can be done. The patient is also requesting to go back to [place] where his doctors are at. PLAN: 1. Follow H and H. Transfuse as needed. 2. Check stool OB. 3. Recheck LFTs. 4. Check abdominal ultrasound. 5. Also check haptoglobin. Thank you for allowing me to participate. Please call me if you have any questions. JOB# [id number]
--- NOTE | 2017-05-11 20:41 | Progress Notes ---
DATE: 05/11/2017 SUBJECTIVE: The patient seen and examined. The patient is lying in the bed. The patient had a blood-tinged underwear and according to him, he thinks he has a rectal bleeding. The patient has multiple complaints as every day before. The patient to remain hemodynamically stable. OBJECTIVE: VITAL SIGNS: Temperature 98, pulse is 84, respiratory 18, blood pressure is 125/80. HEENT: No facial asymmetry. Oropharynx is congested. NECK: Supple, no JVD. HEART: Regular. CHEST: Lung equal in expansion. LUNGS: No wheezing, no crackles. ABDOMEN: Soft. No guarding, rigidity. Bowel sounds are present. EXTREMITIES: No edema. Right thigh hematoma noted. AVAILABLE DIAGNOSTIC DATA: White count of 11.3, hemoglobin 9.6, platelet count 113,000. Glucoscan is reviewed. CLINICAL IMPRESSION: 1. Questionable rectal bleeding. 2. Thrombocytopenia, status post blood transfusion. 3. Acute hemorrhagic anemia, status post blood transfusion. 4. Hypertension. 5. Coronary artery disease. 6. Chronic pain syndrome. PLAN: 1. GI consult was requested. 2. Follow up lab. 3. Symptoms management. 4. General nursing care. 5. Continue other medicine as prescribed. 6. PT, OT. 7. Discharge planning to home. JOB# [id number]
[2017-05-11] MEDS: Morphine Sulfate 4 mg/mL 1mL Syr IVP PRN (20:51)
--- NOTE | 2017-05-12 00:38 | Progress Notes ---
DATE: 05/11/2017 PROBLEM LIST: 1. Bronchial asthma, improving. 2. Hematologic dyscrasia. 3. GE reflux with severe obstructive sleep apnea syndrome. SYMPTOMS: Nil. Less coughing, no shortness of breath, feeling much better after transfusion. PHYSICAL EXAMINATION: VITAL SIGNS: T-max 99, heart rate is 70, blood pressure 122/76, respirations 18, saturation 96% on room air. ENT: Shows no new changes. CHEST: Shows diminished air entry. No other adventitious breath sounds. HEART: Regular. ABDOMEN: Soft, nontender. LABORATORY DATA: The patient's white count is 8.8, hemoglobin 9.7 and platelet is 102. ASSESSMENT: The patient's clinically respiratory is okay. PLANS AND SUGGESTIONS: Okay for discharge with tapering dose of steroid. Continue inhaled steroid as well as a long-acting beta agonist and montelukast and antireflux medicine and go from there. JOB# [id number]
[2017-05-12 06:32] LABS: % BASOPHILS 0.1 % (0.0-2.0); % EOSINOPHILS 0.7 % (0.0-5.0); % LYMPHOCYTES 8.9 % (20.0-50.0); % MONOCYTES 7.2 % (2.0-10.0); % NEUTROPHILS 83.1 % (40.0-80.0); EOSINOPHILE ABSOLUTE 0.1 Th/cmm (0.1-0.4); HEMOGLOBIN 9.8 gm/dL (12-16); LYMPHOCYTE ABSOLUTE 0.7 Th/cmm (1.5-3.0); MEAN CELL VOLUME 93.7 fl (80-99); MEAN CORPUSCULAR HEMOGLOBIN 31.6 pg (27.0-31.0); MEAN CORPUSCULAR HGB CONC 33.8 pg (28.0-36.0); MEAN PLATELET VOLUME 8.2 fl; MONOCYTE ABSOLUTE 0.6 Th/cmm (0.3-1.0); NEUTROPHILE ABSOLUTE 6.9 Th/cmm (1.8-8.0); PLATELET COUNT 88 Th/cmm (150-400); RED BLOOD COUNT 3.09 Mil/cmm (3.80-5.80); RED CELL DISTRIBUTION WIDTH 18.1 % (11.5-20.0); WHITE BLOOD COUNT 8.3 Th/cmm (4.8-10.8)
[2017-05-12] MEDS: Budesonide 0.5 Mg/2 mL Ud HHN SCH (06:40)
[2017-05-12] MEDS: Albuterol/Ipratropium Neb 3 ML AERS HHN SCH ×2 (06:41→10:29)
[2017-05-12 07:05] LABS: ALB/GLOB RATIO 1.5 (1.0-1.8); ALBUMIN 3.2 gm/dL (4.2-5.5); ALKALINE PHOSPHATASE 51 U/L (34-104); ANION GAP 9.2 (7.0-16.0); BILIRUBIN,TOTAL 1.2 mg/dL (0.3-1.0); BUN - UREA NITROGEN 14 mg/dL (7-25); CALCIUM SERUM 8.4 mg/dL (8.6-10.3); CARBON DIOXIDE 25.5 mEq/L (21.0-31.0); CHLORIDE 102 mEq/L (98-107); CREATININE - SERUM 0.6 mg/dL (0.7-1.3); GFR AFRICAN-AMERICAN > 60.0 ml/min (>90); GFR NON AFRICAN-AMERICAN > 60.0 ml/min; GLUCOSE 178 mg/dL (70-105); POTASSIUM SERUM 3.7 mEq/L (3.5-5.1); SGOT 13 U/L (13-39); SGPT/ALT 32 U/L (7-52); SODIUM SERUM 133 mEq/L (136-145); TOTAL PROTEIN,SERUM 5.3 gm/dL (6.0-8.3)
[2017-05-12] MEDS: INSULIN ASPART SLIDING SCALE 100 UNITS/ML UNIT SUBQ SCH (07:55)
--- NOTE | 2017-05-12 08:09 | Diagnostic Imaging Report ---
Ultrasound abdomen HISTORY: Elevated liver function tests, history of psoas hemorrhage, history of cholecystectomy COMPARISON: CT angiogram of the abdomen and lower extremities on 05/07/2017 Technique: Sonography of the abdomen was performed in multiple planes. FINDINGS: Exam is limited due to bowel gas and body habitus. The liver demonstrates mild heterogeneous echogenicity and measures 20 cm. The liver margins are not well-defined, however, no evidence of focal lesions. The patient is status post cholecystectomy. The common bile measures 6 mm. Evaluation of pancreas is limited due to bowel gas. The right kidney measures 10.5 x 4.6 cm. The left kidney measures 12.5 x 5.8 cm. There the renal margins are not well-defined, however, no evidence of focal lesions or hydronephrosis. The spleen measures 15 cm. Evaluation of the abdominal aorta is limited on this exam. IMPRESSION: Limited exam due to body habitus and bowel gas. Hepatomegaly with mild heterogeneous echogenicity which may reflect underlying hepatocellular disease. Please correlate clinically Evidence of prior cholecystectomy Splenomegaly.
--- NOTE | 2017-05-12 09:33 | Discharge Summary ---
General Discharge Summary - Discharge Summary Date of Admission: 04/28/17 Admitting Diagnosis: Cough congestion and shortness of breath. Discharge Date: 05/12/17 Discharge Diagnosis: COPD exacerbation. Acute hemorrhagic anemia status post blood transfusion. Thrombocytopenia secondary to follicular lymphoma and previous chemotherapy. Platelet dysfunction secondary to aspirin Plavix status post reversal by platelet transfusion. Coronary disease. Hypertension. Chronic pain syndrome. Coronary disease. BPH. DJD. History of follicular lymphoma. Debility. Psoas muscle hemorrhage secondary to platelet dysfunction. Laboratory Findings: Laboratory Results - last 24 hr 05/05/17 05/11/17 05/11/17 16:55 09:15 09:15 WBC 8.8 RBC 3.07 L Hgb 9.7 L Hct 28.8 L MCV 93.8 MCH 31.7 H MCHC Differential 33.7 RDW 17.5 Plt Count 102 L MPV 8.0 Neutrophils % 80.9 H Lymphocytes % 9.5 L Monocytes % 8.7 Eosinophils % 0.8 Basophils % 0.1 Sodium Potassium Chloride Carbon Dioxide Anion Gap BUN Creatinine Est GFR ( Amer) Est GFR (Non-Af Amer) BUN/Creatinine Ratio Glucose POC Glucose Calcium Total Bilirubin 1.5 H Direct Bilirubin 0.30 H AST 15 ALT 35 Alkaline Phosphatase 50 Total Protein 5.7 L Albumin 3.5 L Globulin 2.2 Albumin/Globulin Ratio 1.6 Crossmatch See Detail 05/11/17 05/11/17 05/11/17 12:13 17:04 20:53 WBC RBC Hgb Hct MCV MCH MCHC Differential RDW Plt Count MPV Neutrophils % Lymphocytes % Monocytes % Eosinophils % Basophils % Sodium Potassium Chloride Carbon Dioxide Anion Gap BUN Creatinine Est GFR ( Amer) Est GFR (Non-Af Amer) BUN/Creatinine Ratio Glucose POC Glucose 130 H 241 H 232 H Calcium Total Bilirubin Direct Bilirubin AST ALT Alkaline Phosphatase Total Protein Albumin Globulin Albumin/Globulin Ratio Crossmatch 05/12/17 05/12/17 05/12/17 05:35 05:35 06:41 WBC 8.3 RBC 3.09 L Hgb 9.8 L Hct 29.0 L MCV 93.7 MCH 31.6 H MCHC Differential 33.8 RDW 18.1 Plt Count 88 L MPV 8.2 Neutrophils % 83.1 H Lymphocytes % 8.9 L Monocytes % 7.2 Eosinophils % 0.7 Basophils % 0.1 Sodium 133 L Potassium 3.7 Chloride 102 Carbon Dioxide 25.5 Anion Gap 9.2 BUN 14 Creatinine 0.6 L Est GFR ( Amer) > 60.0 Est GFR (Non-Af Amer) > 60.0 BUN/Creatinine Ratio 23.3 Glucose 178 H POC Glucose 144 H Calcium 8.4 L Total Bilirubin 1.2 H Direct Bilirubin AST 13 ALT 32 Alkaline Phosphatase 51 Total Protein 5.3 L Albumin 3.2 L Globulin 2.1 Albumin/Globulin Ratio 1.5 Crossmatch Hospital Course: Vu presented to emergency room for evaluation of cough congestion shortness of breath for last 2 weeks. Patient did take outpatient antibiotic and cough syrup with no improvement. Patient was evaluated and subsequently admitted to the hospital for further treatment. Please refer to my H&P for further information. Patient was admitted to telemetry unit. Patient was given oxygen, nebulizer treatment, IV steroid, IV antibiotic along with pulmonary consultation. All his medication were reconciled . Patient was given general nursing care along with symptoms management and medication management. Patient was slowly improving with the treatment plan provided by myself and manager assisted living. Patient was noted to have a thrombocytopenia with history of follicular lymphoma patient was seen by nylon machine operator as well. During the stay in the hospital patient was complaining of her right hip pain and unable to walk which was sudden in onset. According to patient he twisted his right hip. Due to that patient did go for CT scan of hips. Which did reveal patient had a Psoas muscle hemorrhage. Patient did drop his hemoglobin and required blood transfusion. Patient's platelets was also dropping which required platelet transfusion as well. Patient's hospital course was lengthened due to persistent dropping off his hemoglobin along with persistent platelet dysfunction. Once patient is stabilized and his hemoglobin remained stable decision was made that patient can be discharged home. I did discuss with patient in length about his underlying diagnosis and treatment plan. His all chronic disease were managed while he was in the hospital. His steroid doses were decreased and subsequently switched to p.o. prednisone. Upon discharge patient was given prescription of prednisone 10 mg twice daily for 5 days along with Ceftin 500 mg twice daily for 7 days patient should take Phenargan-DM 5 cc p.o. every 6 hours as needed for cough congestion and Ventolin inhaler 2 puffs 4 times a day as needed. Patient is advised to see his primary care physician in 1 week. If his symptoms gets worse patient should go to emergency room or call 911. At the time of discharge all of his medications are reconciled. Condition at Discharge: Stable Disposition: PT DISCHARGED HOME Home Medications: Home Medication Medication Instructions Recorded Type Atorvastatin Calcium [Lipitor] 40 mg PO DAILY 04/27/17 History Carisoprodol [Soma] 350 mg PO BID PRN 04/27/17 History Carvedilol [Coreg] 12.5 mg PO BID 04/27/17 History Cholecalciferol (Vit D3) [Vitamin 1,000 unit PO BID 04/27/17 History D3] Finasteride [Proscar*] 5 mg PO HS 04/27/17 History Furosemide 40 mg PO DAILY 04/27/17 History Glucosamine Sulfate Dipot Chlr 1,500 mg PO BID 04/27/17 History [Glucosamine] Isosorbide Mononitrate [Isosorbide 60 mg PO DAILY 04/27/17 History Mononitrate ER] Lisinopril 40 mg PO BID 04/27/17 History Multivitamin [Multivitamins] 1 sgl PO DAILY 04/27/17 History Oxycodone HCl 15 mg PO TID PRN 04/27/17 History Tamsulosin [Flomax] 0.4 mg PO HS 04/27/17 History Acetaminophen [Tylenol] 650 mg PO Q6H PRN tab 05/12/17 Rx Albuterol [Ventolin*] 2 mg PO QID tab 05/12/17 Rx Albuterol/Ipratropium Neb [Duoneb 3 ml HHN [id number] #0 aers 05/12/17 Rx Neb] Azithromycin [Zithromax] 250 mg PO DAILY tab 05/12/17 Rx Budesonide [Pulmicort] 1 mg HHN BIDRT ud 05/12/17 Rx Codeine/Promethazine Susp 5 ml PO Q6H PRN udc 05/12/17 Rx [Phenergan W/Cod*] Codeine/Promethazine Susp 5 ml PO Q6H PRN udc 05/12/17 Rx [Phenergan W/Cod*] Famotidine [Pepcid] 40 mg PO HS tab 05/12/17 Rx Guaifenesin DM [Robitussin DM] 5 ml PO Q6HR PRN udc 05/12/17 Rx Insulin Aspart Sliding Scale See Protocol SUBQ ACHS unit 05/12/17 Rx [NovoLOG INSULIN SLIDING SCALE] Nitroglycerin [Nitrostat*] 0.4 mg SL Q5MIN PRN tab 05/12/17 Rx Ondansetron HCl [Zofran*] 4 mg IVP Q6H PRN vial 05/12/17 Rx Pantoprazole [Protonix] 40 mg PO DAILY ect 05/12/17 Rx Zolpidem Tartrate [Ambien] 5 mg PO HS PRN tab 05/12/17 Rx predniSONE [Deltasone] 10 mg PO BID tab 05/12/17 Rx predniSONE [Deltasone] 10 mg PO BID tab 05/12/17 Rx Inpatient Medications: Current Medications Acetaminophen (Tylenol) 650 mg PO Q6H PRN PRN Reason: Mild Pain/Headache/T above 101 Stop: 06/26/17 21:24 Last Admin: 05/11/17 20:51 Dose: 650 mg Albuterol/Ipratropium (Duoneb Neb) 3 ml HHN Q2H PRN PRN Reason: Wheezing Stop: 06/26/17 21:29 Last Admin: 05/10/17 23:55 Dose: 3 ml Albuterol/Ipratropium (Duoneb Neb) 3 ml HHN [id number] CHHAYA Stop: 06/27/17 18:59 Last Admin: 05/12/17 06:41 Dose: 3 ml Atorvastatin Calcium (Lipitor) 40 mg PO DAILY CHHAYA Stop: 06/27/17 08:59 Last Admin: 05/11/17 10:19 Dose: Not Given Budesonide (Pulmicort) 1 mg HHN BIDRT [facility]AYA Stop: 06/27/17 16:59 Last Admin: 05/12/17 06:40 Dose: 1 mg Carvedilol (Coreg) 12.5 mg PO BID CHHAYA Stop: 06/27/17 08:59 Last Admin: 05/11/17 17:10 Dose: 12.5 mg Cholecalciferol (Vitamin D3) 1,000 iu PO BID CHHAYA Stop: 06/27/17 08:59 Last Admin: 05/11/17 17:09 Dose: 1,000 iu Famotidine (Pepcid) 40 mg PO HS [facility]AYA Stop: 06/30/17 20:59 Last Admin: 05/11/17 20:49 Dose: 40 mg Finasteride (Proscar) 5 mg PO HS CHHAYA PRN Reason: Protocol Stop: 06/27/17 01:14 Last Admin: 05/11/17 20:51 Dose: 5 mg Furosemide (Lasix) 40 mg PO DAILY CH[facility]AYA Stop: 06/27/17 08:59 Last Admin: 05/11/17 10:20 Dose: Not Given Guaifenesin/Dextromethorphan (Robitussin Dm) 5 ml PO Q6HR PRN PRN Reason: Cough Stop: 06/27/17 01:21 Last Admin: 05/10/17 22:55 Dose: 5 ml Insulin Aspart (Novolog Insulin Sliding Scale) 0 units SUBQ ACHS CHHAYA PRN Reason: Protocol Stop: 06/28/17 16:29 Last Admin: 05/12/17 07:55 Dose: Not Given Isosorbide Mononitrate (Imdur) 60 mg PO DAILY [facility]AYA Stop: 06/27/17 08:59 Last Admin: 05/11/17 10:20 Dose: Not Given Lactobacillus Rhamnosus (Culturelle 15b) 1 each PO DAILY CH[facility]AYA Stop: 06/30/17 08:59 Last Admin: 05/11/17 10:21 Dose: Not Given Lactulose (Cephulac) 30 gm PO DAILY [facility]AYA Stop: 07/03/17 14:44 Last Admin: 05/11/17 10:21 Dose: Not Given Lisinopril (Zestril) 40 mg PO BID CH[facility]AYA Stop: 06/27/17 08:59 Last Admin: 05/11/17 17:09 Dose: 40 mg Miscellaneous (Vte Chemical Prophylaxis Screen/ Admission) 1 ea MC PRN PRN PRN Reason: PROTOCOL Stop: 06/27/17 14:14 Miscellaneous (Probiotic Screen) 1 ea MC PRN PRN PRN Reason: PROTOCOL Stop: 06/29/17 14:14 Montelukast Sodium (Singulair) 10 mg PO HS [facility]AYA Stop: 06/27/17 20:59 Last Admin: 05/11/17 20:51 Dose: 10 mg Multivitamins/Vitamin C (Theragran) 1 tab PO DAILY [facility]AYA Stop: 06/27/17 08:59 Last Admin: 05/11/17 10:21 Dose: Not Given Nitroglycerin (Nitrostat) 0.4 mg SL Q5MIN PRN PRN Reason: Chest Pain Stop: 06/29/17 09:44 Last Admin: 05/07/17 12:06 Dose: 0.4 mg Ondansetron HCl (Zofran) 4 mg IVP Q6H PRN PRN Reason: Nausea / Vomiting Stop: 06/26/17 21:24 Last Admin: 05/03/17 00:32 Dose: 4 mg Pantoprazole Sodium (Protonix) 40 mg PO DAILY [facility]AYA Stop: 07/02/17 08:59 Last Admin: 05/11/17 10:21 Dose: Not Given Prednisone (Deltasone) 10 mg PO BID [facility]AYA Stop: 07/10/17 10:59 Last Admin: 05/11/17 17:09 Dose: 10 mg Promethazine HCl/Codeine (Phenergan W/Cod Susp) 5 ml PO Q6H PRN PRN Reason: cough Stop: 07/08/17 14:16 Last Admin: 05/11/17 05:02 Dose: 5 ml Sodium Chloride (Saline Flush) 10 ml IV QSHIFT CHHAYA Stop: 06/27/17 07:59 Last Admin: 05/11/17 20:52 Dose: 10 ml Tamsulosin HCl (Flomax) 0.4 mg PO HS [facility]AYA Stop: 06/27/17 01:12 Last Admin: 05/11/17 20:49 Dose: 0.4 mg Zolpidem Tartrate (Ambien) 5 mg PO HS PRN PRN Reason: Insomnia Stop: 07/07/17 09:06 Last Admin: 05/11/17 20:50 Dose: 5 mg Consults and Follow-Up: CARLOS COREAS [Other] not on staff,PCP is [Primary Care Provider] - Instructions: Respiratory Failure, Bronchospasm, [id number]
--- NOTE | 2017-05-12 09:33 | General Progress Note ---
Subjective - Review of Systems Service Date: 05/12/17 Subjective: Patient is seen and examined. I am feeling better. I want to go home. Patient denies any chest pain, shortness of, palpitation, dizziness, nausea, vomiting, headache. Objective - Results Result Diagrams: 05/12/17 05:35 05/12/17 05:35 Recent Labs: Laboratory Last Values WBC 8.3 Th/cmm (4.8-10.8) 05/12/17 05:35 RBC 3.09 Mil/cmm (3.80-5.80) L 05/12/17 05:35 Hgb 9.8 gm/dL (12-16) L 05/12/17 05:35 Hct 29.0 % (41.0-60) L 05/12/17 05:35 MCV 93.7 fl (80-99) 05/12/17 05:35 MCH 31.6 pg (27.0-31.0) H 05/12/17 05:35 MCHC Differential 33.8 pg (28.0-36.0) 05/12/17 05:35 RDW 18.1 % (11.5-20.0) 05/12/17 05:35 Plt Count 88 Th/cmm (150-400) L 05/12/17 05:35 MPV 8.2 fl 05/12/17 05:35 Neutrophils % 83.1 % (40.0-80.0) H 05/12/17 05:35 Band Neutrophils % 4 % (0-10) 05/07/17 05:10 Lymphocytes % 8.9 % (20.0-50.0) L 05/12/17 05:35 Monocytes % 7.2 % (2.0-10.0) 05/12/17 05:35 Eosinophils % 0.7 % (0.0-5.0) 05/12/17 05:35 Basophils % 0.1 % (0.0-2.0) 05/12/17 05:35 Neutrophils (Manual) 87 % (40-80) H 05/10/17 06:00 Lymphocytes 7 % (20-50) L 05/10/17 06:00 Monocytes 6 % (2-10) 05/10/17 06:00 Eosinophils 1 % (0-5) 04/29/17 04:55 Hypochromia 1+ 03/08/18 05:10 Platelet Estimate SLIGHT DECREASED (NORMAL) 05/10/17 06:00 PT 9.9 SECONDS (9.5-11.5) 05/11/17 00:20 INR 0.95 (0.5-1.4) 05/11/17 00:20 PTT (Actin FS) 22.5 SECONDS (26.0-38.0) L 05/11/17 00:20 Specimen Source ARTERIAL 04/28/17 05:00 Sample Site Right Radial 04/28/17 05:00 pH 7.44 (7.35-7.45) 04/28/17 05:00 pCO2 35.0 mmHg (35.0-45.0) 04/28/17 05:00 pO2 74.0 mmHg (80.0-100.0) L 04/28/17 05:00 HCO3 24.9 mEq/L (20.0-26.0) 04/28/17 05:00 Base Excess 0.0 mEq/L (-3.0-3.0) 04/28/17 05:00 O2 Saturation 95.0 % (92.0-100.0) 04/28/17 05:00 Albin Test Positive 04/28/17 05:00 Vent Rate N/A 04/28/17 05:00 Inspired O2 21 04/28/17 05:00 Tidal Volume N/A 04/28/17 05:00 PEEP N/A 04/28/17 05:00 Pressure (ins/psv/peep) N/A 04/28/17 05:00 Critical Value [employer] COORDINATOR 04/28/17 05:00 Sodium 133 mEq/L (136-145) L 05/12/17 05:35 Potassium 3.7 mEq/L (3.5-5.1) 05/12/17 05:35 Chloride 102 mEq/L (98-107) 05/12/17 05:35 Carbon Dioxide 25.5 mEq/L (21.0-31.0) 05/12/17 05:35 Anion Gap 9.2 (7.0-16.0) 05/12/17 05:35 BUN 14 mg/dL (7-25) 05/12/17 05:35 Creatinine 0.6 mg/dL (0.7-1.3) L 05/12/17 05:35 Est GFR ( Amer) > 60.0 ml/min (>90) 05/12/17 05:35 Est GFR (Non-Af Amer) > 60.0 ml/min 05/12/17 05:35 BUN/Creatinine Ratio 23.3 05/12/17 05:35 Glucose 178 mg/dL (70-105) H 05/12/17 05:35 POC Glucose 144 MG/DL (70 - 105) H 05/12/17 06:41 Hemoglobin A1c % 6.9 % (4.0-6.0) H 04/29/17 04:55 Whole Bld Lactic Acid 1.72 mmol/L (0.60-1.99) 04/27/17 11:40 Calcium 8.4 mg/dL (8.6-10.3) L 05/12/17 05:35 Magnesium 2.6 mg/dL (1.9-2.7) 05/02/17 05:30 Total Bilirubin 1.2 mg/dL (0.3-1.0) H 05/12/17 05:35 Direct Bilirubin 0.30 mg/dL (0.0-0.2) H 05/11/17 09:15 AST 13 U/L (13-39) 05/12/17 05:35 ALT 32 U/L (7-52) 05/12/17 05:35 Alkaline Phosphatase 51 U/L (34-104) 05/12/17 05:35 Ammonia 30 umol/L (16-53) 05/04/17 11:40 Lactate Dehydrogenase 157 U/L (140-271) 04/28/17 05:33 Creatine Kinase 91 U/L (30-223) 04/27/17 11:40 Troponin I 0.01 ng/mL (0.01-0.05) 04/27/17 11:40 Total Protein 5.3 gm/dL (6.0-8.3) L 05/12/17 05:35 Albumin 3.2 gm/dL (4.2-5.5) L 05/12/17 05:35 Globulin 2.1 gm/dL 05/12/17 05:35 Albumin/Globulin Ratio 1.5 (1.0-1.8) 05/12/17 05:35 Amylase 30 U/L (29-103) 04/27/17 11:40 Lipase 15 U/L (11-82) 04/27/17 11:40 Vitamin B12 876 pg/mL (232-1245) 05/03/17 05:30 Folic Acid >20.0 ng/mL (>3.0) 05/03/17 05:30 Urine Source MIDSTREAM 04/27/17 13:50 Urine Color YELLOW 04/27/17 13:50 Urine Clarity CLEAR (CLEAR) 04/27/17 13:50 Urine pH 6.0 (4.6 - 8.0) 04/27/17 13:50 Ur Specific [place] 1.010 (1.005-1.030) 04/27/17 13:50 Urine Protein NEGATIVE mg/dL (NEGATIVE) 04/27/17 13:50 Urine Glucose (UA) NEGATIVE mg/dL (NEGATIVE) 04/27/17 13:50 Urine Ketones NEGATIVE mg/dL (NEGATIVE) 04/27/17 13:50 Urine Blood NEGATIVE (NEGATIVE) 04/27/17 13:50 Urine Nitrate NEGATIVE (NEGATIVE) 04/27/17 13:50 Urine Bilirubin NEGATIVE (NEGATIVE) 04/27/17 13:50 Urine Urobilinogen 0.2 E.U./dL (0.2 - 1.0) 04/27/17 13:50 Ur Leukocyte Esterase NEGATIVE (NEGATIVE) 04/27/17 13:50 Urine RBC 0-2 /hpf (0-5) H 04/27/17 13:50 Urine WBC NONE SEEN /hpf (0-5) 04/27/17 13:50 Ur Epithelial Cells RARE /lpf (FEW) 04/27/17 13:50 Urine Bacteria NONE SEEN /hpf (NONE SEEN) 04/27/17 13:50 Stool Occult Blood NEGATIVE (NEGATIVE) 05/11/17 08:40 Influenza A (Rapid) NEG FOR INF A 04/29/17 06:15 Influenza B (Rapid) NEG FOR INF B 04/29/17 06:15 Blood Type O POSITIVE 05/10/17 15:06 Antibody Screen NEGATIVE 05/10/17 15:06 Crossmatch See Detail 05/10/17 15:06 - Physical Exam Vitals and I&O: Vital Signs Temp 98.5 F 05/12/17 08:00 Pulse 70 05/12/17 08:00 Resp 18 03/13/18 08:00 BP 117/76 05/12/17 08:00 Pulse Ox 99 05/12/17 08:00 Intake & Output 05/11/17 05/12/17 05/12/17 18:59 06:59 18:59 Intake Total 760 400 Balance 760 400 Weight (lbs) 120.202 kg 120.202 kg Intake: Oral 760 400 Other: # Voids 4 1 # Bowel Movements 1 0 Stool Characteristics Formed Formed Active Medications: Current Medications Acetaminophen (Tylenol) 650 mg PO Q6H PRN PRN Reason: Mild Pain/Headache/T above 101 Stop: 06/26/17 21:24 Last Admin: 05/11/17 20:51 Dose: 650 mg Albuterol/Ipratropium (Duoneb Neb) 3 ml HHN Q2H PRN PRN Reason: Wheezing Stop: 06/26/17 21:29 Last Admin: 05/10/17 23:55 Dose: 3 ml Albuterol/Ipratropium (Duoneb Neb) 3 ml HHN [id number] [facility] Stop: 06/27/17 18:59 Last Admin: 05/12/17 06:41 Dose: 3 ml Atorvastatin Calcium (Lipitor) 40 mg PO DAILY CHHAYA Stop: 06/27/17 08:59 Last Admin: 05/11/17 10:19 Dose: Not Given Budesonide (Pulmicort) 1 mg HHN BIDRT [facility] Stop: 06/27/17 16:59 Last Admin: 05/12/17 06:40 Dose: 1 mg Carvedilol (Coreg) 12.5 mg PO BID CHHAYA Stop: 06/27/17 08:59 Last Admin: 05/11/17 17:10 Dose: 12.5 mg Cholecalciferol (Vitamin D3) 1,000 iu PO BID CHHYAA Stop: 06/27/17 08:59 Last Admin: 05/11/17 17:09 Dose: 1,000 iu Famotidine (Pepcid) 40 mg PO HS [facility] Stop: 06/30/17 20:59 Last Admin: 05/11/17 20:49 Dose: 40 mg Finasteride (Proscar) 5 mg PO HS CHHAYA PRN Reason: Protocol Stop: 06/27/17 01:14 Last Admin: 05/11/17 20:51 Dose: 5 mg Furosemide (Lasix) 40 mg PO DAILY CH[facility]AYA Stop: 06/27/17 08:59 Last Admin: 05/11/17 10:20 Dose: Not Given Guaifenesin/Dextromethorphan (Robitussin Dm) 5 ml PO Q6HR PRN PRN Reason: Cough Stop: 06/27/17 01:21 Last Admin: 05/10/17 22:55 Dose: 5 ml Insulin Aspart (Novolog Insulin Sliding Scale) 0 units SUBQ ACHS CHHAYA PRN Reason: Protocol Stop: 06/28/17 16:29 Last Admin: 05/12/17 07:55 Dose: Not Given Isosorbide Mononitrate (Imdur) 60 mg PO DAILY [facility]A Stop: 06/27/17 08:59 Last Admin: 05/11/17 10:20 Dose: Not Given Lactobacillus Rhamnosus (Culturelle 15b) 1 each PO DAILY [facility]AYA Stop: 06/30/17 08:59 Last Admin: 05/11/17 10:21 Dose: Not Given Lactulose (Cephulac) 30 gm PO DAILY [facility] Stop: 07/03/17 14:44 Last Admin: 05/11/17 10:21 Dose: Not Given Lisinopril (Zestril) 40 mg PO BID [facility]AYA Stop: 06/27/17 08:59 Last Admin: 05/11/17 17:09 Dose: 40 mg Miscellaneous (Vte Chemical Prophylaxis Screen/ Admission) 1 ea MC PRN PRN PRN Reason: PROTOCOL Stop: 06/27/17 14:14 Miscellaneous (Probiotic Screen) 1 ea PRN PRN PRN Reason: PROTOCOL Stop: 06/29/17 14:14 Montelukast Sodium (Singulair) 10 mg PO HS CH[facility]AYA Stop: 06/27/17 20:59 Last Admin: 05/11/17 20:51 Dose: 10 mg Multivitamins/Vitamin C (Theragran) 1 tab PO DAILY [facility]AYA Stop: 06/27/17 08:59 Last Admin: 05/11/17 10:21 Dose: Not Given Nitroglycerin (Nitrostat) 0.4 mg SL Q5MIN PRN PRN Reason: Chest Pain Stop: 06/29/17 09:44 Last Admin: 05/07/17 12:06 Dose: 0.4 mg Ondansetron HCl (Zofran) 4 mg IVP Q6H PRN PRN Reason: Nausea / Vomiting Stop: 06/26/17 21:24 Last Admin: 05/03/17 00:32 Dose: 4 mg Pantoprazole Sodium (Protonix) 40 mg PO DAILY CH[facility]AYA Stop: 07/02/17 08:59 Last Admin: 05/11/17 10:21 Dose: Not Given Prednisone (Deltasone) 10 mg PO BID CHHAYA Stop: 07/10/17 10:59 Last Admin: 05/11/17 17:09 Dose: 10 mg Promethazine HCl/Codeine (Phenergan W/Cod Susp) 5 ml PO Q6H PRN PRN Reason: cough Stop: 07/08/17 14:16 Last Admin: 05/11/17 05:02 Dose: 5 ml Sodium Chloride (Saline Flush) 10 ml IV QSHIFT CHHAYA Stop: 06/27/17 07:59 Last Admin: 05/11/17 20:52 Dose: 10 ml Tamsulosin HCl (Flomax) 0.4 mg PO HS [facility]AYA Stop: 06/27/17 01:12 Last Admin: 05/11/17 20:49 Dose: 0.4 mg Zolpidem Tartrate (Ambien) 5 mg PO HS PRN PRN Reason: Insomnia Stop: 07/07/17 09:06 Last Admin: 05/11/17 20:50 Dose: 5 mg General: Alert, Oriented x3, Cooperative HEENT: Atraumatic, PERRLA, EOMI Neck: Supple, JVD Cardiovascular: Regular rate, Normal S1, Normal S2 Lungs: Clear to auscultation Abdomen: Bowel sounds, Soft, Other (hematoma in right lower quad) Extremities: Other (hip pain limits evaluation.) Neurological: Normal gait, Normal speech, Strength at 5/5 X4 ext, Sensation intact, Cranial nerves 3-12 NL, Reflexes 2+ Psych/Mental Status: Mental status NL - Procedures Procedures: Procedures Procedure Code Date BLOOD TRANSFUSION SERVICE 02096 04/27/17 DOPPLER COLOR FLOW ADD-ON 57696 06/21/00 DOPPLER ECHO EXAM HEART 18632 06/21/00 DX ULTRASOUND-HEART 88.72 06/21/00 TRANSFUSE NONAUT PLATELETS IN PERIPH VEIN, PERC 98978H9 04/27/17 TTE W/O DOPPLER COMPLETE 20703 06/21/00 Assessment/Plan - Assessment Assessment: COPD exacerbation better. CAD HTN Chronic pain syndrome Thrombocytopenia. DJD Acute hemorrhagic anemia status post blood transfusion. R hip pain Secondary Psoas muscle hemorrhage. Hyperlipedemia. BPH. Hx of lymphoma. Debility - Plan Plan: Discharge patient to home. C TASHA done. MAR reconsult. Discharge summary dictated. Nutritional Asmnt/Malnutr-PDOC - Dietary Evaluation Malnutrition Findings (Please click <Entered> for more info): Nutritional Asmnt/Malnutrition Start: 05/02/17 15: 16 Text: Status: Complete Freq: Document 05/02/17 15:17 MMULHERN (Rec: 05/02/17 15:39 [email or web address] GI- FN) Nutritional Asmnt/Malnutrition Patient General Information Nutritional Screening Moderate Risk Diagnosis Respiratory failure, broncospasm Pertinent Medical Hx/Surgical Hx Hypertension, CAD, asthma, COPD, hyperlipidemia, Non- hodgkin's lymphoma, DJD, chronic pain syndrome, hx of appendectomy and gallbladder surgery along with coronary artery bypass graft. Subjective Information Patient tolerating current diet order. Current Diet Order/ Nutrition Support Regular Patient / S.O Not Indicated Pertinent Medications lipitor, abx, vitamin D3, pepcid, lasix, novolog, solu- medrol, Theragran, zofran, protonix Pertinent Labs (05/02) K 3.4, Glucose 144-303, A1C 6.9, albumin 3.9 Nutritional Hx/Data Height 1.7 m Height (Calculated Centimeters) 170.2 Current Weight (lbs) 113.852 kg Weight (Calculated Kilograms) 113.9 Weight (Calculated Grams) 683768.7 Atlas Body Weight 148 % Atlas Body Weight 169 Body Mass Index (BMI) 39.3 Recent Weight Change No Weight Status Obese GI Symptoms GI Symptoms None Last BM 04/30 x 1 Difficult in: None Food Allergies No Cultural/Ethnic/Jewish Belief None indicated Usual diet at home unknown Skin Integrity/Comment: Eric 18, 1+ edema, skin tear /abrasion on right and left foot Current %PO Good (75-100%) Estimated Nutritional Goals BEE in Kcals: Adj wt of IBW Calories/Kcals/Kg 173lb/79kg Adj wt 25-30 kcal/ kg Kcals Calculated 2727-7904 kcal/day Protein: Adj wt of IBW Protein g/k-1.2 gm/kg Protein Calculated 80-95gm/day Fluid: ml 4095-0781 ml/day (1 ml/kcal) Nutritional Problem 1. Problem Problem Altered nutrition related lab values related to Etiology hyperglycemia, electrolyte imbalance aeb Signs/Symptoms: K 3.4, Glucose 144-303 Intervention/Recommendation Comments 1. Consider modifying diet to 75gm CCHO for better blood glucose control. 2. Liberalize potassium intake , supplementation per MD Expected Outcomes/Goals Expected Outcomes/Goals oral intake to meet >75% of nutrient needs, weight trends toard ideal body weight, nutrition related labs WNL F/U in 3-5 days MR 3/-8
[2017-05-12] MEDS: Lactulose 10 Gm/15 mL 30mL UDC PO SCH (10:24)
[2017-05-12] MEDS: Lactobacillus Rhamnosus GG 15 Billion CFU CAP.SPRINK PO SCH (10:26)
[2017-05-12] MEDS: Pantoprazole 40 mg EC Tab PO SCH (10:26)
[2017-05-12] MEDS: Multivitamin Tab PO SCH (10:28)
[2017-05-12] MEDS ORDERED: Codeine/Promethazine Susp 5 mL UDC PO PRN (11:14)
--- NOTE | 2017-05-12 16:01 | General Progress Note ---
Subjective - Review of Systems Service Date: 05/12/17 Subjective: intermittent abd pain less cough overall better Objective - Results Result Diagrams: 05/12/17 05:35 05/12/17 05:35 Recent Labs: Laboratory Last Values WBC 8.3 Th/cmm (4.8-10.8) 05/12/17 05:35 RBC 3.09 Mil/cmm (3.80-5.80) L 05/12/17 05:35 Hgb 9.8 gm/dL (12-16) L 05/12/17 05:35 Hct 29.0 % (41.0-60) L 05/12/17 05:35 MCV 93.7 fl (80-99) 05/12/17 05:35 MCH 31.6 pg (27.0-31.0) H 05/12/17 05:35 MCHC Differential 33.8 pg (28.0-36.0) 05/12/17 05:35 RDW 18.1 % (11.5-20.0) 05/12/17 05:35 Plt Count 88 Th/cmm (150-400) L 05/12/17 05:35 MPV 8.2 fl 05/12/17 05:35 Neutrophils % 83.1 % (40.0-80.0) H 05/12/17 05:35 Band Neutrophils % 4 % (0-10) 05/07/17 05:10 Lymphocytes % 8.9 % (20.0-50.0) L 05/12/17 05:35 Monocytes % 7.2 % (2.0-10.0) 05/12/17 05:35 Eosinophils % 0.7 % (0.0-5.0) 05/12/17 05:35 Basophils % 0.1 % (0.0-2.0) 05/12/17 05:35 Neutrophils (Manual) 87 % (40-80) H 05/10/17 06:00 Lymphocytes 7 % (20-50) L 05/10/17 06:00 Monocytes 6 % (2-10) 05/10/17 06:00 Eosinophils 1 % (0-5) 04/29/17 04:55 Hypochromia 1+ 05/07/17 05:10 Platelet Estimate SLIGHT DECREASED (NORMAL) 05/10/17 06:00 PT 9.9 SECONDS (9.5-11.5) 05/11/17 00:20 INR 0.95 (0.5-1.4) 05/11/17 00:20 PTT (Actin FS) 22.5 SECONDS (26.0-38.0) L 05/11/17 00:20 Specimen Source ARTERIAL 04/28/17 05:00 Sample Site Right Radial 04/28/17 05:00 pH 7.44 (7.35-7.45) 04/28/17 05:00 pCO2 35.0 mmHg (35.0-45.0) 04/28/17 05:00 pO2 74.0 mmHg (80.0-100.0) L 04/28/17 05:00 HCO3 24.9 mEq/L (20.0-26.0) 04/28/17 05:00 Base Excess 0.0 mEq/L (-3.0-3.0) 04/28/17 05:00 O2 Saturation 95.0 % (92.0-100.0) 04/28/17 05:00 Albin Test Positive 04/28/17 05:00 Vent Rate N/A 04/28/17 05:00 Inspired O2 21 04/28/17 05:00 Tidal Volume N/A 04/28/17 05:00 PEEP N/A 04/28/17 05:00 Pressure (ins/psv/peep) N/A 04/28/17 05:00 Critical Value CARD WRITER HAND 04/28/17 05:00 Sodium 133 mEq/L (136-145) L 05/12/17 05:35 Potassium 3.7 mEq/L (3.5-5.1) 05/12/17 05:35 Chloride 102 mEq/L (98-107) 05/12/17 05:35 Carbon Dioxide 25.5 mEq/L (21.0-31.0) 05/12/17 05:35 Anion Gap 9.2 (7.0-16.0) 05/12/17 05:35 BUN 14 mg/dL (7-25) 05/12/17 05:35 Creatinine 0.6 mg/dL (0.7-1.3) L 05/12/17 05:35 Est GFR ( Amer) > 60.0 ml/min (>90) 05/12/17 05:35 Est GFR (Non-Af Amer) > 60.0 ml/min 05/12/17 05:35 BUN/Creatinine Ratio 23.3 05/12/17 05:35 Glucose 178 mg/dL (70-105) H 05/12/17 05:35 POC Glucose 144 MG/DL (70 - 105) H 05/12/17 06:41 Hemoglobin A1c % 6.9 % (4.0-6.0) H 04/29/17 04:55 Whole Bld Lactic Acid 1.72 mmol/L (0.60-1.99) 04/27/17 11:40 Calcium 8.4 mg/dL (8.6-10.3) L 05/12/17 05:35 Magnesium 2.6 mg/dL (1.9-2.7) 05/02/17 05:30 Total Bilirubin 1.2 mg/dL (0.3-1.0) H 05/12/17 05:35 Direct Bilirubin 0.30 mg/dL (0.0-0.2) H 05/11/17 09:15 AST 13 U/L (13-39) 05/12/17 05:35 ALT 32 U/L (7-52) 05/12/17 05:35 Alkaline Phosphatase 51 U/L (34-104) 05/12/17 05:35 Ammonia 30 umol/L (16-53) 05/04/17 11:40 Lactate Dehydrogenase 157 U/L (140-271) 04/28/17 05:33 Creatine Kinase 91 U/L (30-223) 04/27/17 11:40 Troponin I 0.01 ng/mL (0.01-0.05) 04/27/17 11:40 Total Protein 5.3 gm/dL (6.0-8.3) L 05/12/17 05:35 Albumin 3.2 gm/dL (4.2-5.5) L 05/12/17 05:35 Globulin 2.1 gm/dL 05/12/17 05:35 Albumin/Globulin Ratio 1.5 (1.0-1.8) 05/12/17 05:35 Amylase 30 U/L (29-103) 04/27/17 11:40 Lipase 15 U/L (11-82) 04/27/17 11:40 Vitamin B12 876 pg/mL (232-1245) 05/03/17 05:30 Folic Acid >20.0 ng/mL (>3.0) 05/03/17 05:30 Urine Source MIDSTREAM 04/27/17 13:50 Urine Color YELLOW 04/27/17 13:50 Urine Clarity CLEAR (CLEAR) 04/27/17 13:50 Urine pH 6.0 (4.6 - 8.0) 04/27/17 13:50 Ur Specific Hasty 1.010 (1.005-1.030) 04/27/17 13:50 Urine Protein NEGATIVE mg/dL (NEGATIVE) 04/27/17 13:50 Urine Glucose (UA) NEGATIVE mg/dL (NEGATIVE) 04/27/17 13:50 Urine Ketones NEGATIVE mg/dL (NEGATIVE) 04/27/17 13:50 Urine Blood NEGATIVE (NEGATIVE) 04/27/17 13:50 Urine Nitrate NEGATIVE (NEGATIVE) 04/27/17 13:50 Urine Bilirubin NEGATIVE (NEGATIVE) 04/27/17 13:50 Urine Urobilinogen 0.2 E.U./dL (0.2 - 1.0) 04/27/17 13:50 Ur Leukocyte Esterase NEGATIVE (NEGATIVE) 04/27/17 13:50 Urine RBC 0-2 /hpf (0-5) H 04/27/17 13:50 Urine WBC NONE SEEN /hpf (0-5) 04/27/17 13:50 Ur Epithelial Cells RARE /lpf (FEW) 04/27/17 13:50 Urine Bacteria NONE SEEN /hpf (NONE SEEN) 04/27/17 13:50 Stool Occult Blood NEGATIVE (NEGATIVE) 05/11/17 08:40 Influenza A (Rapid) NEG FOR INF A 04/29/17 06:15 Influenza B (Rapid) NEG FOR INF B 04/29/17 06:15 Blood Type O POSITIVE 05/10/17 15:06 Antibody Screen NEGATIVE 05/10/17 15:06 Crossmatch See Detail 05/10/17 15:06 - Physical Exam Vitals and I&O: Vital Signs Temp 98.4 F 05/12/17 11:51 Pulse 96 05/12/17 11:51 Resp 18 05/12/17 11:51 BP 129/69 05/12/17 11:51 Pulse Ox 98 05/12/17 11:51 Intake & Output 03/02/1605/12/17 05/12/17 18:59 06:59 18:59 Intake Total 760 400 400 Balance 760 400 400 Weight (lbs) 120.202 kg 120.202 kg 120.202 kg Intake: Oral 760 400 400 Other: # Voids 4 1 1 # Bowel Movements 1 0 0 Stool Characteristics Formed Formed Formed General: Alert, Oriented x3, Cooperative HEENT: Atraumatic, PERRLA, EOMI Neck: Supple, JVD Cardiovascular: Regular rate, Normal S1, Normal S2 Lungs: Clear to auscultation Abdomen: Bowel sounds, Soft, Other (hematoma in right lower quad) Extremities: Other (hip pain limits evaluation.) Neurological: Normal gait, Normal speech, Strength at 5/5 X4 ext, Sensation intact, Cranial nerves 3-12 NL, Reflexes 2+ Psych/Mental Status: Mental status NL - Procedures Procedures: Procedures Procedure Code Date BLOOD TRANSFUSION SERVICE 73494 04/27/17 DOPPLER COLOR FLOW ADD-ON 72836 06/21/00 DOPPLER ECHO EXAM HEART 68228 06/21/00 DX ULTRASOUND-HEART 88.72 06/21/00 TRANSFUSE NONAUT PLATELETS IN PERIPH VEIN, PERC 47325X0 04/27/17 TTE W/O DOPPLER COMPLETE 43829 06/21/00 Assessment/Plan - Assessment Assessment: * h/o follicular lymphoma * Pneumonitis * Thrombocytopenia most likely following chemotherapy bone marrow suppression * psoas muscle bleeding * Likely platelet dysfunction sec to asa and plavix; now off asa and plavix Transfuse platelets for platelet dysfunction and bleeding 05/06: S/P plt transfusion for plt dysfunction; hgb continues to fall; Monitor plt for now 05/07: hgb stable today. plt are stable. No clinical bleeding; monitor cbc 05/08: hgb lower; transfuse; plt falling , transfuse for platelet dysfunction and continued bleeding based on CT 05/07 05/09: hgb stable; awaiting platelet transfusion today for plt dysfunction. Monitor cbc. Overall feels better 05/10: hgb is slightly lower. transfuse one unit. s./p plt tx for plt dysfunction. Monitor cbc 05/11: s/p transfusion; hgb and plt ok. monitor for now 05/12: stable from on[facility] stand point. chanelle Abbott. ok for outpt follow up Nutritional Asmnt/Malnutr-PDOC - Dietary Evaluation Malnutrition Findings (Please click <Entered> for more info): Nutritional Asmnt/Malnutrition Start: 05/02/17 15: 16 Text: Status: Complete Freq: Document 05/02/17 15:17 [email or web address] (Rec: 05/02/17 15:39 [id number]) Nutritional Asmnt/Malnutrition Patient General Information Nutritional Screening Moderate Risk Diagnosis Respiratory failure, broncospasm Pertinent Medical Hx/Surgical Hx Hypertension, CAD, asthma, COPD, hyperlipidemia, Non- hodgkin's lymphoma, DJD, chronic pain syndrome, hx of appendectomy and gallbladder surgery along with coronary artery bypass graft. Subjective Information Patient tolerating current diet order. Current Diet Order/ Nutrition Support Regular Patient / S.O Not Indicated Pertinent Medications lipitor, abx, vitamin D3, pepcid, lasix, novolog, solu- medrol, Theragran, zofran, protonix Pertinent Labs (05/02) K 3.4, Glucose 144-303, A1C 6.9, albumin 3.9 Nutritional Hx/Data Height 1.7 m Height (Calculated Centimeters) 170.2 Current Weight (lbs) 113.852 kg Weight (Calculated Kilograms) 113.9 Weight (Calculated Grams) 285960.7 [place] Body Weight 148 % [place] Body Weight 169 Body Mass Index (BMI) 39.3 Recent Weight Change No Weight Status Obese GI Symptoms GI Symptoms None Last BM 04/30 x 1 Difficult in: None Food Allergies No Cultural/Ethnic/Quaker Belief None indicated Usual diet at home unknown Skin Integrity/Comment: Eric 18, 1+ edema, skin tear /abrasion on right and left foot Current %PO Good (75-100%) Estimated Nutritional Goals BEE in Kcals: Adj wt of IBW Calories/Kcals/Kg 173lb/79kg Adj wt 25-30 kcal/ kg Kcals Calculated 4523-4541 kcal/day Protein: Adj wt of IBW Protein g/k-1.2 gm/kg Protein Calculated 80-95gm/day Fluid: ml 3730-1959 ml/day (1 ml/kcal) Nutritional Problem 1. Problem Problem Altered nutrition related lab values related to Etiology hyperglycemia, electrolyte imbalance aeb Signs/Symptoms: K 3.4, Glucose 144-303 Intervention/Recommendation Comments 1. Consider modifying diet to 75gm CCHO for better blood glucose control. 2. Liberalize potassium intake , supplementation per MD Expected Outcomes/Goals Expected Outcomes/Goals oral intake to meet >75% of nutrient needs, weight trends toard ideal body weight, nutrition related labs WNL F/U in 3-5 days MR 05/05-8
== END 2017-05-12 12:15 | disposition home or self-care (01) | DRG 871 ==
LOC: ER 11:31 → TELE 21:20 → MSI 05-03 14:29
PROVIDERS: ADMIT Internal Medicine; ATTEND Internal Medicine
PROC: 3E0234Z Introduction of Serum, Toxoid and Vaccine into Muscle, Percutaneous Approach (ICD-10-PCS; 2017-04-28)
PROC: 30233N1 Transfusion of Nonautologous Red Blood Cells into Peripheral Vein, Percutaneous Approach (ICD-10-PCS; 2017-05-05)
PROC: 30233R1 Transfusion of Nonautologous Platelets into Peripheral Vein, Percutaneous Approach (ICD-10-PCS; principal; 2017-05-08)
DX: A41.9 Sepsis, unspecified organism (principal); J18.9 Pneumonia, unspecified organism; J96.00 Acute respiratory failure, unspecified whether with hypoxia or hypercapnia; I11.0 Hypertensive heart disease with heart failure; D69.1 Qualitative platelet defects; D69.59 Other secondary thrombocytopenia; I50.9 Heart failure, unspecified; J44.1 Chronic obstructive pulmonary disease with (acute) exacerbation; E66.2 Morbid (severe) obesity with alveolar hypoventilation; D62 Acute posthemorrhagic anemia; E11.9 Type 2 diabetes mellitus without complications; G89.4 Chronic pain syndrome; J20.9 Acute bronchitis, unspecified; T45.1X5A Adverse effect of antineoplastic and immunosuppressive drugs, initial encounter; J30.9 Allergic rhinitis, unspecified; N40.0 Benign prostatic hyperplasia without lower urinary tract symptoms; E78.5 Hyperlipidemia, unspecified; M19.90 Unspecified osteoarthritis, unspecified site; M62.89 Other specified disorders of muscle; K21.9 Gastro-esophageal reflux disease without esophagitis; T45.515A Adverse effect of anticoagulants, initial encounter; I25.10 Atherosclerotic heart disease of native coronary artery without angina pectoris; Z85.72 Personal history of non-Hodgkin lymphomas; Z95.1 Presence of aortocoronary bypass graft; Z68.39 Body mass index [BMI] 39.0-39.9, adult; Z90.49 Acquired absence of other specified parts of digestive tract; Y92.89 Other specified places as the place of occurrence of the external cause; Z92.21 Personal history of antineoplastic chemotherapy; Z79.899 Other long term (current) drug therapy; Z83.3 Family history of diabetes mellitus; Z82.49 Family history of ischemic heart disease and other diseases of the circulatory system; Z87.891 Personal history of nicotine dependence; Z95.5 Presence of coronary angioplasty implant and graft; Z86.73 Personal history of transient ischemic attack (TIA), and cerebral infarction without residual deficits; Z92.3 Personal history of irradiation; Z23 Encounter for immunization; I25.2 Old myocardial infarction
CPT/HCPCS: 36415-UA; 36600-90; 71045-TC; 71250-TC; 72192-TC; 76700-TC; 80053-TC; 80076-TC; 81001-TC; 82140-TC; 82150-TC; 82270-TC; 82550-TC; 82607-90; 82746-90; 82803-TC; 82948-90; 83010-90; 83036-90; 83605; 83615-TC; 83690-TC; 83735-TC; 84484-TC; 85007-TC; 85025-TC; 85027-TC; 85610-TC; 85730-TC; 86850-TC; 86900-TC; 86901-TC; 86922-TC; 87804-TC; 93005; 93307-TC; 94640; 94660; 94760; 96375; J0456; J1644; J1650; J1815; J1885; J1956; J2270; J2405; J2920; J2930; J7030; J7040; P9016; P9035; P9037; Z7610